=== PATIENT | female | born 1960 | race Hispanic/Latino ===

== ENCOUNTER 2018-12-09 15:26 | Inpatient (IN) | payer MEDICARE ==
[2018-12-09 17:17] LABS: Hematocrit 34.3 % (30.3-42.9); Hemoglobin 11.3 gm/dl (10.1-14.3); Mean Corpuscular HGB Conc 33 % (30-34); Mean Corpuscular Volume 95 fl (79-97); Platelet Count 239 K/mm3 (140-440); Red Cell Distribution Width 14.2 % (13.2-15.2)
[2018-12-09] MEDS ORDERED: levETIRAcetam 1000 MG/NS 0.75% 1,000 MG/100 ML BAG IV ONE (17:28)
[2018-12-09] MEDS ORDERED: ONDANSETRON 4 MG/2 ML INJ IV ONE (17:28)
--- NOTE | 2018-12-09 17:33 | Emergency Department Report ---
HPI - General Chief Complaint: Seizure Time Seen by Provider: 12/09/18 17:18 - HPI HPI: Room 22 The patient is a 57-year-old female presenting with chief complaint of seizure. The patient states she was at the store purchasing water when she reportedly had a seizure. The patient reportedly struck her head during her fall. The patient states she awakened on the ground with EMS present. Patient states she's been compliant with her Keppra. Patient states her last seizure occurred 2 days ago. Location: [See above] Duration: [See above] Quality: [See above] Severity: [See above] Timing: [See above] Context: [See above] Modifying factors: [See above] Associated signs and symptoms: [see above] ED Past Medical Hx - Past Medical History Previous Medical History?: Yes Hx Seizures: Yes - Surgical History Hx Cholecystectomy: Yes Additional Surgical History: Hysterectomy - Family History Family history: no significant - Social History Smoking Status: Never Smoker Substance Use Type: None ED Review of Systems ROS: Stated complaint: SEIZURE Other details as noted in HPI Constitutional: no symptoms reported Eyes: denies: eye pain ENT: denies: throat pain Respiratory: no symptoms reported Cardiovascular: denies: chest pain Endocrine: no symptoms reported Gastrointestinal: nausea Musculoskeletal: denies: back pain Neurological: headache, paresthesias Physical Exam - Physical Exam Vital Signs: Vital Signs 12/09/18 12/09/18 15:40 16:34 Temperature 98.5 F 98.5 F Pulse Rate 64 64 Respiratory 16 16 Rate Blood Pressure 112/36 Blood Pressure 112/36 [Left] O2 Sat by Pulse 96 96 Oximetry Physical Exam: GENERAL: The patient is well-developed well-nourished female lying on stretcher not appearing to be in acute distress. [] HEENT: Normocephalic. Atraumatic. Extraocular motions are intact. Patient has moist mucous membranes. NECK: Supple. Trachea midline CHEST/LUNGS: Clear to auscultation. There is no respiratory distress noted. HEART/CARDIOVASCULAR: Regular. There is no tachycardia. There is no gallop rub or murmur. ABDOMEN: Abdomen is soft, nontender. Patient has normal bowel sounds. There is no abdominal distention. SKIN: There is no rash. There is no edema. There is no diaphoresis. NEURO: The patient is awake, alert, and oriented. The patient is cooperative. The patient has no focal neurologic deficits. The patient has normal speech. Cranial nerves II-12 grossly intact MUSCULOSKELETAL: There is no evidence of acute injury. ED Course Vital Signs 12/09/18 12/09/18 15:40 16:34 Temperature 98.5 F 98.5 F Pulse Rate 64 64 Respiratory 16 16 Rate Blood Pressure 112/36 Blood Pressure 112/36 [Left] O2 Sat by Pulse 96 96 Oximetry - Reevaluation(s) Reevaluation #1: 12/09/18 19:34 The patient's studies were discussed with her. The patient continues to repeat "help me." The patient states she doesn't "feel right." Patient complains of numbness over her entire body states she's never felt this way after her seizures. ED Medical Decision Making - Lab Data Result diagrams: 12/09/18 16:52 12/09/18 16:52 Laboratory Tests 12/09/18 12/09/18 16:52 16:52 WBC 7.8 RBC 3.60 L Hgb 11.3 Hct 34.3 MCV 95 MCH 31 MCHC 33 RDW 14.2 Plt Count 239 Sodium 137 Potassium 4.0 Chloride 99.1 Carbon Dioxide 23 Anion Gap 19 BUN 10 Creatinine 1.1 Estimated GFR 51 BUN/Creatinine Ratio 9 Glucose 91 Calcium 9.1 - Radiology Data Radiology results: report reviewed (CT head, CT cervical spine), image reviewed (CT head, CT cervical spine) [facility] [address] [place] [address] Cat Scan Report Signed with Anuj Patient: PARVEZ SERRANO MR#: [id number] : 1960 Acct:[id number] Age/Sex: 57 / F ADM Date: 12/09/18 Loc: ED Attending Dr: Ordering Physician: SHARON GRACIA MD Date of Service: 12/09/18 Procedure(s): CT head/brain wo con Accession Number(s): [id number] cc: SHARON GRACIA MD ADDENDUM : Dural based calcification is seen more along the tentorium. Signer Name: Charlotte Leija MD Signed: 12/09/2018 7:24 PM Workstation Name: [email or web address] Addendum Transcribed By: JOS Addendum Dictated By: Charlotte Perez MD Addendum Electronically Authenticated By: Charlotte Perez MD Addendum Signed Date/Time: 12/09/181923 DD/ TD/TT: / CT head/brain wo con INDICATION / CLINICAL INFORMATION: 57 years Female; right sided headache after seizure and fall. TECHNIQUE: Routine CT head without contrast. All CT scans at this location are performed using CT dose reduction for ALARA by means of automated exposure control. COMPARISON: None. FINDINGS: BRAIN / INTRACRANIAL CONTENTS: I do not see intracranial sequela from the trauma. I do not see air-fluid level in the visualized portions of the paranasal sinuses. I do not see scalp hematoma. Given the history of seizure, I do not see space taking lesion in the brain. In particular, temporal lobes and frontal lobes are normal. No acute hemorrhage, mass effect, midline shift, hydrocephalus, or acute, large territorial infarct. No chronic infarct or encephalomalacia. Normal brain volume and ventricular size for age. High convexity cortical sulci are slightly prominent. Temporal horn tips are normal. No significant white matter abnormality. CRANIOCERVICAL JUNCTION: No significant abnormality. ORBITS: No significant abnormality of visualized orbits. SINUSES / MASTOIDS: No significant abnormality of the visualized paranasal sinuses or mastoid air cells. ADDITIONAL FINDINGS: None. IMPRESSION: I do not see space taking lesion in the brain or intracranial sequela from the trauma No focal p arenchymal lesion. Signer Name: Charlotte Leija MD Signed: 12/09/2018 7:18 PM Workstation Name: [id number] Transcribed By: BS Dictated By: Charlotte Perez MD Electronically Authenticated By: Charlotte Perez MD Signed Date/Time: 12/09/181917 DD/ 14 TD/TT: [facility] [address] [place] [address] Cat Scan Report Signed Patient: PARVEZ SERRANO MR#: [id number] : 1960 Acct:[id number] Age/Sex: 57 / F ADM Date: 12/09/18 Loc: ED Attending Dr: Ordering Physician: SHARON GRACIA MD Date of Service: 12/09/18 Procedure(s): CT cervical spine wo con Accession Number(s): [id number] cc: SHARON GRACIA MD Exam: CT cervical spine History: right sided headache after seizure and fall; Technique: Contiguous thin cut axial images obtained through the cervical spine. Sagittal and coronal reconstructions performed by the technologist. All CT scans at this location are performed using CT dose reduction for ALARA by means of automated exposure control. Findings: No priors. There is no evidence of fracture or traumatic subluxation. Prevertebral space is normal. In the transverse images, I do not see fracture involving the bony canal. Vertebral bodies are normal in height and alignment. Disc height is narrowed at C5-C6 C6-C7 disc levels. Shallow bony spur is seen at C3-C4 level. Neuroforamina are normal. At C5-C6 disc level, shallow bony spur is seen in the midline. Neuroforamina are normal. No significant degenerative change seen in the uncinate or facet joints. No significant canal stenosis or osseous foraminal narrowing. Surrounding soft tissues are grossly normal. Impression: No signs of acute bony trauma to the cervical spine. I do not see foraminal stenoses Signer Name: Charlotte Leija MD Signed: 12/09/2018 7:23 PM Workstation Name: [id number] Transcribed By: BS Dictated By: Charlotte Perez MD Electronically Authenticated By: Charlotte Perez MD Signed Date/Time: 12/09/181922 DD/ 17 TD/TT: - Differential Diagnosis epilepsy, closed head injury, skull fracture, ICH Critical care attestation.: If time is entered above; I have spent that time in minutes in the direct care of this critically ill patient, excluding procedure time. ED Disposition Clinical Impression: Seizure, Paresthesia Disposition: OP ADMIT IP TO THIS HOSP Is pt being admited?: Yes Does the pt Need Aspirin: No Condition: Fair Time of Disposition: 19:35 (hospitalist paged (Dr Macario))
[2018-12-09 17:35] LABS: Calcium 9.1 mg/dL (8.4-10.2)
[2018-12-09] MEDS ORDERED: BUTALB/ACETAMINOPHEN/CAFFEINE TAB PO ONE (19:13)
--- NOTE | 2018-12-09 19:22 | Cat Scan Report ---
CT head/brain wo con INDICATION / CLINICAL INFORMATION: 57 years Female; right sided headache after seizure and fall. TECHNIQUE: Routine CT head without contrast. All CT scans at this location are performed using CT dos e reduction for ALARA by means of automated exposure control. COMPARISON: None. FINDINGS: BRAIN / INTRACRANIAL CONTENTS: I do not see intracranial sequela from the trauma. I do not see air-fl uid level in the visualized portions of the paranasal sinuses. I do not see scalp hematoma. Given the history of seizure, I do not see space taking lesion in the brain. In particular, temporal lobes and frontal lobes are normal. No acute hemorrhage, mass effect, midline shift, hydrocephalus, or acute, large territorial infarct. No chronic infarct or encephalomalacia. Normal brain volume and ventricular size for age. High conve xity cortical sulci are slightly prominent. Temporal horn tips are normal. No significant white matte r abnormality. CRANIOCERVICAL JUNCTION: No significant abnormality. ORBITS: No significant abnormality of visualized orbits. SINUSES / MASTOIDS: No significant abnormality of the visualized paranasal sinuses or mastoid air luzmaria ls. ADDITIONAL FINDINGS: None. IMPRESSION: I do not see space taking lesion in the brain or intracranial sequela from the trauma No focal parenchymal lesion. Signer Name: Charlotte Leija MD Signed: 12/09/2018 7:18 PM Workstation Name: [id number]
--- NOTE | 2018-12-09 19:27 | Cat Scan Report ---
Exam: CT cervical spine History: right sided headache after seizure and fall; Technique: Contiguous thin cut axial images obtained through the cervical spine. Sagittal and parada l reconstructions performed by the technologist. All CT scans at this location are performed using CT dose reduction for ALARA by means of automated exposure control. Findings: No priors. There is no evidence of fracture or traumatic subluxation. Prevertebral space is normal. In the trans verse images, I do not see fracture involving the bony canal. Vertebral bodies are normal in height and alignment. Disc height is narrowed at C5-C6 C6-C7 disc levels. Shallow bony spur is seen at C3-C4 level. Neuroforamina are normal. At C5-C6 disc level, shallow bony spur is seen in the midline. Neuroforamina are normal. No significant degenerative change seen in the uncinate or facet joints. No significant canal stenosi s or osseous foraminal narrowing. Surrounding soft tissues are grossly normal. Impression: No signs of acute bony trauma to the cervical spine. I do not see foraminal stenoses Signer Name: Charlotte Leija MD Signed: 12/09/2018 7:23 PM Workstation Name: [id number]
[2018-12-10] MEDS ORDERED: ACETAMINOPHEN 325 MG TAB PO PRN ×2 (01:20→08:04)
[2018-12-10] MEDS: oxyCODONE /ACETAMINOPHEN 5-325MG TAB PO PRN ×3 (01:38→16:08)
--- NOTE | 2018-12-10 07:55 | Event Note ---
Date: 12/09/18 See H/p in reports AMS Post Seixure disorder Admit for observation
[2018-12-10] MEDS ORDERED: diphenhydrAMINE 50 MG CAP PO PRN (07:59)
[2018-12-10] MEDS ORDERED: HYDROmorphone 1 MG/1 ML INJ IV PRN (08:04)
[2018-12-10] MEDS ORDERED: ONDANSETRON 4 MG/2 ML INJ IV PRN (08:04)
--- NOTE | 2018-12-10 08:58 | History and Physical Report ---
CHIEF COMPLAINT: Seizures while at the grocery store. HISTORY OF PRESENT ILLNESS: A 57-year-old female who presents to the Emergency Room for seizures. The patient was purchasing water at a store and had a seizure. The patient had a fall and then struck her head against the floor. EMS was called. The patient was brought in altered sensorium. The patient had a seizure 2 days ago also. The patient's family says that she is compliant with her Keppra. PAST MEDICAL HISTORY: Seizure disorder. PAST SURGICAL HISTORY: Hysterectomy. FAMILY HISTORY: No significant family history. SOCIAL HISTORY: Does not smoke. REVIEW OF SYSTEMS: Significant for seizures and confusion following the seizures. The patient was kept in the ER for 3-4 hours with no improvement in her confused state. Review of systems was otherwise negative. PHYSICAL EXAMINATION: GENERAL: Young elderly female, cooperative during examination. VITAL SIGNS: Blood pressure is 117/45, temperature is 97.3, pulse is 56, respirations are 14, sats are 96%. HEENT: Unremarkable. Pupils equal and reactive. NECK: Supple, no lymphadenopathy, no thyromegaly. LUNGS: Clear to auscultation and percussion. Good air entry. CARDIOVASCULAR: S1, S2 heard. No gallop, no murmur, no rub. Apical impulse in left mid clavicular space in the fifth intercostal space. ABDOMEN: Soft and benign. No hepatosplenomegaly. No guarding, no rigidity. Hernial orifices are normal. EXTREMITIES: Good pedal pulses. No pedal edema. CENTRAL NERVOUS SYSTEM: Alert, but lethargic. Able to move all 4 extremities. Nonfocal exam. SKIN: Normal. LABORATORY DATA: Normal. CBC and BMP are normal. Head CT was done, which showed no space taking lesion in the brain or intracranial sequelae from the trauma. CT C-spine, no signs of acute bony lesion to the cervical spine. No foraminal stenosis. ASSESSMENT AND PLAN: 1. Acute encephalopathy secondary to seizures. We will admit for observation. Should resolve in the next 12-16 hours. The patient's Keppra to be increased. 2. Seizure disorder. Increase Keppra to 1000 mg q. 12 and bridge to 1000 mg p.o. q. 12. Continue Lamictal 25 mg once a day. 3. Deep venous thrombosis prophylaxis, Lovenox 40 mg subcutaneous daily. Admission is for 23 hours. 4. Hyperlipidemia. Continue atorvastatin. 5. Depression. Continue Lexapro. 6. Anemia. Continue ferrous sulfate. 7. Gastroesophageal reflux disease. Continue omeprazole. JOB# [id number] VSM/NTS MTDD
[2018-12-10] MEDS ORDERED: SODIUM CHLORIDE 0.9% 1000 ML 1,000 ML IV SCH (09:00)
[2018-12-10] MEDS: PANTOPRAZOLE 20 MG TAB PO SCH ×2 (09:35→21:15)
[2018-12-10] MEDS: levETIRAcetam 500 MG TAB PO SCH ×2 (09:35→21:14)
[2018-12-10] MEDS: ESCITALOPRAM 10 MG TAB PO SCH (09:35)
[2018-12-10] MEDS ORDERED: NON-FORMULARY EACH (Omeprazole [Omeprazole] 20 MG) PO SCH (10:00)
[2018-12-10] MEDS ORDERED: FAMOTIDINE 20 MG TAB PO SCH (10:00)
--- NOTE | 2018-12-10 10:36 | Progress Note ---
Assessment and Plan - Patient Problems (1) Seizure Current Visit: Yes Status: Acute Plan to address problem: Patient with uncontrolled seizure disorder. Has been stabilized with Ativan increasing Keppra and addition of Lamictal. Patient still somewhat postictal. She has gone from having seizures once a month or once every other month. 2 once every other day and this is one the reasons for admission on his last seizure. No seizure since treatment has been initiated. Will await in consultation for neurology. History Interval history: Patient is a 7-year-old with a history of seizure disorder presents with 3 seizures [id number]. Uncontrolled seizures. Patient placed on Ativan IV Keppra increased to 1000 twice a day and also placed on Lamictal. Patient has not had a seizure since last night. She does complain of headache, dizziness, fatigue, symptoms of post ictal state. Hospitalist Physical - Constitutional Vitals: Temp Pulse Resp BP Pulse Ox 98.8 F 51 L 18 148/77 97 12/10/18 05:24 12/10/18 05:24 12/10/18 05:24 12/10/18 05:24 12/10/18 05:24 General appearance: Present: no acute distress - EENT Eyes: Present: PERRL, EOM intact ENT: hearing intact, clear oral mucosa, dentition normal - Neck Neck: Present: supple, normal ROM - Respiratory Respiratory effort: normal Respiratory: bilateral: CTA - Cardiovascular Rhythm: regular - Extremities Extremities: no ischemia Peripheral Pulses: within normal limits - Abdominal General gastrointestinal: soft, non-tender, non-distended, normal bowel sounds - Integumentary Integumentary: Present: clear. Absent: jaundice, rash, clammy - Psychiatric Psychiatric: appropriate mood/affect, intact judgment & insight - Neurologic Neurologic: CNII-XII intact, moves all extremities Results - Labs CBC & Chem 7: 12/09/18 16:52 12/09/18 16:52 Labs: Laboratory Last Values WBC 7.8 K/mm3 (4.5-11.0) 12/09/18 16:52 RBC 3.60 M/mm3 (3.65-5.03) L 12/09/18 16:52 Hgb 11.3 gm/dl (10.1-14.3) 12/09/18 16:52 Hct 34.3 % (30.3-42.9) 12/09/18 16:52 MCV 95 fl (79-97) 12/09/18 16:52 MCH 31 pg (28-32) 12/09/18 16:52 MCHC 33 % (30-34) 12/09/18 16:52 RDW 14.2 % (13.2-15.2) 12/09/18 16:52 Plt Count 239 K/mm3 (140-440) 12/09/18 16:52 Sodium 137 mmol/L (137-145) 12/09/18 16:52 Potassium 4.0 mmol/L (3.6-5.0) 12/09/18 16:52 Chloride 99.1 mmol/L (98-107) 12/09/18 16:52 Carbon Dioxide 23 mmol/L (22-30) 12/09/18 16:52 19 mmol/L 12/09/18 16:52 BUN 10 mg/dL (7-17) 12/09/18 16:52 1.1 mg/dL (0.7-1.2) 12/09/18 16:52 Estimated GFR 51 ml/min 12/09/18 16:52 9 % 12/09/18 16:52 Glucose 91 mg/dL (65-100) 12/09/18 16:52 Calcium 9.1 mg/dL (8.4-10.2) 12/09/18 16:52 - Imaging and Cardiology CT Scan - head: image reviewed Active Medications - Current Medications Current Medications: Generic Name Dose Route Start Last Admin Trade Name Freq PRN Reason Stop Dose Admin Acetaminophen 650 mg 12/10/18 08:04 Tylenol PO Q4H PRN Pain MILD(1-3)/Fever >100.5/READ Atorvastatin Calcium 20 mg 12/10/18 22:00 Lipitor PO QHS BRIANNE Diphenhydramine HCl 50 mg 12/10/18 07:59 Benadryl PO QHS PRN Allergy Symptoms Escitalopram Oxalate 10 mg 12/10/18 10:00 12/10/18 09:35 Lexapro PO 10 mg DAILY BRINANE Administration Ferrous Sulfate 325 mg 12/10/18 11:30 Feosol PO AC BRIANNE Hydromorphone HCl 0.5 mg 12/10/18 08:04 Dilaudid IV Q3H PRN Pain , Severe (7-10) Sodium Chloride 1,000 mls @ 100 mls/hr 12/10/18 09:00 Nacl 0.9% 1000 Ml IV DIRECT BRIANNE Lamotrigine 25 mg 12/10/18 10:00 Lamictal PO QDAY BRIANEN Levetiracetam 1,000 mg 12/10/18 09:00 12/10/18 09:35 Keppra PO 1,000 mg Q12HR BRIANNE Administration Lorazepam 0.5 mg 12/10/18 22:00 Ativan PO QHS BRIANNE Ondansetron HCl 4 mg 12/10/18 08:04 Zofran IV Q8H PRN Nausea And Vomiting Oxycodone/Acetaminophen 1 tab 12/10/18 01:21 12/10/18 09:40 Percocet 5/325 PO 1 tab Q6H PRN Administration Pain, Moderate (4-6) Pantoprazole Sodium 20 mg 12/10/18 10:00 12/10/18 09:35 Protonix PO 20 mg BID BRIANNE Administration Sodium Chloride 10 ml 12/10/18 10:00 12/10/18 09:35 Sodium Chloride Flush Syringe 10 Ml IV 10 ml BID BRIANNE Administration Sodium Chloride 10 ml 12/10/18 08:04 Sodium Chloride Flush Syringe 10 Ml IV PRN PRN LINE FLUSH
[2018-12-10 10:54] LABS: Basophils % (Auto) 0.5 % (0.0-1.8); Eosinophils # (Auto) 0.1 K/mm3 (0.0-0.4); Hemoglobin 11.7 gm/dl (10.1-14.3); Lymphocytes # (Auto) 2.1 K/mm3 (1.2-5.4); Lymphocytes % (Auto) 52.2 % (13.4-35.0); Mean Corpuscular HGB Conc 33 % (30-34); Mean Corpuscular Volume 96 fl (79-97); Monocytes # (Auto) 0.4 K/mm3 (0.0-0.8); Monocytes % (Auto) 8.9 % (0.0-7.3); Platelet Count 216 K/mm3 (140-440); Red Blood Count 3.64 M/mm3 (3.65-5.03); Red Cell Distribution Width 14.7 % (13.2-15.2)
[2018-12-10 11:16] LABS: Alanine Aminotransferase 14 units/L (7-56); Albumin 3.9 g/dL (3.9-5); BUN/Creatinine Ratio 9; Blood Urea Nitrogen 8 mg/dL (7-17); Calcium 8.7 mg/dL (8.4-10.2); Hemolysis Index 28
[2018-12-10] MEDS: lamoTRIgine 25 MG TAB PO SCH (11:28)
[2018-12-10] MEDS: FERROUS SULFATE 325 MG TAB PO SCH ×2 (13:40→17:18)
--- NOTE | 2018-12-10 17:00 | Consultation ---
History of Present Illness Consult date: 12/10/18 Reason for Consult: Seizure Chief complaint: Seizure History of present illness: Patient is a 57-year-old woman with a history of seizures, hyperlipidemia, depression, GERD. She presented yesterday as she was found to been having a seizure. The patient reportedly fell during the seizure and hit her head. She is uncertain of how long she lost consciousness, however notes that she was confused when she began to wake up. She denies loss of bowel or bladder control during the episode, and no tongue biting. Patient reports that she's been having these episodes for approximately one year, and was started on Keppra 500 mg once a day by her PCP. She states that she's been compliant with 500 mg dose once daily of Keppra. She denies having seen a neurologist in the past. Patient also complains of right sided numbness and weakness since the episode yesterday. She states that over the past year, she has had several seizures, and is continuing to have seizures regardless of being on Keppra. Of note, the patient was not properly dosed on Keppra, as is intended to be given 500 mg twice a day. She states that with previous episodes in the past, she has had loss of bowel and bladder control as well as lipid biting. She also states that she's had 5 seizure-like episodes over the past week. Past History Past Medical History: other (history of seizures, hyperlipidemia, depression, GERD) Social history: no significant social history, lives with family Family history: no significant family history Medications and Allergies Allergies Allergy/AdvReac Type Severity Reaction Status Date / Time Penicillins Allergy Unknown Verified 12/09/18 16:35 Home Medications Medication Instructions Recorded Confirmed Last Taken Type Atorvastatin 20 mg PO HS 12/09/18 12/09/18 Unknown History Escitalopram [Lexapro] 10 mg PO DAILY 12/09/18 12/09/18 Unknown History Ferrous Sulfate [Iron 325 MG] 325 mg PO AC 12/09/18 12/09/18 Unknown History LORazepam [Ativan] 0.5 mg PO QHS 12/09/18 12/09/18 Unknown History Omeprazole 20 mg PO BID 12/09/18 12/09/18 Unknown History diphenhydrAMINE [Benadryl CAP] 50 mg PO QHS PRN 12/09/18 12/09/18 Unknown History lamoTRIgine [LaMICtal] 25 mg PO QDAY 12/09/18 12/09/18 Unknown History Active Meds: Active Medications Acetaminophen (Tylenol) 650 mg PO Q4H PRN PRN Reason: Pain MILD(1-3)/Fever >100.5/READ Atorvastatin Calcium (Lipitor) 20 mg PO QHS [facility] Diphenhydramine HCl (Benadryl) 50 mg PO QHS PRN PRN Reason: Allergy Symptoms Escitalopram Oxalate (Lexapro) 10 mg PO DAILY [facility] Last Admin: 12/10/18 09:35 Dose: 10 mg Documented by: Ferrous Sulfate (Feosol) 325 mg PO AC [facility] Last Admin: 12/10/18 13:40 Dose: 325 mg Documented by: Hydromorphone HCl (Dilaudid) 0.5 mg IV Q3H PRN PRN Reason: Pain , Severe (7-10) Sodium Chloride (Nacl 0.9% 1000 Ml) 1,000 mls @ 100 mls/hr IV DIRECT [facility] Lamotrigine (Lamictal) 25 mg PO QDAY [facility] Last Admin: 12/10/18 11:28 Dose: 25 mg Documented by: Levetiracetam (Keppra) 1,000 mg PO Q12HR [facility] Last Admin: 12/10/18 09:35 Dose: 1,000 mg Documented by: Lorazepam (Ativan) 0.5 mg PO QHS [facility] Ondansetron HCl (Zofran) 4 mg IV Q8H PRN PRN Reason: Nausea And Vomiting Oxycodone/Acetaminophen (Percocet 5/325) 1 tab PO Q6H PRN PRN Reason: Pain, Moderate (4-6) Last Admin: 12/10/18 16:08 Dose: 1 tab Documented by: Pantoprazole Sodium (Protonix) 20 mg PO BID [facility] Last Admin: 12/10/18 09:35 Dose: 20 mg Documented by: Sodium Chloride (Sodium Chloride Flush Syringe 10 Ml) 10 ml IV BID [facility] Last Admin: 12/10/18 09:35 Dose: 10 ml Documented by: Sodium Chloride (Sodium Chloride Flush Syringe 10 Ml) 10 ml IV PRN PRN PRN Reason: LINE FLUSH Review of Systems All systems: negative Neurological: weakness, parathesias, seizures Physical Examination - Vital Signs Vital Signs: Vital Signs Temp Pulse Resp BP Pulse Ox 98.5 F 64 16 112/36 96 12/09/18 15:40 12/09/18 15:40 12/09/18 15:40 12/09/18 15:40 12/09/18 15:40 - Physical Exam Narrative exam: Patient is alert, awake, oriented 2, minus year, month. Follows complex commands. PERRL, EOMI, visual wilcox full, no facial weakness noted, tongue midline, decreased sensations to light touch on the right. 5/5 strength in left upper and lower extremities, 4/5 strength in right upper and lower extremities. Decreased sensations to the right upper and lower extremities to light touch. 2+ reflexes throughout. Bilaterally intact to [id number]-[id number] and [id number]. No dysarthria or aphasia noted. - Constitutional General appearance: comfortable - EENT EENT: Present: ATNC, PERRL, mucous membranes moist, hearing intact, vision intact - Respiratory Respiratory: Present: lungs clear, normal breath sounds - Cardiovascular Cardiovascular: Present: regular rate, normal S1, normal S2 Extremities: Present: no peripheral edema bilatateraly, no clubbing, cyanosis - Gastrointestinal Gastrointestinal: Present: normoactive bowel sounds, soft, non-tender - Integumentary Integumentary: Present: normal - Musculoskeletal Musculoskeletal: Present: no fluid collection - Psychiatric Psychiatric: Present: mood/affect appropriate - Level of Consciousness 1a. Level of Consciousness: alert/keenly responsive - LOC Questions 1b. LOC Questions: answers 1 question correctly - LOC Command 1c. LOC Commands: performs tasks correctly - Best Gaze 2. Best Gaze: normal - Visual 3. Visual: no visual loss - Facial Palsy 4. Facial Palsy: normal symmetrical movement - Motor Arm 5a. Motor Arm Left: no drift 5b. Motor Arm Right: no drift - Motor Leg 6a. Motor Leg Left: no drift 6b. Motor Leg Right: no drift - Limb Ataxia 7. Limb Ataxia: absent - Sensory 8. Sensory: mild/moderate sensory loss - Best Language 9. Best Language: no aphasia - Dysarthria 10. Dysarthria: normal - Extinction and Inattention 11. Extinction/Inattention: no abnormality - Scoring Total Score: 2 Stroke Severity: Minor Stroke Results - Laboratory Findings CBC and BMP: 12/10/18 10:07 12/10/18 10:07 Abnormal Lab Findings: Abnormal Labs 12/09/18 12/10/18 12/10/18 16:52 10:07 10:07 WBC 4.0 L RBC 3.60 L 3.64 L Lymph % (Auto) 52.2 H Banner % (Auto) 8.9 H Seg Neutrophils % 36.4 L Seg Neutrophils # 1.4 L Total Protein 6.2 L Assessment and Plan Patient is a 57-year-old woman with a history of seizures, hyperlipidemia, depression, GERD, who p/w seizures. According the patient's clinical findings, it is possible that the patient has been having seizures. Additionally, the patient is noted to have right-sided weakness in upper and lower extremity, as well as decreased sensations on the right face, and upper and lower extremities. This raises suspicion of possible stroke. Plan: 1. Possible stroke: - Check MRI brain - Check MRA head/neck - start ASA 81mg daily - Cont. statin - Check echo - Telemetry monitoring while in house - PT/OT/ST - DVT Ppx: recommend lovenox - Blood pressure: recommend Bp target <220/120 for next 24 hours, to allow for permissive HTN. Can target normotension after that. 2. Seizure: - Patient was previously taking incorrect dose of Keppra, as she was taking only 500 mg once a day. Ideally, starting dose of Keppra 500 mg twice a day. - We will increase dose to 1000 mg twice a day, as patient continues to have seizures. - Check urinalysis, and urine drug screen. - Check EEG. - We'll sign off, as I will not be covering neurology service over the weekend. Recommend for neurologist who is covering the weekend and next week to be consulted for further neurologic management/monitoring. Thank you for allowing me to take part in the care of this patient. Artemio Gabriel MD Neurology
[2018-12-10] MEDS ORDERED: LORazepam 2 MG/ML VIAL IV PRN (17:34)
[2018-12-10] MEDS: LORazepam 0.5 MG TAB PO SCH (21:15)
[2018-12-10] MEDS ORDERED: NON-FORMULARY EACH (Atorvastatin 20 MG) PO SCH (22:00)
[2018-12-10] MEDS ORDERED: SODIUM CHLORIDE 0.9% 500 ML 500 ML IV ONE (23:25)
[2018-12-10] MEDS ORDERED: SODIUM CHLORIDE 0.9% 500 ML 500 ML ONE (23:30)
[2018-12-11 05:17] LABS: Bacteria,Urine 1+ /HPF (Negative); Bilirubin,Urine NEG (Negative); Blood,Urine NEG (Negative); Color,Urine Yellow (Yellow); Hyaline Casts,Urine 3 /LPF; Mucus,Urine FEW /HPF; Protein,Urine <15 mg/dL mg/dL (Negative); Urobilinogen,Urine < 2.0 mg/dL (<2.0)
[2018-12-11 05:20] LABS: Amphetamine Screen,Urine PRESUMPTIVE NEGATIVE; Benzodiazepines Screen,Urine PRESUMPTIVE NEGATIVE; Cannabinoid Screen,Urine PRESUMPTIVE NEGATIVE; Cocaine Screen,Urine PRESUMPTIVE NEGATIVE; Methadone Screen,Urine PRESUMPTIVE NEGATIVE; Opiate Screen,Urine PRESUMPTIVE NEGATIVE
[2018-12-11 05:47] LABS: BUN/Creatinine Ratio 17; Blood Urea Nitrogen 15 mg/dL (7-17); Calcium 8.6 mg/dL (8.4-10.2); Chol/HDL Ratio 2.97 %; HDL Cholesterol 44 mg/dL (40-59); Hemolysis Index 2; LDL Cholesterol,Direct 76 mg/dL (50-130)
[2018-12-11] MEDS: FERROUS SULFATE 325 MG TAB PO SCH ×3 (08:00→17:28)
[2018-12-11] MEDS: ESCITALOPRAM 10 MG TAB PO SCH (11:35)
[2018-12-11] MEDS: ASPIRIN EC 81 MG TAB PO SCH (11:35)
[2018-12-11] MEDS: oxyCODONE /ACETAMINOPHEN 5-325MG TAB PO PRN ×2 (11:35→20:59)
[2018-12-11] MEDS: levETIRAcetam 500 MG TAB PO SCH ×2 (11:35→21:05)
[2018-12-11] MEDS: PANTOPRAZOLE 20 MG TAB PO SCH ×2 (11:35→21:05)
[2018-12-11] MEDS: lamoTRIgine 25 MG TAB PO SCH (11:36)
--- NOTE | 2018-12-11 13:05 | Discharge Summary ---
Providers - Providers Date of Admission: 12/09/18 19:50 Date of discharge: 12/11/18 Attending physician: ERNIE MCKEON 12/10/18 08:04 Consult to Physician [CONS] Routine Comment: Consulting Provider: DENG INGRAM Physician Instructions: Reason For Exam: seizure disorder 12/10/18 17:23 Occupational Therapy Evaluate and Treat [CONS] Routine Comment: Reason For Exam: Neuro deficits Physical Therapy Evaluation and Treat [CONS] Routine Comment: Reason For Exam: Neuro deficits Speech Therapy Evaluation and Treat [CONS] Routine Reason For Exam: swallow eval Primary care physician: WIRE SAWYER Hospitalization Condition: Fair Pertinent studies: Head CT unremarkable MRI Hospital course: Patient presented after having uncontrollable seizures. Etiology was unclear. Patient had been having one seizure per month and now have a seizure back to back. Patient was also postictal now patient is alert oriented feels better. Feels back to herself. It was noted the patient's seizure medications or ascribed incorrectly. Now the patient is taking Keppra 1000 mg twice a day and Lipitor Lamictal 25 twice a day patient has done well. We'll continue stroke workup because it began prior to patient improving. Not a patient improved it's probably not as important however MRIs are to be done will complete prior to discharge. Disposition: DC- TO HOME OR SELFCARE - Discharge Diagnoses (1) Seizure Status: Acute Comment: 10 units patient on Keppra 1000 mg twice a day. Follow with cardiology in [place]. Core Measure Documentation - Palliative Care Palliative Care/ Comfort Measures: Not Applicable - Core Measures Any of the following diagnoses?: none Exam - Constitutional Vitals: Temp Pulse Resp BP Pulse Ox 97.4 F L 60 20 104/52 97 12/11/18 11:29 12/11/18 11:29 12/11/18 11:29 12/11/18 11:29 12/11/18 11:29 General appearance: Present: no acute distress, well-nourished - EENT Eyes: Present: PERRL ENT: hearing intact, clear oral mucosa - Neck Neck: Present: supple, normal ROM - Respiratory Respiratory effort: normal Respiratory: bilateral: CTA - Cardiovascular Heart Sounds: Present: S1 & S2. Absent: rub, click - Extremities Extremities: pulses symmetrical, No edema Peripheral Pulses: within normal limits - Abdominal General gastrointestinal: Present: soft, non-tender, non-distended, normal bowel sounds Female genitourinary: Present: normal - Integumentary Integumentary: Present: clear, warm, dry - Musculoskeletal Musculoskeletal: gait normal, strength equal bilaterally - Psychiatric Psychiatric: appropriate mood/affect, intact judgment & insight - Neurologic Neurologic: CNII-XII intact, moves all extremities Plan Activity: fall precautions, other (no driving untioll cleaered by neurology) Weight Bearing Status: Full Weight Bearing Diet: regular Follow up with: PRIMARY CARE, [Primary Care Provider] - 7 Days Prescriptions: LORazepam [Ativan] 0.5 mg PO QHS #30 tablet levETIRAcetam [Keppra TAB] 1,000 mg PO Q12HR #60 tablet lamoTRIgine [LaMICtal] 25 mg PO QDAY #30 tablet AtorvaSTATin [Lipitor] 20 mg PO QHS #30 tablet
--- NOTE | 2018-12-11 13:48 | Magnetic Resonance Report ---
MRI BRAIN WITHOUT and with intravenous CONTRAST INDICATION / CLINICAL INFORMATION: cva ams. History of recent seizure resulting in patient fall with head injury. TECHNIQUE: Multiplanar, multisequence MR images of the brain were obtained. COMPARISON: Head CT 12/09/2018 FINDINGS: BRAIN / INTRACRANIAL CONTENTS: Ventricles and cortical sulci are normal in size and configuration. Th ere is no mass effect. No evidence of intracranial hemorrhage or extra-axial fluid collection is seen . No areas of abnormal brain parenchymal signal intensity are identified. There is no indication of r emote cortical infarction. Diffusion weighted scans are negative. There is no indication of acute isc hemic injury. Incidental note is made of a prominent dural calcification involving the lateral aspect of the left t entorium. Extensive calcification of the falx is also observed. Similar findings were present on rec ent head CT without contrast. The brainstem and cerebellum have an unremarkable appearance. CRANIOCERVICAL JUNCTION: No abnormalities are identified at the craniocervical junction. VASCULAR FLOW-VOIDS: Normal flow-voids are present within the major intracranial vessels. Following administration of intravenous contrast material there is enhancement of normal vascular str uctures. No areas of abnormal contrast enhancement are identified. ORBITS: Patient is status post bilateral cataract surgery. The orbits have an otherwise unremarkable appearance. SINUSES / MASTOIDS: There is no indication of inflammatory disease in the paranasal sinuses or mastoi d air cells. IMPRESSION: 1. No significant abnormalities are identified on MRI brain without and with contrast. Contrast dose report: MultiHance, dose not provided. Signer Name: Yordy Caruso MD Signed: 12/11/2018 1:44 PM Workstation Name: [id number]
--- NOTE | 2018-12-11 13:52 | Magnetic Resonance Report ---
MRA HEAD WITHOUT CONTRAST HISTORY: Rib or vascular accident. COMPARISON: none TECHNIQUE: Routine MRA of the head performed. 3-D/MIP reformats postprocessed. CONTRAST: none FINDINGS: MRA HEAD: OVERVIEW: There is no evidence of intracranial stenosis or large vessel occlusion. There is no eviden ce of aneurysm or other vascular malformation. Intracranial vertebral arteries: No significant abnormality. Basilar artery: No significant abnormality. Posterior cerebral arteries: The posterior cerebral arteries arise from the internal carotid arteries bilaterally. Intracranial internal carotid arteries: No significant abnormality. Anterior cerebral arteries: No significant abnormality. Middle cerebral arteries: No significant abnormality. IMPRESSION: 1. No significant abnormality on MRA head. Signer Name: Yordy Caruso MD Signed: 12/11/2018 1:48 PM Workstation Name: [id number]
[2018-12-11] MEDS: LORazepam 0.5 MG TAB PO SCH ×2 (21:05→21:10)
[2018-12-11] MEDS ORDERED: FLEET ENEMA PR ONE (22:13)
[2018-12-12] MEDS ORDERED: SODIUM CHLORIDE 0.9% 500 ML 500 ML IV ONE (00:02)
[2018-12-12] MEDS: ESCITALOPRAM 10 MG TAB PO SCH (09:38)
[2018-12-12] MEDS: FERROUS SULFATE 325 MG TAB PO SCH ×2 (09:38→13:18)
[2018-12-12] MEDS: levETIRAcetam 500 MG TAB PO SCH (09:38)
[2018-12-12] MEDS: PANTOPRAZOLE 20 MG TAB PO SCH (09:39)
[2018-12-12] MEDS: lamoTRIgine 25 MG TAB PO SCH (09:39)
[2018-12-12] MEDS: ASPIRIN EC 81 MG TAB PO SCH (09:44)
--- NOTE | 2018-12-12 13:58 | Discharge Summary ---
Providers - Providers Date of Admission: 12/09/18 19:50 Date of discharge: 12/12/18 Attending physician: ERNIE MCKEON 12/10/18 08:04 Consult to Physician [CONS] Routine Comment: Consulting Provider: DENG INGRAM Physician Instructions: Reason For Exam: seizure disorder 12/10/18 17:23 Occupational Therapy Evaluate and Treat [CONS] Routine Comment: Reason For Exam: Neuro deficits Physical Therapy Evaluation and Treat [CONS] Routine Comment: Reason For Exam: Neuro deficits Speech Therapy Evaluation and Treat [CONS] Routine Reason For Exam: swallow eval Primary care physician: LEVI MAKER Hospitalization Condition: Fair Hospital course: Patient presented with possible seizure disorder. Head suboptimal treatment prior to this of a seizure secondary to inappropriate dosage of medications. Patient meds have been changed to appropriate dosage and has not had a seizure since that time. Patient may go was here yesterday for. Weakness. Patient did not have any new or acute weakness. Physical therapy evaluation found patient stable to go home with a walker. In-home PT will set that up. The walker would be there Thursday. Patient stays in assisted living facility. Stable to go back. She did mention that she would like outside neurologist. We'll give Dr. Hendrix for neurology. Disposition: DC-01 TO HOME OR SELFCARE - Discharge Diagnoses (1) Seizure Status: Acute Comment: 10 units patient on Keppra 1000 mg twice a day. Follow with cardiology in [place]. Core Measure Documentation - Palliative Care Palliative Care/ Comfort Measures: Not Applicable - Core Measures Any of the following diagnoses?: none Exam - Constitutional Vitals: Temp Pulse Resp BP Pulse Ox 98.2 F 59 L 20 117/60 96 12/12/18 04:39 12/12/18 04:39 12/12/18 04:39 12/12/18 04:39 12/12/18 04:39 General appearance: Present: no acute distress, well-nourished - EENT Eyes: Present: PERRL ENT: hearing intact, clear oral mucosa - Neck Neck: Present: supple, normal ROM - Respiratory Respiratory effort: normal Respiratory: bilateral: CTA - Cardiovascular Heart Sounds: Present: S1 & S2. Absent: rub, click - Extremities Extremities: pulses symmetrical, No edema Peripheral Pulses: within normal limits - Abdominal General gastrointestinal: Present: soft, non-tender, non-distended, normal bowel sounds Female genitourinary: Present: normal - Integumentary Integumentary: Present: clear, warm, dry - Musculoskeletal Musculoskeletal: gait normal, strength equal bilaterally - Psychiatric Psychiatric: appropriate mood/affect, intact judgment & insight - Neurologic Neurologic: CNII-XII intact, moves all extremities, other (poor cognition) Plan Activity: up only with assistance, fall precautions Weight Bearing Status: Full Weight Bearing Special Instructions: physical therapy, other (walker) Durable Medical Equipment Needed Upon Discharge: Walker-Standard Follow up with: PRIMARY CARE,MD [Primary Care Provider] - 7 Days Prescriptions: LORazepam [Ativan] 0.5 mg PO QHS #30 tablet levETIRAcetam [Keppra TAB] 1,000 mg PO Q12HR #60 tablet lamoTRIgine [LaMICtal] 25 mg PO QDAY #30 tablet AtorvaSTATin [Lipitor] 20 mg PO QHS #30 tablet
[2018-12-12 18:20] VITALS: BP 103/54
== END 2018-12-12 18:52 | disposition home or self-care (01) | DRG 101 ==
LOC: ED 15:26 → 3A 19:50
PROVIDERS: ADMIT Internal Medicine; ATTEND Internal Medicine
DX: G40.909 Epilepsy, unspecified, not intractable, without status epilepticus (principal); E78.5 Hyperlipidemia, unspecified; F32.9 Major depressive disorder, single episode, unspecified; D64.9 Anemia, unspecified; K21.9 Gastro-esophageal reflux disease without esophagitis; W18.39XA Other fall on same level, initial encounter; Y93.89 Activity, other specified; Y92.512 Supermarket, store or market as the place of occurrence of the external cause; Y99.8 Other external cause status; Z90.710 Acquired absence of both cervix and uterus; Z90.49 Acquired absence of other specified parts of digestive tract
CPT/HCPCS: 36415; 70450; 70544; 70553; 72125; 80048; 80053; 80061; 80307; 81001; 83036; 85025; 85027; 87086; 93005; 93010; 93306; 96360; G0378; A9270-GY; A9577; J1953; J2405; J7030; J7040

== ENCOUNTER 2019-07-05 17:08 | Emergency (ER) | payer MEDICARE ==
[2019-07-05] MEDS ORDERED: levETIRAcetam 1000 MG/NS 0.75% 1,000 MG/100 ML BAG IV ONE (18:19)
[2019-07-05] MEDS ORDERED: ONDANSETRON 4 MG/2 ML INJ IV ONE (18:22)
[2019-07-05 19:15] LABS: Hematocrit 32.9 % (30.3-42.9); Hemoglobin 11.6 gm/dl (10.1-14.3); Mean Corpuscular HGB Conc 35 % (30-34); Mean Corpuscular Volume 96 fl (79-97); Platelet Count 224 K/mm3 (140-440); Red Blood Count 3.45 M/mm3 (3.65-5.03); Red Cell Distribution Width 14.2 % (13.2-15.2)
[2019-07-05 19:18] LABS: Lymphocytes % (Auto) 29.2 % (13.4-35.0)
[2019-07-05 19:19] LABS: Basophils # (Auto) 0.1 K/mm3 (0.0-0.1); Basophils % (Auto) 1.2 % (0.0-1.8); Eosinophils # (Auto) 0.1 K/mm3 (0.0-0.4); Eosinophils % (Auto) 2.7 % (0.0-4.3); Lymphocytes # (Auto) 1.3 K/mm3 (1.2-5.4); Monocytes # (Auto) 0.2 K/mm3 (0.0-0.8); Monocytes % (Auto) 5.3 % (0.0-7.3)
[2019-07-05 19:33] LABS: Calcium 9.5 mg/dL (8.4-10.2)
--- NOTE | 2019-07-05 19:58 | Emergency Department Report ---
ED Seizure HPI - General Chief Complaint: Seizure Stated Complaint: SEIZURE Time Seen by Provider: 07/05/19 18:19 Source: patient Mode of arrival: Stretcher Limitations: No Limitations - History of Present Illness Initial Comments: Patient is a 58-year-old female who is presenting with seizure. Patient has a history of seizure disorder and was on Keppra also has had several visits for pseudoseizures as well. Patient states she had 3 seizures today. She states she is compliant with her medications. Paramedics state that in route she was having a seizure and they gave her Versed prior to arrival. Patient had only questionable postictal phase. Patient states she remembers the 2 seizures she had at home. She denies any fevers chills cough cold congestion. - Related Data Home Medications Medication Instructions Recorded Confirmed Last Taken Escitalopram [Lexapro] 20 mg PO DAILY 12/09/18 03/23/19 Unknown Ferrous Sulfate [Iron 325 MG] 325 mg PO AC 12/09/18 03/23/19 Unknown Omeprazole 20 mg PO BID 12/09/18 03/23/19 Unknown AtorvaSTATin [Lipitor] 40 mg PO QHS 03/23/19 03/23/19 Unknown Colace CAP 1 tab PO BID 03/23/19 03/23/19 Unknown Melatonin 10 mg PO HS 03/23/19 03/23/19 Unknown OLANZapine 15 mg PO BID 03/23/19 03/23/19 Unknown Senna 1 tab PO HS 03/23/19 03/23/19 Unknown Topiramate 100 mg PO QDAY 03/23/19 03/23/19 Unknown Zofran 4 mg PO BID 03/23/19 03/23/19 Unknown diphenhydrAMINE 50 mg PO HS 03/23/19 03/23/19 Unknown lamoTRIgine [LaMICtal] 25 mg PO BID 03/23/19 03/23/19 Unknown Previous Rx's Medication Instructions Recorded Last Taken Type LORazepam [Ativan] 0.5 mg PO QHS #30 tablet 12/11/18 Unknown Rx levETIRAcetam [Keppra TAB] 1,000 mg PO Q12HR #60 tablet 12/11/18 Unknown Rx Meclizine [Antivert] 25 mg PO Q8H PRN #14 tablet 03/24/19 Unknown Rx Midodrine [Proamatine] 5 mg PO TID@0800,1200,1600 #30 03/24/19 Unknown Rx tablet Allergies Allergy/AdvReac Type Severity Reaction Status Date / Time Penicillins Allergy Unknown Verified 12/09/18 16:35 ED Review of Systems ROS: Stated complaint: SEIZURE Other details as noted in HPI Comment: All other systems reviewed and negative ED Past Medical Hx - Past Medical History Hx Congestive Heart Failure: No Hx Diabetes: No Hx Seizures: Yes Hx Psychiatric Treatment: Yes (Schiziophrenia) Hx Asthma: No Hx COPD: No Hx HIV: No - Surgical History Hx Cholecystectomy: Yes Additional Surgical History: Hysterectomy - Social History Smoking Status: Never Smoker Substance Use Type: None - Medications Home Medications: Home Medications Medication Instructions Recorded Confirmed Last Taken Type Escitalopram [Lexapro] 20 mg PO DAILY 12/09/18 03/23/19 Unknown History Ferrous Sulfate [Iron 325 MG] 325 mg PO AC 12/09/18 03/23/19 Unknown History Omeprazole 20 mg PO BID 12/09/18 03/23/19 Unknown History LORazepam [Ativan] 0.5 mg PO QHS #30 tablet 12/11/18 03/23/19 Unknown Rx levETIRAcetam [Keppra TAB] 1,000 mg PO Q12HR #60 tablet 12/11/18 03/23/19 Unknown Rx AtorvaSTATin [Lipitor] 40 mg PO QHS 03/23/19 03/23/19 Unknown History Colace CAP 1 tab PO BID 03/23/19 03/23/19 Unknown History Melatonin 10 mg PO HS 03/23/19 03/23/19 Unknown History OLANZapine 15 mg PO BID 03/23/19 03/23/19 Unknown History Senna 1 tab PO HS 03/23/19 03/23/19 Unknown History Topiramate 100 mg PO QDAY 03/23/19 03/23/19 Unknown History Zofran 4 mg PO BID 03/23/19 03/23/19 Unknown History diphenhydrAMINE 50 mg PO HS 03/23/19 03/23/19 Unknown History lamoTRIgine [LaMICtal] 25 mg PO BID 03/23/19 03/23/19 Unknown History Meclizine [Antivert] 25 mg PO Q8H PRN #14 tablet 03/24/19 Unknown Rx Midodrine [Proamatine] 5 mg PO TID@0800,1200,1600 #30 01/09/20 Unknown Rx tablet ED Physical Exam - General Limitations: No Limitations General appearance: alert, in no apparent distress - Head Head exam: Present: atraumatic, normocephalic - Eye Eye exam: Present: normal appearance, PERRL, EOMI - ENT ENT exam: Present: mucous membranes moist - Neck Neck exam: Present: normal inspection - Respiratory Respiratory exam: Present: normal lung sounds bilaterally. Absent: respiratory distress, wheezes, rales - Cardiovascular Cardiovascular Exam: Present: regular rate, normal rhythm. Absent: systolic murmur, diastolic murmur, rubs, gallop - GI/Abdominal GI/Abdominal exam: Present: soft, normal bowel sounds - Extremities Exam Extremities exam: Present: normal inspection - Back Exam Back exam: Present: normal inspection - Neurological Exam Neurological exam: Present: alert, oriented X3 - Psychiatric Psychiatric exam: Present: normal affect, normal mood - Skin Skin exam: Present: warm, dry, intact, normal color. Absent: rash ED Course Vital Signs 07/05/19 17:18 Temperature 97.6 F Pulse Rate 67 Respiratory 16 Rate Blood Pressure 97/53 O2 Sat by Pulse 99 Oximetry ED Medical Decision Making - Lab Data Result diagrams: 07/05/19 18:24 07/05/19 18:24 - Medical Decision Making Patient is a 58-year-old female who had a possible seizure prior to arrival. Patient was loaded with Keppra. Her laboratory studies are unremarkable and she will be discharged home. Critical care attestation.: If time is entered above; I have spent that time in minutes in the direct care of this critically ill patient, excluding procedure time. ED Disposition Clinical Impression: Breakthrough seizure Disposition: DC-01 TO HOME OR SELFCARE Is pt being admited?: No Does the pt Need Aspirin: No Condition: Stable Instructions: Recurrent Seizures Adult (ED) Referrals: PRIMARY CARE, [Primary Care Provider] - 3-5 Days Time of Disposition: 19:58
[2019-07-05 20:47] VITALS: BP 129/61
== END 2019-07-05 20:46 | disposition home or self-care (01) ==
LOC: ED 17:08
DX: R56.9 Unspecified convulsions (principal); F20.89 Other schizophrenia; Z90.710 Acquired absence of both cervix and uterus; Z90.49 Acquired absence of other specified parts of digestive tract; Z88.2 Allergy status to sulfonamides
CPT/HCPCS: 36415; 80048; 85025; 96374; 96375; 99284; J1953; J2405

== ENCOUNTER 2020-04-27 19:19 | Inpatient (IN) | payer MEDICARE ==
[2020-04-27] MEDS ORDERED: LORazepam 2 MG/ML VIAL ONE (20:23)
[2020-04-27] MEDS ORDERED: levETIRAcetam 1000 MG/NS 0.75% 1,000 MG/100 ML BAG IV ONE (20:26)
[2020-04-27] MEDS ORDERED: LORazepam 2 MG/ML VIAL IM STA (20:26)
--- NOTE | 2020-04-27 20:27 | Cat Scan Report ---
CT head/brain wo con INDICATION / CLINICAL INFORMATION: 59 years Female; Stroke symptoms. TECHNIQUE: Routine CT head without contrast. All CT scans at this location are performed using CT dos e reduction for ALARA by means of automated exposure control. COMPARISON: 01/07/2020 FINDINGS: BRAIN / INTRACRANIAL CONTENTS: There may be a calcified, en plaque meningioma along the lateral aspec t of the tentorium cerebelli, anteriorly. This finding may be related to simple ossification along th e tentorium, as similar findings are seen along the falx cerebri throughout. Otherwise, no acute hemorrhage, mass effect, midline shift, hydrocephalus, or acute, large territori al infarct. No signs of significant atrophy or chronic infarct. No significant white matter abnormali ty seen. CRANIOCERVICAL JUNCTION: No significant abnormality. ORBITS: No significant abnormality of visualized orbits. SINUSES / MASTOIDS: Minimal mucosal thickening seen in the mastoids. ADDITIONAL FINDINGS: None. IMPRESSION: 1. No focal intra-axial mass, hemorrhage, hydrocephalus, or acute, large territorial infarct. Signer Name: Nick Mckinley MD, III Signed: 04/27/2020 8:23 PM Workstation Name: [email or web address]
[2020-04-27 20:35] LABS: Hematocrit 38.5 % (30.3-42.9); Mean Corpuscular HGB Conc 34 % (30-34); Mean Corpuscular Volume 98 fl (79-97); Platelet Count 287 K/mm3 (140-440); Red Blood Count 3.92 M/mm3 (3.65-5.03); Red Cell Distribution Width 13.9 % (13.2-15.2)
--- NOTE | 2020-04-27 20:36 | Emergency Department Report ---
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 It is not clear she is taken her medication. There is no one to ask. He calcific abnormality seen in the posterior fossa would not be responsible for this. There is no structural lesion that I see that would be. I advised the ED physician to load her with Keppra because Lamictal cannot be loaded. She needs EEG and a brain MRI. Metrics: Last Known Well: 04/27/2020 20:00:00 [facility] Notification Time: 04/27/2020 20:03:31 Arrival Time: 04/27/2020 19:52:00 Stamp Time: 04/27/2020 20:04:06 Time First Login Attempt: 04/27/2020 20:06:15 Symptoms: Syncope, difficulty speaking NIHSS Start Assessment Time: 04/27/2020 20:20:00 Patient is not a candidate for Alteplase/Activase. Alteplase Medical Decision: 04/27/2020 20:24:00 Patient was not deemed candidate for Alteplase/Activase thrombolytics because of This appears to be seizures and not stroke. Seizures appear to be arising from the left hemisphere and then becoming generalized.. CT head showed no acute hemorrhage or acute core infarct. CT head was reviewed and results were: Two small calcified lesions in the fourth ventricle and a larger one anterior to the left cerebellum and adjacent to the petrous bone suggesting a calcified meningioma. Clinical Presentation is not Suggestive of Large Vessel Occlusive Disease Radiologist was not called back for review of advanced imaging because Not indicated ED Physician notified of diagnostic impression and management plan on 04/27/2020 20:25:00 Our recommendations are outlined below. Recommendations: Activate Stroke Protocol Admission/Order Set Stroke/Telemetry Floor Neuro Checks Bedside Swallow Eval DVT Prophylaxis IV Fluids, Normal Saline Head of Bed 30 Degrees Euglycemia and Avoid Hyperthermia (PRN Acetaminophen) Hold Antithrombotics for Now Keppra 1000 mg loading dose and 500 mg every 12 hours, continue her Lamictal if dose is obtainable and she can swallow. Routine Consultation with Inhouse Neurology for Follow up Care Sign Out: Discussed with Emergency Department Provider History of Present Illness: Patient is a 59 year old Female. Patient was brought by private transportation with symptoms of Syncope, difficulty speaking This 59-year-old woman began at approximately 1999 to have dizziness nausea vomiting and then had a syncopal episode at home hitting the edge of her bed possibly with her head. While getting an EKG she began to have difficulty speaking. She was moving all extremities. While I was beginning to examine her noting slurred speech, she began to have shaking of the right arm, eyes deviated to the right, and then a generalized seizure. The event lasted approximately 2.5 minutes after which she was awake alert and still having slurred speech. It turns out she has a history of seizures and Lamictal is listed as one of her medications. I was told she has a history of a significant head injury. Last seen normal was within 4.5 hours. There is no history of hemorrhagic complications or intracranial hemorrhage. There is no history of Recent Anticoagulants. There is no history of recent major surgery. There is no history of recent stroke. Past Medical History: There is NO history of Hypertension There is NO history of Diabetes Mellitus There is NO history of Hyperlipidemia There is NO history of Atrial Fibrillation There is NO history of Coronary Artery Disease There is NO history of Stroke NIHSS may not be reliable due to: She began to seize. Examination: BP(151/69), Pulse(54), Blood Glucose(Not available) 1A: Level of Consciousness - Alert; keenly responsive + 0 1B: Ask Month and Age - Both Questions Right + 0 1C: Blink Eyes & Squeeze Hands - Performs Both Tasks + 0 2: Test Horizontal Extraocular Movements - Normal + 0 3: Test Visual Hale - No Visual Loss + 0 4: Test Facial Palsy (Use Grimace if Obtunded) - Normal symmetry + 0 5A: Test Left Arm Motor Drift - No Drift for 10 Seconds + 0 5B: Test Right Arm Motor Drift - No Drift for 10 Seconds + 0 6A: Test Left Leg Motor Drift - No Drift for 5 Seconds + 0 6B: Test Right Leg Motor Drift - No Drift for 5 Seconds + 0 7: Test Limb Ataxia (FNF/Heel-Roque) - No Ataxia + 0 8: Test Sensation - Normal; No sensory loss + 0 9: Test Language/Aphasia - Normal; No aphasia + 0 10: Test Dysarthria - Normal + 0 11: Test Extinction/Inattention - No abnormality + 0 NIHSS Score: 0 Patient/Family was informed the Neurology Consult would occur via TeleHealth consult by way of interactive audio and video telecommunications and consented to receiving care in this manner. Due to the immediate potential for life-threatening deterioration due to underlying acute neurologic illness, I spent 28 minutes providing critical care. This time includes time for face to face visit via telemedicine, review of medical records, imaging studies and discussion of findings with providers, the patient and/or family. Dr Meng [facility] Case [id number] ED Past Medical Hx - Past Medical History Previous Medical History?: Yes Hx Congestive Heart Failure: No Hx Diabetes: No Hx Seizures: Yes Hx Psychiatric Treatment: Yes (Schiziophrenia) Hx Asthma: No Hx COPD: No Hx HIV: No - Surgical History Past Surgical History?: Yes Hx Cholecystectomy: Yes Additional Surgical History: Hysterectomy - Social History Smoking Status: Never Smoker Substance Use Type: None - Medications Home Medications: Home Medications Medication Instructions Recorded Confirmed Last Taken Type Escitalopram [Lexapro] 20 mg PO DAILY 12/09/18 01/08/20 Unknown History Ferrous Sulfate [Iron 325 MG] 325 mg PO AC 12/09/18 01/08/20 Unknown History AtorvaSTATin [Lipitor] 20 mg PO QHS 03/23/19 01/08/20 Unknown History Melatonin 10 mg PO HS 03/23/19 01/08/20 Unknown History Senna 2 tab PO HS 03/23/19 01/08/20 Unknown History Topiramate 100 mg PO QDAY 03/23/19 01/08/20 Unknown History lamoTRIgine [LaMICtal] 100 mg PO BID 03/23/19 01/08/20 Unknown History Midodrine [Proamatine] 5 mg PO TID@0800,1200,1600 #30 03/24/19 01/08/20 Unknown Rx tablet Trazodone HCl 150 mg PO QDAY 01/08/20 01/08/20 Unknown History ED Review of Systems ROS: Stated complaint: FALL;BLACKED OUT Other details as noted in HPI Physical Exam - Physical Exam Vital Signs: Vital Signs 04/27/20 04/27/20 04/27/20 16:17 16:30 19:46 Temperature 98.3 F Pulse Rate 77 66 54 L Respiratory 18 16 18 Rate Blood Pressure 124/60 124/60 151/69 O2 Sat by Pulse 96 96 97 Oximetry 04/27/20 20:19 Temperature Pulse Rate Respiratory 13 Rate Blood Pressure 130/77 O2 Sat by Pulse Oximetry ED Course Vital Signs 04/27/20 04/27/20 04/27/20 16:17 16:30 19:46 Temperature 98.3 F Pulse Rate 77 66 54 L Respiratory 18 16 18 Rate Blood Pressure 124/60 124/60 151/69 O2 Sat by Pulse 96 96 97 Oximetry 04/27/20 20:19 Temperature Pulse Rate Respiratory 13 Rate Blood Pressure 130/77 O2 Sat by Pulse Oximetry Critical care attestation.: If time is entered above; I have spent that time in minutes in the direct care of this critically ill patient, excluding procedure time. ED Disposition Clinical Impression: Seizure, History of seizure disorder Disposition: OP ADMIT IP TO THIS HOSP Is pt being admited?: Yes Does the pt Need Aspirin: No Condition: Fair
--- NOTE | 2020-04-27 20:37 | Emergency Department Report ---
ED Neuro Deficit HPI - General Chief Complaint: Syncope Stated Complaint: FALL;BLACKED OUT Time Seen by Provider: 04/27/20 20:14 Source: patient Mode of arrival: Wheelchair Limitations: No Limitations - History of Present Illness Initial Comments: Chief complaint: Dizziness, head trauma HPI: This is a 59-year-old female with history of seizure disorder, bipolar disorder, schizophrenia, CKD, closed head injury, GERD who presents with dizziness, blurred vision at home. Patient has a fall. Patient was alert and oriented during triage and initial evaluation. Code stroke initiated after 50 minutes in the ED due to altered speech. Patient had babbling speech. -: This evening, unknown (unknown time of onset) Location: speech, other (dizziness, blurred vision) Presenting Symptoms: Present: Blurred/Loss of Vision History of same: No Place: home Severity: mild Improves With: none Worsens With: none On Anticoagulants: No Context: gradual onset, recent fall Associated Symptoms: other (seizure) - Related Data Home Medications: Home Medications Medication Instructions Recorded Confirmed Last Taken Escitalopram [Lexapro] 20 mg PO DAILY 12/09/18 01/08/20 Unknown Ferrous Sulfate [Iron 325 MG] 325 mg PO AC 12/09/18 01/08/20 Unknown AtorvaSTATin [Lipitor] 20 mg PO QHS 03/23/19 01/08/20 Unknown Melatonin 10 mg PO HS 03/23/19 01/08/20 Unknown Senna 2 tab PO HS 03/23/19 01/08/20 Unknown Topiramate 100 mg PO QDAY 03/23/19 01/08/20 Unknown lamoTRIgine [LaMICtal] 100 mg PO BID 03/23/19 01/08/20 Unknown Trazodone HCl 150 mg PO QDAY 01/08/20 01/08/20 Unknown Previous Rx's Medication Instructions Recorded Last Taken Type Midodrine [Proamatine] 5 mg PO TID@0800,1200,1600 #30 03/24/19 Unknown Rx tablet Allergies/Adverse Reactions: Allergies Allergy/AdvReac Type Severity Reaction Status Date / Time Penicillins Allergy Unknown Verified 12/09/18 16:35 ED Review of Systems ROS: Stated complaint: FALL;BLACKED OUT Other details as noted in HPI Comment: All other systems reviewed and negative Constitutional: denies: fever, malaise Respiratory: denies: cough, shortness of breath Cardiovascular: denies: chest pain ED Past Medical Hx - Past Medical History Previous Medical History?: Yes Hx Congestive Heart Failure: No Hx Diabetes: No Hx Seizures: Yes Hx Psychiatric Treatment: Yes (Schiziophrenia) Hx Asthma: No Hx COPD: No Hx HIV: No - Surgical History Past Surgical History?: Yes Hx Cholecystectomy: Yes Additional Surgical History: Hysterectomy - Social History Smoking Status: Never Smoker Substance Use Type: None - Medications Home Medications: Home Medications Medication Instructions Recorded Confirmed Last Taken Type Escitalopram [Lexapro] 20 mg PO DAILY 12/09/18 01/08/20 Unknown History Ferrous Sulfate [Iron 325 MG] 325 mg PO AC 12/09/18 01/08/20 Unknown History AtorvaSTATin [Lipitor] 20 mg PO QHS 03/23/19 01/08/20 Unknown History Melatonin 10 mg PO HS 03/23/19 01/08/20 Unknown History Senna 2 tab PO HS 03/23/19 01/08/20 Unknown History Topiramate 100 mg PO QDAY 03/23/19 01/08/20 Unknown History lamoTRIgine [LaMICtal] 100 mg PO BID 03/23/19 01/08/20 Unknown History Midodrine [Proamatine] 5 mg PO TID@0800,1200,1600 #30 03/24/19 01/08/20 Unknown Rx tablet Trazodone HCl 150 mg PO QDAY 01/08/20 01/08/20 Unknown History ED Neuro Physical Exam - General Limitations: No Limitations General appearance: alert, in no apparent distress Suspected Stroke: No - Head Head exam: Present: atraumatic, normocephalic - Eye Eye exam: Present: normal appearance - ENT ENT exam: Present: mucous membranes moist - Neck Neck exam: Present: normal inspection, full ROM - Respiratory Respiratory exam: Present: normal lung sounds bilaterally. Absent: respiratory distress, wheezes, rales, rhonchi - Cardiovascular Cardiovascular Exam: Present: regular rate, normal rhythm, normal heart sounds. Absent: systolic murmur, diastolic murmur, rubs, gallop - GI/Abdominal GI/Abdominal exam: Present: soft, normal bowel sounds. Absent: distended, tenderness, guarding, rebound - Extremities Exam Extremities exam: Present: normal inspection - Neurological Exam Neurological exam: Present: alert, oriented X3 - NIHSS Assessment Interval: Baseline 1a. Level of Consciousness: alert/keenly responsive 1b. LOC Questions: answers both correctly 1c. LOC Commands: performs tasks correctly 2. Best Gaze: normal 3. Visual: no visual loss 4. Facial Palsy: normal symmetrical movement 5b. Motor Arm Right: no drift 5a. Motor Arm Left: no drift 6a. Motor Leg Left: no drift 6b. Motor Leg Right: no drift 7. Limb Ataxia: absent 8. Sensory: normal 9. Best Language: no aphasia 10. Dysarthria: normal 11. Extinction/Inattention: no abnormality Total Score: 0 Stroke Severity: No Stroke Symptoms - Psychiatric Psychiatric exam: Present: normal affect, normal mood - Skin Skin exam: Present: warm, dry, intact, normal color. Absent: rash ED Course Vital Signs 04/27/20 04/27/20 04/27/20 16:17 16:30 19:46 Temperature 98.3 F Pulse Rate 77 66 54 L Respiratory 18 16 18 Rate Blood Pressure 124/60 124/60 151/69 O2 Sat by Pulse 96 96 97 Oximetry 04/27/20 20:19 Temperature Pulse Rate Respiratory 13 Rate Blood Pressure 130/77 O2 Sat by Pulse Oximetry - Lab Data Result diagrams: 04/27/20 20:18 04/27/20 20:18 Lab Results 04/27/20 04/27/20 04/27/20 Range/Units 20:11 20:18 20:18 WBC 8.7 (4.5-11.0) K/mm3 RBC 3.92 (3.65-5.03) M/mm3 Hgb 13.0 (10.1-14.3) gm/dl Hct 38.5 (30.3-42.9) % MCV 98 H (79-97) fl MCH 33 H (28-32) pg MCHC 34 (30-34) % RDW 13.9 (13.2-15.2) % Plt Count 287 (140-440) K/mm3 Lymph # (Auto) [employer] PT 11.8 L (12.2-14.9) Sec. INR 0.89 (0.87-1.13) APTT 30.2 (24.2-36.6) Sec. Thrombin Time 15.9 (15.1-19.6) Sec. Sodium (137-145) mmol/L Potassium (3.6-5.0) mmol/L Chloride (98-107) mmol/L Carbon Dioxide (22-30) mmol/L Anion Gap mmol/L BUN (7-17) mg/dL Creatinine (0.6-1.2) mg/dL Estimated GFR ml/min BUN/Creatinine Ratio % Glucose (65-100) mg/dL POC Glucose 84 (70-105) mg/dL Calcium (8.4-10.2) mg/dL Total Bilirubin (0.1-1.2) mg/dL AST (5-40) units/L ALT (7-56) units/L Alkaline Phosphatase (35-129) units/L Troponin T (0.00-0.029) ng/mL Total Protein (6.3-8.2) g/dL Albumin (3.9-5) g/dL Albumin/Globulin Ratio % 04/27/20 Range/Units 20:18 WBC (4.5-11.0) K/mm3 RBC (3.65-5.03) M/mm3 Hgb (10.1-14.3) gm/dl Hct (30.3-42.9) % MCV (79-97) fl MCH (28-32) pg MCHC (30-34) % RDW (13.2-15.2) % Plt Count (140-440) K/mm3 Lymph # (Auto) PT (12.2-14.9) Sec. INR (0.87-1.13) APTT (24.2-36.6) Sec. Thrombin Time (15.1-19.6) Sec. Sodium 137 (137-145) mmol/L Potassium 4.8 (3.6-5.0) mmol/L Chloride 101.1 (98-107) mmol/L Carbon Dioxide 24 (22-30) mmol/L Anion Gap 17 mmol/L BUN 13 (7-17) mg/dL Creatinine 1.1 (0.6-1.2) mg/dL Estimated GFR 50 ml/min BUN/Creatinine Ratio 12 % Glucose 91 (65-100) mg/dL POC Glucose (70-105) mg/dL Calcium 10.2 (8.4-10.2) mg/dL Total Bilirubin 0.30 (0.1-1.2) mg/dL AST 23 (5-40) units/L ALT 21 (7-56) units/L Alkaline Phosphatase 78 (35-129) units/L Troponin T < 0.010 (0.00-0.029) ng/mL Total Protein 8.0 (6.3-8.2) g/dL Albumin 4.9 (3.9-5) g/dL Albumin/Globulin Ratio 1.6 % - EKG Data -: EKG Interpreted by Me EKG shows normal: sinus rhythm, axis, intervals, QRS complexes, ST-T waves Rate: bradycardia When compared to previous EKG there are: no significant change (No significant change from 01/07/2020) Interpretation: normal EKG - Radiology Data Radiology results: report reviewed, image reviewed CT cervical spine: No signs of acute bony trauma to the cervical spine CT head: No focal intra-axial mass hemorrhage hydrocephalus or large acute territorial infarct, there may be a calcified en plaque meningioma or simple ossification along the tentorium Chest radiograph one-view portable: No acute findings or significant interval emily feng from June 22, 2019 - Medical Decision Making 1. recent fall, blurred vision, dizziness: patient had babbling speech during my evaluation. CODE stroke initiated, shortly thereafter seizure occurred. I and teleneurologist agree that patient likely had seizure at home which cause fall. No indication of CVA. Therefore TPA is not indicated. Patient does not have abnormal exam after arousing from seizure. However considering proceeding symptoms of blurred vision dizziness must consider TIA. 2. Seizure history of seizure disorder: Patient witnessed to have repetitive movement of upper extremities. However she did not have a typical postictal phase with lethargy. Teleneurologist and I both witness 2-1/2 minutes of seizure activity. IV Keppra load initiated after patient received IM lorazepam. Patient is to the hospitalist service for neurological evaluation. Critical care attestation.: If time is entered above; I have spent that time in minutes in the direct care of this critically ill patient, excluding procedure time. ED Disposition Clinical Impression: Seizure, History of seizure disorder, TIA (transient ischemic attack) Disposition: OP ADMIT IP TO THIS HOSP Is pt being admited?: Yes Does the pt Need Aspirin: No Condition: Fair Referrals: BERTRAND,ZEBULON [Other] - 3-5 Days
--- NOTE | 2020-04-27 20:43 | XRay Report ---
CHEST 1 VIEW 04/27/2020 8:35 PM INDICATION / CLINICAL INFORMATION: stroke symptoms. COMPARISON: 06/22/2019 FINDINGS: SUPPORT DEVICES: None. HEART / MEDIASTINUM: Stable. LUNGS / PLEURA: No significant pulmonary or pleural abnormality. No pneumothorax. ADDITIONAL FINDINGS: No significant additional findings. IMPRESSION: 1. No acute findings or significant interval change when compared to 06/22/2019. Signer Name: Gray Garcia MD Signed: 04/27/2020 8:39 PM Workstation Name: [id number]
[2020-04-27 20:48] LABS: INR 0.89 (0.87-1.13)
[2020-04-27 20:49] LABS: Partial Thromboplastin Time 30.2 Sec. (24.2-36.6); Thrombin Time 15.9 Sec. (15.1-19.6)
[2020-04-27 21:01] LABS: Alanine Aminotransferase 21 units/L (7-56); Albumin 4.9 g/dL (3.9-5); BUN/Creatinine Ratio 12; Blood Urea Nitrogen 13 mg/dL (7-17); Calcium 10.2 mg/dL (8.4-10.2); Hemolysis Index 11
--- NOTE | 2020-04-27 21:46 | Cat Scan Report ---
CT cervical spine wo con INDICATION / CLINICAL INFORMATION: 59 years Female; fall neck pain. TECHNIQUE: Axial CT images of the cervical spine were obtained. Sagittal and coronal reformatted images were pr oduced. All CT scans at this location are performed using CT dose reduction for ALARA by means of aut omated exposure control. COMPARISON: 12/09/2018 FINDINGS: POST-SURGICAL CHANGES: None. ALIGNMENT: No significant abnormality. VERTEBRAE: No signs of fracture. Vertebral bodies are grossly normal in height throughout. Mild foraminal narrowing on the right at C3-4 related uncinate hypertrophy. INTRAVERTEBRAL DISCS: Disc space narrowing seen at C3-4 and C5-6, C6-7. Mild disc disease seen at delia ious levels. No significant canal stenosis. PARASPINAL SOFT TISSUES: No significant abnormality. ADDITIONAL FINDINGS: Minimal mucosal thickening in the ethmoids. IMPRESSION: 1. No signs of acute bony trauma to the cervical spine. Signer Name: Nick Mckinley MD, III Signed: 04/27/2020 9:41 PM Workstation Name: [id number]
[2020-04-27] MEDS ORDERED: ASPIRIN 81 MG TAB CHEW PO ONE (22:04)
[2020-04-27 22:37] LABS: RBC Morphology Normal; Total Cells Counted 100
[2020-04-27] MEDS: SODIUM CHLORIDE 0.9% 1000 ML 1,000 ML IV SCH (23:14)
[2020-04-27] MEDS: LORazepam 2 MG/ML VIAL IV PRN (23:14)
--- NOTE | 2020-04-27 23:19 | History and Physical Report ---
History of Present Illness Date of examination: 04/27/20 Date of admission: 04/27/20 22:04 Chief complaint: SYNCOPE AND SEIZURE ATTACK History of present illness: 59 year old female brought to the ED after she said she became dizzy,with blurry vision, tingling in the fingers and passed out at home with witness body shakes suspected to be seizure activity. Patient stated that she had urinary incontinence during the seizure attack and vomited as well and had babble speech. There is no history of fever, shortness of breath, chest pain or chills. Past History Past Medical History: seizures, other (SCHIZOPHRENIA) Medications and Allergies Allergies Allergy/AdvReac Type Severity Reaction Status Date / Time Penicillins Allergy Unknown Verified 12/09/18 16:35 Home Medications Medication Instructions Recorded Confirmed Last Taken Type Escitalopram [Lexapro] 20 mg PO DAILY 12/09/18 01/08/20 Unknown History Ferrous Sulfate [Iron 325 MG] 325 mg PO AC 12/09/18 01/08/20 Unknown History AtorvaSTATin [Lipitor] 20 mg PO QHS 03/23/19 01/08/20 Unknown History Melatonin 10 mg PO HS 03/23/19 01/08/20 Unknown History Senna 2 tab PO HS 03/23/19 01/08/20 Unknown History Topiramate 100 mg PO QDAY 03/23/19 01/08/20 Unknown History lamoTRIgine [LaMICtal] 100 mg PO BID 03/23/19 01/08/20 Unknown History Midodrine [Proamatine] 5 mg PO TID@0800,1200,1600 #30 03/24/19 01/08/20 Unknown Rx tablet Trazodone HCl 150 mg PO QDAY 01/08/20 01/08/20 Unknown History Active Meds: Active Medications Escitalopram Oxalate (Escitalopram 10 Mg Tab) 20 mg PO DAILY BRIANNE Sodium Chloride (Nacl 0.9% 1000 Ml) 1,000 mls @ 75 mls/hr IV DIRECT BRIANNE Last Admin: 04/27/20 23:14 Dose: 75 mls/hr Documented by: Lamotrigine (Lamotrigine 100 Mg Tab) 100 mg PO BID BRIANNE Lorazepam (Lorazepam 2 Mg/Ml Vial) 1 mg IV Q4H PRN PRN Reason: Seizures Last Admin: 04/27/20 23:14 Dose: 1 mg Documented by: Midodrine (Midodrine 5 Mg Tab) 5 mg PO TID@0800,1200,1600 [facility] Ondansetron HCl (Ondansetron 4 Mg/2 Ml Inj) 4 mg IV Q8H PRN PRN Reason: Nausea And Vomiting Topiramate (Topiramate Tab 100 Mg Tab) 100 mg PO QDAY [facility] Trazodone HCl (Trazodone 50 Mg Tab) 150 mg PO QDAY@2200 [facility] Review of Systems Constitutional: weakness, no fever, no chills, no sweats Eyes: bilateral: other (NO BILATERAL EYE SYMPTOMS) Ears, nose, mouth and throat: no ear pain Breasts: deferred Cardiovascular: no chest pain, no orthopnea, no palpitations, no rapid/irregular heart beat, no syncope, no lightheadedness, no shortness of breath Respiratory: no cough, no shortness of breath, no dyspnea on exertion, no wheezing, no pleurisy Gastrointestinal: no abdominal pain, no nausea, no vomiting, no diarrhea, no constipation, no change in bowel habits, no coffee ground emesis, no melena Genitourinary Female: no hematuria Menstruation: postmenopausal Musculoskeletal: no neck stiffness, no neck pain, no muscle weakness Integumentary: no rash, no sores Neurological: tingling, seizures, syncope, headaches, change in speech, no weakness, no parathesias, no numbness, no tremors, no ataxia, no lack of coordination, no vertigo, no convulsions Endocrine: no polyphagia, no polydipsia, no polyuria, no nocturia, no palpatations Hematologic/Lymphatic: no easy bruising, no easy bleeding Exam - Constitutional Vitals: Temp Pulse Resp BP Pulse Ox 98.3 F 51 L 14 126/50 99 04/27/20 19:46 04/27/20 23:00 04/27/20 23:00 04/27/20 23:00 04/27/20 21:00 General appearance: Present: mild distress - EENT Eyes: Present: PERRL, EOM intact ENT: hearing intact, clear oral mucosa - Neck Neck: Present: supple, normal ROM - Respiratory Respiratory effort: normal - Cardiovascular Rhythm: regular Heart Sounds: Present: S1 & S2. Absent: gallop, systolic murmur, diastolic murmur - Extremities Extremities: no ischemia, No edema Peripheral Pulses: within normal limits - Abdominal General gastrointestinal: Present: soft, non-tender, non-distended. Absent: tender, distended, rigid, hepatomegaly, splenomegaly, mass Female genitourinary: Present: deferred - Rectal Rectal Exam: deferred - Integumentary Integumentary: Present: clear, warm, dry. Absent: jaundice, rash - Musculoskeletal Musculoskeletal: generalized weakness - Psychiatric Psychiatric: cooperative HEART Score - HEART Score Risk factors: 1-2 risk factors Troponin: Troponin T < 0.010 ng/mL (0.00-0.029) 04/27/20 20:18 Troponin: < normal limit - Critical Actions Critical Actions: 0-3 pts:0.9-1.7%risk of adverse cardiac event.Candidate for discharge Results - Labs CBC & Chem 7: 04/27/20 20:18 04/27/20 20:18 Labs: Laboratory Last Values WBC 8.7 K/mm3 (4.5-11.0) 04/27/20 20:18 RBC 3.92 M/mm3 (3.65-5.03) 04/27/20 20:18 Hgb 13.0 gm/dl (10.1-14.3) 04/27/20 20:18 Hct 38.5 % (30.3-42.9) 04/27/20 20:18 MCV 98 fl (79-97) H 04/27/20 20:18 MCH 33 pg (28-32) H 04/27/20 20:18 MCHC 34 % (30-34) 04/27/20 20:18 RDW 13.9 % (13.2-15.2) 04/27/20 20:18 Plt Count 287 K/mm3 (140-440) 04/27/20 20:18 Lymph # (Auto) Registered Route Associate 04/27/20 20:18 Add Manual Diff Complete 04/27/20 20:18 Total Counted 100 04/27/20 20:18 Seg Neuts % (Manual) 35.0 % (40.0-70.0) L 04/27/20 20:18 Lymphocytes % (Manual) 52.0 % (13.4-35.0) H 04/27/20 20:18 Monocytes % (Manual) 11.0 % (0.0-7.3) H 04/27/20 20:18 Eosinophils % (Manual) 1.0 % (0.0-4.3) 04/27/20 20:18 Basophils % (Manual) 1.0 % (0.0-1.8) 04/27/20 20:18 Nucleated RBC % Not Reportable 04/27/20 20:18 Seg Neutrophils # Man 3.0 K/mm3 (1.8-7.7) 04/27/20 20:18 Band Neutrophils # 0.0 K/mm3 04/27/20 20:18 Lymphocytes # (Manual) 4.5 K/mm3 (1.2-5.4) 04/27/20 20:18 Abs React Lymphs (Man) 0.0 K/mm3 04/27/20 20:18 Monocytes # (Manual) 1.0 K/mm3 (0.0-0.8) H 04/27/20 20:18 Eosinophils # (Manual) 0.1 K/mm3 (0.0-0.4) 04/27/20 20:18 Basophils # (Manual) 0.1 K/mm3 (0.0-0.1) 04/27/20 20:18 Metamyelocytes # 0.0 K/mm3 04/27/20 20:18 Myelocytes # 0.0 K/mm3 04/27/20 20:18 Promyelocytes # 0.0 K/mm3 04/27/20 20:18 Blast Cells # 0.0 K/mm3 04/27/20 20:18 WBC Morphology Not Reportable 04/27/20 20:18 Hypersegmented Neuts Not Reportable 04/27/20 20:18 Hyposegmented Neuts Not Reportable 04/27/20 20:18 Hypogranular Neuts Not Reportable 04/27/20 20:18 Smudge Cells Not Reportable 04/27/20 20:18 Toxic Granulation Not Reportable 04/27/20 20:18 Toxic Vacuolation Not Reportable 04/27/20 20:18 Dohle Bodies Not Reportable 04/27/20 20:18 Pelger-Huet Anomaly Not Reportable 04/27/20 20:18 Park Rods Not Reportable 04/27/20 20:18 Platelet Estimate Not Reportable 04/27/20 20:18 Clumped Platelets Not Reportable 04/27/20 20:18 Plt Clumps, EDTA Not Reportable 04/27/20 20:18 Large Platelets Not Reportable 04/27/20 20:18 Giant Platelets Not Reportable 04/27/20 20:18 Platelet Satelliting Not Reportable 04/27/20 20:18 Plt Morphology Comment Not Reportable 04/27/20 20:18 RBC Morphology Normal 04/27/20 20:18 Dimorphic RBCs Not Reportable 04/27/20 20:18 Polychromasia Not Reportable 04/27/20 20:18 Hypochromasia Not Reportable 04/27/20 20:18 Poikilocytosis Not Reportable 04/27/20 20:18 Anisocytosis Not Reportable 04/27/20 20:18 Microcytosis Not Reportable 04/27/20 20:18 Macrocytosis Not Reportable 04/27/20 20:18 Spherocytes Not Reportable 04/27/20 20:18 Pappenheimer Bodies Not Reportable 04/27/20 20:18 Sickle Cells Not Reportable 04/27/20 20:18 Target Cells Not Reportable 04/27/20 20:18 Tear Drop Cells Not Reportable 04/27/20 20:18 Ovalocytes Not Reportable 04/27/20 20:18 Helmet Cells Not Reportable 04/27/20 20:18 [place] Bodies Not Reportable 04/27/20 20:18 [place] Rings Not Reportable 04/27/20 20:18 [place] Cells Not Reportable 04/27/20 20:18 Bite Cells Not Reportable 04/27/20 20:18 Crenated Cell Not Reportable 04/27/20 20:18 Elliptocytes Not Reportable 04/27/20 20:18 Acanthocytes (Spur) Not Reportable 04/27/20 20:18 Rouleaux Not Reportable 04/27/20 20:18 Hemoglobin C Crystals Not Reportable 04/27/20 20:18 Schistocytes Not Reportable 04/27/20 20:18 Malaria parasites Not Reportable 04/27/20 20:18 Curt Bodies Not Reportable 04/27/20 20:18 Hem Pathologist Commnt No 04/27/20 20:18 PT 11.8 Sec. (12.2-14.9) L 04/27/20 20:18 INR 0.89 (0.87-1.13) 04/27/20 20:18 APTT 30.2 Sec. (24.2-36.6) 04/27/20 20:18 Thrombin Time 15.9 Sec. (15.1-19.6) 04/27/20 20:18 Sodium 137 mmol/L (137-145) 04/27/20 20:18 Potassium 4.8 mmol/L (3.6-5.0) 04/27/20 20:18 Chloride 101.1 mmol/L (98-107) 04/27/20 20:18 Carbon Dioxide 24 mmol/L (22-30) 04/27/20 20:18 Anion Gap 17 mmol/L 04/27/20 20:18 BUN 13 mg/dL (7-17) 04/27/20 20:18 Creatinine 1.1 mg/dL (0.6-1.2) 04/27/20 20:18 Estimated GFR 50 ml/min 04/27/20 20:18 BUN/Creatinine Ratio 12 % 04/27/20 20:18 Glucose 91 mg/dL (65-100) 04/27/20 20:18 POC Glucose 84 mg/dL (70-105) 04/27/20 20:11 Calcium 10.2 mg/dL (8.4-10.2) 04/27/20 20:18 Total Bilirubin 0.30 mg/dL (0.1-1.2) 04/27/20 20:18 AST 23 units/L (5-40) 04/27/20 20:18 ALT 21 units/L (7-56) 04/27/20 20:18 Alkaline Phosphatase 78 units/L (35-129) 04/27/20 20:18 Troponin T < 0.010 ng/mL (0.00-0.029) 04/27/20 20:18 Total Protein 8.0 g/dL (6.3-8.2) 04/27/20 20:18 Albumin 4.9 g/dL (3.9-5) 04/27/20 20:18 Albumin/Globulin Ratio 1.6 % 04/27/20 20:18 Assessment and Plan - Patient Problems (1) Syncope Current Visit: Yes Status: Acute Plan to address problem: 1. I.V FLUID 2. BILATERAL CAROTID DOPPLER 3. 2 D ECHO CARDIOGRAM (2) Seizure Current Visit: Yes Status: Acute Plan to address problem: 1. I.V ATIVAN PRN SEIZURE 2. RECONCILIATION AND REORDER OF HOME MEDICATIONS LIKE LAMOTRIGRN AND TOPIRAMATE 3. CONTINUATION OF TELENEUROLOGY OVER THE WEEKEND (3) TIA (transient ischemic attack) Current Visit: Yes Status: Acute Plan to address problem: 1. CONTINUE TELE NEUROLOGY 2. BILATERAL CAROTID ULTRASOUND 3. 2 D ECHOCARDIOGRAM 4. MRI BRAIN WITHOUT CONTRAST PER NEUROLOGIST EVALUATION (4) Syncope Current Visit: No Status: Acute
[2020-04-28] MEDS: LORazepam 2 MG/ML VIAL IV PRN ×5 (01:14→23:38)
[2020-04-28] MEDS: ONDANSETRON 4 MG/2 ML INJ IV PRN (01:14)
[2020-04-28 01:17] LABS: Creatine Kinase MB 3.5 ng/mL (0.0-4.0)
[2020-04-28 06:39] LABS: Creatine Kinase MB 3.4 ng/mL (0.0-4.0)
[2020-04-28] MEDS: MIDODRINE 5 MG TAB PO SCH ×3 (08:30→16:09)
[2020-04-28] MEDS: SODIUM CHLORIDE 0.9% 1000 ML 1,000 ML IV SCH ×2 (08:39→21:07)
[2020-04-28] MEDS ORDERED: NON-FORMULARY EACH (Trazodone Hcl [Trazodone Hcl] 150 MG Tablet) PO SCH (10:00)
[2020-04-28] MEDS ORDERED: TOPIRAMATE PO SCH (10:00)
[2020-04-28] MEDS: TOPIRAMATE TAB 100 MG TAB PO SCH (10:49)
[2020-04-28] MEDS: lamoTRIgine 100 MG TAB PO SCH ×2 (10:49→21:06)
[2020-04-28] MEDS: ESCITALOPRAM 10 MG TAB PO SCH (10:49)
--- NOTE | 2020-04-28 17:49 | Progress Note ---
Assessment and Plan Assessment and plan: -- Syncope Current Visit: Yes Status: Acute Plan to address problem: Continue syncope work-up, CT head negative for acute abnormality CT cervical spine; no trauma or acute abnormality Carotid Doppler; Echocardiogram; Fall precautions orthostats, Physical therapy occupational therapy --History of seizure disorder/seizure episode Current Visit: Yes Status: Acute Plan to address problem: Seizure precautions Continue antiepileptic medications CT head negative, check EEG, MRI brain Neurology consult Do not drive until cleared by PMD/neurology --Acute CVA /TIA (transient ischemic attack) Current Visit: Yes Status: Acute Plan to address problem: Patient is not a candidate for TPA[per telemetry neurologist] aspirin and statin Lipid panel Neuro work-up MRI brain, carotid Doppler, echocardiogram Physical therapy, Occupational Therapy Neurology consult Closely monitor the patient and adjust the management as needed Neuro consult for 04/30/2020, not available during the weekend We will consult telemetry neurologist during the weekend if needed Plan of care reviewed with the patient and her nurse History Interval history: I have seen and examined the patient Patient feels better,no new complaints Syncope w/u in progress. No new episodes of syncope Hospitalist Physical - Constitutional Vitals: Temp Pulse Resp BP Pulse Ox 97.6 F 66 16 116/47 100 04/28/20 08:46 04/28/20 08:46 04/28/20 04:41 04/28/20 08:46 04/28/20 08:46 General appearance: Present: no acute distress, well-nourished, other - EENT Eyes: Present: PERRL, EOM intact - Neck Neck: Present: supple, normal ROM - Respiratory Respiratory effort: normal Respiratory: bilateral: diminished, negative: rales, rhonchi, wheezing - Cardiovascular Rhythm: regular Heart Sounds: Present: S1 & S2 - Extremities Extremities: no ischemia, No edema - Abdominal General gastrointestinal: soft, non-tender, non-distended, normal bowel sounds - Integumentary Integumentary: Present: clear, warm - Psychiatric Psychiatric: appropriate mood/affect, cooperative - Neurologic Neurologic: moves all extremities HEART Score - HEART Score Risk factors: 1-2 risk factors Troponin: Troponin T < 0.010 ng/mL (0.00-0.029) 04/28/20 05:36 Troponin: < normal limit - Critical Actions Critical Actions: 0-3 pts:0.9-1.7%risk of adverse cardiac event.Candidate for discharge Results - Labs CBC & Chem 7: 04/27/20 20:18 04/27/20 20:18 Labs: Laboratory Last Values WBC 8.7 K/mm3 (4.5-11.0) 04/27/20 20:18 RBC 3.92 M/mm3 (3.65-5.03) 04/27/20 20:18 Hgb 13.0 gm/dl (10.1-14.3) 04/27/20 20:18 Hct 38.5 % (30.3-42.9) 04/27/20 20:18 MCV 98 fl (79-97) H 04/27/20 20:18 MCH 33 pg (28-32) H 04/27/20 20:18 MCHC 34 % (30-34) 04/27/20 20:18 RDW 13.9 % (13.2-15.2) 04/27/20 20:18 Plt Count 287 K/mm3 (140-440) 04/27/20 20:18 Lymph # (Auto) [place] Monitoring Technician 04/27/20 20:18 Add Manual Diff Complete 04/27/20 20:18 Total Counted 100 04/27/20 20:18 Seg Neuts % (Manual) 35.0 % (40.0-70.0) L 04/27/20 20:18 Lymphocytes % (Manual) 52.0 % (13.4-35.0) H 04/27/20 20:18 Monocytes % (Manual) 11.0 % (0.0-7.3) H 04/27/20 20:18 Eosinophils % (Manual) 1.0 % (0.0-4.3) 04/27/20 20:18 Basophils % (Manual) 1.0 % (0.0-1.8) 04/27/20 20:18 Nucleated RBC % Not Reportable 04/27/20 20:18 Seg Neutrophils # Man 3.0 K/mm3 (1.8-7.7) 04/27/20 20:18 Band Neutrophils # 0.0 K/mm3 04/27/20 20:18 Lymphocytes # (Manual) 4.5 K/mm3 (1.2-5.4) 04/27/20 20:18 Abs React Lymphs (Man) 0.0 K/mm3 04/27/20 20:18 Monocytes # (Manual) 1.0 K/mm3 (0.0-0.8) H 04/27/20 20:18 Eosinophils # (Manual) 0.1 K/mm3 (0.0-0.4) 04/27/20 20:18 Basophils # (Manual) 0.1 K/mm3 (0.0-0.1) 04/27/20 20:18 Metamyelocytes # 0.0 K/mm3 04/27/20 20:18 Myelocytes # 0.0 K/mm3 04/27/20 20:18 Promyelocytes # 0.0 K/mm3 04/27/20 20:18 Blast Cells # 0.0 K/mm3 04/27/20 20:18 WBC Morphology Not Reportable 04/27/20 20:18 Hypersegmented Neuts Not Reportable 04/27/20 20:18 Hyposegmented Neuts Not Reportable 04/27/20 20:18 Hypogranular Neuts Not Reportable 04/27/20 20:18 Smudge Cells Not Reportable 04/27/20 20:18 Toxic Granulation Not Reportable 04/27/20 20:18 Toxic Vacuolation Not Reportable 04/27/20 20:18 Dohle Bodies Not Reportable 04/27/20 20:18 Pelger-Huet Anomaly Not Reportable 04/27/20 20:18 Park Rods Not Reportable 04/27/20 20:18 Platelet Estimate Not Reportable 04/27/20 20:18 Clumped Platelets Not Reportable 04/27/20 20:18 Plt Clumps, EDTA Not Reportable 04/27/20 20:18 Large Platelets Not Reportable 04/27/20 20:18 Giant Platelets Not Reportable 04/27/20 20:18 Platelet Satelliting Not Reportable 04/27/20 20:18 Plt Morphology Comment Not Reportable 04/27/20 20:18 RBC Morphology Normal 04/27/20 20:18 Dimorphic RBCs Not Reportable 04/27/20 20:18 Polychromasia Not Reportable 04/27/20 20:18 Hypochromasia Not Reportable 04/27/20 20:18 Poikilocytosis Not Reportable 04/27/20 20:18 Anisocytosis Not Reportable 04/27/20 20:18 Microcytosis Not Reportable 04/27/20 20:18 Macrocytosis Not Reportable 04/27/20 20:18 Spherocytes Not Reportable 04/27/20 20:18 Pappenheimer Bodies Not Reportable 04/27/20 20:18 Sickle Cells Not Reportable 04/27/20 20:18 Target Cells Not Reportable 04/27/20 20:18 Tear Drop Cells Not Reportable 04/27/20 20:18 Ovalocytes Not Reportable 04/27/20 20:18 Helmet Cells Not Reportable 04/27/20 20:18 Miramontes-[place] Bodies Not Reportable 04/27/20 20:18 [place] Rings Not Reportable 04/27/20 20:18 [place] Cells Not Reportable 04/27/20 20:18 Bite Cells Not Reportable 04/27/20 20:18 Crenated Cell Not Reportable 04/27/20 20:18 Elliptocytes Not Reportable 04/27/20 20:18 Acanthocytes (Spur) Not Reportable 04/27/20 20:18 Rouleaux Not Reportable 04/27/20 20:18 Hemoglobin C Crystals Not Reportable 04/27/20 20:18 Schistocytes Not Reportable 04/27/20 20:18 Malaria parasites Not Reportable 04/27/20 20:18 Curt Bodies Not Reportable 04/27/20 20:18 Hem Pathologist Commnt No 04/27/20 20:18 PT 11.8 Sec. (12.2-14.9) L 04/27/20 20:18 INR 0.89 (0.87-1.13) 04/27/20 20:18 APTT 30.2 Sec. (24.2-36.6) 04/27/20 20:18 Thrombin Time 15.9 Sec. (15.1-19.6) 04/27/20 20:18 Sodium 137 mmol/L (137-145) 04/27/20 20:18 Potassium 4.8 mmol/L (3.6-5.0) 04/27/20 20:18 Chloride 101.1 mmol/L (98-107) 04/27/20 20:18 Carbon Dioxide 24 mmol/L (22-30) 04/27/20 20:18 Anion Gap 17 mmol/L 04/27/20 20:18 BUN 13 mg/dL (7-17) 04/27/20 20:18 Creatinine 1.1 mg/dL (0.6-1.2) 04/27/20 20:18 Estimated GFR 50 ml/min 04/27/20 20:18 BUN/Creatinine Ratio 12 % 04/27/20 20:18 Glucose 91 mg/dL (65-100) 04/27/20 20:18 POC Glucose 86 mg/dL (70-105) 04/28/20 15:50 Calcium 10.2 mg/dL (8.4-10.2) 04/27/20 20:18 Total Bilirubin 0.30 mg/dL (0.1-1.2) 04/27/20 20:18 AST 23 units/L (5-40) 04/27/20 20:18 ALT 21 units/L (7-56) 04/27/20 20:18 Alkaline Phosphatase 78 units/L (35-129) 04/27/20 20:18 Total Creatine Kinase 160 units/L (30-135) H 04/28/20 05:36 CK-MB (CK-2) 3.4 ng/mL (0.0-4.0) 04/28/20 05:36 CK-MB (CK-2) Rel Index 2.1 (0-4) 04/28/20 05:36 Troponin T < 0.010 ng/mL (0.00-0.029) 04/28/20 05:36 Total Protein 8.0 g/dL (6.3-8.2) 04/27/20 20:18 Albumin 4.9 g/dL (3.9-5) 04/27/20 20:18 Albumin/Globulin Ratio 1.6 % 04/27/20 20:18 Manrique/IV: Voiding Method Toilet Active Medications - Current Medications Current Medications: Generic Name Dose Route Start Last Admin Trade Name Freq PRN Reason Stop Dose Admin Escitalopram Oxalate 20 mg 04/28/20 10:00 04/28/20 10:49 Escitalopram 10 Mg Tab PO 20 mg DAILY BRIANNE Administration Sodium Chloride 1,000 mls @ 75 mls/hr 04/27/20 23:00 04/28/20 08:39 Nacl 0.9% 1000 Ml IV 75 mls/hr DIRECT BRIANNE Administration Lamotrigine 100 mg 04/28/20 10:00 04/28/20 10:49 Lamotrigine 100 Mg Tab PO 100 mg BID BRIANNE Administration Lorazepam 1 mg 04/27/20 22:48 04/28/20 16:09 Lorazepam 2 Mg/Ml Vial IV 1 mg Q4H PRN Administration Seizures Midodrine 5 mg 04/28/20 08:00 04/28/20 16:09 Midodrine 5 Mg Tab PO 5 mg TID@0800,1200,1600 BRIANNE Administration Ondansetron HCl 4 mg 04/27/20 22:53 04/28/20 01:14 Ondansetron 4 Mg/2 Ml Inj IV 4 mg Q8H PRN Administration Nausea And Vomiting Topiramate 100 mg 04/28/20 10:00 04/28/20 10:49 Topiramate Tab 100 Mg Tab PO 100 mg QDAY BRIANNE Administration Trazodone HCl 150 mg 04/28/20 22:00 Trazodone 50 Mg Tab PO QDAY@2200 BRIANNE
[2020-04-28] MEDS: traZODone 50 MG TAB PO SCH (21:06)
[2020-04-29] MEDS: LORazepam 2 MG/ML VIAL IV PRN ×3 (06:56→20:14)
[2020-04-29 07:59] LABS: Chol/HDL Ratio 2.6 %
[2020-04-29] MEDS: MIDODRINE 5 MG TAB PO SCH ×3 (08:10→16:08)
[2020-04-29] MEDS: lamoTRIgine 100 MG TAB PO SCH ×2 (09:23→22:15)
[2020-04-29] MEDS: ASPIRIN 325 MG TAB PO SCH (09:23)
[2020-04-29] MEDS: ESCITALOPRAM 10 MG TAB PO SCH (09:23)
[2020-04-29] MEDS: TOPIRAMATE TAB 100 MG TAB PO SCH (09:26)
[2020-04-29] MEDS: SODIUM CHLORIDE 0.9% 1000 ML 1,000 ML IV SCH (11:46)
[2020-04-29] MEDS: ACETAMINOPHEN 325 MG TAB PO PRN ×2 (12:26→20:13)
--- NOTE | 2020-04-29 17:12 | Magnetic Resonance Report ---
MR brain wo/w con INDICATION / CLINICAL INFORMATION: 59 years Female; Syncope/seizure/TIA. TECHNIQUE: Multiplanar, multisequence MR images of the brain were obtained. Some motion artifact present. COMPARISON: None available. FINDINGS: BRAIN / INTRACRANIAL CONTENTS: No acute hemorrhage, mass effect, midline shift, hydrocephalus, or acu te, large territorial infarct. No chronic infarct or atrophy. No significant white matter abnormality . CRANIOCERVICAL JUNCTION: No significant abnormality. VASCULAR FLOW-VOIDS: No significant abnormality. ORBITS: No significant abnormality of visualized orbits. SINUSES / MASTOIDS: No significant abnormality in the visualized paranasal sinuses or mastoid air luzmaria ls. ADDITIONAL FINDINGS: None. IMPRESSION: 1. No focal mass, hemorrhage, hydrocephalus, or acute ischemia. Signer Name: Nick Mckinley MD, III Signed: 04/29/2020 5:08 PM Workstation Name: [id number]
--- NOTE | 2020-04-29 19:08 | Progress Note ---
Assessment and Plan Assessment and plan: -- Syncope Current Visit: Yes Status: Acute Plan to address problem: Continue syncope work-up, CT head negative for acute abnormality CT cervical spine; no trauma or acute abnormality MRI; no focal abnormality Carotid Doppler; Echocardiogram; EF 60 to 65% Fall precautions orthostats, Physical therapy occupational therapy --History of seizure disorder/seizure episode Current Visit: Yes Status: Acute Plan to address problem: Seizure precautions Continue antiepileptic medications CT head negative, check EEG, MRI brain Neurology consult Do not drive until cleared by PMD/neurology --Acute CVA /TIA (transient ischemic attack) Current Visit: Yes Status: Acute Plan to address problem: Patient is not a candidate for TPA[per telemetry neurologist] aspirin and statin Lipid panel Neuro work-up MRI brain, carotid Doppler, echocardiogram Physical therapy, Occupational Therapy Neurology consult Closely monitor the patient and adjust the management as needed Neuro consult for 04/30/2020, not available during the weekend We will consult telemetry neurologist during the weekend if needed Plan of care reviewed with the patient and her nurse History Interval history: I have seen and examined the patient at the bedside this morning Patient's chart and medications reviewed Patient complains of some dizziness and headache Admitted with syncope possible CVA/TIA Neuro work-up is in progress Vital signs noted Hospitalist Physical - Constitutional Vitals: Temp Pulse Resp BP Pulse Ox 98.1 F 77 18 114/61 97 04/29/20 07:37 04/29/20 10:00 04/29/20 07:37 04/29/20 07:37 04/29/20 10:00 General appearance: Present: no acute distress, well-nourished - EENT Eyes: Present: PERRL, EOM intact - Neck Neck: Present: supple, normal ROM - Respiratory Respiratory effort: normal Respiratory: bilateral: diminished, negative: rales, rhonchi, wheezing - Cardiovascular Rhythm: regular Heart Sounds: Present: S1 & S2 - Extremities Extremities: no ischemia, No edema - Abdominal General gastrointestinal: soft, non-tender, non-distended, normal bowel sounds - Integumentary Integumentary: Present: clear, warm - Psychiatric Psychiatric: appropriate mood/affect, cooperative - Neurologic Neurologic: moves all extremities, other (Residual weakness) HEART Score - HEART Score Risk factors: 1-2 risk factors Troponin: Troponin T < 0.010 ng/mL (0.00-0.029) 04/28/20 05:36 Troponin: < normal limit - Critical Actions Critical Actions: 0-3 pts:0.9-1.7%risk of adverse cardiac event.Candidate for discharge Results - Labs CBC & Chem 7: 04/27/20 20:18 04/27/20 20:18 Labs: Laboratory Last Values WBC 8.7 K/mm3 (4.5-11.0) 04/27/20 20:18 RBC 3.92 M/mm3 (3.65-5.03) 04/27/20 20:18 Hgb 13.0 gm/dl (10.1-14.3) 04/27/20 20:18 Hct 38.5 % (30.3-42.9) 04/27/20 20:18 MCV 98 fl (79-97) H 04/27/20 20:18 MCH 33 pg (28-32) H 04/27/20 20:18 MCHC 34 % (30-34) 04/27/20 20:18 RDW 13.9 % (13.2-15.2) 04/27/20 20:18 Plt Count 287 K/mm3 (140-440) 04/27/20 20:18 Lymph # (Auto) Electrical Engineering Technologist 04/27/20 20:18 Add Manual Diff Complete 04/27/20 20:18 Total Counted 100 04/27/20 20:18 Seg Neuts % (Manual) 35.0 % (40.0-70.0) L 04/27/20 20:18 Lymphocytes % (Manual) 52.0 % (13.4-35.0) H 04/27/20 20:18 Monocytes % (Manual) 11.0 % (0.0-7.3) H 04/27/20 20:18 Eosinophils % (Manual) 1.0 % (0.0-4.3) 04/27/20 20:18 Basophils % (Manual) 1.0 % (0.0-1.8) 04/27/20 20:18 Nucleated RBC % Not Reportable 04/27/20 20:18 Seg Neutrophils # Man 3.0 K/mm3 (1.8-7.7) 04/27/20 20:18 Band Neutrophils # 0.0 K/mm3 04/27/20 20:18 Lymphocytes # (Manual) 4.5 K/mm3 (1.2-5.4) 04/27/20 20:18 Abs React Lymphs (Man) 0.0 K/mm3 04/27/20 20:18 Monocytes # (Manual) 1.0 K/mm3 (0.0-0.8) H 04/27/20 20:18 Eosinophils # (Manual) 0.1 K/mm3 (0.0-0.4) 04/27/20 20:18 Basophils # (Manual) 0.1 K/mm3 (0.0-0.1) 04/27/20 20:18 Metamyelocytes # 0.0 K/mm3 04/27/20 20:18 Myelocytes # 0.0 K/mm3 04/27/20 20:18 Promyelocytes # 0.0 K/mm3 04/27/20 20:18 Blast Cells # 0.0 K/mm3 04/27/20 20:18 WBC Morphology Not Reportable 04/27/20 20:18 Hypersegmented Neuts Not Reportable 04/27/20 20:18 Hyposegmented Neuts Not Reportable 04/27/20 20:18 Hypogranular Neuts Not Reportable 04/27/20 20:18 Smudge Cells Not Reportable 04/27/20 20:18 Toxic Granulation Not Reportable 04/27/20 20:18 Toxic Vacuolation Not Reportable 04/27/20 20:18 Dohle Bodies Not Reportable 04/27/20 20:18 Pelger-Huet Anomaly Not Reportable 04/27/20 20:18 Park Rods Not Reportable 04/27/20 20:18 Platelet Estimate Not Reportable 04/27/20 20:18 Clumped Platelets Not Reportable 04/27/20 20:18 Plt Clumps, EDTA Not Reportable 04/27/20 20:18 Large Platelets Not Reportable 04/27/20 20:18 Giant Platelets Not Reportable 04/27/20 20:18 Platelet Satelliting Not Reportable 04/27/20 20:18 Plt Morphology Comment Not Reportable 04/27/20 20:18 RBC Morphology Normal 04/27/20 20:18 Dimorphic RBCs Not Reportable 04/27/20 20:18 Polychromasia Not Reportable 04/27/20 20:18 Hypochromasia Not Reportable 04/27/20 20:18 Poikilocytosis Not Reportable 04/27/20 20:18 Anisocytosis Not Reportable 04/27/20 20:18 Microcytosis Not Reportable 04/27/20 20:18 Macrocytosis Not Reportable 04/27/20 20:18 Spherocytes Not Reportable 04/27/20 20:18 Pappenheimer Bodies Not Reportable 04/27/20 20:18 Sickle Cells Not Reportable 04/27/20 20:18 Target Cells Not Reportable 04/27/20 20:18 Tear Drop Cells Not Reportable 04/27/20 20:18 Ovalocytes Not Reportable 04/27/20 20:18 Helmet Cells Not Reportable 04/27/20 20:18 Miramontes-Hilham Bodies Not Reportable 04/27/20 20:18 [place] Rings Not Reportable 04/27/20 20:18 Phil Campbell Cells Not Reportable 04/27/20 20:18 Bite Cells Not Reportable 04/27/20 20:18 Crenated Cell Not Reportable 04/27/20 20:18 Elliptocytes Not Reportable 04/27/20 20:18 Acanthocytes (Spur) Not Reportable 04/27/20 20:18 Rouleaux Not Reportable 04/27/20 20:18 Hemoglobin C Crystals Not Reportable 04/27/20 20:18 Schistocytes Not Reportable 04/27/20 20:18 Malaria parasites Not Reportable 04/27/20 20:18 Curt Bodies Not Reportable 04/27/20 20:18 Hem Pathologist Commnt No 04/27/20 20:18 PT 11.8 Sec. (12.2-14.9) L 04/27/20 20:18 INR 0.89 (0.87-1.13) 04/27/20 20:18 APTT 30.2 Sec. (24.2-36.6) 04/27/20 20:18 Thrombin Time 15.9 Sec. (15.1-19.6) 04/27/20 20:18 Sodium 137 mmol/L (137-145) 04/27/20 20:18 Potassium 4.8 mmol/L (3.6-5.0) 04/27/20 20:18 Chloride 101.1 mmol/L (98-107) 04/27/20 20:18 Carbon Dioxide 24 mmol/L (22-30) 04/27/20 20:18 Anion Gap 17 mmol/L 04/27/20 20:18 BUN 13 mg/dL (7-17) 04/27/20 20:18 Creatinine 1.1 mg/dL (0.6-1.2) 04/27/20 20:18 Estimated GFR 50 ml/min 04/27/20 20:18 BUN/Creatinine Ratio 12 % 04/27/20 20:18 Glucose 91 mg/dL (65-100) 04/27/20 20:18 POC Glucose 98 mg/dL (70-105) 04/29/20 16:14 Calcium 10.2 mg/dL (8.4-10.2) 04/27/20 20:18 Total Bilirubin 0.30 mg/dL (0.1-1.2) 04/27/20 20:18 AST 23 units/L (5-40) 04/27/20 20:18 ALT 21 units/L (7-56) 04/27/20 20:18 Alkaline Phosphatase 78 units/L (35-129) 04/27/20 20:18 Total Creatine Kinase 160 units/L (30-135) H 04/28/20 05:36 CK-MB (CK-2) 3.4 ng/mL (0.0-4.0) 04/28/20 05:36 CK-MB (CK-2) Rel Index 2.1 (0-4) 04/28/20 05:36 Troponin T < 0.010 ng/mL (0.00-0.029) 04/28/20 05:36 Total Protein 8.0 g/dL (6.3-8.2) 04/27/20 20:18 Albumin 4.9 g/dL (3.9-5) 04/27/20 20:18 Albumin/Globulin Ratio 1.6 % 04/27/20 20:18 Triglycerides 77 mg/dL (2-149) 04/29/20 06:14 Cholesterol 156 mg/dL (50-199) 04/29/20 06:14 LDL Cholesterol Direct 88 mg/dL (50-130) 04/29/20 06:14 HDL Cholesterol 60 mg/dL (40-59) H 04/29/20 06:14 Cholesterol/HDL Ratio 2.60 % 04/29/20 06:14 - Diagnostic Impressions Diagnostic Impressions: Echocardiogram 04/28/20 06:00 Transthoracic Echocardiogram Indication: Syncope BP: 136/72 Conclusions *There is trace of mitral regurgitation. *There is trace tricuspid regurgitation. *The left ventricular chamber size is normal. *Global left ventricular systolic function is normal. *The estimated ejection fraction is 60-65%. *Right ventricular size and systolic function are within normal limits. Findings Procedure Info: The study quality is fair. Left Ventricle: The left ventricular chamber size is normal. Global left ventricular wall motion and contractility are within normal limits. Global left ventricular systolic function is normal. The estimated ejection fraction is 60-65%. Normal left ventricular diastolic filling is observed. Left Atrium: The left atrium is normal in size with no visual thrombus identified. Right Ventricle: The right ventricular chamber size and systolic function are within normal limits. Right Atrium: The right atrium appears normal. Aortic Valve: The aortic valve structure is normal. There is no evidence of aortic regurgitation. There is no evidence of aortic stenosis. Mitral Valve: The mitral valve leaflets are mildly thickened. There is trace of mitral regurgitation. There is no evidence of mitral stenosis. Tricuspid Valve: The tricuspid valve leaflets are normal. There is trace tricuspid regurgitation. The right ventricular systolic pressure is calculated at 13 mmHg. There is no tricuspid stenosis. Pulmonic Valve: The pulmonic valve is not well visualized. There is mild pulmonic regurgitation. There is no pulmonic stenosis. Pericardium: The pericardium appears normal. There is no pericardial effusion. No pericardial fat pad is visualized. Aorta: The aorta appears normal. There is no dilatation of the ascending aorta. There is no dilatation of the aortic root. Pulmonary Artery: The main pulmonary artery is not well visualized. Venous: The inferior vena cava appears normal in size. There is a greater than 50% respiratory change in the inferior vena cava dimension. Measurements Chambers 2D Name Value Normal Range IVSd (2D) 0.94 cm (0.6 - 1.1) LVPWd (2D) 0.99 cm (0.6 - 1.1) LVIDd (2D) 4.52 cm (3.7 - 5.6) LVIDs (2D) 2.93 cm (2 - 3.8) LV FS (2D) 35.02 % - EF Teichholz (2D) 64.43 % - Ao root diameter (2D) 2.7 cm (2 - 3.7) Volumes/Mass Name Value Normal Range LA ESV SP 4CH (A/L) 31.04 ml - LA ESV SP 2CH (A/L) 36.67 ml - LA ESV BP (A/L) 34.08 ml - LA ESV BP (A/L) index 18.83 ml/m2 - LA ESV SP 4CH (MOD) 30.21 ml - LA ESV SP 2CH (MOD) 34.38 ml - LA ESV BP (MOD) 32.16 ml - LA ESV BP (MOD) index 17.77 ml/m2 - LV EDV SP 4CH (MOD) 66.07 ml - LV ESV SP 4CH (MOD) 24.6 ml - EF SP 4CH (MOD) 62.77 % - LV EDV SP 2CH (MOD) 77.35 ml - LV ESV SP 2CH (MOD) 28.88 ml - EF SP 2CH (MOD) 62.67 % - LV EDV BP 71.14 ml - LV ESV BP 27.02 ml - BP EF (MOD) 62.01 % - Diastolic/Systolic Function Name Value Normal Range MV E-wave Vmax 0.57 m/sec - MV deceleration time 232.56 msec - MV A-wave Vmax 0.69 m/sec - MV E:A ratio 0.83 ratio - Aortic Valve Name Value Normal Range AV Vmax 1.28 m/sec - AV VTI 23.41 cm - AV peak gradient 6.59 mmHg - AV mean gradient 3.68 mmHg - LVOT diameter 2.06 cm - LVOT Vmax 0.98 m/sec - LVOT VTI 21.61 cm - LVOT peak gradient 3.86 mmHg - LVOT mean gradient 2.41 mmHg - SV LVOT 71.98 ml - TESS (continuity Vmax) 2.55 cm2 - TESS (continuity VTI) 3.07 cm2 - Ascending Ao 2.75 cm - Tricuspid Valve Name Value Normal Range TV E-wave Vmax 0.47 m/sec - TR Vmax 1.59 m/sec - TR peak gradient 10.12 mmHg - RAP 3 mmHg - RVSP 13 mmHg - Pulmonic Valve/Qp:Qs Name Value Normal Range PV Vmax 0.86 m/sec - PV peak gradient 2.98 mmHg - OH end-diastolic Vmax 0.61 m/sec - RVOT Vmax 0.75 m/sec - RVOT VTI 17.65 cm - RVOT peak gradient 2.27 mmHg - PV acceleration time 201.71 msec - Manrique/IV: Voiding Method Toilet Active Medications - Current Medications Current Medications: Generic Name Dose Route Start Last Admin Trade Name Freq PRN Reason Stop Dose Admin Acetaminophen 650 mg 04/29/20 11:44 04/29/20 12:26 Acetaminophen 325 Mg Tab PO 650 mg Q4H PRN Administration Pain, Mild (1-3) Aspirin 325 mg 04/29/20 10:00 04/29/20 09:23 Aspirin 325 Mg Tab PO 325 mg QDAY BRIANNE Administration Atorvastatin Calcium 20 mg 04/28/20 22:00 04/28/20 21:06 Atorvastatin 20 Mg Tab PO 20 mg QHS BRIANNE Administration Escitalopram Oxalate 20 mg 04/28/20 10:00 04/29/20 09:23 Escitalopram 10 Mg Tab PO 20 mg DAILY BRIANNE Administration Sodium Chloride 1,000 mls @ 75 mls/hr 04/27/20 23:00 04/29/20 11:46 Nacl 0.9% 1000 Ml IV 75 mls/hr DIRECT BRIANNE Administration Lamotrigine 100 mg 04/28/20 10:00 04/29/20 09:23 Lamotrigine 100 Mg Tab PO 100 mg BID BRIANNE Administration Lorazepam 1 mg 04/27/20 22:48 04/29/20 17:06 Lorazepam 2 Mg/Ml Vial IV 1 mg Q4H PRN Administration Seizures Midodrine 5 mg 04/28/20 08:00 04/29/20 16:08 Midodrine 5 Mg Tab PO 5 mg TID@0800,1200,1600 BRIANNE Administration Ondansetron HCl 4 mg 04/27/20 22:53 04/28/20 01:14 Ondansetron 4 Mg/2 Ml Inj IV 4 mg Q8H PRN Administration Nausea And Vomiting Topiramate 100 mg 04/28/20 10:00 04/29/20 09:26 Topiramate Tab 100 Mg Tab PO 100 mg QDAY BRIANNE Administration Trazodone HCl 150 mg 04/28/20 22:00 04/28/20 21:06 Trazodone 50 Mg Tab PO 150 mg QDAY@2200 BRIANNE Administration
[2020-04-29] MEDS: ONDANSETRON 4 MG/2 ML INJ IV PRN (21:21)
[2020-04-29] MEDS: traZODone 50 MG TAB PO SCH (22:15)
[2020-04-30] MEDS: SODIUM CHLORIDE 0.9% 1000 ML 1,000 ML IV SCH ×2 (02:26→14:34)
[2020-04-30] MEDS: MIDODRINE 5 MG TAB PO SCH ×3 (08:40→17:29)
[2020-04-30] MEDS: LORazepam 2 MG/ML VIAL IV PRN ×2 (08:41→14:22)
[2020-04-30] MEDS: lamoTRIgine 100 MG TAB PO SCH ×2 (10:17→22:17)
[2020-04-30] MEDS: ONDANSETRON 4 MG/2 ML INJ IV PRN ×2 (10:17→21:44)
[2020-04-30] MEDS: ACETAMINOPHEN 325 MG TAB PO PRN ×2 (10:17→22:17)
[2020-04-30] MEDS: ESCITALOPRAM 10 MG TAB PO SCH (10:19)
[2020-04-30] MEDS: ASPIRIN 325 MG TAB PO SCH (10:19)
[2020-04-30] MEDS: TOPIRAMATE TAB 100 MG TAB PO SCH (10:19)
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
--- NOTE | 2020-04-30 16:43 | Progress Note ---
Assessment and Plan Assessment and plan: -- Syncope Current Visit: Yes Status: Acute Plan to address problem: No new episodes of syncope , syncope work-up reviewed CT head negative for acute abnormality CT cervical spine; no trauma or acute abnormality MRI; no focal abnormality Carotid Doppler; pending report Echocardiogram; EF 60 to 65% Fall precautions orthostats, Physical therapy occupational therapy --History of seizure disorder/seizure episode Current Visit: Yes Status: Acute Plan to address problem: Seizure precautions Continue antiepileptic medications CT head negative, MRI brain, negative Follow neurology consult and EEG, Do not drive until cleared by PMD/neurology --Dyslipidemia; Current Visit: Yes Status: Acute Plan to address problem: continue statin, low-cholesterol diet Target LDL 70 and below --Possible acute CVA /TIA (transient ischemic attack) Current Visit: Yes Status: Acute Plan to address problem: Patient is not a candidate for TPA[per telemetry neurologist] aspirin and statin Lipid panel Neuro work-up Neuro work-up so far negative Physical therapy, Occupational Therapy Neurology consult Closely monitor the patient and adjust the management as needed Neuro consult for 04/30/2020, not available during the weekend We will consult telemetry neurologist during the weekend if needed Plan of care reviewed with the patient and her nurse 04/30/2020; syncope work-up negative so far Follow-up carotid Doppler. No new episodes of seizures, follow EEG, follow neuro evaluation Follow-up physical therapy occupational therapy evaluation and recommendations DC planning per case management History Interval history: I have seen and examined the patient at the bedside Patient's medical records reviewed Patient feels slightly better Still has some headache Vital signs noted No new episodes of syncope or seizure Hospitalist Physical - Constitutional Vitals: Temp Pulse Resp BP Pulse Ox 98.4 F 68 18 100/57 98 04/30/20 08:02 04/30/20 08:02 04/30/20 08:02 04/30/20 08:02 04/30/20 10:00 General appearance: Present: no acute distress, well-nourished - EENT Eyes: Present: PERRL, EOM intact - Neck Neck: Present: supple, normal ROM - Respiratory Respiratory effort: normal Respiratory: bilateral: diminished, negative: rales, rhonchi, wheezing - Cardiovascular Rhythm: regular Heart Sounds: Present: S1 & S2 - Extremities Extremities: no ischemia, No edema Peripheral Pulses: within normal limits - Abdominal General gastrointestinal: soft, non-tender, non-distended, normal bowel sounds - Integumentary Integumentary: Present: clear, warm - Psychiatric Psychiatric: appropriate mood/affect, cooperative - Neurologic Neurologic: CNII-XII intact, moves all extremities HEART Score - HEART Score Risk factors: 1-2 risk factors Troponin: Troponin T < 0.010 ng/mL (0.00-0.029) 04/28/20 05:36 Troponin: < normal limit - Critical Actions Critical Actions: 0-3 pts:0.9-1.7%risk of adverse cardiac event.Candidate for discharge Results - Labs CBC & Chem 7: 04/27/20 20:18 04/27/20 20:18 Labs: Laboratory Last Values WBC 8.7 K/mm3 (4.5-11.0) 04/27/20 20:18 RBC 3.92 M/mm3 (3.65-5.03) 04/27/20 20:18 Hgb 13.0 gm/dl (10.1-14.3) 04/27/20 20:18 Hct 38.5 % (30.3-42.9) 04/27/20 20:18 MCV 98 fl (79-97) H 04/27/20 20:18 MCH 33 pg (28-32) H 04/27/20 20:18 MCHC 34 % (30-34) 04/27/20 20:18 RDW 13.9 % (13.2-15.2) 04/27/20 20:18 Plt Count 287 K/mm3 (140-440) 04/27/20 20:18 Lymph # (Auto) Rn Licensed Practical 04/27/20 20:18 Add Manual Diff Complete 04/27/20 20:18 Total Counted 100 04/27/20 20:18 Seg Neuts % (Manual) 35.0 % (40.0-70.0) L 04/27/20 20:18 Lymphocytes % (Manual) 52.0 % (13.4-35.0) H 04/27/20 20:18 Monocytes % (Manual) 11.0 % (0.0-7.3) H 04/27/20 20:18 Eosinophils % (Manual) 1.0 % (0.0-4.3) 04/27/20 20:18 Basophils % (Manual) 1.0 % (0.0-1.8) 04/27/20 20:18 Nucleated RBC % Not Reportable 04/27/20 20:18 Seg Neutrophils # Man 3.0 K/mm3 (1.8-7.7) 04/27/20 20:18 Band Neutrophils # 0.0 K/mm3 04/27/20 20:18 Lymphocytes # (Manual) 4.5 K/mm3 (1.2-5.4) 04/27/20 20:18 Abs React Lymphs (Man) 0.0 K/mm3 04/27/20 20:18 Monocytes # (Manual) 1.0 K/mm3 (0.0-0.8) H 04/27/20 20:18 Eosinophils # (Manual) 0.1 K/mm3 (0.0-0.4) 04/27/20 20:18 Basophils # (Manual) 0.1 K/mm3 (0.0-0.1) 04/27/20 20:18 Metamyelocytes # 0.0 K/mm3 04/27/20 20:18 Myelocytes # 0.0 K/mm3 04/27/20 20:18 Promyelocytes # 0.0 K/mm3 04/27/20 20:18 Blast Cells # 0.0 K/mm3 04/27/20 20:18 WBC Morphology Not Reportable 04/27/20 20:18 Hypersegmented Neuts Not Reportable 04/27/20 20:18 Hyposegmented Neuts Not Reportable 04/27/20 20:18 Hypogranular Neuts Not Reportable 04/27/20 20:18 Smudge Cells Not Reportable 04/27/20 20:18 Toxic Granulation Not Reportable 04/27/20 20:18 Toxic Vacuolation Not Reportable 04/27/20 20:18 Dohle Bodies Not Reportable 04/27/20 20:18 Pelger-Huet Anomaly Not Reportable 04/27/20 20:18 Park Rods Not Reportable 04/27/20 20:18 Platelet Estimate Not Reportable 04/27/20 20:18 Clumped Platelets Not Reportable 04/27/20 20:18 Plt Clumps, EDTA Not Reportable 04/27/20 20:18 Large Platelets Not Reportable 04/27/20 20:18 Giant Platelets Not Reportable 04/27/20 20:18 Platelet Satelliting Not Reportable 04/27/20 20:18 Plt Morphology Comment Not Reportable 04/27/20 20:18 RBC Morphology Normal 04/27/20 20:18 Dimorphic RBCs Not Reportable 04/27/20 20:18 Polychromasia Not Reportable 04/27/20 20:18 Hypochromasia Not Reportable 04/27/20 20:18 Poikilocytosis Not Reportable 04/27/20 20:18 Anisocytosis Not Reportable 04/27/20 20:18 Microcytosis Not Reportable 04/27/20 20:18 Macrocytosis Not Reportable 04/27/20 20:18 Spherocytes Not Reportable 04/27/20 20:18 Pappenheimer Bodies Not Reportable 04/27/20 20:18 Sickle Cells Not Reportable 04/27/20 20:18 Target Cells Not Reportable 04/27/20 20:18 Tear Drop Cells Not Reportable 04/27/20 20:18 Ovalocytes Not Reportable 04/27/20 20:18 Helmet Cells Not Reportable 04/27/20 20:18 [place]-Gilbert Bodies Not Reportable 04/27/20 20:18 [place] Rings Not Reportable 04/27/20 20:18 [place] Cells Not Reportable 04/27/20 20:18 Bite Cells Not Reportable 04/27/20 20:18 Crenated Cell Not Reportable 04/27/20 20:18 Elliptocytes Not Reportable 04/27/20 20:18 Acanthocytes (Spur) Not Reportable 04/27/20 20:18 Rouleaux Not Reportable 04/27/20 20:18 Hemoglobin C Crystals Not Reportable 04/27/20 20:18 Schistocytes Not Reportable 04/27/20 20:18 Malaria parasites Not Reportable 04/27/20 20:18 Curt Bodies Not Reportable 04/27/20 20:18 Hem Pathologist Commnt No 04/27/20 20:18 PT 11.8 Sec. (12.2-14.9) L 04/27/20 20:18 INR 0.89 (0.87-1.13) 04/27/20 20:18 APTT 30.2 Sec. (24.2-36.6) 04/27/20 20:18 Thrombin Time 15.9 Sec. (15.1-19.6) 04/27/20 20:18 Sodium 137 mmol/L (137-145) 04/27/20 20:18 Potassium 4.8 mmol/L (3.6-5.0) 04/27/20 20:18 Chloride 101.1 mmol/L (98-107) 04/27/20 20:18 Carbon Dioxide 24 mmol/L (22-30) 04/27/20 20:18 Anion Gap 17 mmol/L 04/27/20 20:18 BUN 13 mg/dL (7-17) 04/27/20 20:18 Creatinine 1.1 mg/dL (0.6-1.2) 04/27/20 20:18 Estimated GFR 50 ml/min 04/27/20 20:18 BUN/Creatinine Ratio 12 % 04/27/20 20:18 Glucose 91 mg/dL (65-100) 04/27/20 20:18 POC Glucose 75 mg/dL (70-105) 04/30/20 11:29 Calcium 10.2 mg/dL (8.4-10.2) 04/27/20 20:18 Total Bilirubin 0.30 mg/dL (0.1-1.2) 04/27/20 20:18 AST 23 units/L (5-40) 04/27/20 20:18 ALT 21 units/L (7-56) 04/27/20 20:18 Alkaline Phosphatase 78 units/L (35-129) 04/27/20 20:18 Total Creatine Kinase 160 units/L (30-135) H 04/28/20 05:36 CK-MB (CK-2) 3.4 ng/mL (0.0-4.0) 04/28/20 05:36 CK-MB (CK-2) Rel Index 2.1 (0-4) 04/28/20 05:36 Troponin T < 0.010 ng/mL (0.00-0.029) 04/28/20 05:36 Total Protein 8.0 g/dL (6.3-8.2) 04/27/20 20:18 Albumin 4.9 g/dL (3.9-5) 04/27/20 20:18 Albumin/Globulin Ratio 1.6 % 04/27/20 20:18 Triglycerides 77 mg/dL (2-149) 04/29/20 06:14 Cholesterol 156 mg/dL (50-199) 04/29/20 06:14 LDL Cholesterol Direct 88 mg/dL (50-130) 04/29/20 06:14 HDL Cholesterol 60 mg/dL (40-59) H 04/29/20 06:14 Cholesterol/HDL Ratio 2.60 % 04/29/20 06:14 - Diagnostic Impressions Diagnostic Impressions: Echocardiogram 04/28/20 06:00 Transthoracic Echocardiogram Indication: Syncope BP: 136/72 Conclusions *There is trace of mitral regurgitation. *There is trace tricuspid regurgitation. *The left ventricular chamber size is normal. *Global left ventricular systolic function is normal. *The estimated ejection fraction is 60-65%. *Right ventricular size and systolic function are within normal limits. Findings Procedure Info: The study quality is fair. Left Ventricle: The left ventricular chamber size is normal. Global left ventricular wall motion and contractility are within normal limits. Global left ventricular systolic function is normal. The estimated ejection fraction is 60-65%. Normal left ventricular diastolic filling is observed. Left Atrium: The left atrium is normal in size with no visual thrombus identified. Right Ventricle: The right ventricular chamber size and systolic function are within normal limits. Right Atrium: The right atrium appears normal. Aortic Valve: The aortic valve structure is normal. There is no evidence of aortic regurgitation. There is no evidence of aortic stenosis. Mitral Valve: The mitral valve leaflets are mildly thickened. There is trace of mitral regurgitation. There is no evidence of mitral stenosis. Tricuspid Valve: The tricuspid valve leaflets are normal. There is trace tricuspid regurgitation. The right ventricular systolic pressure is calculated at 13 mmHg. There is no tricuspid stenosis. Pulmonic Valve: The pulmonic valve is not well visualized. There is mild pulmonic regurgitation. There is no pulmonic stenosis. Pericardium: The pericardium appears normal. There is no pericardial effusion. No pericardial fat pad is visualized. Aorta: The aorta appears normal. There is no dilatation of the ascending aorta. There is no dilatation of the aortic root. Pulmonary Artery: The main pulmonary artery is not well visualized. Venous: The inferior vena cava appears normal in size. There is a greater than 50% respiratory change in the inferior vena cava dimension. Measurements Chambers 2D Name Value Normal Range IVSd (2D) 0.94 cm (0.6 - 1.1) LVPWd (2D) 0.99 cm (0.6 - 1.1) LVIDd (2D) 4.52 cm (3.7 - 5.6) LVIDs (2D) 2.93 cm (2 - 3.8) LV FS (2D) 35.02 % - EF Teichholz (2D) 64.43 % - Ao root diameter (2D) 2.7 cm (2 - 3.7) Volumes/Mass Name Value Normal Range LA ESV SP 4CH (A/L) 31.04 ml - LA ESV SP 2CH (A/L) 36.67 ml - LA ESV BP (A/L) 34.08 ml - LA ESV BP (A/L) index 18.83 ml/m2 - LA ESV SP 4CH (MOD) 30.21 ml - LA ESV SP 2CH (MOD) 34.38 ml - LA ESV BP (MOD) 32.16 ml - LA ESV BP (MOD) index 17.77 ml/m2 - LV EDV SP 4CH (MOD) 66.07 ml - LV ESV SP 4CH (MOD) 24.6 ml - EF SP 4CH (MOD) 62.77 % - LV EDV SP 2CH (MOD) 77.35 ml - LV ESV SP 2CH (MOD) 28.88 ml - EF SP 2CH (MOD) 62.67 % - LV EDV BP 71.14 ml - LV ESV BP 27.02 ml - BP EF (MOD) 62.01 % - Diastolic/Systolic Function Name Value Normal Range MV E-wave Vmax 0.57 m/sec - MV deceleration time 232.56 msec - MV A-wave Vmax 0.69 m/sec - MV E:A ratio 0.83 ratio - Aortic Valve Name Value Normal Range AV Vmax 1.28 m/sec - AV VTI 23.41 cm - AV peak gradient 6.59 mmHg - AV mean gradient 3.68 mmHg - LVOT diameter 2.06 cm - LVOT Vmax 0.98 m/sec - LVOT VTI 21.61 cm - LVOT peak gradient 3.86 mmHg - LVOT mean gradient 2.41 mmHg - SV LVOT 71.98 ml - TESS (continuity Vmax) 2.55 cm2 - TESS (continuity VTI) 3.07 cm2 - Ascending Ao 2.75 cm - Tricuspid Valve Name Value Normal Range TV E-wave Vmax 0.47 m/sec - TR Vmax 1.59 m/sec - TR peak gradient 10.12 mmHg - RAP 3 mmHg - RVSP 13 mmHg - Pulmonic Valve/Qp:Qs Name Value Normal Range PV Vmax 0.86 m/sec - PV peak gradient 2.98 mmHg - OH end-diastolic Vmax 0.61 m/sec - RVOT Vmax 0.75 m/sec - RVOT VTI 17.65 cm - RVOT peak gradient 2.27 mmHg - PV acceleration time 201.71 msec - Manrique/IV: Voiding Method Toilet Active Medications - Current Medications Current Medications: Generic Name Dose Route Start Last Admin Trade Name Freq PRN Reason Stop Dose Admin Acetaminophen 650 mg 04/29/20 11:44 04/30/20 10:17 Acetaminophen 325 Mg Tab PO 650 mg Q4H PRN Administration Pain, Mild (1-3) Aspirin 325 mg 04/29/20 10:00 04/30/20 10:19 Aspirin 325 Mg Tab PO 325 mg QDAY BRIANNE Administration Atorvastatin Calcium 20 mg 04/28/20 22:00 04/29/20 22:15 Atorvastatin 20 Mg Tab PO 20 mg QHS BRIANNE Administration Escitalopram Oxalate 20 mg 04/28/20 10:00 04/30/20 10:19 Escitalopram 10 Mg Tab PO 20 mg DAILY BRIANNE Administration Sodium Chloride 1,000 mls @ 75 mls/hr 04/27/20 23:00 04/30/20 14:34 Nacl 0.9% 1000 Ml IV 75 mls/hr DIRECT BRIANNE Administration Lamotrigine 100 mg 04/28/20 10:00 04/30/20 10:17 Lamotrigine 100 Mg Tab PO 100 mg BID BRIANNE Administration Lorazepam 1 mg 04/27/20 22:48 04/30/20 14:22 Lorazepam 2 Mg/Ml Vial IV 1 mg Q4H PRN Administration Seizures Midodrine 5 mg 04/28/20 08:00 04/30/20 12:43 Midodrine 5 Mg Tab PO 5 mg TID@0800,1200,1600 BRIANNE Administration Ondansetron HCl 4 mg 04/27/20 22:53 04/30/20 10:17 Ondansetron 4 Mg/2 Ml Inj IV 4 mg Q8H PRN Administration Nausea And Vomiting Topiramate 100 mg 04/28/20 10:00 04/30/20 10:19 Topiramate Tab 100 Mg Tab PO 100 mg QDAY BRIANNE Administration Trazodone HCl 150 mg 04/28/20 22:00 04/29/20 22:15 Trazodone 50 Mg Tab PO 150 mg QDAY@2200 BRIANNE Administration
--- NOTE | 2020-04-30 18:25 | Vascular Lab Report ---
"DUPLEX DOPPLER ULTRASOUND CAROTID, BILATERAL INDICATION: SYNCOPE. FINDINGS: RIGHT CAROTID: Mild plaque Right CCA velocity: 103 cm/sec. Right ICA peak systolic velocity: 116 cm/sec. ICA/CCA PSV Ratio: 1.1. Right Vertebral Artery: Antegrade flow. LEFT CAROTID: Mild plaque Left CCA velocity: 77 cm/sec. Left ICA peak systolic velocity: 106 cm/sec. ICA/CCA PSV Ratio: 1.4. Left Vertebral Artery: Antegrade flow. IMPRESSION: 1. Right Internal Carotid Artery: Less than 50% diameter stenosis. 2. Left Internal Carotid Artery: Less than 50% diameter stenosis. Velocity criteria are extrapolated from diameter data as defined by the Society of Radiologists in Ul trasound Consensus Conference, Radiology 2003; 229;340-346. Degree of Stenosis (%) || ICA PSV (cm/sec) || Plaque estimate (%) || ICA/CCA PSV Ratio Normal <125 None <2.0 <50 <125 <50 <2.0 50-69 125-230 50 2.0-4.0 70 but less than 100 >230 50 >4.0 Near occlusion High, low, or none visible variable Total occlusion None visible; no lumen N/A Signer Name: Rodo Batres MD Signed: 04/30/2020 6:21 PM Workstation Name: [id number]
[2020-04-30] MEDS: traZODone 50 MG TAB PO SCH (22:17)
[2020-05-01] MEDS: SODIUM CHLORIDE 0.9% 1000 ML 1,000 ML IV SCH ×2 (04:54→16:29)
[2020-05-01] MEDS: ASPIRIN 325 MG TAB PO SCH (09:47)
[2020-05-01] MEDS: TOPIRAMATE TAB 100 MG TAB PO SCH (09:47)
[2020-05-01] MEDS: MIDODRINE 5 MG TAB PO SCH ×3 (09:47→16:28)
[2020-05-01] MEDS: ESCITALOPRAM 10 MG TAB PO SCH (09:47)
[2020-05-01] MEDS: lamoTRIgine 100 MG TAB PO SCH ×2 (09:47→21:21)
[2020-05-01] MEDS: ACETAMINOPHEN 325 MG TAB PO PRN (13:51)
[2020-05-01] MEDS: ONDANSETRON 4 MG/2 ML INJ IV PRN ×2 (13:51→21:53)
--- NOTE | 2020-05-01 15:15 | Progress Note ---
Assessment and Plan Assessment and plan: -- Syncope Current Visit: Yes Status: Acute Plan to address problem: No new episodes of syncope , syncope work-up reviewed CT head negative for acute abnormality CT cervical spine; no trauma or acute abnormality MRI; no focal abnormality Carotid Doppler; pending report Echocardiogram; EF 60 to 65% Fall precautions orthostats, Physical therapy occupational therapy --History of seizure disorder/seizure episode Current Visit: Yes Status: Acute Plan to address problem: Seizure precautions Continue antiepileptic medications CT head negative, MRI brain, negative Neurology evaluated, EEG no seizure activity Do not drive until cleared by PMD/neurology --Dyslipidemia; Current Visit: Yes Status: Acute Plan to address problem: continue statin, low-cholesterol diet Target LDL 70 and below --Possible acute CVA /TIA (transient ischemic attack) Current Visit: Yes Status: Acute Plan to address problem: Patient is not a candidate for TPA[per telemetry neurologist] aspirin and statin Lipid panel Neuro work-up Neuro work-up so far negative Physical therapy, Occupational Therapy Neurology consult PT recommended home health PT I discussed with case management patient lives with her caregiver We will closely monitor the patient and adjust management as needed Possible discharge home tomorrow with home health and home health PT along with the caregiver Plan of care reviewed with the patient and her nurse 04/30/2020; syncope work-up negative so far Follow-up carotid Doppler. No new episodes of seizures, follow EEG, follow neuro evaluation Follow-up physical therapy occupational therapy evaluation and recommendations DC planning per case management 05/01/2020; possible discharge tomorrow if stable History Interval history: I have seen and examined the patient at the bedside today Patient's chart and medications reviewed Patient feels slightly better, no new episodes of seizures or syncope Neuro work-up so far is negative MRI brain no acute abnormality EEG no seizures activity Patient has no new complaints Vital signs reviewed Hospitalist Physical - Constitutional Vitals: Temp Pulse Resp BP Pulse Ox 98.2 F 66 18 117/59 99 05/01/20 11:06 05/01/20 11:06 05/01/20 11:06 05/01/20 11:06 05/01/20 11:06 General appearance: Present: no acute distress, well-nourished - EENT Eyes: Present: PERRL, EOM intact - Neck Neck: Present: supple, normal ROM - Respiratory Respiratory effort: normal Respiratory: bilateral: diminished, negative: rales, rhonchi, wheezing - Cardiovascular Rhythm: regular Heart Sounds: Present: S1 & S2 - Extremities Extremities: no ischemia, No edema - Abdominal General gastrointestinal: soft, non-tender, non-distended, normal bowel sounds - Integumentary Integumentary: Present: clear, warm - Psychiatric Psychiatric: appropriate mood/affect, cooperative - Neurologic Neurologic: CNII-XII intact, moves all extremities HEART Score - HEART Score Risk factors: 1-2 risk factors Troponin: Troponin T < 0.010 ng/mL (0.00-0.029) 04/28/20 05:36 Troponin: < normal limit - Critical Actions Critical Actions: 0-3 pts:0.9-1.7%risk of adverse cardiac event.Candidate for discharge Results - Labs CBC & Chem 7: 04/27/20 20:18 04/27/20 20:18 Labs: Laboratory Last Values WBC 8.7 K/mm3 (4.5-11.0) 04/27/20 20:18 RBC 3.92 M/mm3 (3.65-5.03) 04/27/20 20:18 Hgb 13.0 gm/dl (10.1-14.3) 04/27/20 20:18 Hct 38.5 % (30.3-42.9) 04/27/20 20:18 MCV 98 fl (79-97) H 04/27/20 20:18 MCH 33 pg (28-32) H 04/27/20 20:18 MCHC 34 % (30-34) 04/27/20 20:18 RDW 13.9 % (13.2-15.2) 04/27/20 20:18 Plt Count 287 K/mm3 (140-440) 04/27/20 20:18 Lymph # (Auto) Casting Machine Operator 04/27/20 20:18 Add Manual Diff Complete 04/27/20 20:18 Total Counted 100 04/27/20 20:18 Seg Neuts % (Manual) 35.0 % (40.0-70.0) L 04/27/20 20:18 Lymphocytes % (Manual) 52.0 % (13.4-35.0) H 04/27/20 20:18 Monocytes % (Manual) 11.0 % (0.0-7.3) H 04/27/20 20:18 Eosinophils % (Manual) 1.0 % (0.0-4.3) 04/27/20 20:18 Basophils % (Manual) 1.0 % (0.0-1.8) 04/27/20 20:18 Nucleated RBC % Not Reportable 04/27/20 20:18 Seg Neutrophils # Man 3.0 K/mm3 (1.8-7.7) 04/27/20 20:18 Band Neutrophils # 0.0 K/mm3 04/27/20 20:18 Lymphocytes # (Manual) 4.5 K/mm3 (1.2-5.4) 04/27/20 20:18 Abs React Lymphs (Man) 0.0 K/mm3 04/27/20 20:18 Monocytes # (Manual) 1.0 K/mm3 (0.0-0.8) H 04/27/20 20:18 Eosinophils # (Manual) 0.1 K/mm3 (0.0-0.4) 04/27/20 20:18 Basophils # (Manual) 0.1 K/mm3 (0.0-0.1) 04/27/20 20:18 Metamyelocytes # 0.0 K/mm3 04/27/20 20:18 Myelocytes # 0.0 K/mm3 04/27/20 20:18 Promyelocytes # 0.0 K/mm3 04/27/20 20:18 Blast Cells # 0.0 K/mm3 04/27/20 20:18 WBC Morphology Not Reportable 04/27/20 20:18 Hypersegmented Neuts Not Reportable 04/27/20 20:18 Hyposegmented Neuts Not Reportable 04/27/20 20:18 Hypogranular Neuts Not Reportable 04/27/20 20:18 Smudge Cells Not Reportable 04/27/20 20:18 Toxic Granulation Not Reportable 04/27/20 20:18 Toxic Vacuolation Not Reportable 04/27/20 20:18 Dohle Bodies Not Reportable 04/27/20 20:18 Pelger-Huet Anomaly Not Reportable 04/27/20 20:18 Park Rods Not Reportable 04/27/20 20:18 Platelet Estimate Not Reportable 04/27/20 20:18 Clumped Platelets Not Reportable 04/27/20 20:18 Plt Clumps, EDTA Not Reportable 04/27/20 20:18 Large Platelets Not Reportable 04/27/20 20:18 Giant Platelets Not Reportable 04/27/20 20:18 Platelet Satelliting Not Reportable 04/27/20 20:18 Plt Morphology Comment Not Reportable 04/27/20 20:18 RBC Morphology Normal 04/27/20 20:18 Dimorphic RBCs Not Reportable 04/27/20 20:18 Polychromasia Not Reportable 04/27/20 20:18 Hypochromasia Not Reportable 04/27/20 20:18 Poikilocytosis Not Reportable 04/27/20 20:18 Anisocytosis Not Reportable 04/27/20 20:18 Microcytosis Not Reportable 04/27/20 20:18 Macrocytosis Not Reportable 04/27/20 20:18 Spherocytes Not Reportable 04/27/20 20:18 Pappenheimer Bodies Not Reportable 04/27/20 20:18 Sickle Cells Not Reportable 04/27/20 20:18 Target Cells Not Reportable 04/27/20 20:18 Tear Drop Cells Not Reportable 04/27/20 20:18 Ovalocytes Not Reportable 04/27/20 20:18 Helmet Cells Not Reportable 04/27/20 20:18 [place] Bodies Not Reportable 04/27/20 20:18 [place] Rings Not Reportable 04/27/20 20:18 [place] Cells Not Reportable 04/27/20 20:18 Bite Cells Not Reportable 04/27/20 20:18 Crenated Cell Not Reportable 04/27/20 20:18 Elliptocytes Not Reportable 04/27/20 20:18 Acanthocytes (Spur) Not Reportable 04/27/20 20:18 Rouleaux Not Reportable 04/27/20 20:18 Hemoglobin C Crystals Not Reportable 04/27/20 20:18 Schistocytes Not Reportable 04/27/20 20:18 Malaria parasites Not Reportable 04/27/20 20:18 Curt Bodies Not Reportable 04/27/20 20:18 Hem Pathologist Commnt No 04/27/20 20:18 PT 11.8 Sec. (12.2-14.9) L 04/27/20 20:18 INR 0.89 (0.87-1.13) 04/27/20 20:18 APTT 30.2 Sec. (24.2-36.6) 04/27/20 20:18 Thrombin Time 15.9 Sec. (15.1-19.6) 04/27/20 20:18 Sodium 137 mmol/L (137-145) 04/27/20 20:18 Potassium 4.8 mmol/L (3.6-5.0) 04/27/20 20:18 Chloride 101.1 mmol/L (98-107) 04/27/20 20:18 Carbon Dioxide 24 mmol/L (22-30) 04/27/20 20:18 Anion Gap 17 mmol/L 04/27/20 20:18 BUN 13 mg/dL (7-17) 04/27/20 20:18 Creatinine 1.1 mg/dL (0.6-1.2) 04/27/20 20:18 Estimated GFR 50 ml/min 04/27/20 20:18 BUN/Creatinine Ratio 12 % 04/27/20 20:18 Glucose 91 mg/dL (65-100) 04/27/20 20:18 POC Glucose 93 mg/dL (70-105) 05/01/20 11:59 Calcium 10.2 mg/dL (8.4-10.2) 04/27/20 20:18 Total Bilirubin 0.30 mg/dL (0.1-1.2) 04/27/20 20:18 AST 23 units/L (5-40) 04/27/20 20:18 ALT 21 units/L (7-56) 04/27/20 20:18 Alkaline Phosphatase 78 units/L (35-129) 04/27/20 20:18 Total Creatine Kinase 160 units/L (30-135) H 04/28/20 05:36 CK-MB (CK-2) 3.4 ng/mL (0.0-4.0) 04/28/20 05:36 CK-MB (CK-2) Rel Index 2.1 (0-4) 04/28/20 05:36 Troponin T < 0.010 ng/mL (0.00-0.029) 04/28/20 05:36 Total Protein 8.0 g/dL (6.3-8.2) 04/27/20 20:18 Albumin 4.9 g/dL (3.9-5) 04/27/20 20:18 Albumin/Globulin Ratio 1.6 % 04/27/20 20:18 Triglycerides 77 mg/dL (2-149) 04/29/20 06:14 Cholesterol 156 mg/dL (50-199) 04/29/20 06:14 LDL Cholesterol Direct 88 mg/dL (50-130) 04/29/20 06:14 HDL Cholesterol 60 mg/dL (40-59) H 04/29/20 06:14 Cholesterol/HDL Ratio 2.60 % 04/29/20 06:14 - Diagnostic Impressions Diagnostic Impressions: Echocardiogram 04/28/20 06:00 Transthoracic Echocardiogram Indication: Syncope BP: 136/72 Conclusions *There is trace of mitral regurgitation. *There is trace tricuspid regurgitation. *The left ventricular chamber size is normal. *Global left ventricular systolic function is normal. *The estimated ejection fraction is 60-65%. *Right ventricular size and systolic function are within normal limits. Findings Procedure Info: The study quality is fair. Left Ventricle: The left ventricular chamber size is normal. Global left ventricular wall motion and contractility are within normal limits. Global left ventricular systolic function is normal. The estimated ejection fraction is 60-65%. Normal left ventricular diastolic filling is observed. Left Atrium: The left atrium is normal in size with no visual thrombus identified. Right Ventricle: The right ventricular chamber size and systolic function are within normal limits. Right Atrium: The right atrium appears normal. Aortic Valve: The aortic valve structure is normal. There is no evidence of aortic regurgitation. There is no evidence of aortic stenosis. Mitral Valve: The mitral valve leaflets are mildly thickened. There is trace of mitral regurgitation. There is no evidence of mitral stenosis. Tricuspid Valve: The tricuspid valve leaflets are normal. There is trace tricuspid regurgitation. The right ventricular systolic pressure is calculated at 13 mmHg. There is no tricuspid stenosis. Pulmonic Valve: The pulmonic valve is not well visualized. There is mild pulmonic regurgitation. There is no pulmonic stenosis. Pericardium: The pericardium appears normal. There is no pericardial effusion. No pericardial fat pad is visualized. Aorta: The aorta appears normal. There is no dilatation of the ascending aorta. There is no dilatation of the aortic root. Pulmonary Artery: The main pulmonary artery is not well visualized. Venous: The inferior vena cava appears normal in size. There is a greater than 50% respiratory change in the inferior vena cava dimension. Measurements Chambers 2D Name Value Normal Range IVSd (2D) 0.94 cm (0.6 - 1.1) LVPWd (2D) 0.99 cm (0.6 - 1.1) LVIDd (2D) 4.52 cm (3.7 - 5.6) LVIDs (2D) 2.93 cm (2 - 3.8) LV FS (2D) 35.02 % - EF Teichholz (2D) 64.43 % - Ao root diameter (2D) 2.7 cm (2 - 3.7) Volumes/Mass Name Value Normal Range LA ESV SP 4CH (A/L) 31.04 ml - LA ESV SP 2CH (A/L) 36.67 ml - LA ESV BP (A/L) 34.08 ml - LA ESV BP (A/L) index 18.83 ml/m2 - LA ESV SP 4CH (MOD) 30.21 ml - LA ESV SP 2CH (MOD) 34.38 ml - LA ESV BP (MOD) 32.16 ml - LA ESV BP (MOD) index 17.77 ml/m2 - LV EDV SP 4CH (MOD) 66.07 ml - LV ESV SP 4CH (MOD) 24.6 ml - EF SP 4CH (MOD) 62.77 % - LV EDV SP 2CH (MOD) 77.35 ml - LV ESV SP 2CH (MOD) 28.88 ml - EF SP 2CH (MOD) 62.67 % - LV EDV BP 71.14 ml - LV ESV BP 27.02 ml - BP EF (MOD) 62.01 % - Diastolic/Systolic Function Name Value Normal Range MV E-wave Vmax 0.57 m/sec - MV deceleration time 232.56 msec - MV A-wave Vmax 0.69 m/sec - MV E:A ratio 0.83 ratio - Aortic Valve Name Value Normal Range AV Vmax 1.28 m/sec - AV VTI 23.41 cm - AV peak gradient 6.59 mmHg - AV mean gradient 3.68 mmHg - LVOT diameter 2.06 cm - LVOT Vmax 0.98 m/sec - LVOT VTI 21.61 cm - LVOT peak gradient 3.86 mmHg - LVOT mean gradient 2.41 mmHg - SV LVOT 71.98 ml - TESS (continuity Vmax) 2.55 cm2 - TESS (continuity VTI) 3.07 cm2 - Ascending Ao 2.75 cm - Tricuspid Valve Name Value Normal Range TV E-wave Vmax 0.47 m/sec - TR Vmax 1.59 m/sec - TR peak gradient 10.12 mmHg - RAP 3 mmHg - RVSP 13 mmHg - Pulmonic Valve/Qp:Qs Name Value Normal Range PV Vmax 0.86 m/sec - PV peak gradient 2.98 mmHg - NH end-diastolic Vmax 0.61 m/sec - RVOT Vmax 0.75 m/sec - RVOT VTI 17.65 cm - RVOT peak gradient 2.27 mmHg - PV acceleration time 201.71 msec - Manrique/IV: Voiding Method Toilet Active Medications - Current Medications Current Medications: Generic Name Dose Route Start Last Admin Trade Name Freq PRN Reason Stop Dose Admin Acetaminophen 650 mg 04/29/20 11:44 05/01/20 13:51 Acetaminophen 325 Mg Tab PO 650 mg Q4H PRN Administration Pain, Mild (1-3) Aspirin 325 mg 04/29/20 10:00 05/01/20 09:47 Aspirin 325 Mg Tab PO 325 mg QDAY BRIANNE Administration Atorvastatin Calcium 20 mg 04/28/20 22:00 04/30/20 22:17 Atorvastatin 20 Mg Tab PO 20 mg QHS BRIANNE Administration Escitalopram Oxalate 20 mg 04/28/20 10:00 05/01/20 09:47 Escitalopram 10 Mg Tab PO 20 mg DAILY BRIANNE Administration Sodium Chloride 1,000 mls @ 75 mls/hr 04/27/20 23:00 05/01/20 04:54 Nacl 0.9% 1000 Ml IV 75 mls/hr DIRECT BRIANNE Administration Lamotrigine 100 mg 04/28/20 10:00 05/01/20 09:47 Lamotrigine 100 Mg Tab PO 100 mg BID BRIANNE Administration Midodrine 5 mg 04/28/20 08:00 05/01/20 13:31 Midodrine 5 Mg Tab PO 5 mg TID@0800,1200,1600 BRIANNE Administration Ondansetron HCl 4 mg 04/27/20 22:53 05/01/20 13:51 Ondansetron 4 Mg/2 Ml Inj IV 4 mg Q8H PRN Administration Nausea And Vomiting Topiramate 100 mg 04/28/20 10:00 05/01/20 09:47 Topiramate Tab 100 Mg Tab PO 100 mg QDAY BRIANNE Administration Trazodone HCl 150 mg 04/28/20 22:00 04/30/20 22:17 Trazodone 50 Mg Tab PO 150 mg QDAY@2200 BRIANNE Administration
--- NOTE | 2020-05-01 20:06 | Progress Note ---
Subjective Date of service: 05/01/20 Principal diagnosis: Seizures Interval history: Since the last Consult the patient has had EEG and MRI Brain , there is no evidence of interictal seizures on EEG and MRI Brain is normal . Current Recommendations are to continue current medications, If the patient continues to have seizures she may need a transfer to a tertiary care centre , if stable she needs a in home video monitering of Seizures , call back with questions . Dr. Haas Objective - Vital Sign Vital Signs - 12hr 05/01/20 05/01/20 05/01/20 08:03 11:06 14:00 Temperature 97.5 F L 98.2 F Pulse Rate 70 66 60 Respiratory 18 18 Rate Blood Pressure 106/70 117/59 O2 Sat by Pulse 99 99 Oximetry 05/01/20 15:21 Temperature 98.5 F Pulse Rate 58 L Respiratory 18 Rate Blood Pressure 137/57 O2 Sat by Pulse 99 Oximetry - Laboratory Findings CBC and BMP: 04/27/20 20:18 04/27/20 20:18 Abnormal Lab Findings: Abnormal Labs 04/27/20 04/27/20 04/28/20 20:18 20:18 00:17 MCV 98 H MCH 33 H Seg Neuts % (Manual) 35.0 L Lymphocytes % (Manual) 52.0 H Monocytes % (Manual) 11.0 H Monocytes # (Manual) 1.0 H PT 11.8 L POC Glucose Total Creatine Kinase 160 H HDL Cholesterol 04/28/20 04/29/20 04/29/20 05:36 06:14 11:55 MCV MCH Seg Neuts % (Manual) Lymphocytes % (Manual) Monocytes % (Manual) Monocytes # (Manual) PT POC Glucose 109 H Total Creatine Kinase 160 H HDL Cholesterol 60 H 04/30/20 21:59 MCV MCH Seg Neuts % (Manual) Lymphocytes % (Manual) Monocytes % (Manual) Monocytes # (Manual) PT POC Glucose 107 H Total Creatine Kinase HDL Cholesterol
[2020-05-01] MEDS: traZODone 50 MG TAB PO SCH (21:20)
[2020-05-01] MEDS ORDERED: MAGNESIUM HYDROXIDE (MOM) ORAL LIQD UDC PO ONE (22:19)
[2020-05-02] MEDS: SODIUM CHLORIDE 0.9% 1000 ML 1,000 ML IV SCH (05:44)
[2020-05-02] MEDS: MIDODRINE 5 MG TAB PO SCH ×2 (09:20→11:34)
[2020-05-02] MEDS: TOPIRAMATE TAB 100 MG TAB PO SCH (09:21)
[2020-05-02] MEDS: lamoTRIgine 100 MG TAB PO SCH (09:21)
[2020-05-02] MEDS: ASPIRIN 325 MG TAB PO SCH (09:21)
[2020-05-02] MEDS: ESCITALOPRAM 10 MG TAB PO SCH (09:21)
--- NOTE | 2020-05-02 10:46 | Discharge Summary ---
Providers - Providers Date of Admission: 04/29/20 10:35 Date of discharge: 05/02/20 Attending physician: DARELL ADAMS 04/28/20 06:00 Physical Therapy Evaluation and Treat [CONS] Routine Comment: Reason For Exam: TIA Speech Therapy Evaluation and Treat [CONS] Routine Reason For Exam: SPEECH IMPAIRMENT 04/28/20 18:06 Consult to Physician [CONS] Routine Comment: Consulting Provider: TERA MILLAN Physician Instructions: Reason For Exam: Syncope/seizure/TIA 04/28/20 18:21 Occupational Therapy Evaluate and Treat [CONS] Routine Comment: Reason For Exam: Syncope/seizure/possible TIA Hospitalization Condition: Fair Hospital course: -- Syncope/autonomic imbalance Current Visit: Yes Status: Acute Plan to address problem: No new episodes of syncope , syncope work-up reviewed CT head negative for acute abnormality CT cervical spine; no trauma or acute abnormality MRI; no focal abnormality Carotid Doppler; pending report Echocardiogram; EF 60 to 65% Fall precautions orthostats, Physical therapy occupational therapy --History of seizure disorder/seizure episode Current Visit: Yes Status: Acute Plan to address problem: Seizure precautions Continue antiepileptic medications CT head negative, MRI brain, negative Neurology evaluated, EEG no seizure activity Do not drive until cleared by PMD/neurology --Dyslipidemia; Current Visit: Yes Status: Acute Plan to address problem: continue statin, low-cholesterol diet Target LDL 70 and below --Possible acute CVA /TIA (transient ischemic attack) Current Visit: Yes Status: Acute Plan to address problem: Patient is not a candidate for TPA[per telemetry neurologist] aspirin and statin Lipid panel Neuro work-up so far negative Physical therapy, Occupational Therapy Acute CVA ruled out PT recommended home health PT I discussed with case management patient lives with her caregiver We will closely monitor the patient and adjust management as needed Possible discharge home tomorrow with home health and home health PT along with the caregiver Plan of care reviewed with the patient and her nurse Disposition: [id number] HOME UNDER HOME HL Time spent for discharge: 35 min Core Measure Documentation - Palliative Care Palliative Care/ Comfort Measures: Not Applicable - Core Measures Any of the following diagnoses?: none Exam - Constitutional Vitals: Temp Pulse Resp BP Pulse Ox 97.9 F 60 18 109/53 97 05/02/20 07:56 05/02/20 07:56 05/02/20 07:56 05/02/20 07:56 05/02/20 07:56 General appearance: Present: no acute distress, well-nourished - EENT Eyes: Present: PERRL, EOM intact - Neck Neck: Present: supple, normal ROM - Respiratory Respiratory effort: normal Respiratory: bilateral: diminished, negative: rales, rhonchi, wheezing - Cardiovascular Rhythm: regular Heart Sounds: Present: S1 & S2 - Extremities Extremities: no ischemia, No edema - Abdominal General gastrointestinal: Present: soft, non-tender, non-distended, normal bowel sounds - Integumentary Integumentary: Present: clear, warm - Musculoskeletal Musculoskeletal: strength equal bilaterally - Psychiatric Psychiatric: appropriate mood/affect, cooperative - Neurologic Neurologic: moves all extremities Plan Activity: advance as tolerated, no driving until cleared by PCP, other Follow up with: RILEY BERTRAND [Other] - 3-5 Days Prescriptions: traZODone [Desyrel] 150 mg PO QDAY@2200 #14 tablet lamoTRIgine [LaMICtal] 100 mg PO BID #60 tablet Escitalopram [Lexapro] 20 mg PO DAILY #30 tablet AtorvaSTATin [Lipitor] 20 mg PO QHS #30 tablet Midodrine [Proamatine] 5 mg PO TID@0800,1200,1600 #30 tablet Topiramate [Topamax] 100 mg PO QDAY #30 tablet
[2020-05-02] MEDS ORDERED: MAGNESIUM HYDROXIDE (MOM) ORAL LIQD UDC PO ONE (11:00)
[2020-05-02 12:44] VITALS: BP 128/56
== END 2020-05-02 16:18 | disposition home health service (06) | DRG 74 ==
LOC: ED 19:19 → 4A 22:04 → OBSVTOIN 04-29 10:35
PROVIDERS: ADMIT Internal Medicine; ATTEND Internal Medicine
DX: G90.8 Other disorders of autonomic nervous system (principal); G45.9 Transient cerebral ischemic attack, unspecified; G40.909 Epilepsy, unspecified, not intractable, without status epilepticus; F31.9 Bipolar disorder, unspecified; F20.9 Schizophrenia, unspecified; K21.9 Gastro-esophageal reflux disease without esophagitis; E78.5 Hyperlipidemia, unspecified; N18.9 Chronic kidney disease, unspecified; Z79.899 Other long term (current) drug therapy; Z87.828 Personal history of other (healed) physical injury and trauma; Z79.01 Long term (current) use of anticoagulants; Z88.0 Allergy status to penicillin
CPT/HCPCS: 36415; 70450; 70553; 71045; 72125; 80053; 80061; 82550; 82553; 82962; 84484; 85007; 85025; 85610; 85670; 85730; 93005; 93306; 93880; 95819; 96365; 96375; G0378; A9270-GY; A9575; J1953; J2060; J2405; J7030

== ENCOUNTER 2020-08-01 20:40 | Emergency (ER) | payer MEDICARE ==
[2020-08-01 21:14] VITALS: BP 108/53
[2020-08-01] MEDS ORDERED: levETIRAcetam 500 MG/5 ML ORAL LIQD PO ONE (21:17)
[2020-08-01] MEDS ORDERED: LORazepam 1 MG TAB PO ONE (21:18)
--- NOTE | 2020-08-01 23:27 | Emergency Department Report ---
Blank Doc - Documentation Documentation: [facility] Consult Note # Demographics Consult Type: General Neurology Patient Location: Emergency Room First Name: Dayanara Last Name: Max Date of : 1960 Age: 59 Gender: Female Time of Initial Page (Eastern Time): 08/01/2020, 23:14 Time of Return Call (Eastern Time): 08/01/2020, 23:14 # HPI History: pt has h/o epilepsy, after a third seizure today she had changes in speech (dysarthria and aphasia). She sometimes has right sided symptoms after a seizure before. I think she hasn't had this many seizure in a day before it appears she had a similar presents in 04/2020 with a negative eval at that time. # Exam Mental Status: awake, follows commands Language: dysarthria, mostly dysarthria, getting syllables correct making her sound less aphasic because of this. pt has a very odd speech pattern Cranial Nerves: extra ocular movements intact, PERRLA, no facial droop Motor: possible mild right sided weakness Cerebellar: normal cerebellar exam # PMH-FH-SH Past Medical History: seizure, psych # Assessment Impression: very atypcial speech pattern, give prior presentation with negative eval and atypical nature, suspect a psychogenic cause over organic cause at this time. # Plan Other: I have discussed my recommendations with the referring provider Additional Recommendations: given recent negative eval for same or very similar symptoms no need to repeat at this time. can observe and treat with supportive care # Logistics Telemedicine: Interactive 2 way audio and visual telecommunication technology was utilized during this visit
[2020-08-01 23:45] LABS: Basophils % (Auto) 0.2 % (0.0-1.8); Eosinophils # (Auto) 0.1 K/mm3 (0.0-0.4); Eosinophils % (Auto) 1.4 % (0.0-4.3); Hematocrit 31.7 % (30.3-42.9); Hemoglobin 11.1 gm/dl (10.1-14.3); Lymphocytes % (Auto) 47.6 % (13.4-35.0); Mean Corpuscular HGB Conc 35 % (30-34); Mean Corpuscular Volume 96 fl (79-97); Monocytes # (Auto) 0.5 K/mm3 (0.0-0.8); Monocytes % (Auto) 8.1 % (0.0-7.3); Platelet Count 247 K/mm3 (140-440); Red Cell Distribution Width 13.7 % (13.2-15.2)
[2020-08-01 23:55] LABS: INR 0.95 (0.87-1.13)
[2020-08-01 23:56] LABS: Partial Thromboplastin Time 29.6 Sec. (24.2-36.6)
[2020-08-02 00:07] LABS: Alanine Aminotransferase 15 units/L (7-56); BUN/Creatinine Ratio 15; Blood Urea Nitrogen 17 mg/dL (7-17); Calcium 8.5 mg/dL (8.4-10.2); Hemolysis Index 9
[2020-08-02] MEDS ORDERED: BUTALB/ACETAMINOPHEN/CAFFEINE TAB PO ONE (00:51)
--- NOTE | 2020-08-02 02:26 | Emergency Department Report ---
ED General Adult HPI - General Chief complaint: Seizure Stated complaint: SEIZURE Time Seen by Provider: 08/01/20 20:55 Source: patient, family Mode of arrival: Ambulatory Limitations: Altered Mental Status - History of Present Illness Initial comments: The patient presents to the emergency department with a power of city attorney for seizure activity. Per the patient's power of city attorney the patient has had 6 seizures at home today with another 1 in route to the hospital. The power of city attorney states that the patient began to have aphasia after the third seizure around 5:30 PM today. Patient has a history of having issues with speech after seizures. The patient complains of a mild headache after seizure activity. -: Sudden Severity scale (0 -10): 3 Quality: aching Consistency: constant Improves with: none Worsens with: none Associated Symptoms: denies other symptoms Treatments Prior to Arrival: none - Related Data Previous Rx's Medication Instructions Recorded Last Taken Type AtorvaSTATin [Lipitor] 20 mg PO QHS #30 tablet 05/02/20 Unknown Rx Escitalopram [Lexapro] 20 mg PO DAILY #30 tablet 05/02/20 Unknown Rx Midodrine [Proamatine] 5 mg PO TID@0800,1200,1600 #30 05/02/20 Unknown Rx tablet Topiramate [Topamax] 100 mg PO QDAY #30 tablet 05/02/20 Unknown Rx lamoTRIgine [LaMICtal] 100 mg PO BID #60 tablet 05/02/20 Unknown Rx traZODone [Desyrel] 150 mg PO QDAY@2200 #14 tablet 05/02/20 Unknown Rx Allergies Allergy/AdvReac Type Severity Reaction Status Date / Time Penicillins Allergy Unknown Verified 12/09/18 16:35 ED Review of Systems ROS: Stated complaint: SEIZURE Other details as noted in HPI Comment: All other systems reviewed and negative Constitutional: denies: chills, fever Eyes: denies: eye pain, eye discharge, vision change ENT: denies: ear pain, throat pain Respiratory: denies: cough, shortness of breath, wheezing Cardiovascular: denies: chest pain, palpitations Endocrine: no symptoms reported Gastrointestinal: denies: abdominal pain, nausea, diarrhea Genitourinary: denies: urgency, dysuria, discharge Musculoskeletal: denies: back pain, joint swelling, arthralgia Skin: denies: rash, lesions Neurological: denies: headache, weakness, paresthesias Psychiatric: denies: anxiety, depression Hematological/Lymphatic: denies: easy bleeding, easy bruising ED Past Medical Hx - Past Medical History Hx CVA: Yes Hx Congestive Heart Failure: No Hx Diabetes: No Hx Seizures: Yes Hx Psychiatric Treatment: Yes (Schiziophrenia) Hx Asthma: No Hx COPD: No Hx HIV: No - Surgical History Hx Cholecystectomy: Yes Additional Surgical History: Hysterectomy - Social History Smoking Status: Never Smoker - Medications Home Medications: Home Medications Medication Instructions Recorded Confirmed Last Taken Type AtorvaSTATin [Lipitor] 20 mg PO QHS #30 tablet 05/02/20 Unknown Rx Escitalopram [Lexapro] 20 mg PO DAILY #30 tablet 05/02/20 Unknown Rx Midodrine [Proamatine] 5 mg PO TID@0800,1200,1600 #30 05/02/20 Unknown Rx tablet Topiramate [Topamax] 100 mg PO QDAY #30 tablet 05/02/20 Unknown Rx lamoTRIgine [LaMICtal] 100 mg PO BID #60 tablet 05/02/20 Unknown Rx traZODone [Desyrel] 150 mg PO QDAY@2200 #14 tablet 05/02/20 Unknown Rx ED Physical Exam - General General appearance: alert, in no apparent distress, postictal - Head Head exam: Present: atraumatic, normocephalic - Eye Eye exam: Present: normal appearance - ENT ENT exam: Present: mucous membranes moist - Neck Neck exam: Present: normal inspection - Respiratory Respiratory exam: Present: normal lung sounds bilaterally. Absent: respiratory distress - Cardiovascular Cardiovascular Exam: Present: regular rate, normal rhythm. Absent: systolic murmur, diastolic murmur, rubs, gallop - GI/Abdominal GI/Abdominal exam: Present: soft, normal bowel sounds. Absent: distended, tenderness - Extremities Exam Extremities exam: Present: normal inspection - Back Exam Back exam: Present: normal inspection - Neurological Exam Neurological exam: Present: alert, oriented X3, CN II-XII intact. Absent: motor sensory deficit - Psychiatric Psychiatric exam: Present: normal affect, normal mood - Skin Skin exam: Present: warm, dry, intact, normal color. Absent: rash ED Course Vital Signs 08/01/20 08/01/20 08/01/20 20:44 21:01 21:09 Temperature 98.3 F Pulse Rate 82 77 75 Respiratory 16 17 20 Rate Blood Pressure 108/53 108/53 O2 Sat by Pulse 95 97 97 Oximetry ED Medical Decision Making - Lab Data Result diagrams: 08/01/20 23:34 08/01/20 23:34 Lab Results 08/01/20 08/01/20 08/01/20 Range/Units 23:34 23:34 23:34 WBC 6.3 (4.5-11.0) K/mm3 RBC 3.30 L (3.65-5.03) M/mm3 Hgb 11.1 (10.1-14.3) gm/dl Hct 31.7 (30.3-42.9) % MCV 96 (79-97) fl MCH 34 H (28-32) pg MCHC 35 H (30-34) % RDW 13.7 (13.2-15.2) % Plt Count 247 (140-440) K/mm3 Lymph % (Auto) 47.6 H (13.4-35.0) % [place] % (Auto) 8.1 H (0.0-7.3) % Eos % (Auto) 1.4 (0.0-4.3) % Baso % (Auto) 0.2 (0.0-1.8) % Lymph # (Auto) 3.0 (1.2-5.4) K/mm3 [place] # (Auto) 0.5 (0.0-0.8) K/mm3 Eos # (Auto) 0.1 (0.0-0.4) K/mm3 Baso # (Auto) 0.0 (0.0-0.1) K/mm3 Seg Neutrophils % 42.7 (40.0-70.0) % Seg Neutrophils # 2.7 (1.8-7.7) K/mm3 PT 12.6 (12.2-14.9) Sec. INR 0.95 (0.87-1.13) APTT 29.6 (24.2-36.6) Sec. Sodium 138 (137-145) mmol/L Potassium 3.9 (3.6-5.0) mmol/L Chloride 104.1 (98-107) mmol/L Carbon Dioxide 22 (22-30) mmol/L Anion Gap 16 mmol/L BUN 17 (7-17) mg/dL Creatinine 1.1 (0.6-1.2) mg/dL Estimated GFR 50 ml/min BUN/Creatinine Ratio 15 % Glucose 112 H (65-100) mg/dL Calcium 8.5 (8.4-10.2) mg/dL Total Bilirubin < 0.20 (0.1-1.2) mg/dL AST 15 (5-40) units/L ALT 15 (7-56) units/L Alkaline Phosphatase 68 (35-129) units/L Total Protein 6.1 L (6.3-8.2) g/dL Albumin 4.0 (3.9-5) g/dL Albumin/Globulin Ratio 1.9 % - Radiology Data Radiology results: report reviewed - Medical Decision Making Total neurology consult obtained Upon teleneurology's evaluation the patient it was felt that the patient's initial expressive aphasia was secondary to seizure activity. Review of the patient's medical records from April shows a presentation similar to this with a negative work-up. Patient was given Keppra and Ativan Patient given Fioricet for headache Upon reevaluation of patient at 2 AM in the morning she was back to normal as far as her speech is concerned Critical care attestation.: If time is entered above; I have spent that time in minutes in the direct care of this critically ill patient, excluding procedure time. ED Disposition Clinical Impression: Seizure Disposition: DC-01 TO HOME OR SELFCARE Is pt being admited?: No Does the pt Need Aspirin: No Condition: Stable Instructions: Seizure, Adult Additional Instructions: return if worse Referrals: PRIMARY CAREMD [Primary Care Provider] - 3-5 Days WHITNEY JASON MD [Staff Physician] - 3-5 Days Time of Disposition: 02:42
--- NOTE | 2020-08-02 02:32 | Cat Scan Report ---
CT HEAD WITHOUT CONTRAST INDICATION : Seizure / Aphasia. TECHNIQUE: Axial, coronal and sagittal CT imaging was performed from the skull apex through the skul l base without contrast. All CT scans at this location are performed using CT dose reduction for ALA RA by means of automated exposure control. COMPARISON: CT head without contrast from 04/27/2020 FINDINGS: PARENCHYMA: No midline shift, hemorrhage, extraaxial collection or acute territorial infarction. A questionable calcified en plaque meningioma versus simple calcification is again seen along the left lateral tentorium cerebelli. No mass is identified elsewhere. VENTRICLES: Symmetric and normal in size. SOFT TISSUES: No significant abnormality of the included soft tissues/orbits. BONES: No acute osseous abnormality. SINUSES: No significant abnormality. ADDITIONAL FINDINGS: None. IMPRESSION: No acute intracranial abnormality. No significant interval changes. Signer Name: Gregorio Nieves MD Signed: 08/02/2020 2:28 AM Workstation Name: [id number]
== END 2020-08-02 10:29 | disposition home or self-care (01) ==
LOC: ED 20:40
DX: R56.9 Unspecified convulsions (principal); F20.9 Schizophrenia, unspecified; Z90.49 Acquired absence of other specified parts of digestive tract; Z90.710 Acquired absence of both cervix and uterus; Z79.899 Other long term (current) drug therapy; Z88.0 Allergy status to penicillin
CPT/HCPCS: 36415; 70450; 80053; 85025; 85610; 85730

== ENCOUNTER 2020-10-26 11:39 | Inpatient (IN) | payer MEDICARE ==
[2020-10-26] MEDS ORDERED: ALTEPLASE 100 MG INJ KIT IV ONE ×2 (11:40)
[2020-10-26] MEDS ORDERED: SODIUM CHLORIDE 0.9% 50 ML IVPB IV ONE (11:40)
--- NOTE | 2020-10-26 11:45 | Cat Scan Report ---
CT HEAD WITHOUT CONTRAST INDICATION / CLINICAL INFORMATION: CODE STROKE CALL ER MAIN AT 8199 Stroke symptoms. TECHNIQUE: All CT scans at this location are performed using CT dose reduction for ALARA by means of automated e xposure control. COMPARISON: Head CT 07/23/2020 and MRI brain 04/29/2020 FINDINGS: HEMORRHAGE: No evidence of intracranial hemorrhage or extra-axial fluid collection. EXTRA-AXIAL SPACES: Cortical sulci, sylvian fissures and basilar cisterns have an unremarkable appear ance. VENTRICULAR SYSTEM: The third and lateral ventricles are of normal size and configuration. CEREBRAL PARENCHYMA: No areas of abnormal brain parenchymal attenuation are identified. There is no i ndication of recent infarction. MIDLINE SHIFT OR HERNIATION: There is no mass effect. CEREBELLUM / BRAINSTEM: Brainstem and cerebellum have an unremarkable appearance. MIDLINE STRUCTURES:No abnormalities of the pituitary gland or pineal region are identified. INTRACRANIAL VESSELS:No abnormalities are identified on this noncontrast head CT. ORBITS: Status post bilateral cataract surgery. No additional abnormality. SOFT TISSUES of HEAD: No significant abnormality. CALVARIUM: Evaluation of bone windows reveals no abnormalities. Incidental note is made of persistenc e of the metopic suture. PARANASAL SINUSES / MASTOID AIR CELLS: Visualized portions of the paranasal sinuses are free from inf lammatory mucosal disease. Mastoid air cells are normally pneumatized. ADDITIONAL FINDINGS: There is an unusual degree of dural calcification involving the falx and tentori um. These are stable findings. IMPRESSION: 1. No acute intracranial abnormality. No significant interval change. CODE STROKE: Time of Communication (WOOL HAT FINISHER/CDT): 1038 Central standard time Licensed Practitioner Receiving Report: Dr. Sow of the [facility] emergency department. Signer Name: Yordy Caruso MD Signed: 10/26/2020 11:40 AM Workstation Name: [id number]
[2020-10-26 11:54] LABS: Basophils % (Auto) 0.2 % (0.0-1.8); Eosinophils # (Auto) 0.1 K/mm3 (0.0-0.4); Eosinophils % (Auto) 1.3 % (0.0-4.3); Hematocrit 32.4 % (30.3-42.9); Hemoglobin 11.2 gm/dl (10.1-14.3); Lymphocytes # (Auto) 1.5 K/mm3 (1.2-5.4); Lymphocytes % (Auto) 39.2 % (13.4-35.0); Mean Corpuscular HGB Conc 34 % (30-34); Mean Corpuscular Volume 98 fl (79-97); Monocytes # (Auto) 0.5 K/mm3 (0.0-0.8); Monocytes % (Auto) 12.1 % (0.0-7.3); Platelet Count 212 K/mm3 (140-440); Red Blood Count 3.31 M/mm3 (3.65-5.03); Red Cell Distribution Width 13.9 % (13.2-15.2)
[2020-10-26] MEDS ORDERED: LORazepam 2 MG/ML VIAL ONE (12:00)
[2020-10-26 12:06] LABS: INR 0.9 (0.87-1.13)
[2020-10-26 12:07] LABS: Partial Thromboplastin Time 30.3 Sec. (24.2-36.6); Thrombin Time 16.9 Sec. (15.1-19.6)
--- NOTE | 2020-10-26 12:20 | Emergency Department Report ---
ED Neuro Deficit HPI - General Stated Complaint: STROKE - History of Present Illness Initial Comments: Patient is a 59-year-old female with past medical history of seizure versus pseudoseizure and bipolar disorder who is presenting with strokelike symptoms. Patient was at her eye doctor and began having difficulty with speaking and right-sided deficit. Patient noted to have some generalized shaking all over but was not at any point postictal. Patient is complaining of some chest discomfort and were able to make out that she states that she fell. Denies shortness of breath. - Related Data Home Medications: Previous Rx's Medication Instructions Recorded Last Taken Type AtorvaSTATin [Lipitor] 20 mg PO QHS #30 tablet 05/02/20 Unknown Rx Escitalopram [Lexapro] 20 mg PO DAILY #30 tablet 05/02/20 Unknown Rx Midodrine [Proamatine] 5 mg PO TID@0800,1200,1600 #30 05/02/20 Unknown Rx tablet Topiramate [Topamax] 100 mg PO QDAY #30 tablet 05/02/20 Unknown Rx lamoTRIgine [LaMICtal] 100 mg PO BID #60 tablet 05/02/20 Unknown Rx traZODone [Desyrel] 150 mg PO QDAY@2200 #14 tablet 05/02/20 Unknown Rx Allergies/Adverse Reactions: Allergies Allergy/AdvReac Type Severity Reaction Status Date / Time Penicillins Allergy Unknown Verified 12/09/18 16:35 ED Review of Systems ROS: Stated complaint: STROKE Other details as noted in HPI Comment: All other systems reviewed and negative ED Past Medical Hx - Past Medical History Hx CVA: Yes Hx Congestive Heart Failure: No Hx Diabetes: No Hx Seizures: Yes Hx Psychiatric Treatment: Yes (Schiziophrenia) Hx Asthma: No Hx COPD: No Hx HIV: No - Surgical History Hx Cholecystectomy: Yes Additional Surgical History: Hysterectomy - Social History Smoking Status: Never Smoker - Medications Home Medications: Home Medications Medication Instructions Recorded Confirmed Last Taken Type AtorvaSTATin [Lipitor] 20 mg PO QHS #30 tablet 05/02/20 Unknown Rx Escitalopram [Lexapro] 20 mg PO DAILY #30 tablet 05/02/20 Unknown Rx Midodrine [Proamatine] 5 mg PO TID@0800,1200,1600 #30 05/02/20 Unknown Rx tablet Topiramate [Topamax] 100 mg PO QDAY #30 tablet 05/02/20 Unknown Rx lamoTRIgine [LaMICtal] 100 mg PO BID #60 tablet 05/02/20 Unknown Rx traZODone [Desyrel] 150 mg PO QDAY@2200 #14 tablet 05/02/20 Unknown Rx ED Neuro Physical Exam - General General appearance: alert, in distress Suspected Stroke: Yes - Head Head exam: Present: atraumatic, normocephalic - Eye Eye exam: Present: normal appearance, PERRL, EOMI - ENT ENT exam: Present: mucous membranes moist - Neck Neck exam: Present: normal inspection - Respiratory Respiratory exam: Present: normal lung sounds bilaterally, chest wall tenderness. Absent: respiratory distress, wheezes, rales, rhonchi - Cardiovascular Cardiovascular Exam: Present: regular rate, normal rhythm, normal heart sounds. Absent: systolic murmur, diastolic murmur, rubs, gallop - GI/Abdominal GI/Abdominal exam: Present: soft, normal bowel sounds - Extremities Exam Extremities exam: Present: normal inspection - Back Exam Back exam: Present: normal inspection - Neurological Exam Neurological exam: Present: alert, altered - NIHSS Assessment Interval: Baseline 1a. Level of Consciousness: alert/keenly responsive 1b. LOC Questions: answers both correctly 1c. LOC Commands: performs tasks correctly 2. Best Gaze: normal 3. Visual: no visual loss 4. Facial Palsy: minor paralysis 5b. Motor Arm Right: some gravity effort 5a. Motor Arm Left: no drift 6a. Motor Leg Left: no drift 6b. Motor Leg Right: drift 7. Limb Ataxia: absent 8. Sensory: normal 9. Best Language: mild/moderate aphasia 10. Dysarthria: mild/moderate dysarthria 11. Extinction/Inattention: no abnormality Total Score: 6 Stroke Severity: Moderate Stroke - Psychiatric Psychiatric exam: Present: normal affect, normal mood - Skin Skin exam: Present: warm, dry, intact, normal color. Absent: rash ED Course Vital Signs 10/26/20 10/26/20 10/26/20 11:48 12:00 12:01 Temperature Pulse Rate Pulse Rate [ 52 L Left Arm] Respiratory Rate Respiratory 18 Rate [Left Arm] Blood Pressure 129/53 129/53 Blood Pressure 122/73 [Left Arm] O2 Sat by Pulse 100 Oximetry O2 Sat by Pulse 100 Oximetry [Left Arm] 10/26/20 10/26/20 10/26/20 12:15 12:31 12:45 Temperature 98.4 F Pulse Rate 56 L 55 L 56 L Pulse Rate [ Left Arm] Respiratory 13 13 19 Rate Respiratory Rate [Left Arm] Blood Pressure 134/62 129/53 135/59 Blood Pressure [Left Arm] O2 Sat by Pulse 100 99 99 Oximetry O2 Sat by Pulse Oximetry [Left Arm] 10/26/20 10/26/20 10/26/20 12:47 13:00 13:15 Temperature Pulse Rate 54 L Pulse Rate [ 52 L 53 L Left Arm] Respiratory Rate Respiratory 18 18 Rate [Left Arm] Blood Pressure 135/59 Blood Pressure 135/59 122/73 135/73 [Left Arm] O2 Sat by Pulse Oximetry O2 Sat by Pulse 100 100 Oximetry [Left Arm] 10/26/20 13:17 Temperature Pulse Rate Pulse Rate [ 52 L Left Arm] Respiratory Rate Respiratory 18 Rate [Left Arm] Blood Pressure Blood Pressure 135/73 [Left Arm] O2 Sat by Pulse Oximetry O2 Sat by Pulse 100 Oximetry [Left Arm] - Reevaluation(s) Reevaluation #1: 10/26/20 12:21 After TPA was ordered the patient had episode where she was found to be shaking all over. Patient was able to look at me during sternal. When the patient stopped shaking she immediately was able to follow commands and squeeze my hand on the left. Continued to have weakness on the right. No postictal phase. Discussed the findings with our telemetry neurologist. Stated that he would still believe that the patient is a candidate for TPA and we will proceed with given TPA. Review of the patient's past medical history in April she was admitted for multiple seizures at that time was found to have a normal EEG. Patient likely is having pseudoseizures. Reevaluation #2: 10/26/20 13:31 [facility] [address] [place] [address] Cat Scan Report Signed Patient: PARVEZ SERRANO MR#: [id number] : 1960 Acct:[id number] Age/Sex: 59 / F A DM Date: 10/26/20 Loc: ED Attending Dr: Ordering Physician: INA SOW MD Date of Service: 10/26/20 Procedure(s): CT head/brain wo con Accession Number(s): [id number] cc: INA SOW MD CT HEAD WITHOUT CONTRAST INDICATION / CLINICAL INFORMATION: CODE STROKE CALL ER MAIN AT 8199 Stroke symptoms. TECHNIQUE: All CT scans at this location are performed using CT dose reduction for ALARA by means of automated exposure control. COMPARISON: Head CT 07/23/2020 and MRI brain 04/29/2020 FINDINGS: HEMORRHAGE: No evidence of intracranial hemorrhage or extra-axial fluid collection. EXTRA-AXIAL SPACES: Cortical sulci, sylvian fissures and basilar cisterns have an unremarkable appearance. VENTRICULAR SYSTEM: The third and lateral ventricles are of normal size and configuration. CEREBRAL PARENCHYMA: No areas of abnormal brain parenchymal attenuation are identified. There is no indication of recent infarction. MIDLINE SHIFT OR HERNIATION: There is no mass effect. CEREBELLUM / BRAINSTEM: Brainstem and cerebellum have an unremarkable appearance. MIDLINE STRUCTURES:No abnormalities of the pituitary gland or pineal region are identified. INTRACRANIAL VESSELS:No abnormalities are identified on this noncontrast head CT. ORBITS: Status post bilateral cataract surgery. No additional abnormality. SOFT TISSUES of HEAD: No significant abnormality. CALVARIUM: Evaluation of bone windows reveals no abnormalities. Incidental note is made of persistence of the metopic suture. PARANASAL SINUSES / MASTOID AIR CELLS: Visualized portions of the paranasal sinuses are free from inflammatory mucosal disease. Mastoid air cells are normally pneumatized. ADDITIONAL FINDINGS: There is an unusual degree of dural calcification involving the falx and tentorium. These are stable findings. IMPRESSION: 1. No acute intracranial abnormality. No significant interval change. CODE STROKE: Time of Communication (RESTORATIVE AIDE/CDT): 1038 Central standard time Licensed Practitioner Receiving Report: Dr. Sow of the [facility] emergency department. Signer Name: Yordy Caruso MD Signed: 10/26/2020 11:40 AM Workstation Name: [id number] Reevaluation #3: 10/26/20 13:32 At this time the patient speech pattern is more clear. She is moving her right side with better strength although still not as strong as the left. - Lab Data Result diagrams: 10/26/20 11:40 10/26/20 11:40 Lab Results 10/26/20 10/26/20 10/26/20 Range/Units 11:40 11:40 11:40 WBC 3.8 L (4.5-11.0) K/mm3 RBC 3.31 L (3.65-5.03) M/mm3 Hgb 11.2 (10.1-14.3) gm/dl Hct 32.4 (30.3-42.9) % MCV 98 H (79-97) fl MCH 34 H (28-32) pg MCHC 34 (30-34) % RDW 13.9 (13.2-15.2) % Plt Count 212 (140-440) K/mm3 Lymph % (Auto) 39.2 H (13.4-35.0) % [place] % (Auto) 12.1 H (0.0-7.3) % Eos % (Auto) 1.3 (0.0-4.3) % Baso % (Auto) 0.2 (0.0-1.8) % Lymph # (Auto) 1.5 (1.2-5.4) K/mm3 [place] # (Auto) 0.5 (0.0-0.8) K/mm3 Eos # (Auto) 0.1 (0.0-0.4) K/mm3 Baso # (Auto) 0.0 (0.0-0.1) K/mm3 Seg Neutrophils % 47.2 (40.0-70.0) % Seg Neutrophils # 1.8 (1.8-7.7) K/mm3 PT 12.7 (12.2-14.9) Sec. INR 0.90 (0.87-1.13) APTT 30.3 (24.2-36.6) Sec. Thrombin Time 16.9 (15.1-19.6) Sec. Sodium 135 L (137-145) mmol/L Potassium 4.3 (3.6-5.0) mmol/L Chloride 102.2 (98-107) mmol/L Carbon Dioxide 16 L (22-30) mmol/L Anion Gap 21 mmol/L BUN 12 (7-17) mg/dL Creatinine 1.3 H (0.6-1.2) mg/dL Estimated GFR 42 ml/min BUN/Creatinine Ratio 9 % Glucose 103 H (65-100) mg/dL POC Glucose (70-105) mg/dL Calcium 9.4 (8.4-10.2) mg/dL Total Bilirubin 0.20 (0.1-1.2) mg/dL AST 22 (5-40) units/L ALT 19 (7-56) units/L Total Creatine Kinase 57 (30-135) units/L CK-MB (CK-2) 1.0 (0.0-4.0) ng/mL CK-MB (CK-2) Rel Index 1.7 (0-4) Troponin T < 0.010 (0.00-0.029) ng/mL Total Protein 6.4 (6.3-8.2) g/dL Albumin 3.8 L (3.9-5) g/dL Albumin/Globulin Ratio 1.5 % // Range/Units 12:23 WBC (4.5-11.0) K/mm3 RBC (3.65-5.03) M/mm3 Hgb (10.1-14.3) gm/dl Hct (30.3-42.9) % MCV (79-97) fl MCH (28-32) pg MCHC (30-34) % RDW (13.2-15.2) % Plt Count (140-440) K/mm3 Lymph % (Auto) (13.4-35.0) % Daw[place] % (Auto) (0.0-7.3) % Eos % (Auto) (0.0-4.3) % Baso % (Auto) (0.0-1.8) % Lymph # (Auto) (1.2-5.4) K/mm3 Dawes # (Auto) (0.0-0.8) K/mm3 Eos # (Auto) (0.0-0.4) K/mm3 Baso # (Auto) (0.0-0.1) K/mm3 Seg Neutrophils % (40.0-70.0) % Seg Neutrophils # (1.8-7.7) K/mm3 PT (12.2-14.9) Sec. INR (0.87-1.13) APTT (24.2-36.6) Sec. Thrombin Time (15.1-19.6) Sec. Sodium (137-145) mmol/L Potassium (3.6-5.0) mmol/L Chloride (98-107) mmol/L Carbon Dioxide (22-30) mmol/L Anion Gap mmol/L BUN (7-17) mg/dL Creatinine (0.6-1.2) mg/dL Estimated GFR ml/min BUN/Creatinine Ratio % Glucose (65-100) mg/dL POC Glucose 92 (70-105) mg/dL Calcium (8.4-10.2) mg/dL Total Bilirubin (0.1-1.2) mg/dL AST (5-40) units/L ALT (7-56) units/L Total Creatine Kinase (30-135) units/L CK-MB (CK-2) (0.0-4.0) ng/mL CK-MB (CK-2) Rel Index (0-4) Troponin T (0.00-0.029) ng/mL Total Protein (6.3-8.2) g/dL Albumin (3.9-5) g/dL Albumin/Globulin Ratio % - EKG Data -: EKG Interpreted by Or EKG shows normal: sinus rhythm, axis, intervals, QRS complexes, ST-T waves Rate: normal Interpretation: normal EKG - Radiology Data [facility] [address] [place] [address] Cat Scan Report Signed Patient: PARVEZ SERRANO MR#: [id number] : 1960 Acct:[id number] Age/Sex: 59 / F ADM Date: 10/26/20 Loc: ED Attending Dr: Ordering Physician: INA SOW MD Date of Service: 10/26/20 Procedure(s): CT head/brain wo con Accession Number(s): [id number] cc: INA SOW MD CT HEAD WITHOUT CONTRAST INDICATION / CLINICAL INFORMATION: CODE STROKE CALL ER MAIN AT 8199 Stroke symptoms. TECHNIQUE: All CT scans at this location are performed using CT dose reduction for ALARA by means of automated exposure control. COMPARISON: Head CT 07/23/2020 and MRI brain 04/29/2020 FINDINGS: HEMORRHAGE: No evidence of intracranial hemorrhage or extra-axial fluid collection. EXTRA-AXIAL SPACES: Cortical sulci, sylvian fissures and basilar cisterns have an unremarkable appearance. VENTRICULAR SYSTEM: The third and lateral ventricles are of normal size and configuration. CEREBRAL PARENCHYMA: No areas of abnormal brain parenchymal attenuation are identified. There is no indication of recent infarction. MIDLINE SHIFT OR HERNIATION: There is no mass effect. CEREBELLUM / BRAINSTEM: Brainstem and cerebellum have an unremarkable appearance. MIDLINE STRUCTURES:No abnormalities of the pituitary gland or pineal region are identified. INTRACRANIAL VESSELS:No abnormalities are identified on this noncontrast head CT. ORBITS: Status post bilateral cataract surgery. No additional abnormality. SOFT TISSUES of HEAD: No significant abnormality. CALVARIUM: Evaluation of bone windows reveals no abnormalities. Incidental note is made of persistence of the metopic suture. PARANASAL SINUSES / MASTOID AIR CELLS: Visualized portions of the paranasal sinuses are free from inflammatory mucosal disease. Mastoid air cells are normally pneumatized. ADDITIONAL FINDINGS: There is an unusual degree of dural calcification involving the falx and tentorium. These are stable findings. IMPRESSION: 1. No acute intracranial abnormality. No significant interval change. CODE STROKE: Time of Communication (RESTORATIVE AIDE/CDT): [address] [place] [address] standard time Licensed Practitioner Receiving Report: Dr. Sow of the [facility] emergency department. Signer Name: Yordy Caruso MD Signed: 10/26/2020 11:40 AM Workstation Name: [id number] - Medical Decision Making Patient is a 59-year-old female who is presenting with slurred speech and some partial aphasia and right-sided weakness. Patient is a candidate for TPA. Given TPA and will be admitted to the ICU. Critical Care Time: Yes (30) Critical care attestation.: If time is entered above; I have spent that time in minutes in the direct care of this critically ill patient, excluding procedure time. ED Disposition Clinical Impression: CVA (cerebral vascular accident), Pseudoseizure Disposition: 09 ADMITTED INPATIENT Is pt being admited?: Yes Does the pt Need Aspirin: No Condition: Stable Time of Disposition: 13:33
--- NOTE | 2020-10-26 13:06 | XRay Report ---
CHEST 1 VIEW INDICATION: chest pain. COMPARISON: 04/27/2020 FINDINGS: Support devices: None. Heart: Normal. Lungs/Pleura: No acute pulmonary or pleural findings. IMPRESSION: 1. No acute findings. Signer Name: Eugene Valles MD Signed: 10/26/2020 1:02 PM Workstation Name: [id number]
[2020-10-26 13:28] LABS: Alanine Aminotransferase 19 units/L (7-56); Albumin 3.8 g/dL (3.9-5); BUN/Creatinine Ratio 9; Blood Urea Nitrogen 12 mg/dL (7-17); Calcium 9.4 mg/dL (8.4-10.2); Hemolysis Index 17
[2020-10-26] MEDS ORDERED: oxyCODONE /ACETAMINOPHEN 5-325MG TAB PO PRN (13:30)
[2020-10-26] MEDS ORDERED: ONDANSETRON 4 MG/2 ML INJ IV PRN (13:30)
[2020-10-26] MEDS ORDERED: ACETAMINOPHEN 325 MG TAB PO PRN (13:30)
--- NOTE | 2020-10-26 15:21 | Cat Scan Report ---
CTA NECK WITH CONTRAST 10/26/2020 INDICATION / CLINICAL INFORMATION: Stroke. COMPARISON: None. TECHNIQUE: Routine CTA of the neck is performed. 3-D/MIP reformats were postprocessed. Percentage st enosis is determined by direct quantitative measurements of diseased internal carotid artery diameter compared with normal distal internal carotid artery reference segments or by criteria similar to KAHLIL CET where applicable. All CT scans at this location are performed using CT dose reduction for ALARA b y means of automated exposure control. CONTRAST: 100 ml of iodinated contrast FINDINGS: Carotid bifurcations: At the left bifurcation, there is no evidence of abnormality. The right bifurcation, there is some mild narrowing, in the range of 40-50%. This is best seen on the sagittal reconstructed images. Carotid arteries: No significant abnormality. Cervical vertebral arteries: No significant abnormality. Aortic arch: No significant abnormality. None. IMPRESSION: Mild narrowing at the origin of the right internal carotid artery. Left is unremarkable. Signer Name: Walt Francis MD Signed: 10/26/2020 3:17 PM Workstation Name: [id number]
--- NOTE | 2020-10-26 15:26 | Cat Scan Report ---
CTA HEAD WITH CONTRAST DATE HISTORY: strokeCODE STROKE. COMPARISON: None. TECHNIQUE: All CT scans at this location are performed using CT dose reduction for ALARA by means of automated exposure control.. 3-D/MIP reformats postprocessed. Percentage stenosis is determined by d irect quantitative measurements of diseased internal carotid artery diameter compared with normal dis lesly internal carotid artery reference segments or by criteria similar to NASCET where applicable. CONTRAST: 100 ml of iodinated contrast FINDINGS: CTA HEAD: Intracranial vertebral arteries: No significant abnormality. Basilar artery: Basilar artery is relatively hypoplastic on a developmental basis. Prominent bilatera l posterior to indicating arteries are present, normal anatomic variant. Posterior cerebral arteries: No significant abnormality. Intracranial internal carotid arteries: No significant abnormality. Anterior cerebral arteries: No significant abnormality. Middle cerebral arteries: No significant abnormality. Dural venous sinuses:Not optimally opacified. No significant abnormality. Additional findings: Prominent dural ossification is present along the falx. This is a normal variant . IMPRESSION: 1. No significant abnormality. Signer Name: Walt Francis MD Signed: 10/26/2020 3:21 PM Workstation Name: [email or web address]
[2020-10-26] MEDS: HYDROmorphone 1 MG/1 ML INJ IV PRN (21:24)
[2020-10-26] MEDS ORDERED: lamoTRIgine 100 MG TAB PO SCH (22:00)
[2020-10-26] MEDS ORDERED: traZODone 50 MG TAB PO SCH (22:00)
--- NOTE | 2020-10-27 03:02 | Consultation ---
History of Present Illness - Reason for Consult Consult date: 10/27/20 Stroke with TPA Requesting physician: ALMAS CARREON - History of Present Illness Patient is a 59-year-old female with past medical history of seizure versus pseudoseizure and bipolar disorder who is presenting with strokelike symptoms. Patient was at her eye doctor and began having difficulty with speaking and right-sided deficit. Patient noted to have some generalized shaking all over but was not at any point postictal. Evaluated by teleneurology and deemed appropriate candidate for TPA. Post administration, admitted to ICU for q1 hour neuro checks and further monitoring but holding in ED as not beds secondary to shortage of staff during the pandemic. Past History Past Medical History: hyperlipidemia, other (seizures) Medications and Allergies Allergies Allergy/AdvReac Type Severity Reaction Status Date / Time Penicillins Allergy Unknown Verified 12/09/18 16:35 Home Medications Medication Instructions Recorded Confirmed Last Taken Type AtorvaSTATin [Lipitor] 20 mg PO QHS #30 tablet 05/02/20 10/26/20 Unknown Rx Escitalopram [Lexapro] 20 mg PO DAILY #30 tablet 05/02/20 10/26/20 Unknown Rx Midodrine [Proamatine] 5 mg PO TID@0800,1200,1600 #30 05/02/20 10/26/20 Unknown Rx tablet Topiramate [Topamax] 100 mg PO QDAY #30 tablet 05/02/20 10/26/20 Unknown Rx lamoTRIgine [LaMICtal] 100 mg PO BID #60 tablet 05/02/20 10/26/20 Unknown Rx traZODone [Desyrel] 150 mg PO QDAY@2200 #14 tablet 05/02/20 10/26/20 Unknown Rx Active Meds: Active Medications Acetaminophen (Acetaminophen 325 Mg Tab) 650 mg PO Q4H PRN PRN Reason: Pain MILD(1-3)/Fever >100.5/READ Hydromorphone HCl (Hydromorphone 1 Mg/1 Ml Inj) 0.5 mg IV Q3H PRN PRN Reason: Pain , Severe (7-10) Last Admin: 10/26/20 21:24 Dose: 0.5 mg Documented by: Sodium Chloride (Nacl 0.9% 1000 Ml) 1,000 mls @ 100 mls/hr IV DIRECT BRIANNE Lamotrigine (Lamotrigine 100 Mg Tab) 100 mg PO BID [facility] Last Admin: 10/27/20 00:59 Dose: Not Given Documented by: Ondansetron HCl (Ondansetron 4 Mg/2 Ml Inj) 4 mg IV Q8H PRN PRN Reason: Nausea And Vomiting Oxycodone/Acetaminophen (Oxycodone /Acetaminophen 5-325mg Tab) 1 tab PO Q6H PRN PRN Reason: Pain, Moderate (4-6) Sodium Chloride (Sodium Chloride 0.9% 10 Ml Flush Syringe) 10 ml IV BID [facility] Last Admin: 10/26/20 23:16 Dose: 10 ml Documented by: Sodium Chloride (Sodium Chloride 0.9% 10 Ml Flush Syringe) 10 ml IV PRN PRN PRN Reason: LINE FLUSH Topiramate (Topiramate Tab 100 Mg Tab) 100 mg PO QDAY [facility] Trazodone HCl (Trazodone 50 Mg Tab) 150 mg PO QDAY@2200 [facility] Last Admin: 10/27/20 00:59 Dose: Not Given Documented by: Review of Systems All systems: negative Exam - Constitutional Vitals: Temp Pulse Resp BP Pulse Ox 98.1 F 56 L 13 130/60 98 10/26/20 19:02 10/27/20 01:01 10/27/20 01:01 10/27/20 01:01 10/27/20 01:01 Results - Labs CBC & Chem 7: 10/26/20 11:40 10/26/20 11:40 Labs: Abnormal lab results 10/26/20 10/26/20 Range/Units 11:40 11:40 WBC 3.8 L (4.5-11.0) K/mm3 RBC 3.31 L (3.65-5.03) M/mm3 MCV 98 H (79-97) fl MCH 34 H (28-32) pg Lymph % (Auto) 39.2 H (13.4-35.0) % [place] % (Auto) 12.1 H (0.0-7.3) % Sodium 135 L (137-145) mmol/L Carbon Dioxide 16 L (22-30) mmol/L Creatinine 1.3 H (0.6-1.2) mg/dL Glucose 103 H (65-100) mg/dL Albumin 3.8 L (3.9-5) g/dL Assessment and Plan 59 y/o with stroke like symptoms s/p TPA administration 1. TPA administered and finished around 1250 yesterday. 2. Q 1 hour neuro checks 3. follow up neuro recs 4. Already on statin 5. Will sign off once out of unit.
[2020-10-27 06:01] LABS: Hematocrit 32.7 % (30.3-42.9); Hemoglobin 11.3 gm/dl (10.1-14.3); Mean Corpuscular HGB Conc 34 % (30-34); Mean Corpuscular Volume 98 fl (79-97); Platelet Count 233 K/mm3 (140-440); Red Blood Count 3.35 M/mm3 (3.65-5.03); Red Cell Distribution Width 13.8 % (13.2-15.2)
[2020-10-27] MEDS: HYDROmorphone 1 MG/1 ML INJ IV PRN (06:03)
--- NOTE | 2020-10-27 06:16 | History and Physical Report ---
History of Present Illness Date of examination: 10/26/20 Date of admission: 10/26/20 13:08 Chief complaint: Right-sided weakness History of present illness: 59-year-old female with history of seizures and bipolar disorder presents with right-sided weakness. Patient was at her eye doctor for an appointment and having difficulty with speaking and right-sided weakness. Patient was also noted to have some generalized shaking all over no seizures. Also complaining of chest tightness. Code stroke was initiated. Did tell neurology agreed with TPA and TPA was given in the emergency room. Post TPA patient had some improvement in the right upper and right lower extremity weakness. Patient being admitted to ICU because of possible stroke and TPA administration. No dysarthria. Patient able to give history. Patient has limitation in moving the right upper extremity and right lower extremity to some extent. No chest pain. - Past Medical History --CVA: Yes --Seizures: Yes --Psychiatric Treatment: Yes (Schiziophrenia) - Surgical History Hx Cholecystectomy: Yes Additional Surgical History: Hysterectomy - Social History Smoking Status: Never Smoker -Family history Htn - Medications Home Medications: Home Medications Medication Instructions Recorded Confirmed Last Taken Type AtorvaSTATin [Lipitor] 20 mg PO QHS #30 tablet 05/02/20 Unknown Rx Escitalopram [Lexapro] 20 mg PO DAILY #30 tablet 05/02/20 Unknown Rx Midodrine [Proamatine] 5 mg PO TID@0800,1200,1600 #30 05/02/20 Unknown Rx tablet Topiramate [Topamax] 100 mg PO QDAY #30 tablet 05/02/20 Unknown Rx lamoTRIgine [LaMICtal] 100 mg PO BID #60 tablet 05/02/20 Unknown Rx traZODone [Desyrel] 150 mg PO QDAY@2200 #14 tablet 05/02/20 Unknown Rx Review of Systems ROS: Constitutional no weight loss or weight gain no fever or chills HEENT no sore throat no post nasal drip no diplopia Neck no neck stiffness no lymph gland enlargement Chest and lungs no shortness of breath cough or wheezing CVS no chest pain no diaphoresis no palpitations GI no nausea no vomiting no diarrhea Genitourinary system no dysuria no flank pain Musculoskeletal system no muscle pains no joint pains [employer] right-sided weakness both upper and lower extremity Skin no rash no itching Psychiatric no depression no homicidal or suicidal tendencies Hematologic no lymphedema or bruising Endocrine no polydipsia no polyuria no cold intolerance no heat intolerance Past History Past Medical History: hyperlipidemia, other (seizures) Medications and Allergies Allergies Allergy/AdvReac Type Severity Reaction Status Date / Time Penicillins Allergy Unknown Verified 12/09/18 16:35 Home Medications Medication Instructions Recorded Confirmed Last Taken Type AtorvaSTATin [Lipitor] 20 mg PO QHS #30 tablet 05/02/20 10/26/20 Unknown Rx Escitalopram [Lexapro] 20 mg PO DAILY #30 tablet 05/02/20 10/26/20 Unknown Rx Midodrine [Proamatine] 5 mg PO TID@0800,1200,1600 #30 05/02/20 10/26/20 Unknown Rx tablet Topiramate [Topamax] 100 mg PO QDAY #30 tablet 05/02/20 10/26/20 Unknown Rx lamoTRIgine [LaMICtal] 100 mg PO BID #60 tablet 05/02/20 10/26/20 Unknown Rx traZODone [Desyrel] 150 mg PO QDAY@2200 #14 tablet 05/02/20 10/26/20 Unknown Rx Active Meds: Active Medications Acetaminophen (Acetaminophen 325 Mg Tab) 650 mg PO Q4H PRN PRN Reason: Pain MILD(1-3)/Fever >100.5/READ Hydromorphone HCl (Hydromorphone 1 Mg/1 Ml Inj) 0.5 mg IV Q3H PRN PRN Reason: Pain , Severe (7-10) Last Admin: 10/27/20 06:03 Dose: 0.5 mg Documented by: Sodium Chloride (Nacl 0.9% 1000 Ml) 1,000 mls @ 100 mls/hr IV DIRECT [facility] Lamotrigine (Lamotrigine 100 Mg Tab) 100 mg PO BID [facility] Last Admin: 10/27/20 00:59 Dose: Not Given Documented by: Ondansetron HCl (Ondansetron 4 Mg/2 Ml Inj) 4 mg IV Q8H PRN PRN Reason: Nausea And Vomiting Oxycodone/Acetaminophen (Oxycodone /Acetaminophen 5-325mg Tab) 1 tab PO Q6H PRN PRN Reason: Pain, Moderate (4-6) Sodium Chloride (Sodium Chloride 0.9% 10 Ml Flush Syringe) 10 ml IV BID [facility] Last Admin: 10/26/20 23:16 Dose: 10 ml Documented by: Sodium Chloride (Sodium Chloride 0.9% 10 Ml Flush Syringe) 10 ml IV PRN PRN PRN Reason: LINE FLUSH Topiramate (Topiramate Tab 100 Mg Tab) 100 mg PO QDAY [facility] Trazodone HCl (Trazodone 50 Mg Tab) 150 mg PO QDAY@2200 [facility] Last Admin: 10/27/20 00:59 Dose: Not Given Documented by: Exam - Constitutional Vitals: Temp Pulse Resp BP Pulse Ox 98.1 F 62 15 121/59 98 10/26/20 19:02 10/27/20 04:01 10/27/20 04:01 10/27/20 04:01 10/27/20 04:01 General appearance: Present: no acute distress, well-nourished - EENT Eyes: Present: PERRL ENT: hearing intact, clear oral mucosa - Neck Neck: Present: supple, normal ROM - Respiratory Respiratory effort: normal Respiratory: bilateral: CTA - Cardiovascular Heart rate: 78 Rhythm: regular Heart Sounds: Present: S1 & S2. Absent: rub, click - Extremities Extremities: pulses symmetrical, No edema Peripheral Pulses: within normal limits - Abdominal General gastrointestinal: Present: soft, non-tender, non-distended, normal bowel sounds Female genitourinary: Present: normal - Integumentary Integumentary: Present: clear, warm, dry - Musculoskeletal Musculoskeletal: right sided weakness - Psychiatric Psychiatric: appropriate mood/affect, intact judgment & insight, cooperative - Neurologic Neurologic: CNII-XII intact, focal deficits (Right upper extremity and right lower extremity weakness-- COVID-19 positive test (U07.1, COVID-19) with Viral Sepsis (A41.89 other specified sepsis)(If respiratory failure present, add as separate assessment) 3/5 power), moves all extremities HEART Score - HEART Score History: Slightly suspicious Age: 45-65 Risk factors: 1-2 risk factors Troponin: Troponin T < 0.010 ng/mL (0.00-0.029) 10/26/20 18:26 Troponin: < normal limit - Critical Actions Critical Actions: 0-3 pts:0.9-1.7%risk of adverse cardiac event.Candidate for discharge Results - Labs CBC & Chem 7: 10/26/20 11:40 10/26/20 11:40 Labs: Laboratory Last Values WBC 3.8 K/mm3 (4.5-11.0) L 10/26/20 11:40 RBC 3.31 M/mm3 (3.65-5.03) L 10/26/20 11:40 Hgb 11.2 gm/dl (10.1-14.3) 10/26/20 11:40 Hct 32.4 % (30.3-42.9) 10/26/20 11:40 MCV 98 fl (79-97) H 10/26/20 11:40 MCH 34 pg (28-32) H 10/26/20 11:40 MCHC 34 % (30-34) 10/26/20 11:40 RDW 13.9 % (13.2-15.2) 10/26/20 11:40 Plt Count 212 K/mm3 (140-440) 10/26/20 11:40 Lymph % (Auto) 39.2 % (13.4-35.0) H 10/26/20 11:40 [place] % (Auto) 12.1 % (0.0-7.3) H 10/26/20 11:40 Eos % (Auto) 1.3 % (0.0-4.3) 10/26/20 11:40 Baso % (Auto) 0.2 % (0.0-1.8) 10/26/20 11:40 Lymph # (Auto) 1.5 K/mm3 (1.2-5.4) 10/26/20 11:40 [place] # (Auto) 0.5 K/mm3 (0.0-0.8) 10/26/20 11:40 Eos # (Auto) 0.1 K/mm3 (0.0-0.4) 10/26/20 11:40 Baso # (Auto) 0.0 K/mm3 (0.0-0.1) 10/26/20 11:40 Seg Neutrophils % 47.2 % (40.0-70.0) 10/26/20 11:40 Seg Neutrophils # 1.8 K/mm3 (1.8-7.7) 10/26/20 11:40 PT 12.7 Sec. (12.2-14.9) 10/26/20 11:40 INR 0.90 (0.87-1.13) 10/26/20 11:40 APTT 30.3 Sec. (24.2-36.6) 10/26/20 11:40 Thrombin Time 16.9 Sec. (15.1-19.6) 10/26/20 11:40 Sodium 135 mmol/L (137-145) L 10/26/20 11:40 Potassium 4.3 mmol/L (3.6-5.0) 10/26/20 11:40 Chloride 102.2 mmol/L (98-107) 10/26/20 11:40 Carbon Dioxide 16 mmol/L (22-30) L 10/26/20 11:40 Anion Gap 21 mmol/L 10/26/20 11:40 BUN 12 mg/dL (7-17) 10/26/20 11:40 Creatinine 1.3 mg/dL (0.6-1.2) H 10/26/20 11:40 Estimated GFR 42 ml/min 10/26/20 11:40 BUN/Creatinine Ratio 9 % 10/26/20 11:40 Glucose 103 mg/dL (65-100) H 10/26/20 11:40 POC Glucose 92 mg/dL (70-105) 10/26/20 12:23 Calcium 9.4 mg/dL (8.4-10.2) 10/26/20 11:40 Total Bilirubin 0.20 mg/dL (0.1-1.2) 10/26/20 11:40 AST 22 units/L (5-40) 10/26/20 11:40 ALT 19 units/L (7-56) 10/26/20 11:40 Alkaline Phosphatase 75 units/L (35-129) 10/26/20 11:40 Total Creatine Kinase 57 units/L (30-135) 10/26/20 11:40 CK-MB (CK-2) 1.0 ng/mL (0.0-4.0) 10/26/20 11:40 CK-MB (CK-2) Rel Index 1.7 (0-4) 10/26/20 11:40 Troponin T < 0.010 ng/mL (0.00-0.029) 10/26/20 18:26 Total Protein 6.4 g/dL (6.3-8.2) 10/26/20 11:40 Albumin 3.8 g/dL (3.9-5) L 10/26/20 11:40 Albumin/Globulin Ratio 1.5 % 10/26/20 11:40 Short CBC 10/26/20 Range/Units 11:40 WBC 3.8 L (4.5-11.0) K/mm3 Hgb 11.2 (10.1-14.3) gm/dl Hct 32.4 (30.3-42.9) % Plt Count 212 (140-440) K/mm3 BMP 10/26/20 10/27/20 11:40 05:10 Sodium 135 L 141 Potassium 4.3 3.9 Chloride 102.2 106.5 Carbon Dioxide 16 L 22 BUN 12 11 Creatinine 1.3 H 1.0 Glucose 103 H 85 Calcium 9.4 9.2 Cardiac Enzymes 10/26/20 10/26/20 Range/Units 11:40 18:26 Total Creatine Kinase 57 (30-135) units/L CK-MB (CK-2) 1.0 (0.0-4.0) ng/mL Troponin T < 0.010 < 0.010 (0.00-0.029) ng/mL Liver Function 10/26/20 10/27/20 Range/Units 11:40 05:10 Total Bilirubin 0.20 0.30 (0.1-1.2) mg/dL AST 22 18 (5-40) units/L ALT 19 19 (7-56) units/L Alkaline Phosphatase 75 79 (35-129) units/L Albumin 3.8 L 4.2 (3.9-5) g/dL - Imaging and Cardiology EKG: report reviewed (No acute ST-T wave changes) Imaging and Cardiology: Head CT No acute intracranial abnormality Head CT No significant abnormality Neck CTA Mild narrowing of the origin of the right internal carotid artery left ear is unremarkable Chest x-ray No acute findings Assessment and Plan Advance Directives: Yes (Full code) VTE prophylaxis?: Chemical Plan of care discussed with patient/family: Yes - Patient Problems (1) Acute CVA (cerebrovascular accident) Current Visit: Yes Status: Acute Plan to address problem: With right hemiparesis No dysarthria S/p TPA Neurology consult Acute CVA work-up High intensity statins PT and OT (2) Hyperlipidemia Current Visit: Yes Status: Chronic Qualifiers: Hyperlipidemia type: mixed hyperlipidemia Qualified Code(s): E78.2 - Mixed hyperlipidemia Plan to address problem: High intensity statins (3) BRENT (acute kidney injury) Current Visit: No Status: Acute Plan to address problem: IV fluids for now Vasomotor nephropathy (4) Depression Current Visit: Yes Status: Chronic Qualifiers: Depression Type: unspecified Qualified Code(s): F32.9 - Major depressive disorder, single episode, unspecified Plan to address problem: Continue antidepressants (5) Seizure disorder Current Visit: Yes Status: Chronic Plan to address problem: Continue seizure medication (6) DVT prophylaxis Current Visit: Yes Status: Acute Plan to address problem: On heparin and GI prophylaxis Aspirin from day 3 and Plavix from day 3
[2020-10-27 06:22] LABS: Albumin 4.2 g/dL (3.9-5); Calcium 9.2 mg/dL (8.4-10.2)
[2020-10-27] MEDS: SODIUM CHLORIDE 0.9% 1000 ML 1,000 ML IV SCH ×2 (06:59→17:10)
[2020-10-27 07:14] LABS: Anisocytosis 1+; Total Cells Counted 100
[2020-10-27 07:15] LABS: Platelet Estimate Consistent w Auto
[2020-10-27] MEDS ORDERED: MIDODRINE 5 MG TAB PO SCH (08:00)
[2020-10-27] MEDS ORDERED: ESCITALOPRAM 10 MG TAB PO SCH (10:00)
[2020-10-27] MEDS ORDERED: TOPIRAMATE TAB 100 MG TAB PO SCH ×2 (10:00→22:00)
[2020-10-27] MEDS: levETIRAcetam 1,000 MG in DEXTROSE 5% IN WATER 100 ML IV SCH ×2 (10:52→22:24)
--- NOTE | 2020-10-27 12:50 | Cat Scan Report ---
CT HEAD WITHOUT CONTRAST INDICATION / CLINICAL INFORMATION: 24 post tpa. TECHNIQUE: All CT scans at this location are performed using CT dose reduction for ALARA by means of automated exposure control. COMPARISON: CT head 10/26/2020, CTA head 10/26/2020 FINDINGS: HEMORRHAGE: None. EXTRA-AXIAL SPACES: Normal in size and morphology for the patient's age. VENTRICULAR SYSTEM: Normal in size and morphology for the patient's age. CEREBRAL PARENCHYMA: No significant abnormality. No evidence of territorial infarct. MIDLINE SHIFT / HERNIATION: None. CEREBELLUM / BRAINSTEM: No significant abnormality. ORBITS: Normal as visualized. SOFT TISSUES: No significant abnormality. SKULL: No significant abnormality. PARANASAL SINUSES / MASTOID AIR CELLS: Normal as visualized. ADDITIONAL FINDINGS: None. IMPRESSION: 1. No acute intracranial abnormality. Stable exam from 10/26/2020. Signer Name: Tremaine Jain MD Signed: 10/27/2020 12:45 PM Workstation Name: [email or web address]
[2020-10-27] MEDS: MORPHINE 2 MG/1 ML INJ IV PRN ×2 (14:49→20:02)
[2020-10-27] MEDS ORDERED: ASPIRIN 325 MG TAB PO SCH (19:26)
--- NOTE | 2020-10-27 20:25 | Progress Note ---
Assessment and Plan Assessment and plan: This is an 59-year-old female with seizure disorder, schizophrenia, bipolar admitted to r/o CVA Neuro: r/o CVA, bipolar/schizophrenia -10/26 CT head with no acute intracranial abnormality -Patient received TPA on 10/26 ~1250 -Repeat CTh 24 hours post TPA administration shows no acute intracranial abnormality -CTA head/neck completed-> see results -Neurology and PT/OT/ST consulted, appreciate recommendations -N.p.o., Accu-Cheks every 4 -Neurochecks per protocol -Maintain euthymia and avoid hypoglycemia -Blood pressure goal is less than 160/110 -Lipid panel pending -ASA, statin -Seizure precautions/aspiration/fall -IV Keppra (changed to p.o. tomorrow), p.o. Lamictal and Topamax to be post NGT access -Resume home Lexapro -Psych consult -hold trazadone -On examination patient had left-sided facial droop, left-sided upper and lower extremity sensory deficit, right-sided upper extremity drift Cardio: NAD -Maintain SBP less than 160/110 -Blood pressure monitor per protocol Respiratory: NAD -Supplemental oxygen as needed -SPO2 monitoring with VS -Pulmonary hygiene GI: N.p.o. -Nutrition consult for tube feedings -Patient failed bedside swallow evaluation and ST evaluation -No indication for PPI -BR: Colace : BRENT, hyponatremia, metabolic acidosis -Patient presented with hyponatremia and metabolic acidosis which were both corrected -Strict intake and output -Avoid nephrotoxic medications -Trend BMP -Renally dose medications -Consider nephrology consult if not improving Endo: NAD -Accu-Cheks every 4 while n.p.o. -Hemoglobin A1c 5.3 -Avoid hypoglycemia Heme: Microcytic anemia -Trend CBC -Iron supplementation -Transfuse for hemoglobin less than 7 -SCDs to bilateral actions while in bed -lovenox sub q The high probability of a clinically significant, sudden or life threatening d eterioration of the [neuro] system(s) required my full and direct attention, intervention and personal management. The aggregate critical care time was [60] minutes. This time is in addition to time spent performing reported procedures but includes the following: [x] Data Review and interpretation [x] Patient assessment and monitoring of vital signs [x] Documentation [x] Medication orders and management Disposition Plan: tele Total Time Spent with Patient (Minutes): 60 History Interval history: This is a 59-year-old female with seizures versus pseudoseizures, CVA, schizophrenia, bipolar who presented to the emergency department on 10/26 with difficulty speaking and right-sided deficits and noted to be " shaking all over" with complaints of chest tightness. Code stroke initiated in the emergency department and telemetry neurology recommended TPA which was given. Patient had some improvement in her right upper and lower extremity weakness post TPA. Patient was admitted to the hospital service with consults to [facility]. 10/27: Patient is past 24 hours post TPA and will be downgraded to telemetry. Repeat CT head completed and ST evaluation completed and recommended n.p.o. NG tube to be placed and nutrition consulted for tube feeding. Hospitalist Physical - Constitutional Vitals: Temp Pulse Resp BP Pulse Ox 98.1 F 62 18 146/69 98 10/26/20 19:02 10/27/20 18:01 10/27/20 20:02 10/27/20 18:01 10/27/20 18:01 General appearance: Present: no acute distress, well-nourished, cachectic, disheveled - EENT Eyes: Present: PERRL, EOM intact ENT: hearing decreased, poor dentition - Neck Neck: Present: normal ROM - Respiratory Respiratory effort: normal Respiratory: bilateral: CTA - Cardiovascular Rhythm: regular Heart Sounds: Present: S1 & S2. Absent: systolic murmur, diastolic murmur - Extremities Extremities: no ischemia, pulses intact, pulses symmetrical, No edema, normal temperature, normal color Peripheral Pulses: within normal limits - Abdominal General gastrointestinal: soft, non-tender, non-distended, normal bowel sounds - Integumentary Integumentary: Present: warm, dry - Psychiatric Psychiatric: cooperative - Neurologic Neurologic: focal deficits, no moves all extremities (Decreased sensation to left upper and lower extremity, right-sided drift, left sided facial droop) HEART Score - HEART Score Age: 45-65 Risk factors: 1-2 risk factors Troponin: Troponin T < 0.010 ng/mL (0.00-0.029) 10/26/20 18:26 Troponin: < normal limit - Critical Actions Critical Actions: 0-3 pts:0.9-1.7%risk of adverse cardiac event.Candidate for discharge Results - Labs CBC & Chem 7: 08/14/21 05:10 10/27/20 05:10 Labs: Laboratory Last Values WBC 5.0 K/mm3 (4.5-11.0) 10/27/20 05:10 RBC 3.35 M/mm3 (3.65-5.03) L 10/27/20 05:10 Hgb 11.3 gm/dl (10.1-14.3) 10/27/20 05:10 Hct 32.7 % (30.3-42.9) 10/27/20 05:10 MCV 98 fl (79-97) H 10/27/20 05:10 MCH 34 pg (28-32) H 10/27/20 05:10 MCHC 34 % (30-34) 10/27/20 05:10 RDW 13.8 % (13.2-15.2) 10/27/20 05:10 Plt Count 233 K/mm3 (140-440) 10/27/20 05:10 Lymph % (Auto) 39.2 % (13.4-35.0) H 10/26/20 11:40 [place] % (Auto) 12.1 % (0.0-7.3) H 10/26/20 11:40 Eos % (Auto) 1.3 % (0.0-4.3) 10/26/20 11:40 Baso % (Auto) 0.2 % (0.0-1.8) 10/26/20 11:40 Lymph # (Auto) 1.5 K/mm3 (1.2-5.4) 10/26/20 11:40 [place] # (Auto) 0.5 K/mm3 (0.0-0.8) 10/26/20 11:40 Eos # (Auto) 0.1 K/mm3 (0.0-0.4) 10/26/20 11:40 Baso # (Auto) 0.0 K/mm3 (0.0-0.1) 10/26/20 11:40 Add Manual Diff Complete 10/27/20 05:10 Total Counted 100 10/27/20 05:10 Seg Neutrophils % 47.2 % (40.0-70.0) 10/26/20 11:40 Seg Neuts % (Manual) 65.0 % (40.0-70.0) 10/27/20 05:10 Lymphocytes % (Manual) 19.0 % (13.4-35.0) 10/27/20 05:10 Monocytes % (Manual) 13.0 % (0.0-7.3) H 10/27/20 05:10 Eosinophils % (Manual) 2.0 % (0.0-4.3) 10/27/20 05:10 Basophils % (Manual) 1.0 % (0.0-1.8) 10/27/20 05:10 Nucleated RBC % Not Reportable 10/27/20 05:10 Seg Neutrophils # 1.8 K/mm3 (1.8-7.7) 10/26/20 11:40 Seg Neutrophils # Man 3.3 K/mm3 (1.8-7.7) 10/27/20 05:10 Band Neutrophils # 0.0 K/mm3 10/27/20 05:10 Lymphocytes # (Manual) 1.0 K/mm3 (1.2-5.4) L 10/27/20 05:10 Abs React Lymphs (Man) 0.0 K/mm3 10/27/20 05:10 Monocytes # (Manual) 0.7 K/mm3 (0.0-0.8) 10/27/20 05:10 Eosinophils # (Manual) 0.1 K/mm3 (0.0-0.4) 10/27/20 05:10 Basophils # (Manual) 0.1 K/mm3 (0.0-0.1) 10/27/20 05:10 Metamyelocytes # 0.0 K/mm3 10/27/20 05:10 Myelocytes # 0.0 K/mm3 10/27/20 05:10 Promyelocytes # 0.0 K/mm3 10/27/20 05:10 Blast Cells # 0.0 K/mm3 10/27/20 05:10 WBC Morphology Not Reportable 10/27/20 05:10 Hypersegmented Neuts Not Reportable 10/27/20 05:10 Hyposegmented Neuts Not Reportable 10/27/20 05:10 Hypogranular Neuts Not Reportable 10/27/20 05:10 Smudge Cells Not Reportable 10/27/20 05:10 Toxic Granulation Not Reportable 10/27/20 05:10 Toxic Vacuolation Not Reportable 10/27/20 05:10 Dohle Bodies Not Reportable 10/27/20 05:10 Pelger-Huet Anomaly Not Reportable 10/27/20 05:10 Park Rods Not Reportable 10/27/20 05:10 Platelet Estimate Consistent w auto 10/27/20 05:10 Clumped Platelets Not Reportable 10/27/20 05:10 Plt Clumps, EDTA Not Reportable 10/27/20 05:10 Large Platelets Not Reportable 10/27/20 05:10 Giant Platelets Not Reportable 10/27/20 05:10 Platelet Satelliting Not Reportable 10/27/20 05:10 Plt Morphology Comment Not Reportable 10/27/20 05:10 RBC Morphology Not Reportable 10/27/20 05:10 Dimorphic RBCs Not Reportable 10/27/20 05:10 Polychromasia Not Reportable 10/27/20 05:10 Hypochromasia Not Reportable 10/27/20 05:10 Poikilocytosis Not Reportable 10/27/20 05:10 Anisocytosis 1+ 10/27/20 05:10 Microcytosis Not Reportable 10/27/20 05:10 Macrocytosis Not Reportable 10/27/20 05:10 Spherocytes Not Reportable 10/27/20 05:10 Pappenheimer Bodies Not Reportable 10/27/20 05:10 Sickle Cells Not Reportable 10/27/20 05:10 Target Cells Not Reportable 10/27/20 05:10 Tear Drop Cells Not Reportable 10/27/20 05:10 Ovalocytes Not Reportable 10/27/20 05:10 Helmet Cells Not Reportable 10/27/20 05:10 [place] Bodies Not Reportable 10/27/20 05:10 [place] Rings Not Reportable 10/27/20 05:10 [place] Cells Not Reportable 10/27/20 05:10 Bite Cells Not Reportable 10/27/20 05:10 Crenated Cell Not Reportable 10/27/20 05:10 Elliptocytes Not Reportable 10/27/20 05:10 Acanthocytes (Spur) Not Reportable 10/27/20 05:10 Rouleaux Not Reportable 10/27/20 05:10 Hemoglobin C Crystals Not Reportable 10/27/20 05:10 Schistocytes Not Reportable 10/27/20 05:10 Malaria parasites Not Reportable 10/27/20 05:10 Curt Bodies Not Reportable 10/27/20 05:10 Hem Pathologist Commnt No 10/27/20 05:10 PT 12.7 Sec. (12.2-14.9) 10/26/20 11:40 INR 0.90 (0.87-1.13) 10/26/20 11:40 APTT 30.3 Sec. (24.2-36.6) 10/26/20 11:40 Thrombin Time 16.9 Sec. (15.1-19.6) 10/26/20 11:40 Sodium 141 mmol/L (137-145) 10/27/20 05:10 Potassium 3.9 mmol/L (3.6-5.0) 10/27/20 05:10 Chloride 106.5 mmol/L (98-107) 10/27/20 05:10 Carbon Dioxide 22 mmol/L (22-30) 10/27/20 05:10 Anion Gap 16 mmol/L 10/27/20 05:10 BUN 11 mg/dL (7-17) 10/27/20 05:10 Creatinine 1.0 mg/dL (0.6-1.2) 10/27/20 05:10 Estimated GFR 56 ml/min 10/27/20 05:10 BUN/Creatinine Ratio 11 % 10/27/20 05:10 Glucose 85 mg/dL (65-100) 10/27/20 05:10 POC Glucose 92 mg/dL (70-105) 10/26/20 12:23 Hemoglobin A1c 5.3 % (4-6) 10/27/20 05:10 Calcium 9.2 mg/dL (8.4-10.2) 10/27/20 05:10 Total Bilirubin 0.30 mg/dL (0.1-1.2) 10/27/20 05:10 AST 18 units/L (5-40) 10/27/20 05:10 ALT 19 units/L (7-56) 10/27/20 05:10 Alkaline Phosphatase 79 units/L (35-129) 10/27/20 05:10 Total Creatine Kinase 57 units/L (30-135) 10/26/20 11:40 CK-MB (CK-2) 1.0 ng/mL (0.0-4.0) 10/26/20 11:40 CK-MB (CK-2) Rel Index 1.7 (0-4) 10/26/20 11:40 Troponin T < 0.010 ng/mL (0.00-0.029) 10/26/20 18:26 Total Protein 7.0 g/dL (6.3-8.2) 10/27/20 05:10 Albumin 4.2 g/dL (3.9-5) 10/27/20 05:10 Albumin/Globulin Ratio 1.5 % 10/27/20 05:10 Active Medications - Current Medications Current Medications: Generic Name Dose Route Start Last Admin Trade Name Freq PRN Reason Stop Dose Admin Aspirin 325 mg 10/27/20 19:26 Aspirin 325 Mg Tab PO QDAY [facility] Atorvastatin Calcium 20 mg 10/27/20 22:00 Atorvastatin 20 Mg Tab PO QHS [facility] Docusate Sodium 100 mg 10/27/20 22:00 Docusate Sodium 100 Mg/10 Ml Oral Liqd PO BID [facility] Enoxaparin Sodium 30 mg 10/28/20 10:00 Enoxaparin 30 Mg/0.3 Ml Inj SUB-Q QDAY [facility] Protocol Escitalopram Oxalate 20 mg 10/28/20 10:00 Escitalopram 10 Mg/10 Ml Oral Liqd PO QDAY [facility] Sodium Chloride 1,000 mls @ 100 mls/hr 10/26/20 13:30 10/27/20 17:10 Nacl 0.9% 1000 Ml IV 100 mls/hr DIRECT BRIANNE Administration Levetiracetam 1,000 mg/ 110 mls @ 400 mls/hr 10/27/20 10:00 10/27/20 10:52 Dextrose IV 400 mls/hr Q12HR BRIANNE Administration Lamotrigine 100 mg 10/27/20 22:00 Lamotrigine 100 Mg Tab PO BID BRIANNE Morphine Sulfate 1 mg 10/27/20 14:04 10/27/20 20:02 Morphine 2 Mg/1 Ml Inj IV 1 mg Q4H PRN Administration Pain, Moderate (4-6) Ondansetron HCl 4 mg 10/26/20 13:30 Ondansetron 4 Mg/2 Ml Inj IV Q8H PRN Nausea And Vomiting Sodium Chloride 10 ml 10/26/20 14:00 08/14/21 10:50 Sodium Chloride 0.9% 10 Ml Flush Syringe IV 10 ml BID BRIANNE Administration Sodium Chloride 10 ml 10/26/20 14:00 Sodium Chloride 0.9% 10 Ml Flush Syringe IV PRN PRN LINE FLUSH Sodium Chloride 10 ml 10/27/20 08:00 Sodium Chloride 0.9% 10 Ml Flush Syringe IV PRN PRN LINE FLUSH Topiramate 100 mg 10/27/20 22:00 Topiramate Tab 100 Mg Tab PO QHS BRIANNE
[2020-10-27] MEDS ORDERED: lamoTRIgine 100 MG TAB PO SCH (22:00)
[2020-10-27] MEDS: DOCUSATE SODIUM 100 MG/10 ML ORAL LIQD PO SCH (22:25)
[2020-10-27] MEDS: D5W/0.9% NACL 1,000 ML IV SCH (23:33)
[2020-10-28] MEDS: MORPHINE 2 MG/1 ML INJ IV PRN ×4 (02:00→21:41)
[2020-10-28 06:30] LABS: Mean Corpuscular HGB Conc 34 % (30-34); Mean Corpuscular Volume 97 fl (79-97); Platelet Count 198 K/mm3 (140-440); Red Blood Count 3.31 M/mm3 (3.65-5.03); Red Cell Distribution Width 13.8 % (13.2-15.2)
[2020-10-28 06:42] LABS: Blood Urea Nitrogen 8 mg/dL (7-17); Calcium 9.1 mg/dL (8.4-10.2); Hemolysis Index 44
[2020-10-28 06:44] LABS: Chol/HDL Ratio 2.82 %
[2020-10-28 06:48] LABS: BUN/Creatinine Ratio 13
[2020-10-28] MEDS: D5W/0.9% NACL 1,000 ML IV SCH ×2 (09:10→20:04)
[2020-10-28] MEDS: ENOXAPARIN 40 MG/0.4 ML INJ SUB-Q SCH (09:10)
--- NOTE | 2020-10-28 09:20 | Progress Note ---
Assessment and Plan 59 y/o with stroke like symptoms s/p TPA administration 10/28/20: No acute pulm issues. Will sign off. 1. TPA administered and finished around 1250 yesterday. 2. Q 1 hour neuro checks 3. follow up neuro recs 4. Already on statin 5. Will sign off once out of unit. Subjective Date of service: 10/28/20 Interval history: status post TPA, post 24 hour monitoring and now on the floor, stable on room air and no pulm issues. Objective - Constitutional Vitals: Vital Signs - 12hr 10/27/20 10/27/20 10/27/20 21:31 22:00 22:01 Temperature Pulse Rate 65 66 Pulse Rate [ 66 Left Arm] Respiratory 13 Rate Respiratory Rate [Back] Respiratory 13 Rate [Left Arm] Blood Pressure 135/62 135/64 Blood Pressure 135/64 [Left Arm] O2 Sat by Pulse 94 94 Oximetry O2 Sat by Pulse 94 Oximetry [Left Arm] 10/27/20 10/27/20 10/27/20 22:31 23:00 23:01 Temperature Pulse Rate 111 H 63 Pulse Rate [ 63 Left Arm] Respiratory 29 H 15 Rate Respiratory Rate [Back] Respiratory 15 Rate [Left Arm] Blood Pressure 133/66 142/68 Blood Pressure 142/68 [Left Arm] O2 Sat by Pulse 97 96 Oximetry O2 Sat by Pulse 96 Oximetry [Left Arm] 10/27/20 10/27/20 10/28/20 23:31 23:34 00:01 Temperature Pulse Rate 68 66 72 Pulse Rate [ Left Arm] Respiratory 14 10 L 13 Rate Respiratory Rate [Back] Respiratory Rate [Left Arm] Blood Pressure 139/60 139/60 143/71 Blood Pressure [Left Arm] O2 Sat by Pulse 98 99 99 Oximetry O2 Sat by Pulse Oximetry [Left Arm] 10/28/20 10/28/20 10/28/20 00:47 00:55 01:16 Temperature 97.3 F L Pulse Rate 59 L 68 Pulse Rate [ Left Arm] Respiratory 16 Rate Respiratory 20 Rate [Back] Respiratory Rate [Left Arm] Blood Pressure 140/68 Blood Pressure [Left Arm] O2 Sat by Pulse 97 Oximetry O2 Sat by Pulse Oximetry [Left Arm] 10/28/20 10/28/20 10/28/20 01:38 02:00 04:37 Temperature 98.3 F Pulse Rate 59 L Pulse Rate [ Left Arm] Respiratory 18 16 Rate Respiratory Rate [Back] Respiratory Rate [Left Arm] Blood Pressure 158/66 Blood Pressure [Left Arm] O2 Sat by Pulse 100 99 Oximetry O2 Sat by Pulse Oximetry [Left Arm] - Labs CBC & Chem 7: 10/28/20 05:00 10/28/20 05:00 Labs: Abnormal lab results 10/28/20 10/28/20 Range/Units 05:00 05:00 WBC 3.4 L (4.5-11.0) K/mm3 RBC 3.31 L (3.65-5.03) M/mm3 MCH 33 H (28-32) pg Chloride 107.1 H (98-107) mmol/L Carbon Dioxide 21 L (22-30) mmol/L Glucose 105 H (65-100) mg/dL Medications & Allergies - Medications Allergies/Adverse Reactions: Allergies Penicillins Allergy (Verified 12/09/18 16:35) Unknown Home Medications: Home Medications Medication Instructions Recorded Confirmed Last Taken Type AtorvaSTATin [Lipitor] 20 mg PO QHS #30 tablet 05/02/20 10/26/20 Unknown Rx Escitalopram [Lexapro] 20 mg PO DAILY #30 tablet 05/02/20 10/26/20 Unknown Rx Midodrine [Proamatine] 5 mg PO TID@0800,1200,1600 #30 05/02/20 10/26/20 Unknown Rx tablet Topiramate [Topamax] 100 mg PO QDAY #30 tablet 05/02/20 10/26/20 Unknown Rx lamoTRIgine [LaMICtal] 100 mg PO BID #60 tablet 05/02/20 10/26/20 Unknown Rx traZODone [Desyrel] 150 mg PO QDAY@2200 #14 tablet 05/02/20 10/26/20 Unknown Rx Active Medications: Generic Name Dose Route Start Last Admin Trade Name Freq PRN Reason Stop Dose Admin Aspirin 325 mg 10/27/20 19:26 Aspirin 325 Mg Tab PO QDAY [facility] Atorvastatin Calcium 20 mg 10/27/20 22:00 10/27/20 22:25 Atorvastatin 20 Mg Tab PO Not Given QHS BRIANNE Docusate Sodium 100 mg 10/27/20 22:00 10/27/20 22:25 Docusate Sodium 100 Mg/10 Ml Oral Liqd PO Not Given BID [facility] Enoxaparin Sodium 40 mg 10/28/20 10:00 10/28/20 09:10 Enoxaparin 40 Mg/0.4 Ml Inj SUB-Q 40 mg QDAY@1000 BRIANNE Administration Escitalopram Oxalate 20 mg 10/28/20 10:00 Escitalopram 10 Mg/10 Ml Oral Liqd PO QDAY [facility]AN[facility] Sodium Chloride 1,000 mls @ 100 mls/hr 10/26/20 13:30 10/27/20 17:10 Nacl 0.9% 1000 Ml IV 100 mls/hr DIRECT BRIANNE Administration Levetiracetam 1,000 mg/ 110 mls @ 400 mls/hr 10/27/20 10:00 10/27/20 22:24 Dextrose IV 400 mls/hr Q12HR [facility]RIANNE Administration Dextrose/Sodium Chloride 1,000 mls @ 100 mls/hr 10/27/20 23:00 10/28/20 09:10 D5ns IV 100 mls/hr DIRECT BRIANNE Administration Morphine Sulfate 1 mg 10/27/20 14:04 10/28/20 02:00 Morphine 2 Mg/1 Ml Inj IV 1 mg Q4H PRN Administration Pain, Moderate (4-6) Ondansetron HCl 4 mg 10/26/20 13:30 10/27/20 23:33 Ondansetron 4 Mg/2 Ml Inj IV 4 mg Q8H PRN Administration Nausea And Vomiting Sodium Chloride 10 ml 10/26/20 14:00 10/27/20 22:25 Sodium Chloride 0.9% 10 Ml Flush Syringe IV 10 ml BID BRIANNE Administration Sodium Chloride 10 ml 10/26/20 14:00 Sodium Chloride 0.9% 10 Ml Flush Syringe IV PRN PRN LINE FLUSH Sodium Chloride 10 ml 10/27/20 08:00 Sodium Chloride 0.9% 10 Ml Flush Syringe IV PRN PRN LINE FLUSH HEART Score - HEART Score Age: 45-65 Risk factors: 1-2 risk factors Troponin: Troponin T < 0.010 ng/mL (0.00-0.029) 10/26/20 18:26 Troponin: < normal limit - Critical Actions Critical Actions: 0-3 pts:0.9-1.7%risk of adverse cardiac event.Candidate for discharge
[2020-10-28] MEDS: ESCITALOPRAM 10 MG/10 ML ORAL LIQD PO SCH (09:26)
[2020-10-28] MEDS ORDERED: ASPIRIN 325 MG TAB PO SCH (10:00)
[2020-10-28] MEDS ORDERED: ENOXAPARIN 30 MG/0.3 ML INJ SUB-Q SCH (10:00)
--- NOTE | 2020-10-28 10:32 | Consultation ---
History of Present Illness - Reason for Consult Consult date: 10/28/20 Reason for consult: hx of Bipolar - History of Present Psychiatric Illness Dayanara Santana is a 59y/o male patient who I evaluated today. The patient is lying in bed awake. She is awake and oriented x 2. She is calm, cooperative, pleasant and polite. She says she came to the hospital because she had a "stroke." She says she has a history of bipolar. The patient gives hands me a list with her meds on it. She takes lexaro 20, olanzapine 20, lamictal 100. She says she also has a history of seizures. The patient says she she's an outpatient psych and takes her meds everyday. Denies SI/HI or hallucinations of any kind. She also denies ever having an attempt of suicide. Psych diagnoses: Bipolar Suicide attempts or Self-harm behavior: Denies Prior psychiatric hospitalizations: Denies Substance Abuse history: Denies Previous psychiatric medications tried: olanzapine, lexapro and lamictal Outpatient treatment: Yes PAST MEDICAL HISTORY: Seizures Family Psychiatric History: None reported or documented SOCIAL HISTORY Marital Status: Living Arrangements: caregiver Employment Status: Disable Access to guns/weapons: Denies Education: History of Abuse: None reported Legal History: None reported REVIEW OF SYSTEMS Constitutional: Negative for weight loss ENT: Negative for stridor Respiratory: Negative for cough or hemoptysis All other systems reviewed and are negative MENTAL STATUS EXAMINATION General Appearance and Behavior: Age appropriate, good hygiene, wearing appropriate clothes, awake, calm and cooperative Cooperation: Participating/engaged Psychomotor Behavior: normal Mood: okay Affect and affective range: congruent with mood Thought Process: Goal directed Thought Content: None Speech: Normal Suicidal Ideation: Denies Homicidal Ideation: Denies Hallucinations: Denies Delusions: None elicited Impulse Control: Questionable Insight and Judgment: Limited insight and poor judgment, Memory: Normal Attention: Normal Orientation: Alert, oriented Assessment and Plan (1) Bipolar Current Visit: Yes Status: Acute Treatment Plan Restart Lamictal 100mg po daily Olanzapine 20mg po daily Lexapro 20mg po daily Sitter: per medical Medical: Per medical Disposition: Don not recommend acute psychiatric inpatient Will sign off. Thanks Case staffed with Dr. Min Medications and Allergies Allergies Allergy/AdvReac Type Severity Reaction Status Date / Time Penicillins Allergy Unknown Verified 12/09/18 16:35 Home Medications Medication Instructions Recorded Confirmed Last Taken Type AtorvaSTATin [Lipitor] 20 mg PO QHS #30 tablet 05/02/20 10/26/20 Unknown Rx Escitalopram [Lexapro] 20 mg PO DAILY #30 tablet 05/02/20 10/26/20 Unknown Rx Midodrine [Proamatine] 5 mg PO TID@0800,1200,1600 #30 05/02/20 10/26/20 Unknown Rx tablet Topiramate [Topamax] 100 mg PO QDAY #30 tablet 05/02/20 10/26/20 Unknown Rx lamoTRIgine [LaMICtal] 100 mg PO BID #60 tablet 05/02/20 10/26/20 Unknown Rx traZODone [Desyrel] 150 mg PO QDAY@2200 #14 tablet 05/02/20 10/26/20 Unknown Rx Active Meds: Active Medications Aspirin (Aspirin 325 Mg Tab) 325 mg PO QDAY [facility] Atorvastatin Calcium (Atorvastatin 20 Mg Tab) 20 mg PO QHS [facility] Last Admin: 10/27/20 22:25 Dose: Not Given Documented by: Docusate Sodium (Docusate Sodium 100 Mg/10 Ml Oral Liqd) 100 mg PO BID [facility] Last Admin: 10/27/20 22:25 Dose: Not Given Documented by: Enoxaparin Sodium (Enoxaparin 40 Mg/0.4 Ml Inj) 40 mg SUB-Q QDAY@1000 [facility] Last Admin: 10/28/20 09:10 Dose: 40 mg Documented by: Escitalopram Oxalate (Escitalopram 10 Mg/10 Ml Oral Liqd) 20 mg PO QDAY [facility] Last Admin: 10/28/20 09:26 Dose: Not Given Documented by: Sodium Chloride (Nacl 0.9% 1000 Ml) 1,000 mls @ 100 mls/hr IV DIRECT [facility] Last Admin: 10/27/20 17:10 Dose: 100 mls/hr Documented by: Levetiracetam 1,000 mg/ (Dextrose) 110 mls @ 400 mls/hr IV Q12HR [facility] Last Admin: 10/27/20 22:24 Dose: 400 mls/hr Documented by: Dextrose/Sodium Chloride (D5ns) 1,000 mls @ 100 mls/hr IV DIRECT [facility] Last Admin: 10/28/20 09:10 Dose: 100 mls/hr Documented by: Morphine Sulfate (Morphine 2 Mg/1 Ml Inj) 1 mg IV Q4H PRN PRN Reason: Pain, Moderate (4-6) Last Admin: 10/28/20 02:00 Dose: 1 mg Documented by: Ondansetron HCl (Ondansetron 4 Mg/2 Ml Inj) 4 mg IV Q8H PRN PRN Reason: Nausea And Vomiting Last Admin: 10/27/20 23:33 Dose: 4 mg Documented by: Sodium Chloride (Sodium Chloride 0.9% 10 Ml Flush Syringe) 10 ml IV BID BRIANNE Last Admin: 10/28/20 09:25 Dose: 10 ml Documented by: Sodium Chloride (Sodium Chloride 0.9% 10 Ml Flush Syringe) 10 ml IV PRN PRN PRN Reason: LINE FLUSH Sodium Chloride (Sodium Chloride 0.9% 10 Ml Flush Syringe) 10 ml IV PRN PRN PRN Reason: LINE FLUSH Mental Status Exam - Vital signs Last Vital Signs Temp 98.3 F 10/28/20 04:37 Pulse 59 L 10/28/20 04:37 Resp 16 10/28/20 04:37 BP 158/66 10/28/20 04:37 Pulse Ox 99 10/28/20 04:37 Results Result Diagrams: 10/28/20 05:00 10/28/20 05:00 Abnormal lab results 10/28/20 10/28/20 Range/Units 05:00 05:00 WBC 3.4 L (4.5-11.0) K/mm3 RBC 3.31 L (3.65-5.03) M/mm3 MCH 33 H (28-32) pg Chloride 107.1 H (98-107) mmol/L Carbon Dioxide 21 L (22-30) mmol/L Glucose 105 H (65-100) mg/dL All other labs normal.
[2020-10-28] MEDS: levETIRAcetam 1,000 MG in DEXTROSE 5% IN WATER 100 ML IV SCH ×2 (11:00→21:41)
[2020-10-28] MEDS: DOCUSATE SODIUM 100 MG/10 ML ORAL LIQD PO SCH ×2 (11:27→21:42)
--- NOTE | 2020-10-28 11:37 | Progress Note ---
Assessment and Plan Assessment and plan: This is an 59-year-old female with seizure disorder, schizophrenia, bipolar admitted to r/o CVA Neuro: r/o CVA, bipolar/schizophrenia -10/26 CT head with no acute intracranial abnormality -Patient received TPA on 10/26 ~1250 -Repeat CTh 24 hours post TPA administration shows no acute intracranial abnorma lity -CTA head/neck completed-> see results - MRI brain pending. -Neurology and PT/OT/ST consulted, appreciate recommendations -N.p.o., Accu-Cheks every 4 -Neurochecks per protocol -ASA, statin. add p -Seizure precautions/aspiration/fall -IV Keppra, d/c once NGT in place. -Psych consult. Start psych meds when NGT placed. -On examination patient had left-sided facial droop, left-sided upper and lower extremity sensory deficit, right-sided upper extremity drift Cardio: NAD -Maintain SBP less than 160/110 -Blood pressure monitor per protocol Respiratory: NAD -Supplemental oxygen as needed -SPO2 monitoring with VS -Pulmonary hygiene GI: dysphagia, N.p.o. -Nutrition consulted, tube feed recs noted. -Patient failed bedside swallow evaluation and ST evaluation -will go ahead with NGT after review of ST eval and necessity to give patient psych/seizure medication and ultimately nutrition. -Pepcid 20 IV Bid. -BR: Colace -Will consult GI for evaluation as patient likely will need PEG until dysphagia resolves. : BRENT (improved), hyponatremia, metabolic acidosis -Patient presented with hyponatremia and metabolic acidosis which were both corrected -Strict intake and output -Avoid nephrotoxic medications -Trend BMP -Renally dose medications Endo: NAD -Accu-Cheks every 4 while n.p.o. -Hemoglobin A1c 5.3 -Avoid hypoglycemia Heme: Microcytic anemia -Trend CBC -Iron supplementation -Transfuse for hemoglobin less than 7 -SCDs to bilateral actions while in bed -lovenox sub q History Interval history: Doing well on encounter. Still has right sided motor deficits, speech difficulty, and dysphagia. Hospitalist Physical - Physical exam Narrative exam: General appearance: Present: no acute distress, well-nourished, cachectic, disheveled - EENT Eyes: Present: PERRL, EOM intact ENT: hearing decreased, poor dentition - Neck Neck: Present: normal ROM - Respiratory Respiratory effort: normal Respiratory: bilateral: CTA - Cardiovascular Rhythm: regular Heart Sounds: Present: S1 & S2. Absent: systolic murmur, diastolic murmur - Extremities Extremities: no ischemia, pulses intact, pulses symmetrical, No edema, normal temperature, normal color Peripheral Pulses: within normal limits - Abdominal General gastrointestinal: soft, non-tender, non-distended, normal bowel sounds - Integumentary Integumentary: Present: warm, dry - Psychiatric Psychiatric: cooperative - Neurologic Neurologic: focal deficits, no moves all extremities (Decreased sensation to left upper and lower extremity, right-sided drift, left sided facial droop) - Constitutional Vitals: Temp Pulse Resp BP Pulse Ox 98.3 F 59 L 18 158/66 99 10/28/20 04:37 10/28/20 04:37 10/28/20 07:53 10/28/20 04:37 10/28/20 07:53 General appearance: Present: no acute distress, well-nourished, cachectic, disheveled HEART Score - HEART Score Age: 45-65 Risk factors: 1-2 risk factors Troponin: Troponin T < 0.010 ng/mL (0.00-0.029) 10/26/20 18:26 Troponin: < normal limit - Critical Actions Critical Actions: 0-3 pts:0.9-1.7%risk of adverse cardiac event.Candidate for discharge Results - Labs CBC & Chem 7: 10/28/20 05:00 10/28/20 05:00 Labs: Laboratory Last Values WBC 3.4 K/mm3 (4.5-11.0) L 10/28/20 05:00 RBC 3.31 M/mm3 (3.65-5.03) L 10/28/20 05:00 Hgb 11.0 gm/dl (10.1-14.3) 10/28/20 05:00 Hct 32.0 % (30.3-42.9) 10/28/20 05:00 MCV 97 fl (79-97) 10/28/20 05:00 MCH 33 pg (28-32) H 10/28/20 05:00 MCHC 34 % (30-34) 10/28/20 05:00 RDW 13.8 % (13.2-15.2) 10/28/20 05:00 Plt Count 198 K/mm3 (140-440) 10/28/20 05:00 Lymph % (Auto) 39.2 % (13.4-35.0) H 10/26/20 11:40 Starr % (Auto) 12.1 % (0.0-7.3) H 10/26/20 11:40 Eos % (Auto) 1.3 % (0.0-4.3) 10/26/20 11:40 Baso % (Auto) 0.2 % (0.0-1.8) 10/26/20 11:40 Lymph # (Auto) 1.5 K/mm3 (1.2-5.4) 10/26/20 11:40 Starr # (Auto) 0.5 K/mm3 (0.0-0.8) 10/26/20 11:40 Eos # (Auto) 0.1 K/mm3 (0.0-0.4) 10/26/20 11:40 Baso # (Auto) 0.0 K/mm3 (0.0-0.1) 10/26/20 11:40 Add Manual Diff Complete 10/27/20 05:10 Total Counted 100 10/27/20 05:10 Seg Neutrophils % 47.2 % (40.0-70.0) 10/26/20 11:40 Seg Neuts % (Manual) 65.0 % (40.0-70.0) 10/27/20 05:10 Lymphocytes % (Manual) 19.0 % (13.4-35.0) 10/27/20 05:10 Monocytes % (Manual) 13.0 % (0.0-7.3) H 10/27/20 05:10 Eosinophils % (Manual) 2.0 % (0.0-4.3) 10/27/20 05:10 Basophils % (Manual) 1.0 % (0.0-1.8) 10/27/20 05:10 Nucleated RBC % Not Reportable 10/27/20 05:10 Seg Neutrophils # 1.8 K/mm3 (1.8-7.7) 10/26/20 11:40 Seg Neutrophils # Man 3.3 K/mm3 (1.8-7.7) 10/27/20 05:10 Band Neutrophils # 0.0 K/mm3 10/27/20 05:10 Lymphocytes # (Manual) 1.0 K/mm3 (1.2-5.4) L 10/27/20 05:10 Abs React Lymphs (Man) 0.0 K/mm3 10/27/20 05:10 Monocytes # (Manual) 0.7 K/mm3 (0.0-0.8) 10/27/20 05:10 Eosinophils # (Manual) 0.1 K/mm3 (0.0-0.4) 10/27/20 05:10 Basophils # (Manual) 0.1 K/mm3 (0.0-0.1) 10/27/20 05:10 Metamyelocytes # 0.0 K/mm3 10/27/20 05:10 Myelocytes # 0.0 K/mm3 10/27/20 05:10 Promyelocytes # 0.0 K/mm3 10/27/20 05:10 Blast Cells # 0.0 K/mm3 10/27/20 05:10 WBC Morphology Not Reportable 10/27/20 05:10 Hypersegmented Neuts Not Reportable 10/27/20 05:10 Hyposegmented Neuts Not Reportable 10/27/20 05:10 Hypogranular Neuts Not Reportable 10/27/20 05:10 Smudge Cells Not Reportable 10/27/20 05:10 Toxic Granulation Not Reportable 10/27/20 05:10 Toxic Vacuolation Not Reportable 10/27/20 05:10 Dohle Bodies Not Reportable 10/27/20 05:10 Pelger-Huet Anomaly Not Reportable 10/27/20 05:10 Park Rods Not Reportable 10/27/20 05:10 Platelet Estimate Consistent w auto 10/27/20 05:10 Clumped Platelets Not Reportable 10/27/20 05:10 Plt Clumps, EDTA Not Reportable 10/27/20 05:10 Large Platelets Not Reportable 10/27/20 05:10 Giant Platelets Not Reportable 10/27/20 05:10 Platelet Satelliting Not Reportable 10/27/20 05:10 Plt Morphology Comment Not Reportable 10/27/20 05:10 RBC Morphology Not Reportable 10/27/20 05:10 Dimorphic RBCs Not Reportable 10/27/20 05:10 Polychromasia Not Reportable 10/27/20 05:10 Hypochromasia Not Reportable 10/27/20 05:10 Poikilocytosis Not Reportable 10/27/20 05:10 Anisocytosis 1+ 10/27/20 05:10 Microcytosis Not Reportable 10/27/20 05:10 Macrocytosis Not Reportable 10/27/20 05:10 Spherocytes Not Reportable 10/27/20 05:10 Pappenheimer Bodies Not Reportable 10/27/20 05:10 Sickle Cells Not Reportable 10/27/20 05:10 Target Cells Not Reportable 10/27/20 05:10 Tear Drop Cells Not Reportable 10/27/20 05:10 Ovalocytes Not Reportable 10/27/20 05:10 Helmet Cells Not Reportable 10/27/20 05:10 Miramontes-Walland Bodies Not Reportable 10/27/20 05:10 Manning Rings Not Reportable 10/27/20 05:10 Stacy Cells Not Reportable 10/27/20 05:10 Bite Cells Not Reportable 10/27/20 05:10 Crenated Cell Not Reportable 10/27/20 05:10 Elliptocytes Not Reportable 10/27/20 05:10 Acanthocytes (Spur) Not Reportable 10/27/20 05:10 Rouleaux Not Reportable 10/27/20 05:10 Hemoglobin C Crystals Not Reportable 10/27/20 05:10 Schistocytes Not Reportable 10/27/20 05:10 Malaria parasites Not Reportable 10/27/20 05:10 Curt Bodies Not Reportable 10/27/20 05:10 Hem Pathologist Commnt No 10/27/20 05:10 PT 12.7 Sec. (12.2-14.9) 10/26/20 11:40 INR 0.90 (0.87-1.13) 10/26/20 11:40 APTT 30.3 Sec. (24.2-36.6) 10/26/20 11:40 Thrombin Time 16.9 Sec. (15.1-19.6) 10/26/20 11:40 Sodium 140 mmol/L (137-145) 10/28/20 05:00 Potassium 3.7 mmol/L (3.6-5.0) 10/28/20 05:00 Chloride 107.1 mmol/L (98-107) H 10/28/20 05:00 Carbon Dioxide 21 mmol/L (22-30) L 10/28/20 05:00 Anion Gap 16 mmol/L 10/28/20 05:00 BUN 8 mg/dL (7-17) 10/28/20 05:00 Creatinine 0.6 mg/dL (0.6-1.2) 10/28/20 05:00 Estimated GFR > 60 ml/min 10/28/20 05:00 BUN/Creatinine Ratio 13 % 10/28/20 05:00 Glucose 105 mg/dL (65-100) H 10/28/20 05:00 POC Glucose 97 mg/dL (70-105) 10/28/20 05:36 Hemoglobin A1c 5.3 % (4-6) 10/27/20 05:10 Calcium 9.1 mg/dL (8.4-10.2) 10/28/20 05:00 Total Bilirubin 0.30 mg/dL (0.1-1.2) 10/27/20 05:10 AST 18 units/L (5-40) 10/27/20 05:10 ALT 19 units/L (7-56) 10/27/20 05:10 Alkaline Phosphatase 79 units/L (35-129) 10/27/20 05:10 Total Creatine Kinase 57 units/L (30-135) 10/26/20 11:40 CK-MB (CK-2) 1.0 ng/mL (0.0-4.0) 10/26/20 11:40 CK-MB (CK-2) Rel Index 1.7 (0-4) 10/26/20 11:40 Troponin T < 0.010 ng/mL (0.00-0.029) 10/26/20 18:26 Total Protein 7.0 g/dL (6.3-8.2) 10/27/20 05:10 Albumin 4.2 g/dL (3.9-5) 10/27/20 05:10 Albumin/Globulin Ratio 1.5 % 10/27/20 05:10 Triglycerides 88 mg/dL (2-149) 10/28/20 05:00 Cholesterol 133 mg/dL (50-199) 10/28/20 05:00 LDL Cholesterol Direct 76 mg/dL (50-130) 10/28/20 05:00 HDL Cholesterol 47 mg/dL (40-59) 10/28/20 05:00 Cholesterol/HDL Ratio 2.82 % 10/28/20 05:00 Manrique/IV: Voiding Method External Female Catheter Active Medications - Current Medications Current Medications: Generic Name Dose Route Start Last Admin Trade Name Freq PRN Reason Stop Dose Admin Aspirin 325 mg 10/27/20 19:26 Aspirin 325 Mg Tab PO QDAY [facility] Atorvastatin Calcium 20 mg 10/27/20 22:00 10/27/20 22:25 Atorvastatin 20 Mg Tab PO Not Given QHS [facility] Docusate Sodium 100 mg 10/27/20 22:00 10/28/20 11:27 Docusate Sodium 100 Mg/10 Ml Oral Liqd PO Not Given BID BRIANNE Enoxaparin Sodium 40 mg 10/28/20 10:00 10/28/20 09:10 Enoxaparin 40 Mg/0.4 Ml Inj SUB-Q 40 mg QDAY@1000 BRIANNE Administration Escitalopram Oxalate 20 mg 10/28/20 10:00 10/28/20 09:26 Escitalopram 10 Mg/10 Ml Oral Liqd PO Not Given QDAY [facility] Sodium Chloride 1,000 mls @ 100 mls/hr 10/26/20 13:30 10/27/20 17:10 Nacl 0.9% 1000 Ml IV 100 mls/hr DIRECT BRIANNE Administration Levetiracetam 1,000 mg/ 110 mls @ 400 mls/hr 10/27/20 10:00 10/28/20 11:00 Dextrose IV 400 mls/hr Q12HR BRIANNE Administration Dextrose/Sodium Chloride 1,000 mls @ 100 mls/hr 10/27/20 23:00 10/28/20 09:10 D5ns IV 100 mls/hr DIRECT BRIANNE Administration Lamotrigine 100 mg 10/28/20 22:00 Lamotrigine 100 Mg Tab PO QHS [facility] Morphine Sulfate 1 mg 10/27/20 14:04 10/28/20 02:00 Morphine 2 Mg/1 Ml Inj IV 1 mg Q4H PRN Administration Pain, Moderate (4-6) Olanzapine 20 mg 10/28/20 11:30 Olanzapine 10 Mg Tab PO QDAY [facility] Ondansetron HCl 4 mg 10/26/20 13:30 10/27/20 23:33 Ondansetron 4 Mg/2 Ml Inj IV 4 mg Q8H PRN Administration Nausea And Vomiting Sodium Chloride 10 ml 10/26/20 14:00 10/28/20 09:25 Sodium Chloride 0.9% 10 Ml Flush Syringe IV 10 ml BID BRIANNE Administration Sodium Chloride 10 ml 10/26/20 14:00 Sodium Chloride 0.9% 10 Ml Flush Syringe IV PRN PRN LINE FLUSH Sodium Chloride 10 ml 10/27/20 08:00 Sodium Chloride 0.9% 10 Ml Flush Syringe IV PRN PRN LINE FLUSH
[2020-10-28] MEDS: ASPIRIN 300 MG RECT SUPP PR SCH (13:05)
[2020-10-28] MEDS ORDERED: SODIUM BICARBONATE 325 MG TAB FEEDTUBE PRN (14:11)
[2020-10-28] MEDS ORDERED: SIMPLE SYRUP 15 ML FEEDTUBE PRN ×2 (14:11)
[2020-10-28] MEDS ORDERED: LIPASE 10,500/PROTEASE 25,000/AMYLASE 43,750 (UNITS) DR CAP FEEDTUBE PRN (14:11)
[2020-10-28] MEDS: FAMOTIDINE 20 MG/2 ML INJ IV SCH (21:41)
[2020-10-28] MEDS: lamoTRIgine 100 MG TAB PO SCH (21:42)
[2020-10-29] MEDS: MORPHINE 2 MG/1 ML INJ IV PRN ×3 (05:38→19:06)
[2020-10-29] MEDS: D5W/0.9% NACL 1,000 ML IV SCH (08:35)
--- NOTE | 2020-10-29 10:50 | Electrocardiograph Report ---
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
[2020-10-29] MEDS: levETIRAcetam 1,000 MG in DEXTROSE 5% IN WATER 100 ML IV SCH ×2 (11:10→23:50)
[2020-10-29] MEDS: ENOXAPARIN 40 MG/0.4 ML INJ SUB-Q SCH (11:10)
[2020-10-29] MEDS: ESCITALOPRAM 10 MG/10 ML ORAL LIQD PO SCH ×2 (11:11→11:17)
[2020-10-29] MEDS: DOCUSATE SODIUM 100 MG/10 ML ORAL LIQD PO SCH ×2 (11:12→11:15)
[2020-10-29] MEDS: FAMOTIDINE 20 MG/2 ML INJ IV SCH ×2 (11:12→23:45)
[2020-10-29] MEDS: ASPIRIN 300 MG RECT SUPP PR SCH (11:39)
--- NOTE | 2020-10-29 11:59 | Gastroenterology Consultation ---
History of Present Illness - Reason for Consult Consult date: 10/29/20 oropharyngeal dysphagia Requesting physician: EDMOND PIEDRA - History of Present Illness The patient is a 59 yo wf with h/o bipolar disorder, seizures vs pseudoseizures, presenting with suspected acute CVA, s/p TPA. pt failed swallow eval per speech therapy since admission. pt is awake/alert, answering questions appropriately at time of exam. denies abd pain/complaints. has some delayed and minimally slurred speech. Past History Past Medical History: hyperlipidemia, other (seizures) Medications and Allergies Allergies Allergy/AdvReac Type Severity Reaction Status Date / Time Penicillins Allergy Unknown Verified 12/09/18 16:35 Home Medications Medication Instructions Recorded Confirmed Last Taken Type AtorvaSTATin [Lipitor] 20 mg PO QHS #30 tablet 05/02/20 10/26/20 Unknown Rx Escitalopram [Lexapro] 20 mg PO DAILY #30 tablet 05/02/20 10/26/20 Unknown Rx Midodrine [Proamatine] 5 mg PO TID@0800,1200,1600 #30 05/02/20 10/26/20 Unknown Rx tablet Topiramate [Topamax] 100 mg PO QDAY #30 tablet 05/02/20 10/26/20 Unknown Rx lamoTRIgine [LaMICtal] 100 mg PO BID #60 tablet 05/02/20 10/26/20 Unknown Rx traZODone [Desyrel] 150 mg PO QDAY@2200 #14 tablet 05/02/20 10/26/20 Unknown Rx Active Meds: Active Medications Lipase/Protease/Amylase (Lipase 10,500/Protease 25,000/Amylase 43,750 (Units) Dr [place]) 1 each FEEDTUBE PRN PRN PRN Reason: For Clogged Feeding Tube Aspirin (Aspirin 300 Mg Rect Supp) 300 mg IN QDAY [facility] Last Admin: 10/29/20 11:39 Dose: 300 mg Documented by: Atorvastatin Calcium (Atorvastatin 20 Mg Tab) 20 mg PO QHS [facility] Last Admin: 10/28/20 21:42 Dose: Not Given Documented by: Docusate Sodium (Docusate Sodium 100 Mg/10 Ml Oral Liqd) 100 mg PO BID [facility] Last Admin: 10/29/20 11:15 Dose: Not Given Documented by: Enoxaparin Sodium (Enoxaparin 40 Mg/0.4 Ml Inj) 40 mg SUB-Q QDAY@1000 [facility] Last Admin: 10/29/20 11:10 Dose: 40 mg Documented by: Escitalopram Oxalate (Escitalopram 10 Mg/10 Ml Oral Liqd) 20 mg PO QDAY [facility] Last Admin: 10/29/20 11:17 Dose: Not Given Documented by: Famotidine (Famotidine 20 Mg/2 Ml Inj) 20 mg IV BID [facility] Last Admin: 10/29/20 11:12 Dose: 20 mg Documented by: Sodium Chloride (Nacl 0.9% 1000 Ml) 1,000 mls @ 100 mls/hr IV DIRECT [facility] Last Admin: 10/27/20 17:10 Dose: 100 mls/hr Documented by: Levetiracetam 1,000 mg/ (Dextrose) 110 mls @ 400 mls/hr IV Q12HR [facility] Last Admin: 10/29/20 11:10 Dose: 400 mls/hr Documented by: Dextrose/Sodium Chloride (D5ns) 1,000 mls @ 100 mls/hr IV DIRECT [facility] Last Admin: 10/29/20 08:35 Dose: 100 mls/hr Documented by: Lamotrigine (Lamotrigine 100 Mg Tab) 100 mg PO QHS [facility] Last Admin: 10/28/20 21:42 Dose: Not Given Documented by: Morphine Sulfate (Morphine 2 Mg/1 Ml Inj) 1 mg IV Q4H PRN PRN Reason: Pain, Moderate (4-6) Last Admin: 10/29/20 11:10 Dose: 1 mg Documented by: Olanzapine (Olanzapine 10 Mg Tab) 20 mg PO QDAY [facility] Last Admin: 10/29/20 11:17 Dose: Not Given Documented by: Ondansetron HCl (Ondansetron 4 Mg/2 Ml Inj) 4 mg IV Q8H PRN PRN Reason: Nausea And Vomiting Last Admin: 10/27/20 23:33 Dose: 4 mg Documented by: Simple Syrup (Simple Syrup 15 Ml) 15 ml FEEDTUBE PRN PRN PRN Reason: Hypoglycemia Simple Syrup (Simple Syrup 15 Ml) 30 ml FEEDTUBE PRN PRN PRN Reason: Hypoglycemia Sodium Bicarbonate (Sodium Bicarbonate 325 Mg Tab) 325 mg FEEDTUBE PRN PRN PRN Reason: For Clogged Feeding Tube Sodium Chloride (Sodium Chloride 0.9% 10 Ml Flush Syringe) 10 ml IV BID BRIANNE Last Admin: 10/29/20 11:41 Dose: 10 ml Documented by: Sodium Chloride (Sodium Chloride 0.9% 10 Ml Flush Syringe) 10 ml IV PRN PRN PRN Reason: LINE FLUSH Last Admin: 10/29/20 08:36 Dose: 10 ml Documented by: Sodium Chloride (Sodium Chloride 0.9% 10 Ml Flush Syringe) 10 ml IV PRN PRN PRN Reason: LINE FLUSH Reviewed/updated patient's home and current medications Review of Systems - Review of Systems All systems: negative (per HPI) Exam - Constitutional Vital Signs: Temp Pulse Resp BP Pulse Ox 98.1 F 56 L 18 132/69 98 10/29/20 08:22 10/29/20 08:22 10/29/20 08:22 10/29/20 08:22 10/29/20 08:22 General appearance: no acute distress - Respiratory Respiratory effort: normal Respiratory: bilateral: CTA - Cardiovascular Rhythm: regular Heart Sounds: Present: S1 & S2 - Gastrointestinal General gastrointestinal: Present: soft, non-tender, non-distended - Neurologic Neurological: oriented to person, oriented to place - Labs CBC & Chem 7: 10/28/20 05:00 10/28/20 05:00 Lab Results: Laboratory Results - last 24 hr 10/28/20 10/28/20 10/28/20 12:06 16:19 23:01 POC Glucose 111 H 102 111 H 10/29/20 05:12 POC Glucose 100 Assessment and Plan 1. Oropharyngeal dysphagia - after cva, s/p tpa, awake/alert at time of exam. recommend repeat speech eval in a couple days, and if pt able to pass, would not need peg tube. if fails repeat study, then will plan for egd/peg in that setting.
--- NOTE | 2020-10-29 14:31 | Progress Note ---
Assessment and Plan Assessment and plan: This is an 59-year-old female with seizure disorder, schizophrenia, bipolar admitted to r/o CVA Neuro: r/o CVA, bipolar/schizophrenia -10/26 CT head with no acute intracranial abnormality -Patient received TPA on 10/26 ~1250 -Repeat CTh 24 hours post TPA administration shows no acute intracranial abnorma lity -CTA head/neck completed-> see results - MRI brain pending. -Neurology and PT/OT/ST consulted, appreciate recommendations -N.p.o., Accu-Cheks every 4 -Neurochecks per protocol -ASA, statin. add p -Seizure precautions/aspiration/fall -IV Keppra, d/c once NGT in place. -Psych consult. Start psych meds when NGT placed. -On examination patient had left-sided facial droop, left-sided upper and lower extremity sensory deficit, right-sided upper extremity drift Cardio: NAD -Maintain SBP less than 160/110 -Blood pressure monitor per protocol Respiratory: NAD -Supplemental oxygen as needed -SPO2 monitoring with VS -Pulmonary hygiene GI: dysphagia, N.p.o. -Nutrition consulted, tube feed recs noted. -Patient failed bedside swallow evaluation and ST evaluation -will go ahead with NGT after review of ST eval and necessity to give patient psych/seizure medication and ultimately nutrition. -Pepcid 20 IV Bid. -BR: Colace -Will consult GI for evaluation as patient likely will need PEG until dysphagia resolves. : BRENT (improved), hyponatremia, metabolic acidosis -Patient presented with hyponatremia and metabolic acidosis which were both corrected -Strict intake and output -Avoid nephrotoxic medications -Trend BMP -Renally dose medications Endo: NAD -Accu-Cheks every 4 while n.p.o. -Hemoglobin A1c 5.3 -Avoid hypoglycemia Heme: Microcytic anemia -Trend CBC -Iron supplementation -Transfuse for hemoglobin less than 7 -SCDs to bilateral actions while in bed -lovenox sub q 10/27: Patient is past 24 hours post TPA and will be downgraded to telemetry. Repeat CT head completed and ST evaluation completed and recommended n.p.o. NG tube to be placed and nutrition consulted for tube feeding. 10/28: Patient failed ST eval. Will likely need either NG tube or PEG tube. GI consulted 10/29: GI recommends continuation of speech therapy evaluations. Will place PEG if patient fails repeat dysphagia assessments. Will order NG tube so patient can get nutrition. History Interval history: Doing well on encounter. Still has right sided motor deficits, speech difficulty, and dysphagia. Hospitalist Physical - Physical exam Narrative exam: General appearance: Present: no acute distress, well-nourished, cachectic, disheveled - EENT Eyes: Present: PERRL, EOM intact ENT: hearing decreased, poor dentition - Neck Neck: Present: normal ROM - Respiratory Respiratory effort: normal Respiratory: bilateral: CTA - Cardiovascular Rhythm: regular Heart Sounds: Present: S1 & S2. Absent: systolic murmur, diastolic murmur - Extremities Extremities: no ischemia, pulses intact, pulses symmetrical, No edema, normal temperature, normal color Peripheral Pulses: within normal limits - Abdominal General gastrointestinal: soft, non-tender, non-distended, normal bowel sounds - Integumentary Integumentary: Present: warm, dry - Psychiatric Psychiatric: cooperative - Neurologic Neurologic: focal deficits, no moves all extremities (Decreased sensation to left upper and lower extremity, right-sided drift, left sided facial droop) - Constitutional Vitals: Temp Pulse Resp BP Pulse Ox 97.8 F 55 L 19 141/62 98 10/29/20 11:49 10/29/20 11:49 10/29/20 11:49 10/29/20 11:49 10/29/20 11:49 General appearance: Present: no acute distress, well-nourished, cachectic, disheveled HEART Score - HEART Score Age: 45-65 Risk factors: 1-2 risk factors Troponin: Troponin T < 0.010 ng/mL (0.00-0.029) 10/26/20 18:26 Troponin: < normal limit - Critical Actions Critical Actions: 0-3 pts:0.9-1.7%risk of adverse cardiac event.Candidate for discharge Results - Labs CBC & Chem 7: 10/28/20 05:00 10/28/20 05:00 Labs: Laboratory Last Values WBC 3.4 K/mm3 (4.5-11.0) L 10/28/20 05:00 RBC 3.31 M/mm3 (3.65-5.03) L 10/28/20 05:00 Hgb 11.0 gm/dl (10.1-14.3) 10/28/20 05:00 Hct 32.0 % (30.3-42.9) 10/28/20 05:00 MCV 97 fl (79-97) 10/28/20 05:00 MCH 33 pg (28-32) H 10/28/20 05:00 MCHC 34 % (30-34) 10/28/20 05:00 RDW 13.8 % (13.2-15.2) 10/28/20 05:00 Plt Count 198 K/mm3 (140-440) 10/28/20 05:00 Lymph % (Auto) 39.2 % (13.4-35.0) H 10/26/20 11:40 [place] % (Auto) 12.1 % (0.0-7.3) H 10/26/20 11:40 Eos % (Auto) 1.3 % (0.0-4.3) 10/26/20 11:40 Baso % (Auto) 0.2 % (0.0-1.8) 10/26/20 11:40 Lymph # (Auto) 1.5 K/mm3 (1.2-5.4) 10/26/20 11:40 [place] # (Auto) 0.5 K/mm3 (0.0-0.8) 10/26/20 11:40 Eos # (Auto) 0.1 K/mm3 (0.0-0.4) 10/26/20 11:40 Baso # (Auto) 0.0 K/mm3 (0.0-0.1) 10/26/20 11:40 Add Manual Diff Complete 10/27/20 05:10 Total Counted 100 10/27/20 05:10 Seg Neutrophils % 47.2 % (40.0-70.0) 10/26/20 11:40 Seg Neuts % (Manual) 65.0 % (40.0-70.0) 10/27/20 05:10 Lymphocytes % (Manual) 19.0 % (13.4-35.0) 10/27/20 05:10 Monocytes % (Manual) 13.0 % (0.0-7.3) H 10/27/20 05:10 Eosinophils % (Manual) 2.0 % (0.0-4.3) 10/27/20 05:10 Basophils % (Manual) 1.0 % (0.0-1.8) 10/27/20 05:10 Nucleated RBC % Not Reportable 10/27/20 05:10 Seg Neutrophils # 1.8 K/mm3 (1.8-7.7) 10/26/20 11:40 Seg Neutrophils # Man 3.3 K/mm3 (1.8-7.7) 10/27/20 05:10 Band Neutrophils # 0.0 K/mm3 10/27/20 05:10 Lymphocytes # (Manual) 1.0 K/mm3 (1.2-5.4) L 10/27/20 05:10 Abs React Lymphs (Man) 0.0 K/mm3 10/27/20 05:10 Monocytes # (Manual) 0.7 K/mm3 (0.0-0.8) 10/27/20 05:10 Eosinophils # (Manual) 0.1 K/mm3 (0.0-0.4) 10/27/20 05:10 Basophils # (Manual) 0.1 K/mm3 (0.0-0.1) 10/27/20 05:10 Metamyelocytes # 0.0 K/mm3 10/27/20 05:10 Myelocytes # 0.0 K/mm3 10/27/20 05:10 Promyelocytes # 0.0 K/mm3 10/27/20 05:10 Blast Cells # 0.0 K/mm3 10/27/20 05:10 WBC Morphology Not Reportable 10/27/20 05:10 Hypersegmented Neuts Not Reportable 10/27/20 05:10 Hyposegmented Neuts Not Reportable 10/27/20 05:10 Hypogranular Neuts Not Reportable 10/27/20 05:10 Smudge Cells Not Reportable 10/27/20 05:10 Toxic Granulation Not Reportable 10/27/20 05:10 Toxic Vacuolation Not Reportable 10/27/20 05:10 Dohle Bodies Not Reportable 10/27/20 05:10 Pelger-Huet Anomaly Not Reportable 10/27/20 05:10 Park Rods Not Reportable 10/27/20 05:10 Platelet Estimate Consistent w auto 10/27/20 05:10 Clumped Platelets Not Reportable 10/27/20 05:10 Plt Clumps, EDTA Not Reportable 10/27/20 05:10 Large Platelets Not Reportable 10/27/20 05:10 Giant Platelets Not Reportable 10/27/20 05:10 Platelet Satelliting Not Reportable 10/27/20 05:10 Plt Morphology Comment Not Reportable 10/27/20 05:10 RBC Morphology Not Reportable 10/27/20 05:10 Dimorphic RBCs Not Reportable 10/27/20 05:10 Polychromasia Not Reportable 10/27/20 05:10 Hypochromasia Not Reportable 10/27/20 05:10 Poikilocytosis Not Reportable 10/27/20 05:10 Anisocytosis 1+ 10/27/20 05:10 Microcytosis Not Reportable 10/27/20 05:10 Macrocytosis Not Reportable 10/27/20 05:10 Spherocytes Not Reportable 10/27/20 05:10 Pappenheimer Bodies Not Reportable 10/27/20 05:10 Sickle Cells Not Reportable 10/27/20 05:10 Target Cells Not Reportable 10/27/20 05:10 Tear Drop Cells Not Reportable 10/27/20 05:10 Ovalocytes Not Reportable 10/27/20 05:10 Helmet Cells Not Reportable 10/27/20 05:10 [place] Bodies Not Reportable 10/27/20 05:10 [place] Rings Not Reportable 10/27/20 05:10 [place] Cells Not Reportable 10/27/20 05:10 Bite Cells Not Reportable 10/27/20 05:10 Crenated Cell Not Reportable 10/27/20 05:10 Elliptocytes Not Reportable 10/27/20 05:10 Acanthocytes (Spur) Not Reportable 10/27/20 05:10 Rouleaux Not Reportable 10/27/20 05:10 Hemoglobin C Crystals Not Reportable 10/27/20 05:10 Schistocytes Not Reportable 10/27/20 05:10 Malaria parasites Not Reportable 10/27/20 05:10 Curt Bodies Not Reportable 10/27/20 05:10 Hem Pathologist Commnt No 10/27/20 05:10 PT 12.7 Sec. (12.2-14.9) 10/26/20 11:40 INR 0.90 (0.87-1.13) 10/26/20 11:40 APTT 30.3 Sec. (24.2-36.6) 10/26/20 11:40 Thrombin Time 16.9 Sec. (15.1-19.6) 10/26/20 11:40 Sodium 140 mmol/L (137-145) 10/28/20 05:00 Potassium 3.7 mmol/L (3.6-5.0) 10/28/20 05:00 Chloride 107.1 mmol/L (98-107) H 10/28/20 05:00 Carbon Dioxide 21 mmol/L (22-30) L 10/28/20 05:00 Anion Gap 16 mmol/L 10/28/20 05:00 BUN 8 mg/dL (7-17) 10/28/20 05:00 Creatinine 0.6 mg/dL (0.6-1.2) 10/28/20 05:00 Estimated GFR > 60 ml/min 10/28/20 05:00 BUN/Creatinine Ratio 13 % 10/28/20 05:00 Glucose 105 mg/dL (65-100) H 10/28/20 05:00 POC Glucose 91 mg/dL (70-105) 10/29/20 11:48 Hemoglobin A1c 5.3 % (4-6) 10/27/20 05:10 Calcium 9.1 mg/dL (8.4-10.2) 10/28/20 05:00 Total Bilirubin 0.30 mg/dL (0.1-1.2) 10/27/20 05:10 AST 18 units/L (5-40) 10/27/20 05:10 ALT 19 units/L (7-56) 10/27/20 05:10 Alkaline Phosphatase 79 units/L (35-129) 10/27/20 05:10 Total Creatine Kinase 57 units/L (30-135) 10/26/20 11:40 CK-MB (CK-2) 1.0 ng/mL (0.0-4.0) 10/26/20 11:40 CK-MB (CK-2) Rel Index 1.7 (0-4) 10/26/20 11:40 Troponin T < 0.010 ng/mL (0.00-0.029) 10/26/20 18:26 Total Protein 7.0 g/dL (6.3-8.2) 10/27/20 05:10 Albumin 4.2 g/dL (3.9-5) 10/27/20 05:10 Albumin/Globulin Ratio 1.5 % 10/27/20 05:10 Triglycerides 88 mg/dL (2-149) 10/28/20 05:00 Cholesterol 133 mg/dL (50-199) 10/28/20 05:00 LDL Cholesterol Direct 76 mg/dL (50-130) 10/28/20 05:00 HDL Cholesterol 47 mg/dL (40-59) 10/28/20 05:00 Cholesterol/HDL Ratio 2.82 % 10/28/20 05:00 [place]/IV: Voiding Method External Female Catheter Active Medications - Current Medications Current Medications: Generic Name Dose Route Start Last Admin Trade Name Freq PRN Reason Stop Dose Admin Lipase/Protease/Amylase 1 each 10/28/20 14:11 Lipase 10,500/Protease 25,000/Amylase 43,750 (Units) Dr [place] FEEDTUBE PRN PRN For Clogged Feeding Tube Aspirin 300 mg 10/28/20 13:00 10/29/20 11:39 Aspirin 300 Mg Rect Supp MI 300 mg QDAY BRIANNE Administration Atorvastatin Calcium 20 mg 10/27/20 22:00 10/28/20 21:42 Atorvastatin 20 Mg Tab PO Not Given QHS BRIANNE Docusate Sodium 100 mg 10/27/20 22:00 10/29/20 11:15 Docusate Sodium 100 Mg/10 Ml Oral Liqd PO Not Given BID BRIANNE Enoxaparin Sodium 40 mg 10/28/20 10:00 10/29/20 11:10 Enoxaparin 40 Mg/0.4 Ml Inj SUB-Q 40 mg QDAY@1000 BRIANNE Administration Escitalopram Oxalate 20 mg 10/28/20 10:00 10/29/20 11:17 Escitalopram 10 Mg/10 Ml Oral Liqd PO Not Given QDAY BRIANNE Famotidine 20 mg 10/28/20 22:00 10/29/20 11:12 Famotidine 20 Mg/2 Ml Inj IV 20 mg BID BRIANNE Administration Sodium Chloride 1,000 mls @ 100 mls/hr 10/26/20 13:30 10/27/20 17:10 Nacl 0.9% 1000 Ml IV 100 mls/hr DIRECT BRIANNE Administration Levetiracetam 1,000 mg/ 110 mls @ 400 mls/hr 10/27/20 10:00 10/29/20 11:10 Dextrose IV 400 mls/hr Q12HR BRIANNE Administration Dextrose/Sodium Chloride 1,000 mls @ 100 mls/hr 10/27/20 23:00 10/29/20 08:35 D5ns IV 100 mls/hr DIRECT BRIANNE Administration Lamotrigine 100 mg 10/28/20 22:00 10/28/20 21:42 Lamotrigine 100 Mg Tab PO Not Given QHS BRIANNE Morphine Sulfate 1 mg 10/27/20 14:04 10/29/20 11:10 Morphine 2 Mg/1 Ml Inj IV 1 mg Q4H PRN Administration Pain, Moderate (4-6) Olanzapine 20 mg 10/28/20 11:30 10/29/20 11:17 Olanzapine 10 Mg Tab PO Not Given QDAY BRIANNE Ondansetron HCl 4 mg 10/26/20 13:30 10/27/20 23:33 Ondansetron 4 Mg/2 Ml Inj IV 4 mg Q8H PRN Administration Nausea And Vomiting Simple Syrup 15 ml 10/28/20 14:11 Simple Syrup 15 Ml FEEDTUBE PRN PRN Hypoglycemia Simple Syrup 30 ml 10/28/20 14:11 Simple Syrup 15 Ml FEEDTUBE PRN PRN Hypoglycemia Sodium Bicarbonate 325 mg 10/28/20 14:11 Sodium Bicarbonate 325 Mg Tab FEEDTUBE PRN PRN For Clogged Feeding Tube Sodium Chloride 10 ml 10/26/20 14:00 10/29/20 11:41 Sodium Chloride 0.9% 10 Ml Flush Syringe IV 10 ml BID BRIANNE Administration Sodium Chloride 10 ml 10/26/20 14:00 10/29/20 08:36 Sodium Chloride 0.9% 10 Ml Flush Syringe IV 10 ml PRN PRN Administration LINE FLUSH Nutrition/Malnutrition Assess - Dietary Evaluation Nutrition/Malnutrition Findings: Nutrition Notes Start: 10/28/20 11:47 Freq: Status: Active Protocol: Document 10/28/20 13:45 SG (Rec: 10/28/20 14:10 SG [email or web address]) Nutrition Notes Need for Assessment generated from: MD Order Initial or Follow up Assessment Current Diagnosis Stroke,Hyperlipidemia Other Pertinent Diagnosis hx of seizures, dysphagia, aspiration precaution Current Diet NPO Labs/Tests reviewed Pertinent Medications reviewed Height 5 ft 3 in Weight 73.7 kg [place] Body Weight (kg) 52.27 BMI 28.8 Weight Status Overweight Subjective/Other Information MD consult for TF. Burn Absent Trauma Absent #1 Nutrition Diagnosis Inadequate oral intake Etiology Stroke diagnosis As Evidenced by Signs and Symptoms Pt NPO status Is patient on ventilator? No Is Patient Ambulatory and/or Out of Bed No REE-([facility]-confined to bed) 1530.324 Calculation Used for Recommendations [facility] Additional Notes Protein needs (0.8-1 g/kg) : 59-74 g fluid needs: 1 ml/kcal Nutrition Intervention Nutrition Support: Jevity 1.2 Carlos 55 ml/hr goal rate Water flush: 100 ml q 4 hours Kcal 1,584 Protein (gm) 73 Fluid (mL) 1,065 Goal #1 TF tolerance Goal #2 Meeting at [facility] 75% of protein and energy needs Follow-Up By: 10/30/20 Additional Comments F/u for new TF.
--- NOTE | 2020-10-29 17:09 | XRay Report ---
ABDOMEN 1 VIEW 10/29/2020 4:00 PM INDICATION / CLINICAL INFORMATION: DOBBHOFF PLACEMENT. COMPARISON: None available. FINDINGS: TUBES / LINES: Weighted feeding tube has been placed with the tip in the region of the gastric pyloru s or proximal duodenum. BOWEL GAS PATTERN: No significant abnormality. FREE AIR / EXTRALUMINAL GAS: None. ADDITIONAL FINDINGS: No significant additional findings. IMPRESSION: 1. Feeding tube in expected position. Signer Name: Jose Luis Martino MD Signed: 10/29/2020 5:05 PM Workstation Name: [id number]
--- NOTE | 2020-10-29 17:44 | Magnetic Resonance Report ---
MR brain wo con INDICATION / CLINICAL INFORMATION: 59 years Female; stroke. TECHNIQUE: Multiplanar, multisequence MR images of the brain were obtained. Some motion artifact present. COMPARISON: CT-10/27/2020; MRI-04/29/2020 FINDINGS: BRAIN / INTRACRANIAL CONTENTS: No acute hemorrhage, mass effect, midline shift, hydrocephalus, or acu te, large territorial infarct. No chronic infarct or atrophy. No significant white matter abnormality . CRANIOCERVICAL JUNCTION: No significant abnormality. VASCULAR FLOW-VOIDS: No significant abnormality. ORBITS: No significant abnormality of visualized orbits. SINUSES / MASTOIDS: Moderate opacification of the ethmoid seen. There is also small air-fluid levels noted in the left sphenoid sinus and right maxillary antrum. ADDITIONAL FINDINGS: None. IMPRESSION: 1. No focal mass, hemorrhage, hydrocephalus, or acute ischemia. 2. Significant sinus disease noted. Signer Name: Nick Mckinley MD, III Signed: 10/29/2020 5:39 PM Workstation Name: [id number]
[2020-10-29] MEDS: DOCUSATE SODIUM 100 MG/10 ML ORAL LIQD FEEDTUBE SCH (23:43)
[2020-10-29] MEDS: lamoTRIgine 100 MG TAB PO SCH (23:44)
[2020-10-30] MEDS: MORPHINE 2 MG/1 ML INJ IV PRN ×3 (02:26→22:37)
[2020-10-30] MEDS: D5W/0.9% NACL 1,000 ML IV SCH ×2 (09:06→18:47)
[2020-10-30] MEDS: levETIRAcetam 1,000 MG in DEXTROSE 5% IN WATER 100 ML IV SCH ×2 (09:09→21:26)
[2020-10-30] MEDS: ESCITALOPRAM 10 MG/10 ML ORAL LIQD FEEDTUBE SCH (09:12)
[2020-10-30] MEDS: DOCUSATE SODIUM 100 MG/10 ML ORAL LIQD FEEDTUBE SCH ×2 (09:12→21:27)
[2020-10-30] MEDS: ASPIRIN 300 MG RECT SUPP PR SCH (09:12)
[2020-10-30] MEDS: ENOXAPARIN 40 MG/0.4 ML INJ SUB-Q SCH (09:12)
[2020-10-30] MEDS: FAMOTIDINE 20 MG/2 ML INJ IV SCH (09:12)
--- NOTE | 2020-10-30 11:15 | Gastroenterology Progress Note ---
Assessment and Plan 1. oropharyngeal dysphagia - recent suspected cva; s/p ng tube now. if swallowing function does not recover in next couple days, will plan for egd/peg tube placement. Subjective Date of service: 10/30/20 Principal diagnosis: oropharyngeal dysphagia Interval history: s/p ng tube placement and receiving tube feeds Objective - Constitutional Vitals: Temp Pulse Resp BP Pulse Ox 99.1 F 62 18 150/76 96 10/30/20 08:22 10/30/20 04:14 10/30/20 08:22 10/30/20 08:22 10/30/20 04:14 General appearance: no acute distress - Respiratory Respiratory effort: normal Respiratory: bilateral: CTA - Cardiovascular Rhythm: regular Heart Sounds: Present: S1 & S2 - Gastrointestinal General gastrointestinal: Present: soft, non-tender - Labs CBC & Chem 7: 10/28/20 05:00 10/28/20 05:00 Labs: Laboratory Results - last 24 hr 10/29/20 10/29/20 10/29/20 11:48 16:50 23:17 POC Glucose 91 86 94 10/30/20 06:54 POC Glucose 125 H
--- NOTE | 2020-10-30 18:39 | Progress Note ---
Assessment and Plan Assessment and plan: This is an 59-year-old female with seizure disorder, schizophrenia, bipolar admitted to r/o CVA --Severe dysphagia, N.p.o. GI evaluated the patient, recommend Dobbhoff feeds at this point Speech therapy reevaluating Closely monitor, possible PEG placement per GI Aspiration precautions --Possible acute CVA; CT head, MRI brain negative for acute stroke See rest of the work-up Neurology evaluated the patient Continue seizure precautions Antiepileptic medications Neuro: r/o CVA, bipolar/schizophrenia -10/26 CT head with no acute intracranial abnormality -Patient received TPA on 10/26 ~1250 -Repeat CTh 24 hours post TPA administration shows no acute intracranial abnormality -CTA head/neck completed-> see results - MRI brain negative -Neurology and PT/OT/ST consulted, appreciate recommendations -N.p.o., Accu-Cheks every 4 -Neurochecks per protocol -ASA, statin. add p -Seizure precautions/aspiration/fall -IV Keppra, d/c once NGT in place. -Psych consult. Start psych meds when NGT placed. -On examination patient had left-sided facial droop, left-sided upper and lower extremity sensory deficit, right-sided upper extremity drift Cardio: NAD -Maintain SBP less than 160/110 -Blood pressure monitor per protocol Respiratory: NAD -Supplemental oxygen as needed -SPO2 monitoring with VS -Pulmonary hygiene : BRENT (improved), hyponatremia, metabolic acidosis -Patient presented with hyponatremia and metabolic acidosis which were both corrected -Strict intake and output -Avoid nephrotoxic medications -Trend BMP -Renally dose medications Endo: NAD -Accu-Cheks every 4 while n.p.o. -Hemoglobin A1c 5.3 -Avoid hypoglycemia Heme: Microcytic anemia -Trend CBC -Iron supplementation -Transfuse for hemoglobin less than 7 -SCDs to bilateral actions while in bed -lovenox sub q We will closely monitor the patient and adjust management as needed History Interval history: Seen and examined the patient at the bedside Patient's chart and medications reviewed GI evaluation noted and appreciated Patient is receiving Dobbhoff feeds Pending decision by GI for PEG placement Vital signs reviewed Hospitalist Physical - Constitutional Vitals: Temp Pulse Resp BP Pulse Ox 97.8 F 59 L 18 142/70 98 10/30/20 16:28 10/30/20 16:28 10/30/20 16:28 10/30/20 16:28 10/30/20 16:28 General appearance: Present: no acute distress, well-nourished, cachectic, disheveled - EENT Eyes: Present: PERRL, EOM intact - Neck Neck: Present: supple, normal ROM - Respiratory Respiratory effort: normal Respiratory: bilateral: diminished, negative: rales, rhonchi, wheezing - Cardiovascular Rhythm: regular Heart Sounds: Present: S1 & S2 - Extremities Extremities: no ischemia, No edema - Abdominal General gastrointestinal: soft, non-tender, non-distended, normal bowel sounds - Integumentary Integumentary: Present: clear, warm - Psychiatric Psychiatric: appropriate mood/affect, cooperative - Neurologic Neurologic: CNII-XII intact, moves all extremities HEART Score - HEART Score Age: 45-65 Risk factors: 1-2 risk factors Troponin: Troponin T < 0.010 ng/mL (0.00-0.029) 10/26/20 18:26 Troponin: < normal limit - Critical Actions Critical Actions: 0-3 pts:0.9-1.7%risk of adverse cardiac event.Candidate for discharge Results - Labs CBC & Chem 7: 10/28/20 05:00 10/28/20 05:00 Labs: Laboratory Last Values WBC 3.4 K/mm3 (4.5-11.0) L 10/28/20 05:00 RBC 3.31 M/mm3 (3.65-5.03) L 10/28/20 05:00 Hgb 11.0 gm/dl (10.1-14.3) 10/28/20 05:00 Hct 32.0 % (30.3-42.9) 10/28/20 05:00 MCV 97 fl (79-97) 10/28/20 05:00 MCH 33 pg (28-32) H 10/28/20 05:00 MCHC 34 % (30-34) 10/28/20 05:00 RDW 13.8 % (13.2-15.2) 10/28/20 05:00 Plt Count 198 K/mm3 (140-440) 10/28/20 05:00 Lymph % (Auto) 39.2 % (13.4-35.0) H 10/26/20 11:40 [place] % (Auto) 12.1 % (0.0-7.3) H 10/26/20 11:40 Eos % (Auto) 1.3 % (0.0-4.3) 10/26/20 11:40 Baso % (Auto) 0.2 % (0.0-1.8) 10/26/20 11:40 Lymph # (Auto) 1.5 K/mm3 (1.2-5.4) 10/26/20 11:40 [place] # (Auto) 0.5 K/mm3 (0.0-0.8) 10/26/20 11:40 Eos # (Auto) 0.1 K/mm3 (0.0-0.4) 10/26/20 11:40 Baso # (Auto) 0.0 K/mm3 (0.0-0.1) 10/26/20 11:40 Add Manual Diff Complete 10/27/20 05:10 Total Counted 100 10/27/20 05:10 Seg Neutrophils % 47.2 % (40.0-70.0) 10/26/20 11:40 Seg Neuts % (Manual) 65.0 % (40.0-70.0) 10/27/20 05:10 Lymphocytes % (Manual) 19.0 % (13.4-35.0) 10/27/20 05:10 Monocytes % (Manual) 13.0 % (0.0-7.3) H 10/27/20 05:10 Eosinophils % (Manual) 2.0 % (0.0-4.3) 10/27/20 05:10 Basophils % (Manual) 1.0 % (0.0-1.8) 10/27/20 05:10 Nucleated RBC % Not Reportable 10/27/20 05:10 Seg Neutrophils # 1.8 K/mm3 (1.8-7.7) 10/26/20 11:40 Seg Neutrophils # Man 3.3 K/mm3 (1.8-7.7) 10/27/20 05:10 Band Neutrophils # 0.0 K/mm3 10/27/20 05:10 Lymphocytes # (Manual) 1.0 K/mm3 (1.2-5.4) L 10/27/20 05:10 Abs React Lymphs (Man) 0.0 K/mm3 10/27/20 05:10 Monocytes # (Manual) 0.7 K/mm3 (0.0-0.8) 10/27/20 05:10 Eosinophils # (Manual) 0.1 K/mm3 (0.0-0.4) 10/27/20 05:10 Basophils # (Manual) 0.1 K/mm3 (0.0-0.1) 10/27/20 05:10 Metamyelocytes # 0.0 K/mm3 10/27/20 05:10 Myelocytes # 0.0 K/mm3 10/27/20 05:10 Promyelocytes # 0.0 K/mm3 10/27/20 05:10 Blast Cells # 0.0 K/mm3 10/27/20 05:10 WBC Morphology Not Reportable 10/27/20 05:10 Hypersegmented Neuts Not Reportable 10/27/20 05:10 Hyposegmented Neuts Not Reportable 10/27/20 05:10 Hypogranular Neuts Not Reportable 10/27/20 05:10 Smudge Cells Not Reportable 10/27/20 05:10 Toxic Granulation Not Reportable 10/27/20 05:10 Toxic Vacuolation Not Reportable 10/27/20 05:10 Dohle Bodies Not Reportable 10/27/20 05:10 Pelger-Huet Anomaly Not Reportable 10/27/20 05:10 Park Rods Not Reportable 10/27/20 05:10 Platelet Estimate Consistent w auto 10/27/20 05:10 Clumped Platelets Not Reportable 10/27/20 05:10 Plt Clumps, EDTA Not Reportable 10/27/20 05:10 Large Platelets Not Reportable 10/27/20 05:10 Giant Platelets Not Reportable 10/27/20 05:10 Platelet Satelliting Not Reportable 10/27/20 05:10 Plt Morphology Comment Not Reportable 10/27/20 05:10 RBC Morphology Not Reportable 10/27/20 05:10 Dimorphic RBCs Not Reportable 10/27/20 05:10 Polychromasia Not Reportable 10/27/20 05:10 Hypochromasia Not Reportable 10/27/20 05:10 Poikilocytosis Not Reportable 10/27/20 05:10 Anisocytosis 1+ 10/27/20 05:10 Microcytosis Not Reportable 10/27/20 05:10 Macrocytosis Not Reportable 10/27/20 05:10 Spherocytes Not Reportable 10/27/20 05:10 Pappenheimer Bodies Not Reportable 10/27/20 05:10 Sickle Cells Not Reportable 10/27/20 05:10 Target Cells Not Reportable 10/27/20 05:10 Tear Drop Cells Not Reportable 10/27/20 05:10 Ovalocytes Not Reportable 10/27/20 05:10 Helmet Cells Not Reportable 10/27/20 05:10 [place] Bodies Not Reportable 10/27/20 05:10 [place] Rings Not Reportable 10/27/20 05:10 [place] Cells Not Reportable 10/27/20 05:10 Bite Cells Not Reportable 10/27/20 05:10 Crenated Cell Not Reportable 10/27/20 05:10 Elliptocytes Not Reportable 10/27/20 05:10 Acanthocytes (Spur) Not Reportable 10/27/20 05:10 Rouleaux Not Reportable 10/27/20 05:10 Hemoglobin C Crystals Not Reportable 10/27/20 05:10 Schistocytes Not Reportable 10/27/20 05:10 Malaria parasites Not Reportable 10/27/20 05:10 Curt Bodies Not Reportable 10/27/20 05:10 Hem Pathologist Commnt No 10/27/20 05:10 PT 12.7 Sec. (12.2-14.9) 10/26/20 11:40 INR 0.90 (0.87-1.13) 10/26/20 11:40 APTT 30.3 Sec. (24.2-36.6) 10/26/20 11:40 Thrombin Time 16.9 Sec. (15.1-19.6) 10/26/20 11:40 Sodium 140 mmol/L (137-145) 10/28/20 05:00 Potassium 3.7 mmol/L (3.6-5.0) 10/28/20 05:00 Chloride 107.1 mmol/L (98-107) H 10/28/20 05:00 Carbon Dioxide 21 mmol/L (22-30) L 10/28/20 05:00 Anion Gap 16 mmol/L 10/28/20 05:00 BUN 8 mg/dL (7-17) 10/28/20 05:00 Creatinine 0.6 mg/dL (0.6-1.2) 10/28/20 05:00 Estimated GFR > 60 ml/min 10/28/20 05:00 BUN/Creatinine Ratio 13 % 10/28/20 05:00 Glucose 105 mg/dL (65-100) H 10/28/20 05:00 POC Glucose 125 mg/dL (70-105) H 10/30/20 06:54 Hemoglobin A1c 5.3 % (4-6) 10/27/20 05:10 Calcium 9.1 mg/dL (8.4-10.2) 10/28/20 05:00 Total Bilirubin 0.30 mg/dL (0.1-1.2) 10/27/20 05:10 AST 18 units/L (5-40) 10/27/20 05:10 ALT 19 units/L (7-56) 10/27/20 05:10 Alkaline Phosphatase 79 units/L (35-129) 10/27/20 05:10 Total Creatine Kinase 57 units/L (30-135) 10/26/20 11:40 CK-MB (CK-2) 1.0 ng/mL (0.0-4.0) 10/26/20 11:40 CK-MB (CK-2) Rel Index 1.7 (0-4) 10/26/20 11:40 Troponin T < 0.010 ng/mL (0.00-0.029) 10/26/20 18:26 Total Protein 7.0 g/dL (6.3-8.2) 10/27/20 05:10 Albumin 4.2 g/dL (3.9-5) 10/27/20 05:10 Albumin/Globulin Ratio 1.5 % 10/27/20 05:10 Triglycerides 88 mg/dL (2-149) 10/28/20 05:00 Cholesterol 133 mg/dL (50-199) 10/28/20 05:00 LDL Cholesterol Direct 76 mg/dL (50-130) 10/28/20 05:00 HDL Cholesterol 47 mg/dL (40-59) 10/28/20 05:00 Cholesterol/HDL Ratio 2.82 % 10/28/20 05:00 Manrique/IV: Voiding Method External Female Catheter Active Medications - Current Medications Current Medications: Generic Name Dose Route Start Last Admin Trade Name Eliasq PRN Reason Stop Dose Admin Lipase/Protease/Amylase 1 each 10/28/20 14:11 Lipase 10,500/Protease 25,000/Amylase 43,750 (Units) Dr [place] FEEDTUBE PRN PRN For Clogged Feeding Tube Aspirin 325 mg 10/31/20 10:00 Aspirin 325 Mg Tab PO QDAY BRIANNE Atorvastatin Calcium 20 mg 10/27/20 22:00 10/29/20 23:44 Atorvastatin 20 Mg Tab PO 20 mg QHS BRIANNE Administration Docusate Sodium 100 mg 10/29/20 22:00 10/30/20 09:12 Docusate Sodium 100 Mg/10 Ml Oral Liqd FEEDTUBE 100 mg BID BRIANNE Administration Enoxaparin Sodium 40 mg 10/28/20 10:00 10/30/20 09:12 Enoxaparin 40 Mg/0.4 Ml Inj SUB-Q 40 mg QDAY@1000 BRIANNE Administration Escitalopram Oxalate 20 mg 10/30/20 10:00 10/30/20 09:12 Escitalopram 10 Mg/10 Ml Oral Liqd FEEDTUBE 20 mg QDAY BRIANNE Administration Famotidine 20 mg 10/30/20 22:00 Famotidine 20 Mg Tab PO BID BRIANNE Sodium Chloride 1,000 mls @ 100 mls/hr 10/26/20 13:30 10/27/20 17:10 Nacl 0.9% 1000 Ml IV 100 mls/hr DIRECT BRIANNE Administration Levetiracetam 1,000 mg/ 110 mls @ 400 mls/hr 10/27/20 10:00 10/30/20 09:09 Dextrose IV 10/30/20 23:59 400 mls/hr Q12HR BRIANNE Administration Dextrose/Sodium Chloride 1,000 mls @ 100 mls/hr 10/27/20 23:00 10/30/20 09:06 D5ns IV 100 mls/hr DIRECT BRIANNE Administration Lamotrigine 100 mg 10/28/20 22:00 10/29/20 23:44 Lamotrigine 100 Mg Tab PO 100 mg QHS BRIANNE Administration Levetiracetam 1,000 mg 10/31/20 10:00 Levetiracetam 500 Mg/5 Ml Oral Liqd FEEDTUBE BID BRIANNE Morphine Sulfate 1 mg 10/27/20 14:04 10/30/20 14:11 Morphine 2 Mg/1 Ml Inj IV 1 mg Q4H PRN Administration Pain, Moderate (4-6) Olanzapine 20 mg 10/28/20 11:30 10/30/20 09:12 Olanzapine 10 Mg Tab PO 20 mg QDAY BRIANNE Administration Ondansetron HCl 4 mg 10/26/20 13:30 10/27/20 23:33 Ondansetron 4 Mg/2 Ml Inj IV 4 mg Q8H PRN Administration Nausea And Vomiting Simple Syrup 15 ml 10/28/20 14:11 Simple Syrup 15 Ml FEEDTUBE PRN PRN Hypoglycemia Simple Syrup 30 ml 10/28/20 14:11 Simple Syrup 15 Ml FEEDTUBE PRN PRN Hypoglycemia Sodium Bicarbonate 325 mg 10/28/20 14:11 Sodium Bicarbonate 325 Mg Tab FEEDTUBE PRN PRN For Clogged Feeding Tube Sodium Chloride 10 ml 10/26/20 14:00 10/30/20 09:09 Sodium Chloride 0.9% 10 Ml Flush Syringe IV 10 ml BID BRIANNE Administration Sodium Chloride 10 ml 10/26/20 14:00 10/30/20 14:12 Sodium Chloride 0.9% 10 Ml Flush Syringe IV 10 ml PRN PRN Administration LINE FLUSH Nutrition/Malnutrition Assess - Dietary Evaluation Nutrition/Malnutrition Findings: Nutrition Notes Start: 10/28/20 11:47 Freq: Status: Active Protocol: Document 10/30/20 15:59 EB (Rec: 10/30/20 16:05 [id number]) Nutrition Notes Initial or Follow up Reassessment Current Diagnosis Stroke,Hyperlipidemia Other Pertinent Diagnosis hx of seizures, dysphagia, aspiration precaution Current Diet Jevity 1.2 at 55 mL/hr Labs/Tests reviewed Pertinent Medications D5NS at 100 mL/hr Height 5 ft 2.99 in Weight 67.2 kg [place] Body Weight (kg) 52.25 BMI 26.2 Weight Status Overweight Subjective/Other Information TF running at 40 mL/hr currently, but will be increased to goal rate of 55 mL/hr by end of day, per RN. Pt tolerating TF. CHURN DRILLER saw pt yesterday, and determined that swallowing function continues to be impaired. Burn Absent Trauma Absent Difficulty In Swallowing Current % PO Negligible Minimum of two criteria No physical signs of malnutrition #1 Nutrition Diagnosis Inadequate oral intake Diagnosis Progress(for reassessment Continues documentation) Is patient on ventilator? No Is Patient Ambulatory and/or Out of Bed No REE-(Marathon-St. Jeor-confined to bed) [phone] Calculation Used for Recommendations [facility] Additional Notes Protein needs (0.8-1 g/kg) : 59-74 g fluid needs: 1 ml/kcal Nutrition Intervention Change Diet Order: Continue TF at goal rate Nutrition Support: Jevity 1.2 Carlos 55 ml/hr goal rate Water flush: 100 ml q 4 hours Kcal 1,584 Protein (gm) 73 Fluid (mL) 1,065 Goal #1 TF tolerance Goal #2 Meeting at leat 75% of protein and energy needs Follow-Up By: 11/02/20 Additional Comments follow for TF tolerance
[2020-10-30] MEDS: lamoTRIgine 100 MG TAB PO SCH (21:27)
[2020-10-30] MEDS: FAMOTIDINE 20 MG TAB PO SCH (21:27)
[2020-10-31] MEDS: D5W/0.9% NACL 1,000 ML IV SCH ×2 (06:01→20:24)
[2020-10-31] MEDS: MORPHINE 2 MG/1 ML INJ IV PRN ×2 (06:02→20:18)
--- NOTE | 2020-10-31 08:51 | Consultation ---
History of Present Illness Consult date: 10/31/20 Reason for Consult: right side weakness ,Post TPA 10/26,change in mentation ,hx of Bipolar. History of present illness: Right-sided weakness History of present illness: 59-year-old female with history of seizures and bipolar disorder presents with right-sided weakness. Patient was at her eye doctor for an a ppointment and having difficulty with speaking and right-sided weakness. Patient was also noted to have some generalized shaking all over no seizures. Also complaining of chest tightness. Code stroke was initiated. Did tell neurology agreed with TPA and TPA was given in the emergency room. Post TPA patient had some improvement in the right upper and right lower extremity weakness. Patient being admitted to ICU because of possible stroke and TPA administration. No dysarthria. Patient able to give history. Patient has limitation in moving the right upper extremity and right lower extremity to some extent. No chest pain. during her stay she had CT/CTA brain are unrevealing MRI brain is unremarkable she continue to complain of right side weakness and swallow difficulty she is schadueled today for swallow study she is currently on zyprexa ? also started on keppra for possible seizure - Past Medical History --CVA: Yes --Seizures: Yes --Psychiatric Treatment: Yes (Schiziophrenia) - Surgical History Hx Cholecystectomy: Yes Additional Surgical History: Hysterectomy - Social History Smoking Status: Never Smoker -Family history Htn - Medications Home Medications: Home Medications Medication Instructions Recorded Confirmed Last Taken Type AtorvaSTATin [Lipitor] 20 mg PO QHS #30 tablet 05/02/20 Unknown Rx Escitalopram [Lexapro] 20 mg PO DAILY #30 tablet 05/02/20 Unknown Rx Midodrine [Proamatine] 5 mg PO TID@0800,1200,1600 #30 05/02/20 Unknown Rx tablet Topiramate [Topamax] 100 mg PO QDAY #30 tablet 05/02/20 Unknown Rx lamoTRIgine [LaMICtal] 100 mg PO BID #60 tablet 05/02/20 Unknown Rx traZODone [Desyrel] 150 mg PO QDAY@2200 #14 tablet 05/02/20 Unknown Rx Review of Systems ROS: Constitutional no weight loss or weight gain no fever or chills HEENT no sore throat no post nasal drip no diplopia Neck no neck stiffness no lymph gland enlargement Chest and lungs no shortness of breath cough or wheezing CVS no chest pain no diaphoresis no palpitations GI no nausea no vomiting no diarrhea Genitourinary system no dysuria no flank pain Musculoskeletal system no muscle pains no joint pains EXERCISE INSTRUCT right-sided weakness both upper and lower extremity Skin no rash no itching Psychiatric no depression no homicidal or suicidal tendencies Hematologic no lymphedema or bruising Endocrine no polydipsia no polyuria no cold intolerance no heat intolerance Past History Past Medical History: hyperlipidemia, other (seizures) Past History Past Medical History: hyperlipidemia, other (seizures) Past Surgical History: No surgical history Social history: no significant social history, single Medications and Allergies Allergies Allergy/AdvReac Type Severity Reaction Status Date / Time Penicillins Allergy Unknown Verified 12/09/18 16:35 Home Medications Medication Instructions Recorded Confirmed Last Taken Type AtorvaSTATin [Lipitor] 20 mg PO QHS #30 tablet 05/02/20 10/26/20 Unknown Rx Escitalopram [Lexapro] 20 mg PO DAILY #30 tablet 05/02/20 10/26/20 Unknown Rx Midodrine [Proamatine] 5 mg PO TID@0800,1200,1600 #30 05/02/20 10/26/20 Unknown Rx tablet Topiramate [Topamax] 100 mg PO QDAY #30 tablet 05/02/20 10/26/20 Unknown Rx lamoTRIgine [LaMICtal] 100 mg PO BID #60 tablet 05/02/20 10/26/20 Unknown Rx traZODone [Desyrel] 150 mg PO QDAY@2200 #14 tablet 05/02/20 10/26/20 Unknown Rx Active Meds: Active Medications Lipase/Protease/Amylase (Lipase 10,500/Protease 25,000/Amylase 43,750 (Units) Dr Plaza) 1 each FEEDTUBE PRN PRN PRN Reason: For Clogged Feeding Tube Aspirin (Aspirin 325 Mg Tab) 325 mg PO QDAY [facility] Atorvastatin Calcium (Atorvastatin 20 Mg Tab) 20 mg PO QHS [facility] Last Admin: 10/30/20 21:27 Dose: 20 mg Documented by: Docusate Sodium (Docusate Sodium 100 Mg/10 Ml Oral Liqd) 100 mg FEEDTUBE BID [facility] Last Admin: 10/30/20 21:27 Dose: 100 mg Documented by: Enoxaparin Sodium (Enoxaparin 40 Mg/0.4 Ml Inj) 40 mg SUB-Q QDAY@1000 [facility] Last Admin: 10/30/20 09:12 Dose: 40 mg Documented by: Escitalopram Oxalate (Escitalopram 10 Mg/10 Ml Oral Liqd) 20 mg FEEDTUBE QDAY [facility] Last Admin: 10/30/20 09:12 Dose: 20 mg Documented by: Famotidine (Famotidine 20 Mg Tab) 20 mg PO BID [facility] Last Admin: 10/30/20 21:27 Dose: 20 mg Documented by: Sodium Chloride (Nacl 0.9% 1000 Ml) 1,000 mls @ 100 mls/hr IV DIRECT [facility] Last Admin: 10/27/20 17:10 Dose: 100 mls/hr Documented by: Dextrose/Sodium Chloride (D5ns) 1,000 mls @ 100 mls/hr IV DIRECT [facility] Last Admin: 10/31/20 06:01 Dose: 100 mls/hr Documented by: Lamotrigine (Lamotrigine 100 Mg Tab) 100 mg PO QHS [facility] Last Admin: 10/30/20 21:27 Dose: 100 mg Documented by: Levetiracetam (Levetiracetam 500 Mg/5 Ml Oral Liqd) 1,000 mg FEEDTUBE BID [facility] Morphine Sulfate (Morphine 2 Mg/1 Ml Inj) 1 mg IV Q4H PRN PRN Reason: Pain, Moderate (4-6) Last Admin: 10/31/20 06:02 Dose: 1 mg Documented by: Olanzapine (Olanzapine 10 Mg Tab) 20 mg PO QDAY [facility] Last Admin: 10/30/20 09:12 Dose: 20 mg Documented by: Ondansetron HCl (Ondansetron 4 Mg/2 Ml Inj) 4 mg IV Q8H PRN PRN Reason: Nausea And Vomiting Last Admin: 10/27/20 23:33 Dose: 4 mg Documented by: Simple Syrup (Simple Syrup 15 Ml) 15 ml FEEDTUBE PRN PRN PRN Reason: Hypoglycemia Simple Syrup (Simple Syrup 15 Ml) 30 ml FEEDTUBE PRN PRN PRN Reason: Hypoglycemia Sodium Bicarbonate (Sodium Bicarbonate 325 Mg Tab) 325 mg FEEDTUBE PRN PRN PRN Reason: For Clogged Feeding Tube Sodium Chloride (Sodium Chloride 0.9% 10 Ml Flush Syringe) 10 ml IV BID [facility] Last Admin: 10/30/20 21:28 Dose: 10 ml Documented by: Sodium Chloride (Sodium Chloride 0.9% 10 Ml Flush Syringe) 10 ml IV PRN PRN PRN Reason: LINE FLUSH Last Admin: 10/30/20 14:12 Dose: 10 ml Documented by: Physical Examination - Vital Signs Vital Signs: Vital Signs BP 129/53 10/26/20 11:48 - Constitutional General appearance: comfortable - EENT EENT: Present: PERRL, mucous membranes moist, mucous membranes dry - Respiratory Respiratory: Present: chest non-tender, lungs clear, rhonchi - Cardiovascular Cardiovascular: Present: regular rate, normal S1, normal S2 Extremities: Present: no peripheral edema bilatateraly, no clubbing, cyanosis - Gastrointestinal Gastrointestinal: Present: normoactive bowel sounds - Integumentary Integumentary: Present: normal - Neurologic Cranial nerve examination: PERRL, EOMI, intact (no facial symmetry , slurred speech , she is oriented to place aand date , no aphasia no clear dysarthia ) Sensorimotor examination: pronator drift Detailed motor examination: other (there is slight right pronator drift and or right side droop , but had good srength over all ) - Level of Consciousness 1a. Level of Consciousness: alert/keenly responsive - LOC Questions 1b. LOC Questions: answers both correctly - LOC Command 1c. LOC Commands: performs tasks correctly - Best Gaze 2. Best Gaze: normal - Visual 3. Visual: no visual loss - Facial Palsy 4. Facial Palsy: normal symmetrical movement - Motor Arm 5a. Motor Arm Left: no drift 5b. Motor Arm Right: drift - Motor Leg 6a. Motor Leg Left: no drift 6b. Motor Leg Right: no drift - Limb Ataxia 7. Limb Ataxia: absent - Sensory 8. Sensory: normal - Best Language 9. Best Language: no aphasia - Dysarthria 10. Dysarthria: normal - Extinction and Inattention 11. Extinction/Inattention: no abnormality - Scoring Total Score: 1 Stroke Severity: Minor Stroke Results - Laboratory Findings CBC and BMP: 10/28/20 05:00 10/28/20 05:00 Abnormal Lab Findings: Abnormal Labs 10/26/20 10/26/20 10/27/20 11:40 11:40 05:10 WBC 3.8 L RBC 3.31 L 3.35 L MCV 98 H 98 H MCH 34 H 34 H Lymph % (Auto) 39.2 H [place] % (Auto) 12.1 H Monocytes % (Manual) 13.0 H Lymphocytes # (Manual) 1.0 L Sodium 135 L Chloride Carbon Dioxide 16 L Creatinine 1.3 H Glucose 103 H POC Glucose Albumin 3.8 L 10/28/20 10/28/20 10/28/20 05:00 05:00 12:06 WBC 3.4 L RBC 3.31 L MCV MCH 33 H Lymph % (Auto) [place] % (Auto) Monocytes % (Manual) Lymphocytes # (Manual) Sodium Chloride 107.1 H Carbon Dioxide 21 L Creatinine Glucose 105 H POC Glucose 111 H Albumin 10/28/20 10/30/20 10/31/20 23:01 06:54 05:47 WBC RBC MCV MCH Lymph % (Auto) [place] % (Auto) Monocytes % (Manual) Lymphocytes # (Manual) Sodium Chloride Carbon Dioxide Creatinine Glucose POC Glucose 111 H 125 H 123 H Albumin Assessment and Plan Assessment and Plan Assessment and plan: This is an 59-year-old female with hx of seizure and ,schizophrenia, bipolar admitted to r/o CVA -on admission she is complaing of right side weakness and slurred speech with dysphagia -she recieved TPA on 10/26 hospital admission #Neuro: r/o CVA, -10/26 CT head with no acute intracranial abnormality -Patient received TPA on 10/26 ~1250 -Repeat CTh 24 hours post TPA administration shows no acute intracranial abnormality -CTA head/neck completed is unremarkable - MRI brain is unremakable with no acute event is noted -N.p.o., Accu-Cheks every 4 -Neurochecks per protocol -ASA, statin. -Seizure precautions/aspiration/fall -IV Keppra, d/c once NGT in place. -Psych consult. Start psych meds when NGT placed. -On examination patient had slight residual right-sided upper extremity drift #Cardio: NAD -Maintain SBP less than 160/110 -Blood pressure monitor per protocol #Respiratory: NAD -Supplemental oxygen as needed -SPO2 monitoring with VS -Pulmonary hygiene #GI: dysphagia, N.p.o. -Nutrition consulted, tube feed recs noted. -Patient failed bedside swallow evaluation and ST evaluation -will go ahead with NGT after review of ST eval and necessity to give patient psych/seizure medication and ultimately nutrition. -Pepcid 20 IV Bid. -BR: Colace #: BRENT (improved), hyponatremia, metabolic acidosis -Patient presented with hyponatremia and metabolic acidosis which were both corrected -Strict intake and output -Avoid nephrotoxic medications -Trend BMP -Renally dose medications #Endo: NAD -Accu-Cheks every 4 while n.p.o. -Hemoglobin A1c 5.3 -Avoid hypoglycemia #Heme: Microcytic anemia -Trend CBC -Iron supplementation -Transfuse for hemoglobin less than 7 -SCDs to bilateral actions while in bed -lovenox sub q PLAN 1- Repeat MRI brain r/o brain stem CVA ? 2- mantain ASA and lipitor 3- swallow study is pending 4- EEG 5-stop keppra and increase lamictal to 100 mg bid 6- Cut down Zyprexa to 10 mg daily due to side effect 7- Pt therapy evaluation 8- echo is noted with EF#55-60% 9-LDL#76 will follow
[2020-10-31] MEDS ORDERED: levETIRAcetam 500 MG/5 ML ORAL LIQD FEEDTUBE SCH (10:00)
[2020-10-31] MEDS: ENOXAPARIN 40 MG/0.4 ML INJ SUB-Q SCH (10:56)
[2020-10-31] MEDS: DOCUSATE SODIUM 100 MG/10 ML ORAL LIQD FEEDTUBE SCH ×2 (10:56→22:56)
[2020-10-31] MEDS: ASPIRIN 325 MG TAB PO SCH (10:56)
[2020-10-31] MEDS: FAMOTIDINE 20 MG TAB PO SCH ×2 (10:56→22:56)
[2020-10-31] MEDS: ESCITALOPRAM 10 MG/10 ML ORAL LIQD FEEDTUBE SCH (10:57)
--- NOTE | 2020-10-31 11:59 | Gastroenterology Progress Note ---
Assessment and Plan oropharyngeal dysphagia - improving, speech therapy following, occurred after CVA. hopefully will cont to have improved function and tolerate po without needing peg tube. will sign off, please call as needed. Subjective Date of service: 10/31/20 Principal diagnosis: oropharyngeal dysphagia Interval history: pt had speech eval this morning and did better/improvement in oropharyngeal symptoms Objective - Constitutional Vitals: Temp Pulse Resp BP Pulse Ox 98.4 F 74 18 132/70 97 10/31/20 09:04 10/31/20 09:04 10/31/20 09:04 10/31/20 09:04 10/31/20 09:04 General appearance: no acute distress - Respiratory Respiratory effort: normal Respiratory: bilateral: CTA - Cardiovascular Rhythm: regular Heart Sounds: Present: S1 & S2 - Gastrointestinal General gastrointestinal: Present: soft, non-tender, non-distended - Labs CBC & Chem 7: 10/28/20 05:00 10/28/20 05:00 Labs: Laboratory Results - last 24 hr 10/30/20 10/31/20 23:00 05:47 POC Glucose 103 123 H
[2020-10-31] MEDS ORDERED: LORazepam 2 MG/ML VIAL IV NR ×2 (12:31→13:30)
--- NOTE | 2020-10-31 16:09 | Magnetic Resonance Report ---
MR brain wo con INDICATION / CLINICAL INFORMATION: CVA , RT SIDED WEAKNESS. TECHNIQUE: Multiplanar, multisequence MR images of the brain were obtained. COMPARISON: October 29, 2020 FINDINGS: INTRACRANIAL: No restricted diffusion. No hemorrhage. Ventricular caliber is normal. No extra-axial c ollection. No mass. No herniation. Major intracranial vascular flow voids are preserved. Bulky calci fic location along the left tentorium resulting in susceptibility. ORBITS: No significant abnormality of visualized orbits. SINUSES / MASTOIDS: No significant abnormality of visualized sinuses and mastoid air cells. ADDITIONAL FINDINGS: None. IMPRESSION: 1. No acute infarction. No significant intracranial abnormality. Signer Name: Edilson Cordova MD Signed: 10/31/2020 4:05 PM Workstation Name: [id number]
--- NOTE | 2020-10-31 18:51 | Progress Note ---
Assessment and Plan Assessment and plan: This is an 59-year-old female with seizure disorder, schizophrenia, bipolar admitted with CVA status post TPA --Severe dysphagia, N.p.o. GI evaluated the patient, recommend Dobbhoff feeds at this point Speech therapy reevaluating Closely monitor, possible PEG placement per GI Aspiration precautions --Possible acute CVA; CT head, MRI brain negative for acute stroke See rest of the work-up Neurology evaluated the patient left-sided facial droop, left-sided upper and lower extremity sensory deficit, right-sided upper extremity drift Continue seizure precautions Antiepileptic medication PT OT rehab --Seizure precautions/antiepileptic medications Do not drive until cleared by neurology Cardio: NAD -Maintain SBP less than 160/110 -Blood pressure monitor per protocol Respiratory: NAD -Supplemental oxygen as needed -SPO2 monitoring with VS -Pulmonary hygiene : BRENT (improved), hyponatremia, metabolic acidosis -Patient presented with hyponatremia and metabolic acidosis which were both leo ected -Strict intake and output -Avoid nephrotoxic medications -Trend BMP -Renally dose medications Endo: NAD -Accu-Cheks every 4 while n.p.o. -Hemoglobin A1c 5.3 -Avoid hypoglycemia Heme: Microcytic anemia -Trend CBC -Iron supplementation -Transfuse for hemoglobin less than 7 -SCDs to bilateral actions while in bed -lovenox sub q We will closely monitor the patient and adjust management as needed History Interval history: I have seen and examined the patient at the bedside Patient's chart and medications reviewed Speech therapy is evaluating the patient vital signs noted Hospitalist Physical - Constitutional Vitals: Temp Pulse Resp BP Pulse Ox 99.3 F 78 18 134/65 96 10/31/20 16:24 10/31/20 16:24 10/31/20 16:24 10/31/20 16:24 10/31/20 16:24 General appearance: Present: no acute distress, well-nourished, cachectic, disheveled - EENT Eyes: Present: PERRL, EOM intact - Neck Neck: Present: supple, normal ROM - Respiratory Respiratory effort: normal Respiratory: bilateral: diminished, negative: rales, rhonchi, wheezing - Cardiovascular Rhythm: regular Heart Sounds: Present: S1 & S2 - Extremities Extremities: no ischemia, No edema, normal temperature - Abdominal General gastrointestinal: soft, non-tender, non-distended, normal bowel sounds - Integumentary Integumentary: Present: clear, warm - Psychiatric Psychiatric: appropriate mood/affect, cooperative - Neurologic Neurologic: moves all extremities, other (Residual weakness) HEART Score - HEART Score Age: 45-65 Risk factors: 1-2 risk factors Troponin: Troponin T < 0.010 ng/mL (0.00-0.029) 10/26/20 18:26 Troponin: < normal limit - Critical Actions Critical Actions: 0-3 pts:0.9-1.7%risk of adverse cardiac event.Candidate for discharge Results - Labs CBC & Chem 7: 10/28/20 05:00 10/28/20 05:00 Labs: Laboratory Last Values WBC 3.4 K/mm3 (4.5-11.0) L 10/28/20 05:00 RBC 3.31 M/mm3 (3.65-5.03) L 10/28/20 05:00 Hgb 11.0 gm/dl (10.1-14.3) 10/28/20 05:00 Hct 32.0 % (30.3-42.9) 10/28/20 05:00 MCV 97 fl (79-97) 10/28/20 05:00 MCH 33 pg (28-32) H 10/28/20 05:00 MCHC 34 % (30-34) 10/28/20 05:00 RDW 13.8 % (13.2-15.2) 10/28/20 05:00 Plt Count 198 K/mm3 (140-440) 10/28/20 05:00 Lymph % (Auto) 39.2 % (13.4-35.0) H 10/26/20 11:40 [place] % (Auto) 12.1 % (0.0-7.3) H 10/26/20 11:40 Eos % (Auto) 1.3 % (0.0-4.3) 10/26/20 11:40 Baso % (Auto) 0.2 % (0.0-1.8) 10/26/20 11:40 Lymph # (Auto) 1.5 K/mm3 (1.2-5.4) 10/26/20 11:40 [place] # (Auto) 0.5 K/mm3 (0.0-0.8) 10/26/20 11:40 Eos # (Auto) 0.1 K/mm3 (0.0-0.4) 10/26/20 11:40 Baso # (Auto) 0.0 K/mm3 (0.0-0.1) 10/26/20 11:40 Add Manual Diff Complete 10/27/20 05:10 Total Counted 100 10/27/20 05:10 Seg Neutrophils % 47.2 % (40.0-70.0) 10/26/20 11:40 Seg Neuts % (Manual) 65.0 % (40.0-70.0) 10/27/20 05:10 Lymphocytes % (Manual) 19.0 % (13.4-35.0) 10/27/20 05:10 Monocytes % (Manual) 13.0 % (0.0-7.3) H 10/27/20 05:10 Eosinophils % (Manual) 2.0 % (0.0-4.3) 10/27/20 05:10 Basophils % (Manual) 1.0 % (0.0-1.8) 10/27/20 05:10 Nucleated RBC % Not Reportable 10/27/20 05:10 Seg Neutrophils # 1.8 K/mm3 (1.8-7.7) 10/26/20 11:40 Seg Neutrophils # Man 3.3 K/mm3 (1.8-7.7) 10/27/20 05:10 Band Neutrophils # 0.0 K/mm3 10/27/20 05:10 Lymphocytes # (Manual) 1.0 K/mm3 (1.2-5.4) L 10/27/20 05:10 Abs React Lymphs (Man) 0.0 K/mm3 10/27/20 05:10 Monocytes # (Manual) 0.7 K/mm3 (0.0-0.8) 10/27/20 05:10 Eosinophils # (Manual) 0.1 K/mm3 (0.0-0.4) 10/27/20 05:10 Basophils # (Manual) 0.1 K/mm3 (0.0-0.1) 10/27/20 05:10 Metamyelocytes # 0.0 K/mm3 10/27/20 05:10 Myelocytes # 0.0 K/mm3 10/27/20 05:10 Promyelocytes # 0.0 K/mm3 10/27/20 05:10 Blast Cells # 0.0 K/mm3 10/27/20 05:10 WBC Morphology Not Reportable 10/27/20 05:10 Hypersegmented Neuts Not Reportable 10/27/20 05:10 Hyposegmented Neuts Not Reportable 10/27/20 05:10 Hypogranular Neuts Not Reportable 10/27/20 05:10 Smudge Cells Not Reportable 10/27/20 05:10 Toxic Granulation Not Reportable 10/27/20 05:10 Toxic Vacuolation Not Reportable 10/27/20 05:10 Dohle Bodies Not Reportable 10/27/20 05:10 Pelger-Huet Anomaly Not Reportable 10/27/20 05:10 Park Rods Not Reportable 10/27/20 05:10 Platelet Estimate Consistent w auto 10/27/20 05:10 Clumped Platelets Not Reportable 10/27/20 05:10 Plt Clumps, EDTA Not Reportable 10/27/20 05:10 Large Platelets Not Reportable 10/27/20 05:10 Giant Platelets Not Reportable 10/27/20 05:10 Platelet Satelliting Not Reportable 10/27/20 05:10 Plt Morphology Comment Not Reportable 10/27/20 05:10 RBC Morphology Not Reportable 10/27/20 05:10 Dimorphic RBCs Not Reportable 10/27/20 05:10 Polychromasia Not Reportable 10/27/20 05:10 Hypochromasia Not Reportable 10/27/20 05:10 Poikilocytosis Not Reportable 10/27/20 05:10 Anisocytosis 1+ 10/27/20 05:10 Microcytosis Not Reportable 10/27/20 05:10 Macrocytosis Not Reportable 10/27/20 05:10 Spherocytes Not Reportable 10/27/20 05:10 Pappenheimer Bodies Not Reportable 10/27/20 05:10 Sickle Cells Not Reportable 10/27/20 05:10 Target Cells Not Reportable 10/27/20 05:10 Tear Drop Cells Not Reportable 10/27/20 05:10 Ovalocytes Not Reportable 10/27/20 05:10 Helmet Cells Not Reportable 10/27/20 05:10 Mir[place]ontes-[place] Bodies Not Reportable 10/27/20 05:10 Bliss Rings Not Reportable 10/27/20 05:10 Stacy Cells Not Reportable 10/27/20 05:10 Bite Cells Not Reportable 10/27/20 05:10 Crenated Cell Not Reportable 10/27/20 05:10 Elliptocytes Not Reportable 10/27/20 05:10 Acanthocytes (Spur) Not Reportable 10/27/20 05:10 Rouleaux Not Reportable 10/27/20 05:10 Hemoglobin C Crystals Not Reportable 10/27/20 05:10 Schistocytes Not Reportable 10/27/20 05:10 Malaria parasites Not Reportable 10/27/20 05:10 Curt Bodies Not Reportable 10/27/20 05:10 Hem Pathologist Commnt No 10/27/20 05:10 PT 12.7 Sec. (12.2-14.9) 10/26/20 11:40 INR 0.90 (0.87-1.13) 10/26/20 11:40 APTT 30.3 Sec. (24.2-36.6) 10/26/20 11:40 Thrombin Time 16.9 Sec. (15.1-19.6) 10/26/20 11:40 Sodium 140 mmol/L (137-145) 10/28/20 05:00 Potassium 3.7 mmol/L (3.6-5.0) 10/28/20 05:00 Chloride 107.1 mmol/L (98-107) H 10/28/20 05:00 Carbon Dioxide 21 mmol/L (22-30) L 10/28/20 05:00 Anion Gap 16 mmol/L 10/28/20 05:00 BUN 8 mg/dL (7-17) 10/28/20 05:00 Creatinine 0.6 mg/dL (0.6-1.2) 10/28/20 05:00 Estimated GFR > 60 ml/min 10/28/20 05:00 BUN/Creatinine Ratio 13 % 10/28/20 05:00 Glucose 105 mg/dL (65-100) H 10/28/20 05:00 POC Glucose 117 mg/dL (70-105) H 10/31/20 16:23 Hemoglobin A1c 5.3 % (4-6) 10/27/20 05:10 Calcium 9.1 mg/dL (8.4-10.2) 10/28/20 05:00 Total Bilirubin 0.30 mg/dL (0.1-1.2) 10/27/20 05:10 AST 18 units/L (5-40) 10/27/20 05:10 ALT 19 units/L (7-56) 10/27/20 05:10 Alkaline Phosphatase 79 units/L (35-129) 10/27/20 05:10 Total Creatine Kinase 57 units/L (30-135) 10/26/20 11:40 CK-MB (CK-2) 1.0 ng/mL (0.0-4.0) 10/26/20 11:40 CK-MB (CK-2) Rel Index 1.7 (0-4) 10/26/20 11:40 Troponin T < 0.010 ng/mL (0.00-0.029) 10/26/20 18:26 Total Protein 7.0 g/dL (6.3-8.2) 10/27/20 05:10 Albumin 4.2 g/dL (3.9-5) 10/27/20 05:10 Albumin/Globulin Ratio 1.5 % 10/27/20 05:10 Triglycerides 88 mg/dL (2-149) 10/28/20 05:00 Cholesterol 133 mg/dL (50-199) 10/28/20 05:00 LDL Cholesterol Direct 76 mg/dL (50-130) 10/28/20 05:00 HDL Cholesterol 47 mg/dL (40-59) 10/28/20 05:00 Cholesterol/HDL Ratio 2.82 % 10/28/20 05:00 Manrique/IV: Voiding Method Bedside Commode Active Medications - Current Medications Current Medications: Generic Name Dose Route Start Last Admin Trade Name Freq PRN Reason Stop Dose Admin Lipase/Protease/Amylase 1 each 10/28/20 14:11 Lipase 10,500/Protease 25,000/Amylase 43,750 (Units) Dr Bola ENGLANDTUBE PRN PRN For Clogged Feeding Tube Aspirin 325 mg 10/31/20 10:00 10/31/20 10:56 Aspirin 325 Mg Tab PO 325 mg QDAY BRIANNE Administration Atorvastatin Calcium 20 mg 10/27/20 22:00 10/30/20 21:27 Atorvastatin 20 Mg Tab PO 20 mg QHS BRIANNE Administration Docusate Sodium 100 mg 10/29/20 22:00 10/31/20 10:56 Docusate Sodium 100 Mg/10 Ml Oral Liqd FEEDTUBE 100 mg BID BRIANNE Administration Enoxaparin Sodium 40 mg 10/28/20 10:00 10/31/20 10:56 Enoxaparin 40 Mg/0.4 Ml Inj SUB-Q 40 mg QDAY@1000 BRIANNE Administration Escitalopram Oxalate 20 mg 10/30/20 10:00 10/31/20 10:57 Escitalopram 10 Mg/10 Ml Oral Liqd FEEDTUBE 20 mg QDAY BRIANNE Administration Famotidine 20 mg 10/30/20 22:00 10/31/20 10:56 Famotidine 20 Mg Tab PO 20 mg BID BRIANNE Administration Sodium Chloride 1,000 mls @ 100 mls/hr 10/26/20 13:30 10/27/20 17:10 Nacl 0.9% 1000 Ml IV 100 mls/hr DIRECT BRIANNE Administration Dextrose/Sodium Chloride 1,000 mls @ 100 mls/hr 10/27/20 23:00 10/31/20 06:01 D5ns IV 100 mls/hr DIRECT BRIANNE Administration Lamotrigine 100 mg 10/31/20 22:00 Lamotrigine 100 Mg Tab PO BID BRIANNE Levetiracetam 500 mg 10/31/20 22:00 Levetiracetam 500 Mg/5 Ml Oral Liqd FEEDTUBE BID BRIANNE Morphine Sulfate 1 mg 10/27/20 14:04 10/31/20 06:02 Morphine 2 Mg/1 Ml Inj IV 1 mg Q4H PRN Administration Pain, Moderate (4-6) Olanzapine 10 mg 11/01/20 10:00 Olanzapine 10 Mg Tab PO QDAY BRIANNE Ondansetron HCl 4 mg 10/26/20 13:30 10/27/20 23:33 Ondansetron 4 Mg/2 Ml Inj IV 4 mg Q8H PRN Administration Nausea And Vomiting Simple Syrup 15 ml 10/28/20 14:11 Simple Syrup 15 Ml FEEDTUBE PRN PRN Hypoglycemia Simple Syrup 30 ml 10/28/20 14:11 Simple Syrup 15 Ml FEEDTUBE PRN PRN Hypoglycemia Sodium Bicarbonate 325 mg 10/28/20 14:11 Sodium Bicarbonate 325 Mg Tab FEEDTUBE PRN PRN For Clogged Feeding Tube Sodium Chloride 10 ml 10/26/20 14:00 10/30/20 21:28 Sodium Chloride 0.9% 10 Ml Flush Syringe IV 10 ml BID BRIANNE Administration Sodium Chloride 10 ml 10/26/20 14:00 10/31/20 13:15 Sodium Chloride 0.9% 10 Ml Flush Syringe IV 10 ml PRN PRN Administration LINE FLUSH Nutrition/Malnutrition Assess - Dietary Evaluation Nutrition/Malnutrition Findings: Nutrition Notes Start: 10/28/20 11:47 Freq: Status: Active Protocol: Document 10/30/20 15:59 EB (Rec: 10/30/20 16:05 [id number]) Nutrition Notes Initial or Follow up Reassessment Current Diagnosis Stroke,Hyperlipidemia Other Pertinent Diagnosis hx of seizures, dysphagia, aspiration precaution Current Diet Jevity 1.2 at 55 mL/hr Labs/Tests reviewed Pertinent Medications D5NS at 100 mL/hr Height 5 ft 2.99 in Weight 67.2 kg [place] Body Weight (kg) 52.25 BMI 26.2 Weight Status Overweight Subjective/Other Information TF running at 40 mL/hr currently, but will be increased to goal rate of 55 mL/hr by end of day, per RN. Pt tolerating TF. [employer] saw pt yesterday, and determined that swallowing function continues to be impaired. Burn Absent Trauma Absent Difficulty In Swallowing Current % PO Negligible Minimum of two criteria No physical signs of malnutrition #1 Nutrition Diagnosis Inadequate oral intake Diagnosis Progress(for reassessment Continues documentation) Is patient on ventilator? No Is Patient Ambulatory and/or Out of Bed No REE-([facility]-confined to bed) 7098.111 Calculation Used for Recommendations [facility] Additional Notes Protein needs (0.8-1 g/kg) : 59-74 g fluid needs: 1 ml/kcal Nutrition Intervention Change Diet Order: Continue TF at goal rate Nutrition Support: Jevity 1.2 Carlos 55 ml/hr goal rate Water flush: 100 ml q 4 hours Kcal 1,584 Protein (gm) 73 Fluid (mL) 1,065 Goal #1 TF tolerance Goal #2 Meeting at leat 75% of protein and energy needs Follow-Up By: 11/02/20 Additional Comments follow for TF tolerance
[2020-10-31] MEDS: lamoTRIgine 100 MG TAB PO SCH (22:56)
[2020-10-31] MEDS: levETIRAcetam 500 MG/5 ML ORAL LIQD FEEDTUBE SCH (22:56)
[2020-11-01] MEDS: MORPHINE 2 MG/1 ML INJ IV PRN ×3 (06:50→20:12)
[2020-11-01] MEDS: D5W/0.9% NACL 1,000 ML IV SCH ×2 (06:50→20:11)
[2020-11-01] MEDS: ESCITALOPRAM 10 MG/10 ML ORAL LIQD FEEDTUBE SCH (10:18)
[2020-11-01] MEDS: ENOXAPARIN 40 MG/0.4 ML INJ SUB-Q SCH (10:18)
[2020-11-01] MEDS: FAMOTIDINE 20 MG TAB PO SCH ×2 (10:18→21:39)
[2020-11-01] MEDS: ASPIRIN 325 MG TAB PO SCH (10:18)
[2020-11-01] MEDS: lamoTRIgine 100 MG TAB PO SCH ×2 (10:18→21:39)
[2020-11-01] MEDS: DOCUSATE SODIUM 100 MG/10 ML ORAL LIQD FEEDTUBE SCH ×2 (10:19→21:40)
[2020-11-01] MEDS: levETIRAcetam 500 MG/5 ML ORAL LIQD FEEDTUBE SCH (10:19)
--- NOTE | 2020-11-01 12:06 | Progress Note ---
Assessment and Plan Assessment and Plan Assessment and plan: This is an 59-year-old female with hx of seizure and ,schizophrenia, bipolar admitted to r/o CVA -on admission she is complaing of right side weakness and slurred speech with dysphagia -she recieved TPA on 10/26 hospital admission #Neuro: r/o CVA, -10/26 CT head with no acute intracranial abnormality -Patient received TPA on 10/26 ~1250 -Repeat CTh 24 hours post TPA administration shows no acute intracranial abnormality -CTA head/neck completed is unremarkable - MRI brain is unremakable with no acute event is noted -N.p.o., Accu-Cheks every 4 -Neurochecks per protocol -ASA, statin. -Seizure precautions/aspiration/fall -IV Keppra, d/c once NGT in place. -Psych consult. Start psych meds when NGT placed. -On examination patient had slight residual right-sided upper extremity drift +++ repeat MRI brain again showed no acute event to explain her symptoms # Seizure -not clear -EEG to review today -stop keppra ,maintain lamictal #Cardio: NAD -Maintain SBP less than 160/110 -Blood pressure monitor per protocol #Respiratory: NAD -Supplemental oxygen as needed -SPO2 monitoring with VS -Pulmonary hygiene #GI: dysphagia, N.p.o. -Nutrition consulted, tube feed recs noted. -Patient failed bedside swallow evaluation and ST evaluation -will go ahead with NGT after review of ST eval and necessity to give patient psych/seizure medication and ultimately nutrition. -Pepcid 20 IV Bid. -BR: Colace #: BRENT (improved), hyponatremia, metabolic acidosis -Patient presented with hyponatremia and metabolic acidosis which were both corrected -Strict intake and output -Avoid nephrotoxic medications -Trend BMP -Renally dose medications #Endo: NAD -Accu-Cheks every 4 while n.p.o. -Hemoglobin A1c 5.3 -Avoid hypoglycemia #Heme: Microcytic anemia -Trend CBC -Iron supplementation -Transfuse for hemoglobin less than 7 -SCDs to bilateral actions while in bed -lovenox sub q PLAN 1- Repeat MRI brain r/o brain stem CVA ? showed no abnormalities !! 2- mantain ASA and lipitor 3- swallow study is pending 4- EEG to review 5-stop keppra and increase lamictal to 100 mg bid 6- Cut down Zyprexa to 10 mg daily due to side effect 7- Pt therapy evaluation 8- echo is noted with EF#55-60% 9-LDL#76 will follow Subjective Date of service: 11/01/20 Principal diagnosis: oropharyngeal dysphagia Interval history: still complain of right side weakness and facial droop with some dysarthic and or slurred speech MRI brain repeat showed no acute event !!! Objective - Vital Sign Vital Signs - 12hr 11/01/20 11/01/20 11/01/20 04:53 06:50 10:25 Temperature 98.6 F 97.6 F Pulse Rate 78 68 Respiratory 18 20 18 Rate Blood Pressure 144/67 Blood Pressure 121/68 [Left] O2 Sat by Pulse 99 98 Oximetry 11/01/20 11/01/20 11:00 11:51 Temperature 98.3 F Pulse Rate 86 Respiratory 20 Rate Blood Pressure 133/57 Blood Pressure [Left] O2 Sat by Pulse 96 Oximetry - General Apperance Constitutional: comfortable - EENT EENT: PERRL - Respiratory Respiratory: chest non-tender, lungs clear, rhonchi - Cardiovascular Cardiovascular: regular rate, normal S1, normal S2 Extremities: no peripheral edema bilat, no clubbing, cyanosis - Gastrointestinal Gastrointestinal: normoactive bowel sounds - Integumentary Integumentary: normal - Neurologic Cranial nerve examination: PERRL, EOMI, other (slight right facial droop and slurred speech , ) Detailed motor examination: other (give away weakness right side and right anterior chest tenderness ?) - Laboratory Findings CBC and BMP: 10/28/20 05:00 10/28/20 05:00 Abnormal Lab Findings: Abnormal Labs 10/26/20 10/26/20 10/27/20 11:40 11:40 05:10 WBC 3.8 L RBC 3.31 L 3.35 L MCV 98 H 98 H MCH 34 H 34 H Lymph % (Auto) 39.2 H [place] % (Auto) 12.1 H Monocytes % (Manual) 13.0 H Lymphocytes # (Manual) 1.0 L Sodium 135 L Chloride Carbon Dioxide 16 L Creatinine 1.3 H Glucose 103 H POC Glucose Albumin 3.8 L 10/28/20 10/28/20 10/28/20 05:00 05:00 12:06 WBC 3.4 L RBC 3.31 L MCV MCH 33 H Lymph % (Auto) [place] % (Auto) Monocytes % (Manual) Lymphocytes # (Manual) Sodium Chloride 107.1 H Carbon Dioxide 21 L Creatinine Glucose 105 H POC Glucose 111 H Albumin 10/28/20 10/30/20 10/31/20 23:01 06:54 05:47 WBC RBC MCV MCH Lymph % (Auto) [place] % (Auto) Monocytes % (Manual) Lymphocytes # (Manual) Sodium Chloride Carbon Dioxide Creatinine Glucose POC Glucose 111 H 125 H 123 H Albumin 10/31/20 10/31/20 12:32 16:23 WBC RBC MCV MCH Lymph % (Auto) [place] % (Auto) Monocytes % (Manual) Lymphocytes # (Manual) Sodium Chloride Carbon Dioxide Creatinine Glucose POC Glucose 128 H 117 H Albumin
--- NOTE | 2020-11-01 19:19 | Progress Note ---
Assessment and Plan Assessment and plan: This is an 59-year-old female with seizure disorder, schizophrenia, bipolar admitted with CVA status post TPA --Severe dysphagia, N.p.o. GI evaluated the patient, recommend Dobbhoff feeds at this point Speech therapy reevaluating Closely monitor, possible PEG placement per GI Aspiration precautions --Possible acute CVA;s/p TPA CT head, MRI brain negative for acute stroke See rest of the work-up Neurology evaluated the patient left-sided facial droop, left-sided upper and lower extremity sensory deficit, right-sided upper extremity drift Continue seizure precautions Antiepileptic medication PT OT rehab --Seizure precautions/antiepileptic medications Do not drive until cleared by neurology Cardio: NAD -Maintain SBP less than 160/110 -Blood pressure monitor per protocol Respiratory: NAD -Supplemental oxygen as needed -SPO2 monitoring with VS -Pulmonary hygiene -- BRENT (improved), vasomotor nephropathy Gentle hydration, resolved creatinine within normal limits --hyponatremia, metabolic acidosis Improved, Continue supportive care DVT prophylaxis; SCDs Continue PT OT ST Follow speech evaluation/GI evaluation for possible PEG We will closely monitor the patient and adjust management as needed Possible acute rehab placement when medically stable Daily Hospital course: 10/27: Patient is past 24 hours post TPA and will be downgraded to telemetry. Repeat CT head completed and ST evaluation completed and recommended n.p.o. NG tube to be placed and nutrition consulted for tube feeding. 10/28: Patient failed ST eval. Will likely need either NG tube or PEG tube. GI consulted 10/29: GI recommends continuation of speech therapy evaluations. Will place PEG if patient fails repeat dysphagia assessments. Will order NG tube so patient can get nutrition. 10/31/2020; patient continues to have dysphagia, speech therapy evaluating, intermittent Dobbhoff feeds GI has evaluated the patient, encourages follow-up speech evaluation before deciding on PEG placement 11/01/2020; patient is more alert and awake, speech therapist working with her PT OT evaluation, possible acute rehab placement when stable History Interval history: I have seen and examined the patient at the bedside Patient's chart and medications reviewed Patient was admitted with acute CVA with residual weakness Neuro work-up is in progress Vital signs noted Hospitalist Physical - Constitutional Vitals: Temp Pulse Resp BP Pulse Ox 97.7 F 73 18 151/58 100 11/01/20 15:38 11/01/20 15:38 11/01/20 15:38 11/01/20 15:38 11/01/20 15:38 General appearance: Present: no acute distress, well-nourished, cachectic, disheveled - EENT Eyes: Present: PERRL, EOM intact - Neck Neck: Present: supple, normal ROM - Respiratory Respiratory effort: normal Respiratory: bilateral: diminished, negative: rales, rhonchi, wheezing - Cardiovascular Rhythm: regular Heart Sounds: Present: S1 & S2 - Extremities Extremities: no ischemia, No edema - Abdominal General gastrointestinal: soft, non-tender, non-distended, normal bowel sounds - Integumentary Integumentary: Present: clear, warm - Psychiatric Psychiatric: appropriate mood/affect, cooperative - Neurologic Neurologic: moves all extremities (Acute CVA with residual weakness, dysphagia) HEART Score - HEART Score Age: 45-65 Risk factors: 1-2 risk factors Troponin: Troponin T < 0.010 ng/mL (0.00-0.029) 10/26/20 18:26 Troponin: < normal limit - Critical Actions Critical Actions: 0-3 pts:0.9-1.7%risk of adverse cardiac event.Candidate for discharge Results - Labs CBC & Chem 7: 10/28/20 05:00 10/28/20 05:00 Labs: Laboratory Last Values WBC 3.4 K/mm3 (4.5-11.0) L 10/28/20 05:00 RBC 3.31 M/mm3 (3.65-5.03) L 10/28/20 05:00 Hgb 11.0 gm/dl (10.1-14.3) 10/28/20 05:00 Hct 32.0 % (30.3-42.9) 10/28/20 05:00 MCV 97 fl (79-97) 10/28/20 05:00 MCH 33 pg (28-32) H 10/28/20 05:00 MCHC 34 % (30-34) 10/28/20 05:00 RDW 13.8 % (13.2-15.2) 10/28/20 05:00 Plt Count 198 K/mm3 (140-440) 10/28/20 05:00 Lymph % (Auto) 39.2 % (13.4-35.0) H 10/26/20 11:40 [place] % (Auto) 12.1 % (0.0-7.3) H 10/26/20 11:40 Eos % (Auto) 1.3 % (0.0-4.3) 10/26/20 11:40 Baso % (Auto) 0.2 % (0.0-1.8) 10/26/20 11:40 Lymph # (Auto) 1.5 K/mm3 (1.2-5.4) 10/26/20 11:40 [place] # (Auto) 0.5 K/mm3 (0.0-0.8) 10/26/20 11:40 Eos # (Auto) 0.1 K/mm3 (0.0-0.4) 10/26/20 11:40 Baso # (Auto) 0.0 K/mm3 (0.0-0.1) 10/26/20 11:40 Add Manual Diff Complete 10/27/20 05:10 Total Counted 100 10/27/20 05:10 Seg Neutrophils % 47.2 % (40.0-70.0) 10/26/20 11:40 Seg Neuts % (Manual) 65.0 % (40.0-70.0) 10/27/20 05:10 Lymphocytes % (Manual) 19.0 % (13.4-35.0) 10/27/20 05:10 Monocytes % (Manual) 13.0 % (0.0-7.3) H 10/27/20 05:10 Eosinophils % (Manual) 2.0 % (0.0-4.3) 10/27/20 05:10 Basophils % (Manual) 1.0 % (0.0-1.8) 10/27/20 05:10 Nucleated RBC % Not Reportable 10/27/20 05:10 Seg Neutrophils # 1.8 K/mm3 (1.8-7.7) 10/26/20 11:40 Seg Neutrophils # Man 3.3 K/mm3 (1.8-7.7) 10/27/20 05:10 Band Neutrophils # 0.0 K/mm3 10/27/20 05:10 Lymphocytes # (Manual) 1.0 K/mm3 (1.2-5.4) L 10/27/20 05:10 Abs React Lymphs (Man) 0.0 K/mm3 10/27/20 05:10 Monocytes # (Manual) 0.7 K/mm3 (0.0-0.8) 10/27/20 05:10 Eosinophils # (Manual) 0.1 K/mm3 (0.0-0.4) 10/27/20 05:10 Basophils # (Manual) 0.1 K/mm3 (0.0-0.1) 10/27/20 05:10 Metamyelocytes # 0.0 K/mm3 10/27/20 05:10 Myelocytes # 0.0 K/mm3 10/27/20 05:10 Promyelocytes # 0.0 K/mm3 10/27/20 05:10 Blast Cells # 0.0 K/mm3 10/27/20 05:10 WBC Morphology Not Reportable 10/27/20 05:10 Hypersegmented Neuts Not Reportable 10/27/20 05:10 Hyposegmented Neuts Not Reportable 10/27/20 05:10 Hypogranular Neuts Not Reportable 10/27/20 05:10 Smudge Cells Not Reportable 10/27/20 05:10 Toxic Granulation Not Reportable 10/27/20 05:10 Toxic Vacuolation Not Reportable 10/27/20 05:10 Dohle Bodies Not Reportable 10/27/20 05:10 Pelger-Huet Anomaly Not Reportable 10/27/20 05:10 Park Rods Not Reportable 10/27/20 05:10 Platelet Estimate Consistent w auto 10/27/20 05:10 Clumped Platelets Not Reportable 10/27/20 05:10 Plt Clumps, EDTA Not Reportable 10/27/20 05:10 Large Platelets Not Reportable 10/27/20 05:10 Giant Platelets Not Reportable 10/27/20 05:10 Platelet Satelliting Not Reportable 10/27/20 05:10 Plt Morphology Comment Not Reportable 10/27/20 05:10 RBC Morphology Not Reportable 10/27/20 05:10 Dimorphic RBCs Not Reportable 10/27/20 05:10 Polychromasia Not Reportable 10/27/20 05:10 Hypochromasia Not Reportable 10/27/20 05:10 Poikilocytosis Not Reportable 10/27/20 05:10 Anisocytosis 1+ 10/27/20 05:10 Microcytosis Not Reportable 10/27/20 05:10 Macrocytosis Not Reportable 10/27/20 05:10 Spherocytes Not Reportable 10/27/20 05:10 Pappenheimer Bodies Not Reportable 10/27/20 05:10 Sickle Cells Not Reportable 10/27/20 05:10 Target Cells Not Reportable 10/27/20 05:10 Tear Drop Cells Not Reportable 10/27/20 05:10 Ovalocytes Not Reportable 10/27/20 05:10 Helmet Cells Not Reportable 10/27/20 05:10 [place] Bodies Not Reportable 10/27/20 05:10 [place] Rings Not Reportable 10/27/20 05:10 Stacy Cells Not Reportable 10/27/20 05:10 Bite Cells Not Reportable 10/27/20 05:10 Crenated Cell Not Reportable 10/27/20 05:10 Elliptocytes Not Reportable 10/27/20 05:10 Acanthocytes (Spur) Not Reportable 10/27/20 05:10 Rouleaux Not Reportable 10/27/20 05:10 Hemoglobin C Crystals Not Reportable 10/27/20 05:10 Schistocytes Not Reportable 10/27/20 05:10 Malaria parasites Not Reportable 10/27/20 05:10 Curt Bodies Not Reportable 10/27/20 05:10 Hem Pathologist Commnt No 10/27/20 05:10 PT 12.7 Sec. (12.2-14.9) 10/26/20 11:40 INR 0.90 (0.87-1.13) 10/26/20 11:40 APTT 30.3 Sec. (24.2-36.6) 10/26/20 11:40 Thrombin Time 16.9 Sec. (15.1-19.6) 10/26/20 11:40 Sodium 140 mmol/L (137-145) 10/28/20 05:00 Potassium 3.7 mmol/L (3.6-5.0) 10/28/20 05:00 Chloride 107.1 mmol/L (98-107) H 10/28/20 05:00 Carbon Dioxide 21 mmol/L (22-30) L 10/28/20 05:00 Anion Gap 16 mmol/L 10/28/20 05:00 BUN 8 mg/dL (7-17) 10/28/20 05:00 Creatinine 0.6 mg/dL (0.6-1.2) 10/28/20 05:00 Estimated GFR > 60 ml/min 10/28/20 05:00 BUN/Creatinine Ratio 13 % 10/28/20 05:00 Glucose 105 mg/dL (65-100) H 10/28/20 05:00 POC Glucose 91 mg/dL (70-105) 11/01/20 16:51 Hemoglobin A1c 5.3 % (4-6) 10/27/20 05:10 Calcium 9.1 mg/dL (8.4-10.2) 10/28/20 05:00 Total Bilirubin 0.30 mg/dL (0.1-1.2) 10/27/20 05:10 AST 18 units/L (5-40) 10/27/20 05:10 ALT 19 units/L (7-56) 10/27/20 05:10 Alkaline Phosphatase 79 units/L (35-129) 10/27/20 05:10 Total Creatine Kinase 57 units/L (30-135) 10/26/20 11:40 CK-MB (CK-2) 1.0 ng/mL (0.0-4.0) 10/26/20 11:40 CK-MB (CK-2) Rel Index 1.7 (0-4) 10/26/20 11:40 Troponin T < 0.010 ng/mL (0.00-0.029) 10/26/20 18:26 Total Protein 7.0 g/dL (6.3-8.2) 10/27/20 05:10 Albumin 4.2 g/dL (3.9-5) 10/27/20 05:10 Albumin/Globulin Ratio 1.5 % 10/27/20 05:10 Triglycerides 88 mg/dL (2-149) 10/28/20 05:00 Cholesterol 133 mg/dL (50-199) 10/28/20 05:00 LDL Cholesterol Direct 76 mg/dL (50-130) 10/28/20 05:00 HDL Cholesterol 47 mg/dL (40-59) 10/28/20 05:00 Cholesterol/HDL Ratio 2.82 % 10/28/20 05:00 [place]/IV: Voiding Method Bedside Commode Active Medications - Current Medications Current Medications: Generic Name Dose Route Start Last Admin Trade Name Freq PRN Reason Stop Dose Admin Lipase/Protease/Amylase 1 each 10/28/20 14:11 Lipase 10,500/Protease 25,000/Amylase 43,750 (Units) Dr [place] FEEDTUBE PRN PRN For Clogged Feeding Tube Aspirin 325 mg 10/31/20 10:00 11/01/20 10:18 Aspirin 325 Mg Tab PO 325 mg QDAY BRIANNE Administration Atorvastatin Calcium 20 mg 10/27/20 22:00 10/31/20 22:57 Atorvastatin 20 Mg Tab PO 20 mg QHS BRIANNE Administration Docusate Sodium 100 mg 10/29/20 22:00 11/01/20 10:19 Docusate Sodium 100 Mg/10 Ml Oral Liqd FEEDTUBE Not Given BID BRIANNE Enoxaparin Sodium 40 mg 10/28/20 10:00 11/01/20 10:18 Enoxaparin 40 Mg/0.4 Ml Inj SUB-Q 40 mg QDAY@1000 BRIANNE Administration Escitalopram Oxalate 20 mg 10/30/20 10:00 11/01/20 10:18 Escitalopram 10 Mg/10 Ml Oral Liqd FEEDTUBE 20 mg QDAY BRIANNE Administration Famotidine 20 mg 10/30/20 22:00 11/01/20 10:18 Famotidine 20 Mg Tab PO 20 mg BID BRIANNE Administration Sodium Chloride 1,000 mls @ 100 mls/hr 10/26/20 13:30 10/27/20 17:10 Nacl 0.9% 1000 Ml IV 100 mls/hr DIRECT BRIANNE Administration Dextrose/Sodium Chloride 1,000 mls @ 100 mls/hr 10/27/20 23:00 11/01/20 06:50 D5ns IV 100 mls/hr DIRECT BRIANNE Administration Lamotrigine 100 mg 10/31/20 22:00 11/01/20 10:18 Lamotrigine 100 Mg Tab PO 100 mg BID BRIANNE Administration Morphine Sulfate 1 mg 10/27/20 14:04 11/01/20 12:57 Morphine 2 Mg/1 Ml Inj IV 1 mg Q4H PRN Administration Pain, Moderate (4-6) Olanzapine 10 mg 11/01/20 10:00 11/01/20 10:22 Olanzapine 10 Mg Tab PO 10 mg QDAY BRIANNE Administration Ondansetron HCl 4 mg 10/26/20 13:30 10/27/20 23:33 Ondansetron 4 Mg/2 Ml Inj IV 4 mg Q8H PRN Administration Nausea And Vomiting Simple Syrup 15 ml 10/28/20 14:11 Simple Syrup 15 Ml FEEDTUBE PRN PRN Hypoglycemia Simple Syrup 30 ml 10/28/20 14:11 Simple Syrup 15 Ml FEEDTUBE PRN PRN Hypoglycemia Sodium Bicarbonate 325 mg 10/28/20 14:11 Sodium Bicarbonate 325 Mg Tab FEEDTUBE PRN PRN For Clogged Feeding Tube Sodium Chloride 10 ml 10/26/20 14:00 11/01/20 10:20 Sodium Chloride 0.9% 10 Ml Flush Syringe IV 10 ml BID BRIANNE Administration Sodium Chloride 10 ml 10/26/20 14:00 10/31/20 13:15 Sodium Chloride 0.9% 10 Ml Flush Syringe IV 10 ml PRN PRN Administration LINE FLUSH Nutrition/Malnutrition Assess - Dietary Evaluation Nutrition/Malnutrition Findings: Nutrition Notes Start: 10/28/20 11:47 Freq: Status: Active Protocol: Document 10/30/20 15:59 EB (Rec: 10/30/20 16:05 [email or web address]) Nutrition Notes Initial or Follow up Reassessment Current Diagnosis Stroke,Hyperlipidemia Other Pertinent Diagnosis hx of seizures, dysphagia, aspiration precaution Current Diet Jevity 1.2 at 55 mL/hr Labs/Tests reviewed Pertinent Medications D5NS at 100 mL/hr Height 5 ft 2.99 in Weight 67.2 kg [place] Body Weight (kg) 52.25 BMI 26.2 Weight Status Overweight Subjective/Other Information TF running at 40 mL/hr currently, but will be increased to goal rate of 55 mL/hr by end of day, per RN. Pt tolerating TF. TRAUMA REGISTRAR saw pt yesterday, and determined that swallowing function continues to be impaired. Burn Absent Trauma Absent Difficulty In Swallowing Current % PO Negligible Minimum of two criteria No physical signs of malnutrition #1 Nutrition Diagnosis Inadequate oral intake Diagnosis Progress(for reassessment Continues documentation) Is patient on ventilator? No Is Patient Ambulatory and/or Out of Bed No REE-([facility]-confined to bed) 2261.629 Calculation Used for Recommendations [facility] Additional Notes Protein needs (0.8-1 g/kg) : 59-74 g fluid needs: 1 ml/kcal Nutrition Intervention Change Diet Order: Continue TF at goal rate Nutrition Support: Jevity 1.2 Carlos 55 ml/hr goal rate Water flush: 100 ml q 4 hours Kcal 1,584 Protein (gm) 73 Fluid (mL) 1,065 Goal #1 TF tolerance Goal #2 Meeting at leat 75% of protein and energy needs Follow-Up By: 11/02/20 Additional Comments follow for TF tolerance
[2020-11-02] MEDS: MORPHINE 2 MG/1 ML INJ IV PRN ×2 (05:25→10:28)
[2020-11-02] MEDS: ASPIRIN 325 MG TAB PO SCH (09:18)
[2020-11-02] MEDS: ENOXAPARIN 40 MG/0.4 ML INJ SUB-Q SCH (09:19)
[2020-11-02] MEDS: lamoTRIgine 100 MG TAB PO SCH (09:19)
[2020-11-02] MEDS: FAMOTIDINE 20 MG TAB PO SCH (09:19)
[2020-11-02] MEDS: ESCITALOPRAM 10 MG/10 ML ORAL LIQD FEEDTUBE SCH (09:19)
[2020-11-02] MEDS: D5W/0.9% NACL 1,000 ML IV SCH (09:20)
[2020-11-02] MEDS: DOCUSATE SODIUM 100 MG/10 ML ORAL LIQD FEEDTUBE SCH (10:28)
--- NOTE | 2020-11-02 11:01 | Progress Note ---
Assessment and Plan Assessment and Plan Assessment and plan: This is an 59-year-old female with hx of seizure and ,schizophrenia, bipolar admitted to r/o CVA -on admission she is complaing of right side weakness and slurred speech with dysphagia -she recieved TPA on 10/26 hospital admission #Neuro: r/o CVA, -10/26 CT head with no acute intracranial abnormality -Patient received TPA on 10/26 ~1250 -Repeat CTh 24 hours post TPA administration shows no acute intracranial abnormality -CTA head/neck completed is unremarkable - MRI brain is unremakable with no acute event is noted -N.p.o., Accu-Cheks every 4 -Neurochecks per protocol -ASA, statin. -Seizure precautions/aspiration/fall -IV Keppra, d/c once NGT in place. -Psych consult. Start psych meds when NGT placed. -On examination patient had slight residual right-sided upper extremity drift +++ repeat MRI brain again showed no acute event to explain her symptoms # Seizure -not clear -EEG to review today -stop keppra ,maintain lamictal #Cardio: NAD -Maintain SBP less than 160/110 -Blood pressure monitor per protocol #Respiratory: NAD -Supplemental oxygen as needed -SPO2 monitoring with VS -Pulmonary hygiene #GI: dysphagia, N.p.o. -Nutrition consulted, tube feed recs noted. -Patient failed bedside swallow evaluation and ST evaluation -will go ahead with NGT after review of ST eval and necessity to give patient psych/seizure medication and ultimately nutrition. -Pepcid 20 IV Bid. -BR: Colace #: BRENT (improved), hyponatremia, metabolic acidosis -Patient presented with hyponatremia and metabolic acidosis which were both corrected -Strict intake and output -Avoid nephrotoxic medications -Trend BMP -Renally dose medications #Endo: NAD -Accu-Cheks every 4 while n.p.o. -Hemoglobin A1c 5.3 -Avoid hypoglycemia #Heme: Microcytic anemia -Trend CBC -Iron supplementation -Transfuse for hemoglobin less than 7 -SCDs to bilateral actions while in bed -lovenox sub q PLAN 1- Repeat MRI brain r/o brain stem CVA ? showed no abnormalities !! 2- mantain ASA and lipitor 3- swallow study is noted she is eating 4- EEG is unremarkable with no sign of seizure or focal slowing is noted 5-stop keppra and increase lamictal to 100 mg bid 6- Cut down Zyprexa to 10 mg daily due to side effect 7- Pt therapy evaluation 8- echo is noted with EF#55-60% 9-LDL#76 # increase activity as tolerated as well as diet # Psychiatry follow up on discharge # maintain lamictal 100 mg bid off Keppra # Seizure precaution-- EEG is unremarkable will follow as needed Subjective Date of service: 11/02/20 Principal diagnosis: oropharyngeal dysphagia Interval history: still complain of right side weakness but less sever facial droop and dysarthic improved she had breakfast this am MRI brain repeat showed no acute event !!! Objective - Vital Sign Vital Signs - 12hr 11/01/20 11/02/20 11/02/20 23:07 04:01 05:25 Temperature 97.9 F 98.5 F Pulse Rate 57 L 68 Respiratory 16 16 18 Rate Blood Pressure 137/71 134/67 O2 Sat by Pulse 97 99 Oximetry 11/02/20 08:10 Temperature 98.3 F Pulse Rate 63 Respiratory 18 Rate Blood Pressure 146/70 O2 Sat by Pulse 100 Oximetry - General Apperance Constitutional: comfortable - EENT EENT: PERRL, mucous membranes moist - Respiratory Respiratory: chest non-tender, lungs clear - Cardiovascular Cardiovascular: regular rate, normal S1, normal S2 Extremities: no peripheral edema bilat, no clubbing, cyanosis, no inflammation - Gastrointestinal Gastrointestinal: normoactive bowel sounds - Integumentary Integumentary: normal - Neurologic Cranial nerve examination: PERRL, EOMI, intact Speech examination: intact Detailed motor examination: other (right side fall with questionable drift !!!) - Laboratory Findings CBC and BMP: 10/28/20 05:00 10/28/20 05:00 Abnormal Lab Findings: Abnormal Labs 10/26/20 10/26/20 10/27/20 11:40 11:40 05:10 WBC 3.8 L RBC 3.31 L 3.35 L MCV 98 H 98 H MCH 34 H 34 H Lymph % (Auto) 39.2 H [place] % (Auto) 12.1 H Monocytes % (Manual) 13.0 H Lymphocytes # (Manual) 1.0 L Sodium 135 L Chloride Carbon Dioxide 16 L Creatinine 1.3 H Glucose 103 H POC Glucose Albumin 3.8 L 0810/28/20 10/28/20 05:00 05:00 12:06 WBC 3.4 L RBC 3.31 L MCV MCH 33 H Lymph % (Auto) [place] % (Auto) Monocytes % (Manual) Lymphocytes # (Manual) Sodium Chloride 107.1 H Carbon Dioxide 21 L Creatinine Glucose 105 H POC Glucose 111 H Albumin 10/28/20 10/30/20 10/31/20 23:01 06:54 05:47 WBC RBC MCV MCH Lymph % (Auto) [place] % (Auto) Monocytes % (Manual) Lymphocytes # (Manual) Sodium Chloride Carbon Dioxide Creatinine Glucose POC Glucose 111 H 125 H 123 H Albumin 10/31/20 10/31/20 12:32 16:23 WBC RBC MCV MCH Lymph % (Auto) [place] % (Auto) Monocytes % (Manual) Lymphocytes # (Manual) Sodium Chloride Carbon Dioxide Creatinine Glucose POC Glucose 128 H 117 H Albumin
[2020-11-02 12:40] VITALS: BP 134/63
--- NOTE | 2020-11-02 14:27 | Discharge Summary ---
Providers - Providers Date of Admission: 10/26/20 13:08 Attending physician: ZENA BRITTON 10/27/20 Consult to Physician [CONS] Routine Comment: Consulting Provider: TERA MILLAN Physician Instructions: Reason For Exam: Acute CVA 10/27/20 06:30 Occupational Therapy Evaluate and Treat [CONS] Routine Comment: Reason For Exam: Neuro deficits Physical Therapy Evaluation and Treat [CONS] Routine Comment: Reason For Exam: Neuro deficits 10/27/20 08:26 Speech Therapy Evaluation and Treat [CONS] Routine Reason For Exam: cva, dysphagia 10/27/20 15:38 Consult to Dietitian/Nutrition [CONS] Routine Physician Instructions: Reason For Exam: Reason for Consult: Write/Manage Tube Feeding 10/27/20 20:14 Consult to Physician [CONS] Routine Comment: Consulting Provider: TONY MCGUIRE Physician Instructions: Reason For Exam: schizophernia,bipolar 10/28/20 19:01 Consult to Physician [CONS] Routine Comment: Consulting Provider: MARYSOL PIEDRA Physician Instructions: Reason For Exam: PEG tube 10/31/20 08:27 Consult to Physician [CONS] Routine Comment: Consulting Provider: MAI BUENO Physician Instructions: Reason For Exam: Possible CVA 11/01/20 11:40 Speech Therapy Evaluation and Treat [CONS] Stat Reason For Exam: swallow eval Primary care physician: DEJUAN ARTIS Hospitalization Condition: Stable Disposition: 01 HOME / SELF CARE / HOMELESS Exam - Constitutional Vitals: Temp Pulse Resp BP Pulse Ox 98.7 F 57 L 20 134/63 98 11/02/20 12:13 11/02/20 12:13 11/02/20 12:13 11/02/20 12:13 11/02/20 12:13 Plan
== END 2020-11-02 14:29 | disposition home or self-care (01) | DRG 61 ==
LOC: ED 11:39 → CC1 13:08 → 4A 10-27 23:31
PROVIDERS: ADMIT Internal Medicine; ATTEND Internal Medicine
DX: I63.9 Cerebral infarction, unspecified (principal); N17.0 Acute kidney failure with tubular necrosis; E87.1 Hypo-osmolality and hyponatremia; E87.2 Acidosis; R47.1 Dysarthria and anarthria; R47.01 Aphasia; G40.909 Epilepsy, unspecified, not intractable, without status epilepticus; D50.9 Iron deficiency anemia, unspecified; F25.0 Schizoaffective disorder, bipolar type; R13.12 Dysphagia, oropharyngeal phase; E78.5 Hyperlipidemia, unspecified; Z86.73 Personal history of transient ischemic attack (TIA), and cerebral infarction without residual deficits; Z90.710 Acquired absence of both cervix and uterus; Z82.49 Family history of ischemic heart disease and other diseases of the circulatory system; Z88.0 Allergy status to penicillin
CPT/HCPCS: 36415; 70450; 70496; 70498; 70551; 71045; 74018; 80048; 80053; 80061; 82550; 82553; 82962; 83036; 84484; 85007; 85025; 85027; 85610; 85670; 85730; 93005; 93306; 94760; 95819; G0378; A9270-GY; J1170; J1650; J1953; J2060; J2270; J2405; J2997; J7030; J7042; Q9967

== ENCOUNTER 2020-12-07 15:59 | Emergency (ER) | payer MEDICARE ==
[2020-12-07] MEDS ORDERED: LORazepam 2 MG/ML VIAL ONE ×2 (16:10→20:47)
[2020-12-07] MEDS ORDERED: levETIRAcetam 1000 MG/NS 0.75% 1,000 MG/100 ML BAG IV ONE (16:13)
[2020-12-07] MEDS ORDERED: LORazepam 2 MG/ML VIAL IV STA ×2 (16:20→16:22)
[2020-12-07] MEDS ORDERED: lamoTRIgine 100 MG TAB PO STA (16:22)
[2020-12-07] MEDS ORDERED: diazePAM 10 MG/2 ML SYRINGE IV ONE (16:23)
--- NOTE | 2020-12-07 16:23 | Emergency Department Report ---
ED General Adult HPI - General Chief complaint: Weakness Stated complaint: SZ/CHEST PAIN Time Seen by Provider: 12/07/20 16:10 Source: patient, EMS ( EMS documentation not available at time of chart dictation ), RN notes reviewed Mode of arrival: Stretcher Limitations: Altered Mental Status - History of Present Illness Initial comments: The patient was evaluated in the emergency department for symptoms described in the history of present illness. He/she was evaluated in the context of the global COVID-19 pandemic, which necessitated consideration that the patient might be at risk for infection with the virus that causes COVID-19. Institutional protocols and algorithms that pertain to the evaluation of patients at risk for COVID-19 are in a state of rapid change based on information released by regulatory bodies including the CDC and federal and state organizations. These policies and algorithms were followed during the patient's care in the emergency department. Please note that these policies, procedures and recommendations changed on a rapid basis. The patient is a 59-year-old female. I have evaluated this patient in the past. Her past medical history includes stroke, bipolar, seizure, hypertension, and schizophrenia. This patient was admitted to the hospital last month for possible stroke. She had a CT scan of the brain which was negative for acute findings, and received TPA. She had an MRI of the brain which was unremarkable. She had EEG which demonstrated no convulsive/seizure-like activity. Keppra was stopped, and she was started on Lamictal. The patient was then transferred to long-term acute care and rehabilitation, where she was documented to have persistent right-sided chest wall pain and shoulder pain. She had an x-ray which was unremarkable. Today, the patient is brought to the hospital with a possible seizure. Her Accu-Chek was greater than 100 in the emergency room. When I evaluated the pat ciarra, she had nonspecific shaking in her right upper extremity and was twisting her head back and forth. She was given 2 mg of Ativan, which nearly terminated the event. She still continued to have twitching in her right upper extremity, and was talking to me. She was given an additional 2 mg of Ativan, was completely terminated event. The patient indicated to me that she was having central chest pain. The patient cannot describe the qualitative nature of her pain. She cannot tell me if the pain is moving anywhere. She cannot describe exacerbating or relieving factors. The patient indicated that she was not having physical pain elsewhere. At the moment, the patient is not accompanied by friends or family for collateral information or additional information. However, she is resting comfortably in her stretcher, in no acute distress Called up listed phone number for caregiver, Ms. Staci Duncan; [phone]. Called phone number, nobody answered, left voicemail for call back -: unknown Location: head, chest - Related Data Previous Rx's Medication Instructions Recorded Last Taken Type Aspirin EC [Ecotrin] 325 mg PO QDAY #30 tablet 11/09/20 Unknown Rx AtorvaSTATin [Lipitor] 20 mg PO QHS #30 tablet 11/09/20 Unknown Rx Docusate Sodium [Colace CAP] 100 mg PO BID PRN #30 capsule 11/09/20 Unknown Rx Escitalopram [Lexapro] 20 mg PO QDAY #60 tablet 11/09/20 Unknown Rx Famotidine [Pepcid] 20 mg PO BID #60 tablet 11/09/20 Unknown Rx OLANzapine [Zyprexa] 10 mg PO QDAY #30 tablet 11/09/20 Unknown Rx lamoTRIgine [LaMICtal] 100 mg PO BID #60 tablet 12/07/20 Unknown Rx Allergies Allergy/AdvReac Type Severity Reaction Status Date / Time Penicillins Allergy Unknown Verified 12/09/18 16:35 ED Review of Systems ROS: Stated complaint: SZ/CHEST PAIN Other details as noted in HPI Comment: Unobtainable due to pts medical conditions Constitutional: denies: fever Eyes: denies: eye pain, vision change Cardiovascular: chest pain Gastrointestinal: denies: abdominal pain Musculoskeletal: denies: back pain Neurological: headache ED Past Medical Hx - Past Medical History Hx CVA: Yes Hx Congestive Heart Failure: No Hx Diabetes: No Hx Seizures: Yes Hx Psychiatric Treatment: Yes (Schiziophrenia) Hx Asthma: No Hx COPD: No Hx HIV: No - Surgical History Hx Cholecystectomy: Yes Additional Surgical History: Hysterectomy - Social History Smoking Status: Never Smoker - Medications Home Medications: Home Medications Medication Instructions Recorded Confirmed Last Taken Type Aspirin EC [Ecotrin] 325 mg PO QDAY #30 tablet 11/09/20 Unknown Rx AtorvaSTATin [Lipitor] 20 mg PO QHS #30 tablet 11/09/20 Unknown Rx Docusate Sodium [Colace CAP] 100 mg PO BID PRN #30 capsule 11/09/20 Unknown Rx Escitalopram [Lexapro] 20 mg PO QDAY #60 tablet 11/09/20 Unknown Rx Famotidine [Pepcid] 20 mg PO BID #60 tablet 11/09/20 Unknown Rx OLANzapine [Zyprexa] 10 mg PO QDAY #30 tablet 11/09/20 Unknown Rx lamoTRIgine [LaMICtal] 100 mg PO BID #60 tablet 12/07/20 Unknown Rx ED Physical Exam - General Limitations: Altered Mental Status General appearance: alert, anxious - Head Head exam: Present: atraumatic, normocephalic - Eye Eye exam: Present: normal appearance, PERRL, EOMI. Absent: nystagmus - ENT ENT exam: Present: normal exam, normal orophraynx, mucous membranes moist, normal external ear exam - Neck Neck exam: Present: normal inspection, full ROM. Absent: tenderness, meningismus - Respiratory Respiratory exam: Present: normal lung sounds bilaterally, chest wall tenderness. Absent: respiratory distress, wheezes, rales, rhonchi, stridor - Cardiovascular Cardiovascular Exam: Present: normal rhythm, bradycardia, normal heart sounds. Absent: tachycardia, irregular rhythm, systolic murmur, diastolic murmur, rubs, gallop - GI/Abdominal GI/Abdominal exam: Present: soft. Absent: distended, tenderness, guarding, rebound, rigid, pulsatile mass - Extremities Exam Extremities exam: Present: normal inspection, full ROM, other (2+ pulses noted in the bilateral upper and lower extremities. There is no palpable cord. negative Homans sign. Muscular compartments are soft. The pelvis is stable.). Absent: pedal edema, calf tenderness - Back Exam Back exam: Present: normal inspection. Absent: tenderness, CVA tenderness (R), CVA tenderness (L), paraspinal tenderness, vertebral tenderness - Neurological Exam Neurological exam: Present: alert (The patient is awake to name. The patient follows commands. The patient states that her head and her chest are hurting her), other (No facial droop. Tongue midline. Extraocular movements intact bilaterally. Facial sensation intact to light touch in V1, V2, V3 distribution bilaterally. 5 and a 5 strength in 4 extremities. Sensation intact to light touch in 4 extremities.). Absent: motor sensory deficit - Skin Skin exam: Present: warm, dry, intact, normal color. Absent: rash ED Course Vital Signs 12/07/20 12/07/20 16:35 18:36 Temperature 97.8 F Pulse Rate 59 L 84 Respiratory 16 16 Rate Blood Pressure 146/46 Blood Pressure 115/60 [Left] O2 Sat by Pulse 96 96 Oximetry - Reevaluation(s) Reevaluation #1: 12/07/20 16:55 Differential diagnosis, including but not limited to: Seizure, psychogenic nonepileptiform seizure, migraine headache, tension headache, cluster headache, complex migraine, GERD, gastritis, hiatal hernia, pneumonia, acute coronary syndrome, pulmonary embolism, urinary tract infection Assessment and plan: 59-year-old female presenting with convulsive activity, and nonspecific articulation of chest pain. Patient was having shaking on her right upper extremity upon arrival, but was also conversing. She is somewhat confused, but is able to indicate at this point time she is having headache and chest pain. She denies ocular pain, neck pain, abdominal pain, urinary symptoms. She also indicates that she is not homicidal or suicidal, and not having focal extremity weakness. She is not currently tachycardic, tachypneic or hypoxic. Maintain patient on cardiac technician, seizure precautions, obtain appropriate laboratory studies, x-ray the chest, EKG x2, troponin x2, D-dimer, and continue AED medication. Her chest pain is reproducible, and as per review of prior documentation, has been present for over a month. Her first EKG is morphologically unchanged from her prior EKG. 12/07/20 18:40 Reassessed. No acute distress. No further convulsive activity noted. Resting comfortably. Troponin negative. Laboratory studies unremarkable. Of note, patient having a delay in disposition as phlebotomy team having difficulty obtaining D-dimer. I am told that just successfully obtained her D-dimer. Patient's urinalysis is pending. 12/07/20 21:24 X-ray of the chest reviewed and appreciated. A CT scan of the chest was obtained to exclude pneumonia. Pneumonia was excluded on CT scan of the chest. D-dimer is negative. Troponin is negative x2. Urinalysis unremarkable. Repeat EKG is pending. Patient did have some shaking which was terminated with Ativan, I suspect that this is a conversion disorder, or psychogenic nonepileptiform seizure. Patient having conversations with myself and staff. 12/07/20 22:11 EKG unchanged x2. Troponin negative x2. D-dimer negative. CT scan brain and chest negative for acute findings. Laboratory studies are essentially unremarkable. Patient resting comfortably at this time, and in no acute distress. I suspect costochondritis, and psychogenic convulsion. Discharge with outpatient follow-up ED Medical Decision Making - Lab Data Result diagrams: 12/07/20 18:27 12/07/20 17:08 Vital Signs 12/07/20 16:35 Temperature 97.8 F Pulse Rate 59 L Respiratory 16 Rate Blood Pressure 146/46 O2 Sat by Pulse 96 Oximetry - EKG Data -: EKG Interpreted by [facility] EKG shows normal: sinus rhythm Rate: bradycardia - EKG Data When compared to previous EKG there are: no significant change 12/07/20 16:57 EKG #1 interpreted at 16: 19 Sinus rhythm, bradycardia, rate 57 bpm. Normal axis, QTC 4 5 5 ms. Low voltage anteroseptal leads, T wave inversion V2. Abnormal EKG. Not a STEMI. Appears unchanged when compared to prior EKG from 10/26/2020 - Radiology Data Radiology results: pending, report reviewed, image reviewed [address] [address] XRay Report Signed Patient: PARVEZ SERRANO MR#: [id number] : 1960 Acct:[id number] Age/Sex: 59 / F ADM Date: 12/07/20 Loc: ED Attending Dr: Ordering Physician: EPHRAIM KING MD Date of Service: 12/07/20 Procedure(s): XR chest 1V ap Accession Number(s): [id number] cc: EPHRAIM KING MD Fluoro Time In Minutes: CHEST 1 VIEW INDICATION / CLINICAL INFORMATION: chest wall pain. COMPARISON: 10/26/2020 FINDINGS: SUPPORT DEVICES: None. HEART / MEDIASTINUM: No significant abnormality. LUNGS / PLEURA: Both lungs remain hyper inflated. There is suggestion of pulmonary opacity in the right midlung, new since the last chest radiograph. The remainder the lungs are grossly clear. No pneumothorax. ADDITIONAL FINDINGS: No significant additional findings. IMPRESSION: 1. Questionable pulmonary opacity in the right midlung. Pneumonia is within the differential. 2. No other acute significant finding. . Signer Name: Kristyn Dunbar MD Signed: 12/07/2020 4:48 PM Workstation Name: [id number] Transcribed By: JR Dictated By: Kristyn Dunbar MD Electronically Authenticated By: Kristyn Dunbar MD Signed Date/Time: 12/07/201647 DD/ 44 CT CHEST WITHOUT CONTRAST INDICATION / CLINICAL INFORMATION: cp, right sided pna. TECHNIQUE: Axial CT images were obtained through the chest without contrast. All CT scans at this location are performed using CT dose reduction for ALARA by means of automated exposure control. COMPARISON: No prior CT. Chest radiograph from earlier in the day. FINDINGS: HEART: No significant abnormality. CORONARY ARTERY CALCIFICATION: Mild. THORACIC AORTA: Mild atheros clerotic calcification without acute abnormality. MEDIASTINUM / SAMANTHA: No significant abnormality. PLEURA: No pleural effusion. No pneumothorax. LUNGS: No acute air space or interstitial disease. No pulmonary nodule or mass. ADDITIONAL FINDINGS: Right midlung pulmonary opacity on chest radiograph re presents a healed/healing anterior right 4th rib fracture. UPPER ABDOMEN: No significant abnormality. SKELETAL SYSTEM: Healing fractures of the anterior right 2nd through 5th ribs. IMPRESSION: 1. No pneumonia or pulmonary nodule. 2. Healing fractures of the anterior right 2nd through 5th ribs which accounts for the density on the chest radiograph. Signer Name: Jose Luis Martino MD Signed: 12/07/2020 8:18 PM Workstation Name: [id number] Noncontrast CT scan of the brain is negative for acute findings. Critical care attestation.: If time is entered above; I have spent that time in minutes in the direct care of this critically ill patient, excluding procedure time. ED Disposition Clinical Impression: Chest wall pain, Convulsion, History of bipolar disorder Disposition: 06 HOME HEALTH CARE SERVICE Is pt being admited?: No Does the pt Need Aspirin: No Condition: Good Instructions: Nonspecific Chest Pain, Adult, Managing Non-Epileptic Seizures, Adult Additional Instructions: Please continue current outpatient medications. Take Lamictal as directed. Follow-up with a primary care doctor or sports marketing coordinator within the next 3 days for chest wall pain. Follow-up with a primary care doctor or neurologist within the next 3 to 5 days for convulsions. Follow-up with your outpatient psychiatrist or mental health specialist within the next week. Please have a primary care doctor contact the medical records department to obtain copies of laboratory studies and radiology results. Have them follow-up on nonemergent incidental findings. Please return to the emergency room right away with new pain, worsened pain, migration of pain, projectile vomiting, change in mental status, confusion, inability tolerate liquid feeds, new, worsened or different symptoms not present on the initial emergency room evaluation. Patient may advance diet as tolerated, and take [id number] acetaminophen and/or low-dose ibuprofen as needed for physical pain Referrals: OTIS RUEDA MD [Staff Physician] - 3-5 Days DEMARIO GARCIA MD [Staff Physician] - 3-5 Days Heart Score - HEART Score History: Slightly suspicious EKG: Non-specific Age: 45-65 Risk factors: 1-2 risk factors Troponin: < normal limit HEART Score: 3 - EKG Read Time Time EKG Completed: 16:19 EKG Read Time: 16:19 - Critical Actions Critical Actions: 0-3 pts:0.9-1.7%risk of adverse cardiac event.Candidate for discharge
--- NOTE | 2020-12-07 16:53 | XRay Report ---
CHEST 1 VIEW INDICATION / CLINICAL INFORMATION: chest wall pain. COMPARISON: 10/26/2020 FINDINGS: SUPPORT DEVICES: None. HEART / MEDIASTINUM: No significant abnormality. LUNGS / PLEURA: Both lungs remain hyperinflated. There is suggestion of pulmonary opacity in the righ t midlung, new since the last chest radiograph. The remainder the lungs are grossly clear. No pneumot horax. ADDITIONAL FINDINGS: No significant additional findings. IMPRESSION: 1. Questionable pulmonary opacity in the right midlung. Pneumonia is within the differential. 2. No other acute significant finding. . Signer Name: Kristyn Dunbar MD Signed: 12/07/2020 4:48 PM Workstation Name: [id number]
[2020-12-07 17:57] LABS: Alanine Aminotransferase 22 units/L (7-56); Albumin 4.5 g/dL (3.9-5); BUN/Creatinine Ratio 18; Blood Urea Nitrogen 18 mg/dL (7-17); Calcium 9.4 mg/dL (8.4-10.2); Hemolysis Index 19
[2020-12-07 18:36] VITALS: BP 115/60
[2020-12-07 19:51] LABS: Hematocrit 33.1 % (30.3-42.9); Hemoglobin 11.4 gm/dl (10.1-14.3); Mean Corpuscular HGB Conc 35 % (30-34); Mean Corpuscular Volume 98 fl (79-97); Platelet Count 276 K/mm3 (140-440); Red Blood Count 3.39 M/mm3 (3.65-5.03); Red Cell Distribution Width 13.6 % (13.2-15.2)
[2020-12-07 20:17] LABS: Bilirubin,Urine NEG (Negative); Blood,Urine NEG (Negative); Color,Urine Straw (Yellow); Protein,Urine <15 mg/dL mg/dL (Negative); Urobilinogen,Urine < 2.0 mg/dL (<2.0)
[2020-12-07 20:19] LABS: WBC,Urine < 1.0 /HPF (0.0-6.0)
[2020-12-07] MEDS ORDERED: LORazepam 2 MG/ML VIAL IV ONE (21:07)
--- NOTE | 2020-12-07 21:22 | Cat Scan Report ---
CT CHEST WITHOUT CONTRAST INDICATION / CLINICAL INFORMATION: cp, right sided pna. TECHNIQUE: Axial CT images were obtained through the chest without contrast. [facility] are performed using CT dose reduction for ALARA by means of automated exposure control. COMPARISON: No prior CT. Chest radiograph from earlier in the day. FINDINGS: HEART: No significant abnormality. CORONARY ARTERY CALCIFICATION: Mild. THORACIC AORTA: Mild atherosclerotic calcification without acute abnormality. MEDIASTINUM / SAMANTHA: No significant abnormality. PLEURA: No pleural effusion. No pneumothorax. LUNGS: No acute air space or interstitial disease. No pulmonary nodule or mass. ADDITIONAL FINDINGS: Right midlung pulmonary opacity on chest radiograph represents a healed/healing anterior right 4th rib fracture. UPPER ABDOMEN: No significant abnormality. SKELETAL SYSTEM: Healing fractures of the anterior right 2nd through 5th ribs. IMPRESSION: 1. No pneumonia or pulmonary nodule. 2. Healing fractures of the anterior right 2nd through 5th ribs which accounts for the density on the chest radiograph. Signer Name: Jose Luis Martino MD Signed: 12/07/2020 9:18 PM Workstation Name: [id number]
--- NOTE | 2020-12-07 21:29 | Cat Scan Report ---
CT head/brain wo con INDICATION: sz vs convulsion vs pnes. TECHNIQUE: All CT scans at this location are performed using CT dose reduction for ALARA by means of automated e xposure control. COMPARISON: Brain MRI on 10/31/2020 FINDINGS: There is no evidence of hemorrhage, hydrocephalus, brain edema, or mass effect/mass lesion. There is overall normal brain formation and brain volume for the patient's age. Ventricular and cisternal/sulc al size is normal for age. The included paranasal sinuses and mastoid air cells are clear. The orbits appear unremarkable. IMPRESSION: 1. No acute intracranial abnormality. Signer Name: Forrest Vásquez MD Signed: 12/07/2020 9:25 PM Workstation Name: [id number]
[2020-12-07] MEDS ORDERED: FAMOTIDINE 20 MG TAB PO SCH (22:00)
[2020-12-07] MEDS ORDERED: KETOROLAC 30 MG/1 ML INJ IV ONE (22:20)
--- NOTE | 2020-12-17 13:50 | Electrocardiograph Report ---
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
== END 2020-12-07 23:00 | disposition home health service (06) ==
LOC: ED 15:59
DX: R07.89 Other chest pain (principal); R56.9 Unspecified convulsions; F31.9 Bipolar disorder, unspecified; Z86.73 Personal history of transient ischemic attack (TIA), and cerebral infarction without residual deficits; Z90.89 Acquired absence of other organs; Z90.710 Acquired absence of both cervix and uterus; Z88.0 Allergy status to penicillin
CPT/HCPCS: 36415; 70450; 71045; 71250; 80053; 81001; 82550; 83735; 84484; 85027; 85379; 85610; 93005; 96374; 96375; 96376; 99284; J1885; J1953; J2060; J3360; 80320; 96365; G0480

== ENCOUNTER 2020-12-16 21:14 | Emergency (ER) | payer MEDICARE ==
--- NOTE | 2020-12-16 22:11 | Emergency Department Report ---
ED Abdominal Pain HPI - General Chief Complaint: Abdominal Pain Stated Complaint: UNABLE TO URINATE/VOMITTING Time Seen by Provider: 12/16/20 21:51 Source: patient Mode of arrival: Ambulatory Limitations: No Limitations - History of Present Illness Initial Comments: Patient is 60 years old female with history of schizophrenia and seizure. Patient presented to the ER stated that she is unable to urinate since yesterday. Patient is also complaining of suprapubic abdominal pain. Patient denied any similar presentation. She denied any recent trauma. No fever or chills. Patient denied any chest pain or shortness of breath. No recent [id number] medication use. MD Complaint: abdominal pain -: days(s) Location: suprapubic Radiation: none Migration to: no migration Severity: moderate Quality: fullness Consistency: constant Associated Symptoms: nausea. denies: diarrhea, fever, chills - Related Data Previous Rx's Medication Instructions Recorded Last Taken Type Aspirin EC [Ecotrin] 325 mg PO QDAY #30 tablet 11/09/20 Unknown Rx AtorvaSTATin [Lipitor] 20 mg PO QHS #30 tablet 11/09/20 Unknown Rx Docusate Sodium [Colace CAP] 100 mg PO BID PRN #30 capsule 11/09/20 Unknown Rx Escitalopram [Lexapro] 20 mg PO QDAY #60 tablet 11/09/20 Unknown Rx Famotidine [Pepcid] 20 mg PO BID #60 tablet 11/09/20 Unknown Rx OLANzapine [Zyprexa] 10 mg PO QDAY #30 tablet 11/09/20 Unknown Rx lamoTRIgine [LaMICtal] 100 mg PO BID #60 tablet 12/07/20 Unknown Rx Ondansetron [Zofran Odt] 4 mg PO Q8HR PRN #14 tab.rapdis 12/17/20 Unknown Rx traMADoL [Ultram 50 MG tab] 50 mg PO Q4HR PRN #14 tablet 12/17/20 Unknown Rx Allergies Allergy/AdvReac Type Severity Reaction Status Date / Time Penicillins Allergy Unknown Verified 12/16/20 21:46 ED Review of Systems ROS: Stated complaint: UNABLE TO URINATE/VOMITTING Other details as noted in HPI Comment: All other systems reviewed and negative Constitutional: denies: chills, fever Respiratory: denies: cough, shortness of breath, SOB with exertion Cardiovascular: denies: chest pain, palpitations Gastrointestinal: abdominal pain, nausea. denies: vomiting, diarrhea, constipation, hematemesis, melena, hematochezia Genitourinary: urgency Neurological: denies: headache, weakness ED Past Medical Hx - Past Medical History Hx CVA: Yes Hx Congestive Heart Failure: No Hx Diabetes: No Hx Seizures: Yes Hx Psychiatric Treatment: Yes (Schiziophrenia) Hx Asthma: No Hx COPD: No Hx HIV: No - Surgical History Hx Cholecystectomy: Yes Additional Surgical History: Hysterectomy - Social History Smoking Status: Never Smoker Substance Use Type: None - Medications Home Medications: Home Medications Medication Instructions Recorded Confirmed Last Taken Type Aspirin EC [Ecotrin] 325 mg PO QDAY #30 tablet 11/09/20 Unknown Rx AtorvaSTATin [Lipitor] 20 mg PO QHS #30 tablet 11/09/20 Unknown Rx Docusate Sodium [Colace CAP] 100 mg PO BID PRN #30 capsule 11/09/20 Unknown Rx Escitalopram [Lexapro] 20 mg PO QDAY #60 tablet 11/09/20 Unknown Rx Famotidine [Pepcid] 20 mg PO BID #60 tablet 11/09/20 Unknown Rx OLANzapine [Zyprexa] 10 mg PO QDAY #30 tablet 11/09/20 Unknown Rx lamoTRIgine [LaMICtal] 100 mg PO BID #60 tablet 12/07/20 Unknown Rx Ondansetron [Zofran Odt] 4 mg PO Q8HR PRN #14 tab.rapdis 12/17/20 Unknown Rx traMADoL [Ultram 50 MG tab] 50 mg PO Q4HR PRN #14 tablet 12/17/20 Unknown Rx ED Physical Exam - General Limitations: No Limitations General appearance: alert, in no apparent distress - Head Head exam: Present: atraumatic, normocephalic, normal inspection - Eye Eye exam: Present: normal appearance - ENT ENT exam: Present: normal exam, normal orophraynx, mucous membranes moist - Neck Neck exam: Present: normal inspection, full ROM. Absent: tenderness, meningismus - Respiratory Respiratory exam: Present: normal lung sounds bilaterally - Cardiovascular Cardiovascular Exam: Present: regular rate, normal rhythm, normal heart sounds - GI/Abdominal GI/Abdominal exam: Present: soft, tenderness (Suprapubic), normal bowel sounds. Absent: distended, guarding, rebound, rigid, mass, bruit, pulsatile mass, hernia - Extremities Exam Extremities exam: Present: normal inspection, full ROM, normal capillary refill. Absent: pedal edema, calf tenderness - Back Exam Back exam: Present: normal inspection, full ROM. Absent: CVA tenderness (R), CVA tenderness (L) - Neurological Exam Neurological exam: Present: alert, oriented X3, CN II-XII intact, normal gait, reflexes normal. Absent: motor sensory deficit - Psychiatric Psychiatric exam: Present: normal mood - Skin Skin exam: Present: warm, intact, normal color ED Course Vital Signs 12/16/20 12/16/20 12/16/20 21:38 22:48 23:46 Temperature 98.6 F 98.2 F Pulse Rate 55 L 80 Respiratory 16 18 Rate Blood Pressure 122/48 Blood Pressure 126/64 [Left] O2 Sat by Pulse 100 100 100 Oximetry 12/17/20 12/17/20 01:14 02:34 Temperature Pulse Rate 68 59 L Respiratory 15 12 Rate Blood Pressure Blood Pressure 110/36 118/52 [Left] O2 Sat by Pulse 100 99 Oximetry ED Medical Decision Making - Lab Data Result diagrams: 12/16/20 23:02 12/16/20 23:02 - Radiology Data Radiology results: report reviewed - Medical Decision Making Patient is 60 years old female with history of schizophrenia and seizure. Patient presented to the ER stated that she is unable to urinate since yesterday. Patient is also complaining of suprapubic abdominal pain. Patient denied any similar presentation. She denied any recent trauma. No fever or chills. Patient denied any chest pain or shortness of breath. No recent fbjh-drk-lkhbecy medication use. Patient found to have a urine retention. Manrique catheter placed and immediately put 900 cc. Patient had 2 episode of generalized tonic-clonic seizure in the ER for which she received 2 mg of Ativan that aborted the seizure. Patient also given Keppra [address] abdomen and pelvis showed no acute abnormality except for hiatal hernia. Patient will be discharged with a Manrique catheter and to follow-up with a urologist in the next 2 to 3 days and to return to the ER if she develop any new symptoms. Critical care attestation.: If time is entered above; I have spent that time in minutes in the direct care of this critically ill patient, excluding procedure time. ED Disposition Clinical Impression: Seizure, Acute abdominal pain in left lower quadrant, Acute retention of urine Disposition: 01 HOME / SELF CARE / HOMELESS Is pt being admited?: No Condition: Stable Instructions: Indwelling Urinary Catheter Care, Adult, Acute Urinary Retention, Female, Seizure, Adult, Abdominal Pain (ED) Prescriptions: traMADoL [Ultram 50 MG tab] 50 mg PO Q4HR PRN #14 tablet PRN Reason: Pain Ondansetron [Zofran Odt] 4 mg PO Q8HR PRN #14 tab.rapdis PRN Reason: Nausea And Vomiting Referrals: CHRIS SPRING MD [Staff Physician] - 3-5 Days
[2020-12-16] MEDS ORDERED: LORazepam 2 MG/ML VIAL ONE (22:25)
[2020-12-16] MEDS ORDERED: LORazepam 2 MG/ML VIAL IM ONE (22:25)
[2020-12-16] MEDS ORDERED: levETIRAcetam 1000 MG/NS 0.75% 1,000 MG/100 ML BAG IV ONE (22:26)
--- NOTE | 2020-12-16 22:33 | Emergency Department Report ---
Blank Doc - Documentation Documentation: I was informed by Jose Francisco custom harvester that patient was having active seizure I went to assess patient and she is having tonic-clonic like seizure involving her upper extremities and lower extremities She is not responding but is maintaining her airway at this time Advised paramedics to give IM Ativan as patient does not have IV access at this time Status post Ativan seizing has resolved Discussed with Dr. Trinidad and charge nurse patient was moved to room 1 in the main emergency department
[2020-12-16] MEDS ORDERED: ONDANSETRON 4 MG/2 ML INJ IV ONE (23:12)
[2020-12-16] MEDS ORDERED: ONDANSETRON 4 MG/2 ML INJ ONE (23:14)
[2020-12-16 23:43] LABS: Basophils % (Auto) 0.4 % (0.0-1.8); Eosinophils # (Auto) 0.1 K/mm3 (0.0-0.4); Eosinophils % (Auto) 1.3 % (0.0-4.3); Hematocrit 32.2 % (30.3-42.9); Hemoglobin 11.1 gm/dl (10.1-14.3); Lymphocytes # (Auto) 2.4 K/mm3 (1.2-5.4); Mean Corpuscular HGB Conc 34 % (30-34); Mean Corpuscular Volume 97 fl (79-97); Monocytes # (Auto) 0.5 K/mm3 (0.0-0.8); Monocytes % (Auto) 8.9 % (0.0-7.3); Platelet Count 274 K/mm3 (140-440); Red Blood Count 3.33 M/mm3 (3.65-5.03); Red Cell Distribution Width 13.4 % (13.2-15.2)
[2020-12-16 23:45] LABS: Alanine Aminotransferase 21 units/L (7-56); Albumin 4.3 g/dL (3.9-5); BUN/Creatinine Ratio 15; Blood Urea Nitrogen 23 mg/dL (7-17); Calcium 9.6 mg/dL (8.4-10.2); Hemolysis Index 12
[2020-12-16 23:47] LABS: Bilirubin,Direct < 0.2 mg/dL (0-0.2)
--- NOTE | 2020-12-17 00:49 | Cat Scan Report ---
CT ABDOMEN AND PELVIS WITHOUT CONTRAST INDICATION / CLINICAL INFORMATION: ABDOMINAL PAIN. TECHNIQUE: Axial CT images were obtained through the abdomen and pelvis without IV contrast. All CT scans at [facility] location are performed using CT dose reduction for ALARA by means of automated exposure control. COMPARISON: None available. FINDINGS: LOWER CHEST: Large type one hiatal hernia. LIVER: No significant abnormality. GALLBLADDER: Removed. BILE DUCTS: No significant abnormality. PANCREAS: No significant abnormality. SPLEEN: No significant abnormality. ADRENALS: No significant abnormality. RIGHT KIDNEY and URETER: No significant abnormality. LEFT KIDNEY and URETER: No significant abnormality. STOMACH and SMALL BOWEL: No significant abnormality. COLON: No significant abnormality. APPENDIX: Not well identified. PERITONEUM: No free fluid. No free air. No fluid collection. LYMPH NODES: No significant adenopathy. AORTA and ARTERIES: Scattered atherosclerotic calcification throughout a nondilated abdominal aorta.. IVC and VEINS: No significant abnormality. URINARY BLADDER: No significant abnormality. REPRODUCTIVE ORGANS: No significant abnormality. ADDITIONAL FINDINGS: None. SKELETAL SYSTEM: No significant abnormality. IMPRESSION: No acute or inflammatory abnormality within the abdomen identified within the limits of the noncontra st technique. Large type one hiatal hernia. Signer Name: Corey Cueto MD Signed: 12/17/2020 12:44 AM Workstation Name: [id number]
[2020-12-17 01:39] LABS: Bilirubin,Urine NEG (Negative); Blood,Urine NEG (Negative); Color,Urine Yellow (Yellow); Protein,Urine <15 mg/dL mg/dL (Negative); Urobilinogen,Urine < 2.0 mg/dL (<2.0)
[2020-12-17] MEDS ORDERED: traMADol 50 MG TAB PO ONE (02:24)
[2020-12-17 02:35] VITALS: BP 118/52
[2020-12-17] MEDS ORDERED: LORazepam 2 MG/ML VIAL ONE (03:41)
--- NOTE | 2020-12-17 04:08 | Emergency Department Report ---
Blank Doc - Documentation Documentation: This patient was initially seen by my colleague and worked up for abdominal pa in. She was set up for discharge but transportation will not arrive until about 4:30 AM. I was called to see her as the patient had some seizure-like activity. However it appears consistent with pseudoseizures. The patient has full body shaking that makes the teletypesetter monitor appears if her heart rate has significantly elevated, but this does not match with the palpable radial pulse which was within normal limits. Patient when asking the patient questions, she appears to track with her eyes. I asked her if she has any discomfort in the patient answers yes, while still shaking. After the patient stopped her convulsions, there was no postictal.
[2020-12-17] MEDS ORDERED: LORazepam 2 MG/ML VIAL IV ONE (04:42)
== END 2020-12-17 04:10 | disposition home or self-care (01) ==
LOC: ED 21:14
DX: R56.9 Unspecified convulsions (principal); R33.9 Retention of urine, unspecified; R10.32 Left lower quadrant pain; F20.9 Schizophrenia, unspecified; Z98.890 Other specified postprocedural states; Z88.0 Allergy status to penicillin
CPT/HCPCS: 36415; 51702; 74176; 80048; 80076; 81001; 83690; 85025; 96365; 96372; 96375; 99284; J1953; J2060; J2405

== ENCOUNTER 2020-12-19 17:33 | Emergency (ER) | payer MEDICARE ==
[2020-12-19 19:14] LABS: Basophils % (Auto) 0.2 % (0.0-1.8); Eosinophils # (Auto) 0.1 K/mm3 (0.0-0.4); Eosinophils % (Auto) 1.1 % (0.0-4.3); Hematocrit 31.8 % (30.3-42.9); Hemoglobin 10.8 gm/dl (10.1-14.3); Lymphocytes # (Auto) 2.6 K/mm3 (1.2-5.4); Lymphocytes % (Auto) 27.6 % (13.4-35.0); Mean Corpuscular HGB Conc 34 % (30-34); Mean Corpuscular Volume 98 fl (79-97); Monocytes # (Auto) 0.8 K/mm3 (0.0-0.8); Monocytes % (Auto) 8.6 % (0.0-7.3); Platelet Count 266 K/mm3 (140-440); Red Blood Count 3.26 M/mm3 (3.65-5.03); Red Cell Distribution Width 13.4 % (13.2-15.2)
[2020-12-19 19:24] LABS: Calcium 9.1 mg/dL (8.4-10.2)
[2020-12-19 19:51] VITALS: BP 112/51
--- NOTE | 2020-12-19 19:52 | Emergency Department Report ---
ED Female HPI - General Chief complaint: Nausea/Vomiting/Diarrhea Stated complaint: BLEEDING AND VOMITTING Time Seen by Provider: 12/19/20 18:03 Source: patient Mode of arrival: Wheelchair Limitations: No Limitations - History of Present Illness Initial comments: 60-year-old female presents to ED with report of vaginal bleeding x2 days. Patient has an indwelling catheter in place. She states over the last couple of days she has seen mild amount of blood in her underwear and on the toilet tissue when she wipes. Patient denies any blood in the Manrique bag. When placed in the room patient initially exhibited seizure-like activity. However, this was a pseudoseizure. I instructed patient to stop shaking so that I could perform an exam on her. Patient then stopped shaking, and removed her own shorts and underwear. There was no postictal period. MD Complaint: vaginal bleeding -: days(s) (2) Severity: mild Quality: other (painless) Consistency: intermittent Improves with: none Worsens with: none - Related Data Previous Rx's Medication Instructions Recorded Last Taken Type Aspirin EC [Ecotrin] 325 mg PO QDAY #30 tablet 11/09/20 Unknown Rx AtorvaSTATin [Lipitor] 20 mg PO QHS #30 tablet 11/09/20 Unknown Rx Docusate Sodium [Colace CAP] 100 mg PO BID PRN #30 capsule 11/09/20 Unknown Rx Escitalopram [Lexapro] 20 mg PO QDAY #60 tablet 11/09/20 Unknown Rx Famotidine [Pepcid] 20 mg PO BID #60 tablet 11/09/20 Unknown Rx OLANzapine [Zyprexa] 10 mg PO QDAY #30 tablet 11/09/20 Unknown Rx lamoTRIgine [LaMICtal] 100 mg PO BID #60 tablet 12/07/20 Unknown Rx Ondansetron [Zofran Odt] 4 mg PO Q8HR PRN #14 tab.rapdis 12/17/20 Unknown Rx traMADoL [Ultram 50 MG tab] 50 mg PO Q4HR PRN #14 tablet 12/17/20 Unknown Rx Allergies Allergy/AdvReac Type Severity Reaction Status Date / Time Penicillins Allergy Unknown Verified 12/16/20 21:46 ED Review of Systems ROS: Stated complaint: BLEEDING AND VOMITTING Other details as noted in HPI Comment: All other systems reviewed and negative Constitutional: denies: chills, fever Gastrointestinal: nausea, vomiting Genitourinary: as per HPI ED Past Medical Hx - Past Medical History Previous Medical History?: Yes Hx CVA: Yes Hx Congestive Heart Failure: No Hx Diabetes: No Hx Seizures: Yes Hx Psychiatric Treatment: Yes (Schiziophrenia) Hx Asthma: No Hx COPD: No Hx HIV: No - Surgical History Past Surgical History?: Yes Hx Cholecystectomy: Yes Additional Surgical History: Hysterectomy - Social History Smoking Status: Never Smoker Substance Use Type: None - Medications Home Medications: Home Medications Medication Instructions Recorded Confirmed Last Taken Type Aspirin EC [Ecotrin] 325 mg PO QDAY #30 tablet 11/09/20 Unknown Rx AtorvaSTATin [Lipitor] 20 mg PO QHS #30 tablet 11/09/20 Unknown Rx Docusate Sodium [Colace CAP] 100 mg PO BID PRN #30 capsule 11/09/20 Unknown Rx Escitalopram [Lexapro] 20 mg PO QDAY #60 tablet 11/09/20 Unknown Rx Famotidine [Pepcid] 20 mg PO BID #60 tablet 11/09/20 Unknown Rx OLANzapine [Zyprexa] 10 mg PO QDAY #30 tablet 11/09/20 Unknown Rx lamoTRIgine [LaMICtal] 100 mg PO BID #60 tablet 12/07/20 Unknown Rx Ondansetron [Zofran Odt] 4 mg PO Q8HR PRN #14 tab.rapdis 12/17/20 Unknown Rx traMADoL [Ultram 50 MG tab] 50 mg PO Q4HR PRN #14 tablet 12/17/20 Unknown Rx ED Physical Exam - General Limitations: No Limitations General appearance: alert, in no apparent distress - Head Head exam: Present: atraumatic, normocephalic - Eye Eye exam: Present: normal appearance, EOMI - ENT ENT exam: Present: mucous membranes moist - Neck Neck exam: Present: normal inspection - Respiratory Respiratory exam: Present: normal lung sounds bilaterally. Absent: respiratory distress - Cardiovascular Cardiovascular Exam: Present: regular rate, normal rhythm - GI/Abdominal GI/Abdominal exam: Present: soft. Absent: distended, tenderness - External exam: Present: other (Manrique catheter in place; appearance red mucosal tissue around the superior portion of catheter; possible urethral caruncle). Absent: bleeding Speculum exam: Absent: vaginal bleeding - Extremities Exam Extremities exam: Present: normal inspection - Neurological Exam Neurological exam: Present: alert, oriented X3 - Psychiatric Psychiatric exam: Present: normal affect, normal mood - Skin Skin exam: Present: warm, dry, intact, normal color ED Course Vital Signs 12/19/20 12/19/20 12/19/20 17:37 19:45 19:46 Temperature 98.8 F 98.6 F Pulse Rate 72 59 L Respiratory 69 H 20 20 Rate Blood Pressure 135/35 112/51 [Left] O2 Sat by Pulse 98 99 99 Oximetry ED Medical Decision Making - Lab Data Result diagrams: 12/19/20 18:52 12/19/20 18:52 - Medical Decision Making 60-year-old female presents to ED with right vaginal spotting, seen with wiping and in underwear. Patient has Manrique catheter in place. There appears to be some red mucosal tissue above the Manrique catheter. Possible urethral caruncle. Labs are unremarkable. Vital signs are stable. Patient advised to follow-up with urology and gynecology. Return precautions given. Critical care attestation.: If time is entered above; I have spent that time in minutes in the direct care of this critically ill patient, excluding procedure time. ED Disposition Clinical Impression: Pseudoseizure, Urethral caruncle Disposition: 01 HOME / SELF CARE / HOMELESS Is pt being admited?: No Condition: Stable Instructions: Indwelling Urinary Catheter Care, Adult, [id number] Referrals: CHRIS SPRING MD [Staff Physician] - 3-5 Days PRIMARY CARE, [Primary Care Provider] - 3-5 Days BARBARA WALDRON MD [Staff Physician] - 3-5 Days Time of Disposition: 19:47
== END 2020-12-19 20:30 | disposition home or self-care (01) ==
LOC: ED 17:33
DX: R56.9 Unspecified convulsions (principal); N36.2 Urethral caruncle; Z90.49 Acquired absence of other specified parts of digestive tract; Z88.0 Allergy status to penicillin
CPT/HCPCS: 36415; 80048; 85025; 99284

== ENCOUNTER 2021-03-01 12:27 | Emergency (ER) | payer MEDICARE ==
--- NOTE | 2021-03-01 13:19 | Emergency Department Report ---
HPI - General Chief Complaint: Seizure Time Seen by Provider: 03/01/21 12:54 - HPI HPI: 60-year-old female with history of bipolar disorder, seizure disorder as well as pseudoseizures and apparently a stroke in October with right-sided weakness brought in by EMS for seizure. The patient was at an eye clinic with her POAStaci when she began to have a seizure. According to the EMS report, she was in a chair when this started and she was helped down to the ground. She never fell over or hit her head or any other part of her body. When they ar rived, the patient was having convulsions and she was given 2 mg of intranasal Ativan. Her seizure activity stopped very briefly but then started again and she was given an additional 2 mg of Ativan intranasally. After this her seizure activity stopped and the patient became extremely confused, mumbling gibberish. Her vital signs have been normal. Her fingerstick blood glucose was 99. When I speak to the patient, she is somnolent but answers questions. She states that she had a stroke in October and has had right-sided weakness and numbness since then. She reports her only symptom or complaint is pain in the back of her head and neck which she says is from falling over. She denies any other symptoms or complaints including fever/chills, vision change, chest pain, shortness of breath, abdominal pain, nausea/vomiting, new focal weakness or sensory changes, or any other complaints. ED Past Medical Hx - Past Medical History Previous Medical History?: Yes Hx CVA: Yes Hx Congestive Heart Failure: No Hx Diabetes: No Hx Seizures: Yes Hx Psychiatric Treatment: Yes (Schiziophrenia) Hx Asthma: No Hx COPD: No Hx HIV: No - Surgical History Hx Cholecystectomy: Yes Additional Surgical History: Hysterectomy - Social History Smoking Status: Never Smoker Substance Use Type: None - Medications Home Medications: Home Medications Medication Instructions Recorded Confirmed Last Taken Type AtorvaSTATin [Lipitor] 20 mg PO QHS 07/12/20 07/12/20 Unknown History Escitalopram [Lexapro] 20 mg PO DAILY 07/12/20 07/12/20 Unknown History Midodrine [Proamatine] 5 mg PO TID 07/12/20 07/12/20 Unknown History OLANZapine [Zyprexa] 15 mg PO DAILY 07/12/20 07/12/20 Unknown History Pantoprazole [Protonix] 40 mg PO BID 07/12/20 07/12/20 Unknown History Topiramate [Topamax] 100 mg PO BID 07/12/20 07/12/20 Unknown History lamoTRIgine [LaMICtal] 100 mg PO DAILY 07/12/20 07/12/20 Unknown History levETIRAcetam [Keppra TAB] 1,000 mg PO BID #60 tab 07/13/20 Unknown Rx Aspirin EC [Ecotrin] 325 mg PO QDAY #30 tablet 11/09/20 Unknown Rx AtorvaSTATin [Lipitor] 20 mg PO QHS #30 tablet 11/09/20 Unknown Rx Docusate Sodium [Colace CAP] 100 mg PO BID PRN #30 capsule 11/09/20 Unknown Rx Escitalopram [Lexapro] 20 mg PO QDAY #60 tablet 11/09/20 Unknown Rx Famotidine [Pepcid] 20 mg PO BID #60 tablet 11/09/20 Unknown Rx OLANzapine [Zyprexa] 10 mg PO QDAY #30 tablet 11/09/20 Unknown Rx lamoTRIgine [LaMICtal] 100 mg PO BID #60 tablet 12/07/20 Unknown Rx Ondansetron [Zofran Odt] 4 mg PO Q8HR PRN #14 tab.rapdis 12/17/20 Unknown Rx traMADoL [Ultram 50 MG tab] 50 mg PO Q4HR PRN #14 tablet 12/17/20 Unknown Rx ED Review of Systems ROS: Stated complaint: seizure Other details as noted in HPI Physical Exam - Physical Exam Vital Signs: Vital Signs 03/01/21 12:43 Temperature 98.2 F Pulse Rate 88 Respiratory 18 Rate Blood Pressure 106/50 [Left] O2 Sat by Pulse 98 Oximetry Physical Exam: GENERAL: Well developed and well nourished. No acute distress HEAD: Normocephalic. No obvious signs of trauma. ENT: Moist mucous membranes. EYES: Extraocular movements are intact. Pupils are equal round and reactive to light bilaterally NECK: Supple. Full ROM is intact. Trachea is midline. LUNGS: Nonlabored breathing. Equal chest rise bilaterally. Clear to auscultation bilaterally. CARDIOVASCULAR: Regular rate and rhythm. No murmurs or rubs. VASCULAR: Cap refill < 2 seconds ABDOMEN: Abdomen is soft and nondistended. There is no significant tenderness, guarding or rebound. SKIN: Skin is warm and dry NEURO: Patient is awake, alert, and oriented. There is a right-sided facial droop. Otherwise, back line cook II-XII grossly intact. Right-sided weakness but no drift. Otherwise normal motor and sensory exam throughout. Mild dysarthria. MUSCULOSKELETAL: No obvious deformities. No significant tenderness. Normal ROM throughout. BACK/SPINE: No step-offs of the C/T/L-spine. There is midline tenderness located at the C-spine. No costovertebral angle tenderness. ED Course Vital Signs 03/01/21 12:43 Temperature 98.2 F Pulse Rate 88 Respiratory 18 Rate Blood Pressure 106/50 [Left] O2 Sat by Pulse 98 Oximetry ED Medical Decision Making - Lab Data Result diagrams: 03/01/21 14:46 03/01/21 14:46 - EKG Data -: EKG Interpreted by Id - EKG Data 03/01/21 17:14 Normal sinus rhythm. Normal axis. Normal intervals. No ectopy. Nonspecific T wave inversions. No significant ST segment abnormality - Radiology Data Radiology results: report reviewed - Medical Decision Making 60-year-old female with known history of bipolar disorder, seizure disorder, pseudoseizures, and prior stroke with right-sided weakness brought in after having two seizures at [facility]. She is afebrile with normal vital signs. Patient was given 4 mg of Ativan intranasally total. Physical examination reveals only her right-sided weakness and facial droop which is apparently her baseline. Patient reports pain in the back of her head and in her neck but has no signs of trauma. She does have mid spinal tenderness in the cervical region. Cervical collar has been applied. We will perform broad work-up with a full set of labs as well as CT of the head to assess for evidence of intracranial bleeding given the possibility of head trauma in a patient with seizure activity as well as CT of the C-spine to assess for evidence of fracture or dislocation. At 250, the patient's POA has arrived. She reports that the patient is in fact at her baseline mental status. She confirms that the patient did indeed have a recent stroke with residual right-sided deficits. She says that the patient's neurologist recently increased her Briviact dose due to increased frequency of seizures and that if 911 had not been called, the patient would've already been brought back to her facility. Labs reveal no significant leukocytosis or anemia. Creatinine is elevated slightly at 1.5. However, review of the patient's prior medical records reveals that this is her baseline creatinine. On repeat assessment, the patient remains stable. She has apparently removed her cervical collar. I was called to the bedside because the patient was apparently having another seizure. However, when I arrived and spoke with her and asked her to stop shaking and to speak to me she followed my commands and did so. She reports no new symptoms. CT of the head reveals no acute abnormalities. CT of the C-spine reveals no acute abnormalities. C-collar has been cleared she exhibits painless range of motion in the neck. She will be discharged to the care of her POA with instructions to follow-up soon as possible with her neurologist regarding the dosing of her seizure medications. Critical care attestation.: If time is entered above; I have spent that time in minutes in the direct care of this critically ill patient, excluding procedure time. ED Disposition Clinical Impression: Seizure, Recurrent seizures, Headache Disposition: 01 HOME / SELF CARE / HOMELESS Is pt being admited?: No Condition: Stable Instructions: Seizure, Adult, Seizure, Adult, [id number] Additional Instructions: Follow-up with your neurologist within the next week. Return to the emergency department should you develop significantly worsening symptoms or new health co ncerns. Referrals: [facility] [Provider Group] - 3-5 Days
[2021-03-01] MEDS ORDERED: LORazepam 2 MG/ML VIAL ONE (14:01)
--- NOTE | 2021-03-01 14:50 | XRay Report ---
CHEST 1 VIEW 03/01/2021 2:30 PM INDICATION / CLINICAL INFORMATION: seizure. COMPARISON: 12/07/20 FINDINGS: SUPPORT DEVICES: None. HEART / MEDIASTINUM: No significant abnormality. LUNGS / PLEURA: No significant pulmonary or pleural abnormality. No pneumothorax. ADDITIONAL FINDINGS: Healing right rib fractures. IMPRESSION: 1. No acute findings. No change. Signer Name: Jose Luis Martino MD Signed: 03/01/2021 2:46 PM Workstation Name: [id number]
--- NOTE | 2021-03-01 15:05 | Cat Scan Report ---
NONENHANCED CT SCAN OF THE HEAD: INDICATION / CLINICAL INFORMATION: 60 years Female; fall. TECHNIQUE: Routine CT head without contrast. All CT scans at this location are performed using CT dos e reduction for ALARA by means of automated exposure control. COMPARISON: CT scan of the head from 12/07/2020 FINDINGS: BRAIN / INTRACRANIAL CONTENTS: This is a limited CT scan due to motion related artifacts. No definite intracranial sequela from the trauma. No fluid level in the paranasal sinuses. No obvious scalp hematoma is seen. No acute hemorrhage, mass effect, midline shift, hydrocephalus, or acute, large territorial infarct. No chronic infarct or focal atrophy. Normal brain volume and ventricular/sulcal size for age. No sign ificant white matter abnormality. CRANIOCERVICAL JUNCTION: No significant abnormality. ORBITS: No significant abnormality of visualized orbits. SINUSES / MASTOIDS: No significant abnormality of the visualized paranasal sinuses or mastoid air luzmaria ls. ADDITIONAL FINDINGS: None. IMPRESSION: Limited CT scan due to motion related artifacts No obvious intracranial sequela from the trauma Signer Name: Charlotte Leija MD Signed: 03/01/2021 3:01 PM Workstation Name: [id number]
--- NOTE | 2021-03-01 15:09 | Cat Scan Report ---
Exam: CT cervical spine History: midline tend; Technique: Contiguous thin cut axial images obtained through the cervical spine. Sagittal and parada l reconstructions performed by the technologist. All CT scans at this location are performed using CT dose reduction for ALARA by means of automated exposure control. Findings: No priors. There is no evidence of fracture or traumatic subluxation. Vertebral bodies are normal in height and alignment. Intervertebral disc spaces: C3-C4: Disc height loss; moderate uncovertebral joint hypertrophy on the right side; neuroforamina ar e normal C5-C6: Mild disc height loss; shallow bony spur; neuroforamina are normal C6-C7: Mild disc height loss; neuroforamina are normal No significant degenerative change seen in the uncinate or facet joints. No significant canal stenosi s or osseous foraminal narrowing. Soft tissue emphysema at the C7 vertebral body level in the left side; soft tissue emphysema on the r ight side at the T1 level Impression: No signs of acute bony trauma to the cervical spine. Signer Name: Charlotte Leija MD Signed: 03/01/2021 3:05 PM Workstation Name: [id number]
[2021-03-01 15:41] LABS: Alanine Aminotransferase 23 units/L (7-56); Albumin 4.8 g/dL (3.9-5); BUN/Creatinine Ratio 12; Blood Urea Nitrogen 18 mg/dL (7-17); Calcium 9.8 mg/dL (8.4-10.2); Hemolysis Index 57
[2021-03-01 15:47] LABS: Bilirubin,Direct < 0.2 mg/dL (0-0.2)
[2021-03-01 16:32] LABS: Hematocrit 37.2 % (30.3-42.9); Mean Corpuscular HGB Conc 32 % (30-34); Mean Corpuscular Volume 97 fl (79-97); Red Blood Count 3.85 M/mm3 (3.65-5.03); Red Cell Distribution Width 13.6 % (13.2-15.2)
[2021-03-01 17:24] LABS: Giant Platelets Rare; Platelet Clumps Rare; Platelet Estimate Consistent w Auto; RBC Morphology Normal; Total Cells Counted 100
[2021-03-01 17:27] LABS: Platelet Count 335 K/mm3 (140-440)
[2021-03-01 17:53] VITALS: BP 116/59
[2021-03-01 18:08] LABS: Bilirubin,Urine NEG (Negative); Blood,Urine NEG (Negative); Color,Urine Yellow (Yellow); Protein,Urine <15 mg/dL mg/dL (Negative); Urobilinogen,Urine < 2.0 mg/dL (<2.0)
--- NOTE | 2021-03-02 12:53 | Electrocardiograph Report ---
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
== END 2021-03-01 17:56 | disposition home or self-care (01) ==
LOC: ED 12:27
DX: R56.9 Unspecified convulsions (principal); R51.9 Headache, unspecified; R53.1 Weakness; F20.9 Schizophrenia, unspecified; Z90.710 Acquired absence of both cervix and uterus
CPT/HCPCS: 36415; 70450; 71045; 72125; 80048; 80076; 80320; 81001; 82140; 83735; 84484; 85007; 85025; 93005; 99284; G0480; J2060